=== PATIENT | male | born 1975 | race Caucasian/White ===

== ENCOUNTER 2016-11-18 16:53 | Inpatient (IN) | payer MEDICAID ==
[~2016-11-18] VITALS: Ht 175.3 cm; Wt 69.4 kg
[2016-11-18] MEDS ORDERED: ACETAMINOPHEN 650 MG/SUPP.RECT RC ONE ×2 (17:30→17:31)
[2016-11-18] MEDS ORDERED: IV NS 0.9% 1,000 ML BAG IV ONE (17:30)
[2016-11-18] MEDS ORDERED: IV NS 0.9% 2,000 ML ONE (17:31)
[2016-11-18] MEDS ORDERED: IV SET PRIMARY PUMP SET 1 EA INFUS.SET MC ONE ×2 (17:32→23:02)
[2016-11-18 17:41] LABS: BASOPHILS % (AUTO) 0.6 % (0.0-2.0); EOSINOPHILS # (AUTO) 0.3 /CMM (0.0-0.7); EOSINOPHILS % (AUTO) 4.1 % (0.0-6.0); HEMATOCRIT 30 % (39-51); HEMOGLOBIN 7.9 g/dL (13.5-17.5); LYMPHOCYTES % (AUTO) 12.6 % (20.0-44.0); MEAN CORPUSCULAR HEMOGLOBIN 23 PG (26.0-33.0); MEAN CORPUSCULAR HGB CONC 27 g/dl (31.0-36.0); MEAN CORPUSCULAR VOLUME 87 fL (80-96); MONOCYTES # (AUTO) 0.6 /CMM (0.1-1.30); MONOCYTES % (AUTO) 7.9 % (2.0-12.0); NEUTROPHILS # (AUTO) 5.8 /CMM (1.8-8.9); NEUTROPHILS % (AUTO) 74.8 % (43.0-81.0); PLATELET COUNT (AUTO) 499 /CMM (150-450); RDW COEFFICIENT OF VARIATION 15.7 (11.5-15.0); RED BLOOD CELL COUNT(AUTO) 3.45 MIL/uL (4.5-6.0); WHITE BLOOD COUNT (AUTO) 7.7 K/uL (4.3-11.0)
[2016-11-18 17:53] LABS: CALCIUM, SERUM 9.1 mg/dL (8.5-10.1); CARBON DIOXIDE 22 mmol/L (21-32); CHLORIDE 104 mmol/L (98-107); CREATININE 2.4 mg/dL (0.6-1.3); GLUCOSE 66 mg/dL (74-106); POTASSIUM 3.1 mmol/L (3.5-5.1); SODIUM SERUM 140 mmol/L (136-145); UREA NITROGEN, BLOOD 38 mg/dL (7-18)
[2016-11-18 18:02] LABS: ALANINE AMINOTRANSFERASE < 6 U/L (12-78); ALKALINE PHOSPHATASE 109 U/L (46-116); ASPARTATE AMINOTRANSFERASE 21 U/L (15-37); BILIRUBIN,DIRECT 0.1 mg/dL (0.0-0.2); BILIRUBIN,TOTAL 0.4 mg/dL (0.2-1.0); INR 1.12 (0.87-1.13); PROTHROMBIN TIME 11.8 SECS (9.5-12.7); TOTAL PROTEIN, SERUM 8.5 g/dL (6.4-8.2)
[2016-11-18 18:04] LABS: TROPONIN I 0.054 ng/mL (0.00-0.056)
[2016-11-18 18:07] LABS: APPEARANCE,URINE Slightly Cloudy (CLEAR); BILIRUBIN,URINE Negative (NEGATIVE); BLOOD, URINE Small Ery/uL (NEGATIVE); COLOR,URINE Yellow (YELLOW); KETONES,URINE Negative (NEGATIVE); LEUKOCYTE ESTERASE ,URINE Large (NEGATIVE); NITRITE, URINE Negative (NEGATIVE); PH,URINE 5.5 (5.0-8.0); PROTEIN,URINE >=300 mg/dl (NEGATIVE); UGLUCOSE Negative (NEGATIVE); UROBILINOGEN,URINE 0.2 EU/dL (0.2)
[2016-11-18] MEDS ORDERED: DEXTROSE 50%-WATER 50 ML DISP.SYRIN IVP ONE (18:30)
[2016-11-18] MEDS ORDERED: PIPERACILLIN /TAZOBACTAM 3.375 G in IV D5W 50 ML IV ONE (18:30)
[2016-11-18] MEDS ORDERED: VANCOMYCIN 1 GM in IV D5W 250 ML IV ONE (18:30)
[2016-11-18] MEDS ORDERED: DEXTROSE 50%-WATER 50 ML DISP.SYRIN ONE (18:32)
[2016-11-18 18:35] LABS: BACTERIA,URINE Many /HPF (None Seen); SQUAMOUS EPITHELIAL CELL,UR Rare /HPF (None Seen); URINE AMORPHOUS URATE Few /HPF (None Seen); WBC,URINE TOO NUMEROUS TO COUN /HPF (0-3)
[2016-11-18] MEDS ORDERED: ACET160S2 GT (19:17)
[2016-11-18] MEDS ORDERED: AMIO200T2 GT (19:17)
[2016-11-18] MEDS ORDERED: SEVE800T8 GT (19:17)
[2016-11-18] MEDS ORDERED: INSU100I4 SQ (19:17)
[2016-11-18] MEDS ORDERED: INSU100V10 SQ (19:17)
[2016-11-18] MEDS ORDERED: ASCO250T5 PO (19:17)
[2016-11-18] MEDS ORDERED: WHEY227P GT (19:17)
[2016-11-18] MEDS ORDERED: FLUC100T GT (19:17)
[2016-11-18] MEDS ORDERED: PANT40TA2 GT (19:17)
[2016-11-18] MEDS ORDERED: DIGO125T GT (19:17)
[2016-11-18] MEDS ORDERED: GEMF600T GT (19:17)
[2016-11-18] MEDS ORDERED: ATOR40TA GT (19:17)
[2016-11-18] MEDS ORDERED: MIDO10TA GT (19:17)
[2016-11-18] MEDS ORDERED: ZINC220T GT (19:17)
[2016-11-18] MEDS ORDERED: FERR300L GT (19:17)
[2016-11-18 20:50] LABS: ABG BASE EXCESS -4.7 mmol/L; ABG OXYGEN SATURATION 97.7 % (92.0-98.5); ABG PCO2 27.3 mmHg (35.0-45.0); ABG PH 7.444 (7.350-7.450); ABG PO2 111.9 mmHg (75.0-100.0); AaDO2 141.9 mmHg; COHb 0.3 % (0.5-1.5); MetHb 0.5 % (0.0-1.5); O2Hb 96.9 % (94.0-97.0); SITE, ABG Right Brachial
[2016-11-18] MEDS ORDERED: IV NS 0.9% 1,000 ML IV PRN (21:10)
[2016-11-18 21:15] VITALS: BP 99/65
[2016-11-18] MEDS ORDERED: Z GUARD REMEDY 2 OZ OINT TP PRN (21:30)
[2016-11-18] MEDS ORDERED: ONDANSETRON HCL/PF 4 MG/2 ML VIAL IVP PRN (21:30)
[2016-11-18] MEDS ORDERED: DEXTROSE 50%-WATER 50 ML DISP.SYRIN IV PRN (21:30)
[2016-11-18] MEDS ORDERED: IV NS 0.9% 50 ML IV ONE (23:02)
[2016-11-18] MEDS ORDERED: ATORVASTATIN 40 MG TABLET ONE (23:02)
[2016-11-18] MEDS ORDERED: SECONDARY IV SET 1 EA INFUS.SET MC ONE (23:02)
[2016-11-18] MEDS ORDERED: IV NS 0.9% 1,000 ML ONE (23:02)
[2016-11-18] MEDS ORDERED: MEROPENEM 500 MG VIAL IV ONE (23:18)
[2016-11-18] MEDS: ATORVASTATIN 40 MG TABLET GT SCH (23:21)
[2016-11-18] MEDS: BLOOD SUGAR DIAGNOSTIC 1 EACH STRIP IN SCH (23:30)
[2016-11-18] MEDS: MEROPENEM 500 MG in IV NS 0.9% 50 ML IV SCH (23:32)
[2016-11-19] VITALS (7 sets, daily range): BP systolic 89–113; BP diastolic 42–95
[2016-11-19] MEDS ORDERED: RENAL NOVASOURCE 1,000 ML BOTTLE GT PRN ×2 (01:30→08:19)
[2016-11-19] MEDS ORDERED: RENAL NOVASOURCE 1,000 ML BOTTLE ONE (01:31)
[2016-11-19] MEDS ORDERED: FERROUS SULFATE UDC 300 MG/5 ML UDC ONE (04:34)
[2016-11-19] MEDS ORDERED: IV NS 0.9% 50 ML IV ONE (05:18)
[2016-11-19] MEDS: FERROUS SULFATE UDC 300 MG/5 ML UDC GT SCH ×3 (05:22→20:59)
[2016-11-19] MEDS: MEROPENEM 500 MG in IV NS 0.9% 50 ML IV SCH (05:23)
[2016-11-19] MEDS: BLOOD SUGAR DIAGNOSTIC 1 EACH STRIP IN SCH ×3 (05:44→17:36)
[2016-11-19] MEDS: INSULIN REGULAR, HUMAN 100 UNIT/ML 3 ML VIAL SQ PRN ×2 (05:46→12:57)
[2016-11-19 06:54] LABS: BASOPHILS % (AUTO) 0.5 % (0.0-2.0); EOSINOPHILS # (AUTO) 0.3 /CMM (0.0-0.7); HEMATOCRIT 24 % (39-51); HEMOGLOBIN 8.1 g/dL (13.5-17.5); LYMPHOCYTES # (AUTO) 0.7 /CMM (0.8-4.8); LYMPHOCYTES % (AUTO) 8.9 % (20.0-44.0); MEAN CORPUSCULAR HEMOGLOBIN 29 PG (26.0-33.0); MEAN CORPUSCULAR HGB CONC 34 g/dl (31.0-36.0); MEAN CORPUSCULAR VOLUME 86 fL (80-96); MONOCYTES # (AUTO) 0.6 /CMM (0.1-1.30); MONOCYTES % (AUTO) 6.7 % (2.0-12.0); NEUTROPHILS # (AUTO) 6.8 /CMM (1.8-8.9); NEUTROPHILS % (AUTO) 80.9 % (43.0-81.0); PLATELET COUNT (AUTO) 249 /CMM (150-450); RDW COEFFICIENT OF VARIATION 16.2 (11.5-15.0); WHITE BLOOD COUNT (AUTO) 8.4 K/uL (4.3-11.0)
[2016-11-19 07:04] LABS: CALCIUM, SERUM 8.5 mg/dL (8.5-10.1); CREATININE 3.3 mg/dL (0.6-1.3); MAGNESIUM 1.9 mg/dL (1.8-2.4); PHOSPHORUS 3.4 mg/dL (2.5-4.9); POTASSIUM 3.4 mmol/L (3.5-5.1)
[2016-11-19 07:09] LABS: THYROID STIMULATING HORMONE 0.761 uIU/mL (0.358-3.74)
[2016-11-19] MEDS ORDERED: FEE PK DOSING 1 MIN EA MC ONE (08:46)
[2016-11-19] MEDS ORDERED: GEMFIBROZIL 600 MG TABLET GT SCH (09:00)
[2016-11-19] MEDS ORDERED: HYDROGEL DRESSING 90 GM TUBE TP PRN (09:00)
[2016-11-19] MEDS ORDERED: AMIODARONE HCL 200 MG TABLET GT SCH (09:00)
[2016-11-19] MEDS ORDERED: PANTOPRAZOLE 40 MG TABLET.DR PO SCH (09:00)
[2016-11-19] MEDS: SEVELAMER CARBONATE 0.8 GM POWD.PACK GT SCH ×3 (09:08→17:37)
[2016-11-19] MEDS: HYDROGEL DRESSING 90 GM TUBE TP SCH (09:10)
[2016-11-19] MEDS: ACETAMINOPHEN 650 MG/20.3 ML UDC PO PRN ×2 (13:05→20:59)
[2016-11-19] MEDS ORDERED: DEXTROSE 50%-WATER 50 ML DISP.SYRIN IV PRN (13:30)
[2016-11-19] MEDS ORDERED: FLUCONAZOLE (100 MG) 100 MG TABLET GT SCH (15:00)
[2016-11-19] MEDS: ASPIRIN 81 MG TAB.CHEW GT SCH (15:53)
[2016-11-19] MEDS ORDERED: VANCOMYCIN 500 MG in IV D5W 100 ML IV PRN (16:00)
[2016-11-19] MEDS ORDERED: CASPOFUNGIN 50 MG in IV NS 0.9% 250 ML IV SCH (17:00)
[2016-11-19] MEDS ORDERED: DOSE PER PHARMACY MICAFUNGIN 1 EA XX PRN (17:00)
[2016-11-19] MEDS: MICAFUNGIN SODIUM 100 MG in IV NS 0.9% 100 ML IV SCH (17:56)
[2016-11-19] MEDS: ATORVASTATIN 40 MG TABLET GT SCH (21:00)
[2016-11-19] MEDS: HEPARIN SODIUM, PORCINE 5000 UNITS/1 ML VIAL SQ SCH (21:00)
[2016-11-20] VITALS (15 sets, daily range): BP systolic 94–136; BP diastolic 45–98
[2016-11-20] MEDS ORDERED: IV NS 0.9% 250 ML IV ONE ×2 (00:04→15:24)
[2016-11-20] MEDS: BLOOD SUGAR DIAGNOSTIC 1 EACH STRIP IN SCH ×5 (00:29→23:47)
[2016-11-20] MEDS: FERROUS SULFATE UDC 300 MG/5 ML UDC GT SCH ×3 (05:36→21:44)
[2016-11-20] MEDS: RENAL NOVASOURCE 1,000 ML BOTTLE GT PRN (05:43)
[2016-11-20 06:57] LABS: BASOPHILS % (AUTO) 0.4 % (0.0-2.0); EOSINOPHILS # (AUTO) 0.4 /CMM (0.0-0.7); EOSINOPHILS % (AUTO) 5.3 % (0.0-6.0); HEMATOCRIT 22 % (39-51); HEMOGLOBIN 7.5 g/dL (13.5-17.5); MEAN CORPUSCULAR HEMOGLOBIN 29 PG (26.0-33.0); MEAN CORPUSCULAR HGB CONC 34 g/dl (31.0-36.0); MEAN CORPUSCULAR VOLUME 86 fL (80-96); MONOCYTES # (AUTO) 0.5 /CMM (0.1-1.30); MONOCYTES % (AUTO) 7.8 % (2.0-12.0); NEUTROPHILS # (AUTO) 4.9 /CMM (1.8-8.9); NEUTROPHILS % (AUTO) 72.5 % (43.0-81.0); PLATELET COUNT (AUTO) 196 /CMM (150-450); RDW COEFFICIENT OF VARIATION 15.9 (11.5-15.0); WHITE BLOOD COUNT (AUTO) 6.8 K/uL (4.3-11.0)
[2016-11-20 07:07] LABS: CALCIUM, SERUM 8.7 mg/dL (8.5-10.1); CREATININE 3.1 mg/dL (0.6-1.3); POTASSIUM 3.4 mmol/L (3.5-5.1)
[2016-11-20 07:10] LABS: DIGOXIN 1.5 ng/mL (0.90-2.00)
[2016-11-20] MEDS: HEPARIN SODIUM, PORCINE 5000 UNITS/1 ML VIAL SQ SCH ×2 (07:52→21:45)
[2016-11-20] MEDS: MEROPENEM 500 MG in IV NS 0.9% 50 ML IV SCH (08:14)
[2016-11-20] MEDS: AMIODARONE HCL 200 MG TABLET PO SCH (08:15)
[2016-11-20] MEDS: VIT B CMPLX 3/FA/VIT C/BIOTIN 1 TAB TABLET GT SCH (08:15)
[2016-11-20] MEDS: PANTOPRAZOLE 40 MG/PACK PACK GT SCH (08:15)
[2016-11-20] MEDS: SEVELAMER CARBONATE 0.8 GM POWD.PACK GT SCH ×3 (08:15→17:20)
[2016-11-20] MEDS: ASPIRIN 81 MG TAB.CHEW GT SCH (08:15)
[2016-11-20] MEDS: HYDROGEL DRESSING 90 GM TUBE TP SCH (08:16)
[2016-11-20] MEDS ORDERED: DIGOXIN 0.125 MG TABLET GT SCH (09:00)
[2016-11-20] MEDS ORDERED: BLOOD IV SET 1 EA INFUS.SET MC ONE (15:24)
[2016-11-20] MEDS: LACTOBACILLUS RHAMNOSUS GG 1 EACH CAP.SPRINK GT SCH (17:20)
[2016-11-20] MEDS: INSULIN REGULAR, HUMAN 100 UNIT/ML 3 ML VIAL SQ PRN (17:22)
[2016-11-20] MEDS ORDERED: SECONDARY IV SET 1 EA INFUS.SET MC ONE (18:13)
[2016-11-20] MEDS: MICAFUNGIN SODIUM 100 MG in IV NS 0.9% 100 ML IV SCH (18:19)
[2016-11-20] MEDS: ATORVASTATIN 40 MG TABLET GT SCH (21:45)
[2016-11-20] MEDS: HYDROCODONE/APAP 5/325MG 1 EACH TABLET PO PRN (22:55)
[2016-11-21] VITALS (7 sets, daily range): BP systolic 90–148; BP diastolic 33–99
[2016-11-21] MEDS: HYDROCODONE/APAP 5/325MG 1 EACH TABLET PO PRN ×4 (04:34→23:54)
[2016-11-21] MEDS: RENAL NOVASOURCE 1,000 ML BOTTLE GT PRN (05:58)
[2016-11-21] MEDS: FERROUS SULFATE UDC 300 MG/5 ML UDC GT SCH ×3 (05:59→21:33)
[2016-11-21] MEDS: BLOOD SUGAR DIAGNOSTIC 1 EACH STRIP IN SCH ×4 (06:13→23:47)
[2016-11-21] MEDS: INSULIN REGULAR, HUMAN 100 UNIT/ML 3 ML VIAL SQ PRN ×3 (06:15→17:41)
[2016-11-21 07:12] LABS: BASOPHILS % (AUTO) 0.5 % (0.0-2.0); EOSINOPHILS # (AUTO) 0.3 /CMM (0.0-0.7); EOSINOPHILS % (AUTO) 4.8 % (0.0-6.0); HEMATOCRIT 25 % (39-51); HEMOGLOBIN 8.5 g/dL (13.5-17.5); LYMPHOCYTES # (AUTO) 0.9 /CMM (0.8-4.8); MEAN CORPUSCULAR HEMOGLOBIN 29 PG (26.0-33.0); MEAN CORPUSCULAR HGB CONC 34 g/dl (31.0-36.0); MEAN CORPUSCULAR VOLUME 86 fL (80-96); MONOCYTES # (AUTO) 0.4 /CMM (0.1-1.30); MONOCYTES % (AUTO) 6.3 % (2.0-12.0); NEUTROPHILS # (AUTO) 5.1 /CMM (1.8-8.9); NEUTROPHILS % (AUTO) 75.4 % (43.0-81.0); PLATELET COUNT (AUTO) 214 /CMM (150-450); RDW COEFFICIENT OF VARIATION 15.3 (11.5-15.0); RED BLOOD CELL COUNT(AUTO) 2.91 MIL/uL (4.5-6.0); WHITE BLOOD COUNT (AUTO) 6.8 K/uL (4.3-11.0)
[2016-11-21 07:28] LABS: CALCIUM, SERUM 8.6 mg/dL (8.5-10.1); CREATININE 3.4 mg/dL (0.6-1.3); POTASSIUM 3.4 mmol/L (3.5-5.1)
[2016-11-21] MEDS: AMIODARONE HCL 200 MG TABLET PO SCH (09:00)
[2016-11-21] MEDS: HEPARIN SODIUM, PORCINE 5000 UNITS/1 ML VIAL SQ SCH ×2 (09:00→21:33)
[2016-11-21] MEDS: PANTOPRAZOLE 40 MG/PACK PACK GT SCH (09:00)
[2016-11-21] MEDS: SEVELAMER CARBONATE 0.8 GM POWD.PACK GT SCH ×3 (09:00→17:35)
[2016-11-21] MEDS: VIT B CMPLX 3/FA/VIT C/BIOTIN 1 TAB TABLET GT SCH (09:01)
[2016-11-21] MEDS: LACTOBACILLUS RHAMNOSUS GG 1 EACH CAP.SPRINK GT SCH ×2 (09:01→16:35)
[2016-11-21] MEDS: ASPIRIN 81 MG TAB.CHEW GT SCH (09:01)
[2016-11-21] MEDS: MEROPENEM 500 MG in IV NS 0.9% 50 ML IV SCH (09:02)
[2016-11-21] MEDS: HYDROGEL DRESSING 90 GM TUBE TP SCH (09:03)
[2016-11-21] MEDS ORDERED: IV NS 0.9% 250 ML IV ONE (14:51)
[2016-11-21] MEDS ORDERED: EPOETIN ALFA (10,000 UNIT) 10,000 UNIT/ML VIAL IV ONE (15:00)
[2016-11-21] MEDS: MICAFUNGIN SODIUM 100 MG in IV NS 0.9% 100 ML IV SCH (18:12)
[2016-11-21] MEDS: ATORVASTATIN 40 MG TABLET GT SCH (21:33)
[2016-11-21] MEDS: ACETAMINOPHEN 650 MG/20.3 ML UDC PO PRN (23:54)
[2016-11-22] VITALS: BP 131/82
[2016-11-22 04:00] VITALS: BP 124/78
[2016-11-22] MEDS: FERROUS SULFATE UDC 300 MG/5 ML UDC GT SCH ×3 (05:20→20:08)
[2016-11-22] MEDS: HYDROCODONE/APAP 5/325MG 1 EACH TABLET PO PRN (05:21)
[2016-11-22] MEDS: RENAL NOVASOURCE 1,000 ML BOTTLE GT PRN (05:22)
[2016-11-22] MEDS: BLOOD SUGAR DIAGNOSTIC 1 EACH STRIP IN SCH ×4 (05:35→23:12)
[2016-11-22 08:00] VITALS: BP 121/69
[2016-11-22] MEDS: SEVELAMER CARBONATE 0.8 GM POWD.PACK GT SCH ×3 (08:34→18:08)
[2016-11-22] MEDS: HEPARIN SODIUM, PORCINE 5000 UNITS/1 ML VIAL SQ SCH ×2 (08:35→20:09)
[2016-11-22] MEDS: AMIODARONE HCL 200 MG TABLET PO SCH (08:35)
[2016-11-22] MEDS: ASPIRIN 81 MG TAB.CHEW GT SCH (08:36)
[2016-11-22] MEDS: LACTOBACILLUS RHAMNOSUS GG 1 EACH CAP.SPRINK GT SCH ×2 (08:36→18:09)
[2016-11-22] MEDS: PANTOPRAZOLE 40 MG/PACK PACK GT SCH (08:36)
[2016-11-22] MEDS: VIT B CMPLX 3/FA/VIT C/BIOTIN 1 TAB TABLET GT SCH (08:36)
[2016-11-22] MEDS: HYDROGEL DRESSING 90 GM TUBE TP SCH (08:37)
[2016-11-22] MEDS: DIGOXIN 0.125 MG TABLET GT SCH (08:37)
[2016-11-22] MEDS: MEROPENEM 500 MG in IV NS 0.9% 50 ML IV SCH (08:39)
[2016-11-22] MEDS: ACETAMINOPHEN 650 MG/20.3 ML UDC PO PRN ×3 (11:27→20:08)
[2016-11-22 12:00] VITALS: BP 134/78
[2016-11-22] MEDS: INSULIN REGULAR, HUMAN 100 UNIT/ML 3 ML VIAL SQ PRN ×3 (12:51→23:14)
[2016-11-22 16:00] VITALS: BP 134/52
[2016-11-22] MEDS ORDERED: SECONDARY IV SET 1 EA INFUS.SET MC ONE (18:03)
[2016-11-22] MEDS: COLISTIMETHATE SODIUM 100 MG in IV NS 0.9% 50 ML IV SCH (18:09)
[2016-11-22] MEDS: MICAFUNGIN SODIUM 100 MG in IV NS 0.9% 100 ML IV SCH (18:54)
[2016-11-22 20:00] VITALS: BP 113/71
[2016-11-22] MEDS: ATORVASTATIN 40 MG TABLET GT SCH (22:30)
[2016-11-23] VITALS (7 sets, daily range): BP systolic 88–127; BP diastolic 50–81
[2016-11-23] MEDS ORDERED: IV SET PRIMARY PUMP SET 1 EA INFUS.SET MC ONE (03:51)
[2016-11-23] MEDS ORDERED: SECONDARY IV SET 1 EA INFUS.SET MC ONE (03:51)
[2016-11-23] MEDS: FERROUS SULFATE UDC 300 MG/5 ML UDC GT SCH ×3 (04:04→20:31)
[2016-11-23] MEDS: RENAL NOVASOURCE 1,000 ML BOTTLE GT PRN (04:04)
[2016-11-23] MEDS: INSULIN REGULAR, HUMAN 100 UNIT/ML 3 ML VIAL SQ PRN ×3 (05:24→17:35)
[2016-11-23] MEDS: BLOOD SUGAR DIAGNOSTIC 1 EACH STRIP IN SCH ×3 (05:25→17:36)
[2016-11-23 07:49] LABS: CALCIUM, SERUM 9.1 mg/dL (8.5-10.1); CREATININE 2.7 mg/dL (0.6-1.3); POTASSIUM 3.5 mmol/L (3.5-5.1)
[2016-11-23] MEDS: SEVELAMER CARBONATE 0.8 GM POWD.PACK GT SCH ×3 (08:38→17:30)
[2016-11-23] MEDS: PANTOPRAZOLE 40 MG/PACK PACK GT SCH (08:39)
[2016-11-23] MEDS: AMIODARONE HCL 200 MG TABLET PO SCH (08:39)
[2016-11-23] MEDS: ASPIRIN 81 MG TAB.CHEW GT SCH (08:39)
[2016-11-23] MEDS: VIT B CMPLX 3/FA/VIT C/BIOTIN 1 TAB TABLET GT SCH (08:39)
[2016-11-23] MEDS: LACTOBACILLUS RHAMNOSUS GG 1 EACH CAP.SPRINK GT SCH ×2 (08:39→16:23)
[2016-11-23] MEDS: HEPARIN SODIUM, PORCINE 5000 UNITS/1 ML VIAL SQ SCH ×2 (08:40→20:32)
[2016-11-23] MEDS: HYDROGEL DRESSING 90 GM TUBE TP SCH (08:41)
[2016-11-23] MEDS: ACETAMINOPHEN 650 MG/20.3 ML UDC PO PRN (14:35)
[2016-11-23] MEDS: COLISTIMETHATE SODIUM 100 MG in IV NS 0.9% 50 ML IV SCH (16:23)
[2016-11-23] MEDS ORDERED: FEE PK DOSING 1 MIN EA MC ONE (16:55)
[2016-11-23] MEDS ORDERED: AMIKACIN 400 MG in IV D5W 100 ML IV PRN (17:00)
[2016-11-23] MEDS ORDERED: DOSING PER PHARMACY-AMIKACI IV XX PRN (17:00)
[2016-11-23] MEDS ORDERED: AMIKACIN 400 MG in IV D5W 100 ML IV ONE (17:00)
[2016-11-23] MEDS: LINEZOLID RTU BAG 600 MG in PREMIX 1 EA IV SCH (17:30)
[2016-11-23] MEDS: MICAFUNGIN SODIUM 100 MG in IV NS 0.9% 100 ML IV SCH (17:53)
[2016-11-23] MEDS: ATORVASTATIN 40 MG TABLET GT SCH (21:59)
[2016-11-24] VITALS: BP 100/55
[2016-11-24] MEDS: BLOOD SUGAR DIAGNOSTIC 1 EACH STRIP IN SCH ×4 (00:10→17:57)
[2016-11-24] MEDS: INSULIN REGULAR, HUMAN 100 UNIT/ML 3 ML VIAL SQ PRN ×3 (00:15→13:11)
[2016-11-24] MEDS: RENAL NOVASOURCE 1,000 ML BOTTLE GT PRN (00:16)
[2016-11-24 04:00] VITALS: BP 97/63
[2016-11-24] MEDS: FERROUS SULFATE UDC 300 MG/5 ML UDC GT SCH ×3 (04:14→21:23)
[2016-11-24 07:14] LABS: BASOPHILS % (AUTO) 0.5 % (0.0-2.0); EOSINOPHILS # (AUTO) 0.3 /CMM (0.0-0.7); EOSINOPHILS % (AUTO) 3.3 % (0.0-6.0); HEMATOCRIT 23 % (39-51); HEMOGLOBIN 7.9 g/dL (13.5-17.5); LYMPHOCYTES # (AUTO) 1.4 /CMM (0.8-4.8); LYMPHOCYTES % (AUTO) 15.6 % (20.0-44.0); MEAN CORPUSCULAR HEMOGLOBIN 29 PG (26.0-33.0); MEAN CORPUSCULAR HGB CONC 34 g/dl (31.0-36.0); MEAN CORPUSCULAR VOLUME 86 fL (80-96); MONOCYTES # (AUTO) 0.6 /CMM (0.1-1.30); MONOCYTES % (AUTO) 6.5 % (2.0-12.0); NEUTROPHILS # (AUTO) 6.9 /CMM (1.8-8.9); NEUTROPHILS % (AUTO) 74.1 % (43.0-81.0); PLATELET COUNT (AUTO) 251 /CMM (150-450); RDW COEFFICIENT OF VARIATION 15.6 (11.5-15.0); RED BLOOD CELL COUNT(AUTO) 2.69 MIL/uL (4.5-6.0); WHITE BLOOD COUNT (AUTO) 9.3 K/uL (4.3-11.0)
[2016-11-24 07:31] LABS: CALCIUM, SERUM 8.8 mg/dL (8.5-10.1); CREATININE 3.5 mg/dL (0.6-1.3); POTASSIUM 3.4 mmol/L (3.5-5.1)
[2016-11-24 08:00] VITALS: BP 91/48
[2016-11-24] MEDS: AMIODARONE HCL 200 MG TABLET PO SCH (09:00)
[2016-11-24] MEDS: HEPARIN SODIUM, PORCINE 5000 UNITS/1 ML VIAL SQ SCH ×2 (09:30→22:36)
[2016-11-24] MEDS: SEVELAMER CARBONATE 0.8 GM POWD.PACK GT SCH ×3 (09:30→17:01)
[2016-11-24] MEDS: ASPIRIN 81 MG TAB.CHEW GT SCH (09:30)
[2016-11-24] MEDS: LACTOBACILLUS RHAMNOSUS GG 1 EACH CAP.SPRINK GT SCH ×2 (09:30→16:38)
[2016-11-24] MEDS: LINEZOLID RTU BAG 600 MG in PREMIX 1 EA IV SCH ×2 (09:30→21:29)
[2016-11-24] MEDS: PANTOPRAZOLE 40 MG/PACK PACK GT SCH (09:30)
[2016-11-24] MEDS: DIGOXIN 0.125 MG TABLET GT SCH (09:31)
[2016-11-24] MEDS: HYDROGEL DRESSING 90 GM TUBE TP SCH (09:32)
[2016-11-24] MEDS: VIT B CMPLX 3/FA/VIT C/BIOTIN 1 TAB TABLET GT SCH (09:32)
[2016-11-24 12:00] VITALS: BP 106/68
[2016-11-24 16:00] VITALS: BP_SYST 109; BP_SYST 97; BP_DIAS 42; BP_DIAS 58
[2016-11-24] MEDS ORDERED: SECONDARY IV SET 1 EA INFUS.SET MC ONE (16:04)
[2016-11-24] MEDS: COLISTIMETHATE SODIUM 100 MG in IV NS 0.9% 50 ML IV SCH (16:22)
[2016-11-24] MEDS: MICAFUNGIN SODIUM 100 MG in IV NS 0.9% 100 ML IV SCH (17:01)
[2016-11-24 20:00] VITALS: BP 115/71
[2016-11-24] MEDS: ATORVASTATIN 40 MG TABLET GT SCH (21:23)
[2016-11-25] VITALS (11 sets, daily range): BP systolic 100–120; BP diastolic 61–75
[2016-11-25] MEDS: BLOOD SUGAR DIAGNOSTIC 1 EACH STRIP IN SCH ×5 (00:28→23:23)
[2016-11-25] MEDS: INSULIN REGULAR, HUMAN 100 UNIT/ML 3 ML VIAL SQ PRN ×3 (00:30→17:25)
[2016-11-25] MEDS ORDERED: IV NS 0.9% 250 ML IV ONE ×2 (05:16→16:46)
[2016-11-25] MEDS: FERROUS SULFATE UDC 300 MG/5 ML UDC GT SCH ×3 (05:32→21:35)
[2016-11-25] MEDS: RENAL NOVASOURCE 1,000 ML BOTTLE GT PRN (05:32)
[2016-11-25 06:54] LABS: BASOPHILS % (AUTO) 0.3 % (0.0-2.0); EOSINOPHILS # (AUTO) 0.4 /CMM (0.0-0.7); EOSINOPHILS % (AUTO) 4.8 % (0.0-6.0); HEMATOCRIT 21 % (39-51); HEMOGLOBIN 7.2 g/dL (13.5-17.5); LYMPHOCYTES # (AUTO) 1.1 /CMM (0.8-4.8); MEAN CORPUSCULAR HEMOGLOBIN 29 PG (26.0-33.0); MEAN CORPUSCULAR HGB CONC 34 g/dl (31.0-36.0); MEAN CORPUSCULAR VOLUME 86 fL (80-96); MONOCYTES # (AUTO) 0.5 /CMM (0.1-1.30); MONOCYTES % (AUTO) 5.5 % (2.0-12.0); NEUTROPHILS % (AUTO) 77.4 % (43.0-81.0); PLATELET COUNT (AUTO) 278 /CMM (150-450); RDW COEFFICIENT OF VARIATION 15.8 (11.5-15.0); RED BLOOD CELL COUNT(AUTO) 2.47 MIL/uL (4.5-6.0)
[2016-11-25 07:02] LABS: CREATININE 2.8 mg/dL (0.6-1.3); POTASSIUM 3.2 mmol/L (3.5-5.1)
[2016-11-25] MEDS: LINEZOLID RTU BAG 600 MG in PREMIX 1 EA IV SCH (08:41)
[2016-11-25] MEDS: LACTOBACILLUS RHAMNOSUS GG 1 EACH CAP.SPRINK GT SCH ×2 (08:41→17:08)
[2016-11-25] MEDS: SEVELAMER CARBONATE 0.8 GM POWD.PACK GT SCH ×3 (08:41→17:08)
[2016-11-25] MEDS: ASPIRIN 81 MG TAB.CHEW GT SCH (08:41)
[2016-11-25] MEDS: PANTOPRAZOLE 40 MG/PACK PACK GT SCH (08:41)
[2016-11-25] MEDS: AMIODARONE HCL 200 MG TABLET PO SCH (08:42)
[2016-11-25] MEDS: VIT B CMPLX 3/FA/VIT C/BIOTIN 1 TAB TABLET GT SCH (08:42)
[2016-11-25] MEDS: HEPARIN SODIUM, PORCINE 5000 UNITS/1 ML VIAL SQ SCH ×2 (08:52→21:37)
[2016-11-25] MEDS: HYDROGEL DRESSING 90 GM TUBE TP SCH (09:44)
[2016-11-25] MEDS: COLISTIMETHATE SODIUM 100 MG in IV NS 0.9% 50 ML IV SCH (15:35)
[2016-11-25] MEDS ORDERED: BLOOD IV SET 1 EA INFUS.SET MC ONE (16:46)
[2016-11-25] MEDS: MICAFUNGIN SODIUM 100 MG in IV NS 0.9% 100 ML IV SCH (17:08)
[2016-11-25] MEDS: ATORVASTATIN 40 MG TABLET GT SCH (21:36)
[2016-11-25] MEDS: LINEZOLID 600 MG TABLET GT SCH (21:36)
[2016-11-25 22:24] LABS: HEMOGLOBIN 7.8 g/dL (13.5-17.5)
[2016-11-26] VITALS: BP 116/76
[2016-11-26 04:00] VITALS: BP 101/64
[2016-11-26] MEDS ORDERED: IV NS 0.9% 250 ML IV ONE (04:59)
[2016-11-26] MEDS: BLOOD SUGAR DIAGNOSTIC 1 EACH STRIP IN SCH ×3 (05:18→17:14)
[2016-11-26] MEDS: FERROUS SULFATE UDC 300 MG/5 ML UDC GT SCH ×3 (05:18→21:49)
[2016-11-26] MEDS: RENAL NOVASOURCE 1,000 ML BOTTLE GT PRN (05:58)
[2016-11-26 06:33] LABS: BASOPHILS % (AUTO) 0.3 % (0.0-2.0); EOSINOPHILS # (AUTO) 0.4 /CMM (0.0-0.7); EOSINOPHILS % (AUTO) 5.2 % (0.0-6.0); HEMATOCRIT 22 % (39-51); HEMOGLOBIN 7.7 g/dL (13.5-17.5); LYMPHOCYTES # (AUTO) 1.5 /CMM (0.8-4.8); LYMPHOCYTES % (AUTO) 19.3 % (20.0-44.0); MEAN CORPUSCULAR HEMOGLOBIN 30 PG (26.0-33.0); MEAN CORPUSCULAR HGB CONC 34 g/dl (31.0-36.0); MEAN CORPUSCULAR VOLUME 86 fL (80-96); MONOCYTES # (AUTO) 0.5 /CMM (0.1-1.30); MONOCYTES % (AUTO) 5.8 % (2.0-12.0); NEUTROPHILS # (AUTO) 5.4 /CMM (1.8-8.9); NEUTROPHILS % (AUTO) 69.4 % (43.0-81.0); PLATELET COUNT (AUTO) 255 /CMM (150-450); RDW COEFFICIENT OF VARIATION 15.6 (11.5-15.0); RED BLOOD CELL COUNT(AUTO) 2.58 MIL/uL (4.5-6.0); WHITE BLOOD COUNT (AUTO) 7.8 K/uL (4.3-11.0)
[2016-11-26 06:54] LABS: ALBUMIN 1.6 g/dL (3.4-5.0); BILIRUBIN,TOTAL 0.3 mg/dL (0.2-1.0); CALCIUM, SERUM 8.3 mg/dL (8.5-10.1); POTASSIUM 3.2 mmol/L (3.5-5.1); TOTAL PROTEIN, SERUM 7.2 g/dL (6.4-8.2)
[2016-11-26 08:00] VITALS: BP 112/71
[2016-11-26] MEDS: LINEZOLID 600 MG TABLET GT SCH ×2 (08:31→21:49)
[2016-11-26] MEDS: ASPIRIN 81 MG TAB.CHEW GT SCH (08:31)
[2016-11-26] MEDS: SEVELAMER CARBONATE 0.8 GM POWD.PACK GT SCH ×3 (08:31→17:14)
[2016-11-26] MEDS: LACTOBACILLUS RHAMNOSUS GG 1 EACH CAP.SPRINK GT SCH ×2 (08:32→17:14)
[2016-11-26] MEDS: PANTOPRAZOLE 40 MG/PACK PACK GT SCH (08:32)
[2016-11-26] MEDS: DIGOXIN 0.125 MG TABLET GT SCH (08:32)
[2016-11-26] MEDS: VIT B CMPLX 3/FA/VIT C/BIOTIN 1 TAB TABLET GT SCH (08:32)
[2016-11-26] MEDS: AMIODARONE HCL 200 MG TABLET PO SCH (08:32)
[2016-11-26] MEDS: HEPARIN SODIUM, PORCINE 5000 UNITS/1 ML VIAL SQ SCH ×3 (08:33→21:52)
[2016-11-26] MEDS: HYDROGEL DRESSING 90 GM TUBE TP SCH (08:34)
[2016-11-26] MEDS: INSULIN REGULAR, HUMAN 100 UNIT/ML 3 ML VIAL SQ PRN (11:39)
[2016-11-26 12:00] VITALS: BP 114/74
[2016-11-26] MEDS: COLISTIMETHATE SODIUM 100 MG in IV NS 0.9% 50 ML IV SCH (15:30)
[2016-11-26 16:00] VITALS: BP 115/70
[2016-11-26] MEDS: MICAFUNGIN SODIUM 100 MG in IV NS 0.9% 100 ML IV SCH (17:14)
[2016-11-26 20:00] VITALS: BP 95/58
[2016-11-26] MEDS: ATORVASTATIN 40 MG TABLET GT SCH (21:49)
[2016-11-27] VITALS: BP 90/54
[2016-11-27] MEDS: BLOOD SUGAR DIAGNOSTIC 1 EACH STRIP IN SCH ×4 (00:16→17:28)
[2016-11-27] MEDS: INSULIN REGULAR, HUMAN 100 UNIT/ML 3 ML VIAL SQ PRN ×3 (00:17→17:33)
[2016-11-27] MEDS: ACETAMINOPHEN 650 MG/20.3 ML UDC PO PRN (00:19)
[2016-11-27 04:00] VITALS: BP 96/57
[2016-11-27] MEDS: FERROUS SULFATE UDC 300 MG/5 ML UDC GT SCH ×2 (05:00→12:09)
[2016-11-27 08:00] VITALS: BP 123/73
[2016-11-27 08:00] LABS: CALCIUM, SERUM 8.5 mg/dL (8.5-10.1); CREATININE 2.6 mg/dL (0.6-1.3); POTASSIUM 3.1 mmol/L (3.5-5.1)
[2016-11-27] MEDS: LACTOBACILLUS RHAMNOSUS GG 1 EACH CAP.SPRINK GT SCH ×2 (08:19→17:28)
[2016-11-27] MEDS: PANTOPRAZOLE 40 MG/PACK PACK GT SCH (08:19)
[2016-11-27] MEDS: AMIODARONE HCL 200 MG TABLET PO SCH (08:19)
[2016-11-27] MEDS: SEVELAMER CARBONATE 0.8 GM POWD.PACK GT SCH ×3 (08:19→17:28)
[2016-11-27] MEDS: LINEZOLID 600 MG TABLET GT SCH (08:19)
[2016-11-27] MEDS: ASPIRIN 81 MG TAB.CHEW GT SCH (08:19)
[2016-11-27] MEDS: VIT B CMPLX 3/FA/VIT C/BIOTIN 1 TAB TABLET GT SCH (08:19)
[2016-11-27] MEDS: HEPARIN SODIUM, PORCINE 5000 UNITS/1 ML VIAL SQ SCH (08:22)
[2016-11-27] MEDS: HYDROGEL DRESSING 90 GM TUBE TP SCH (08:27)
[2016-11-27 12:00] VITALS: BP_SYST 106; BP_SYST 123; BP_DIAS 71; BP_DIAS 73
[2016-11-27 16:00] VITALS: BP 112/74
[2016-11-27] MEDS: COLISTIMETHATE SODIUM 100 MG in IV NS 0.9% 50 ML IV SCH (16:23)
[2016-11-27] MEDS: HYDROCODONE/APAP 5/325MG 1 EACH TABLET PO PRN (17:30)
[2016-11-27] MEDS: MICAFUNGIN SODIUM 100 MG in IV NS 0.9% 100 ML IV SCH (17:31)
[2016-11-27 20:00] VITALS: BP 104/54
== END 2016-11-27 21:50 | DRG 130 ==
LOC: ER 16:55 → TELE-TD 20:24 → TELE1 11-20 09:14
PROC: 5A1955Z Respiratory Ventilation, Greater than 96 Consecutive Hours (ICD-10-PCS; principal; 2016-11-18)
PROC: 5A1D60Z (ICD-10-PCS; 2016-11-19)
PROC: 30233N1 Transfusion of Nonautologous Red Blood Cells into Peripheral Vein, Percutaneous Approach (ICD-10-PCS; 2016-11-20)
DX: J95.851 Ventilator associated pneumonia (principal); I21.4 Non-ST elevation (NSTEMI) myocardial infarction; R65.21 Severe sepsis with septic shock; A41.9 Sepsis, unspecified organism; E43 Unspecified severe protein-calorie malnutrition; G93.40 Encephalopathy, unspecified; J96.21 Acute and chronic respiratory failure with hypoxia; R64 Cachexia; L89.894 Pressure ulcer of other site, stage 4; R40.3 Persistent vegetative state; Z99.11 Dependence on respirator [ventilator] status; R53.2 Functional quadriplegia; E11.22 Type 2 diabetes mellitus with diabetic chronic kidney disease; N39.0 Urinary tract infection, site not specified; B96.1 Klebsiella pneumoniae [K. pneumoniae] as the cause of diseases classified elsewhere; B96.89 Other specified bacterial agents as the cause of diseases classified elsewhere; E87.6 Hypokalemia; E87.2 Acidosis; G40.909 Epilepsy, unspecified, not intractable, without status epilepticus; I12.0 Hypertensive chronic kidney disease with stage 5 chronic kidney disease or end stage renal disease; D63.8 Anemia in other chronic diseases classified elsewhere; D68.59 Other primary thrombophilia; E78.5 Hyperlipidemia, unspecified; I25.2 Old myocardial infarction; J98.11 Atelectasis; Z16.24 Resistance to multiple antibiotics; Z74.01 Bed confinement status; Z93.0 Tracheostomy status; Z93.1 Gastrostomy status; Z99.2 Dependence on renal dialysis; N18.6 End stage renal disease; I48.91 Unspecified atrial fibrillation; E88.09 Other disorders of plasma-protein metabolism, not elsewhere classified; Z86.73 Personal history of transient ischemic attack (TIA), and cerebral infarction without residual deficits; L89.150 Pressure ulcer of sacral region, unstageable; L89.611 Pressure ulcer of right heel, stage 1; Z68.22 Body mass index [BMI] 22.0-22.9, adult; I25.10 Atherosclerotic heart disease of native coronary artery without angina pectoris; S81.802A Unspecified open wound, left lower leg, initial encounter; S81.801A Unspecified open wound, right lower leg, initial encounter; X58.XXXA Exposure to other specified factors, initial encounter; Y93.9 Activity, unspecified; Y92.129 Unspecified place in nursing home as the place of occurrence of the external cause; S61.002A Unspecified open wound of left thumb without damage to nail, initial encounter; S61.001A Unspecified open wound of right thumb without damage to nail, initial encounter; D50.0 Iron deficiency anemia secondary to blood loss (chronic); L89.629 Pressure ulcer of left heel, unspecified stage; L98.499 Non-pressure chronic ulcer of skin of other sites with unspecified severity; Y84.9 Medical procedure, unspecified as the cause of abnormal reaction of the patient, or of later complication, without mention of misadventure at the time of the procedure; Y82.9 Unspecified medical devices associated with adverse incidents
CPT/HCPCS: 31720; 36415; 36600; 71010-TC; 80048-TC; 80053-TC; 80061-TC; 80076-TC; 80150; 80162-TC; 80202-TC; 81000-TC; 82272-TC; 82803-TC; 82962-TC; 83540-TC; 83605-TC; 83735-TC; 83880; 84100-TC; 84443-TC; 84484-TC; 85025-TC; 85027-TC; 85730-TC; 86850-TC; 86921-TC; 87040-TC; 87070-TC; 87081-TC; 87086-TC; 87186-TC; 90935-TC; 93307-TC; 94002-TC; 94003-TC; 94760-TC; 94762-TC; 99082-TC; A4216; A4606; A6248; A6253; A6402; A6403; A7526; J0278; J0637; J0770; J0885; J1644; J1815; J2020; J2185; J2248; J2405; J2543; J3370; J7030; J7050; J7060; P9016-BL; Z7610

== ENCOUNTER 2016-12-02 18:39 | Inpatient (IN) | payer MEDICAID ==
[~2016-12-02] VITALS: Ht 185.4 cm; Wt 64.1 kg
[~2016-12-02 18:39] MED LIST: ACET160S2 GT; AMIO200T2 GT; ASCO250T5 PO; ATOR40TA GT; DIGO125T GT; FERR300L GT; GEMF600T GT; INSU100I4 SQ; INSU100V10 SQ; MIDO10TA GT; PANT40TA2 GT; SEVE800T8 GT; WHEY227P GT; ZINC220T GT
--- NOTE | 2016-12-02 18:47 | NUR ---
DR MONDRAGON AT BEDSIDE FOR EVAL.
[2016-12-02 19:10] VITALS: BP 125/78
[2016-12-02 19:16] LABS: BASOPHILS % (AUTO) 0.5 % (0.0-2.0); EOSINOPHILS # (AUTO) 0.2 /CMM (0.0-0.7); EOSINOPHILS % (AUTO) 2.1 % (0.0-6.0); HEMATOCRIT 25 % (39-51); HEMOGLOBIN 8.3 g/dL (13.5-17.5); LYMPHOCYTES # (AUTO) 1.2 /CMM (0.8-4.8); LYMPHOCYTES % (AUTO) 14.8 % (20.0-44.0); MEAN CORPUSCULAR HEMOGLOBIN 29 PG (26.0-33.0); MEAN CORPUSCULAR HGB CONC 34 g/dl (31.0-36.0); MEAN CORPUSCULAR VOLUME 87 fL (80-96); MONOCYTES # (AUTO) 0.6 /CMM (0.1-1.30); MONOCYTES % (AUTO) 7.6 % (2.0-12.0); NEUTROPHILS # (AUTO) 6.2 /CMM (1.8-8.9); PLATELET COUNT (AUTO) 416 /CMM (150-450); RDW COEFFICIENT OF VARIATION 14.3 (11.5-15.0); RED BLOOD CELL COUNT(AUTO) 2.86 MIL/uL (4.5-6.0); WHITE BLOOD COUNT (AUTO) 8.2 K/uL (4.3-11.0)
[2016-12-02 19:36] LABS: ALANINE AMINOTRANSFERASE 13 U/L (12-78); ALKALINE PHOSPHATASE 137 U/L (46-116); ASPARTATE AMINOTRANSFERASE 32 U/L (15-37); BILIRUBIN,DIRECT 0.1 mg/dL (0.0-0.2); BILIRUBIN,TOTAL 0.3 mg/dL (0.2-1.0); CALCIUM, SERUM 8.9 mg/dL (8.5-10.1); CARBON DIOXIDE 27 mmol/L (21-32); CHLORIDE 101 mmol/L (98-107); CREATININE 2.2 mg/dL (0.6-1.3); GLUCOSE 118 mg/dL (74-106); POTASSIUM 3.5 mmol/L (3.5-5.1); SODIUM SERUM 138 mmol/L (136-145); TOTAL PROTEIN, SERUM 8.6 g/dL (6.4-8.2); UREA NITROGEN, BLOOD 34 mg/dL (7-18)
[2016-12-02] MEDS ORDERED: IV SET PRIMARY PUMP SET 1 EA INFUS.SET MC ONE (19:42)
[2016-12-02 19:44] LABS: INR 1.12 (0.87-1.13); PROTHROMBIN TIME 11.7 SECS (9.5-12.7)
[2016-12-02 19:45] LABS: TROPONIN I 0.049 ng/mL (0.00-0.056)
--- NOTE | 2016-12-02 19:46 | NUR ---
CALLED CODE SEPSIS
[2016-12-02] MEDS ORDERED: VANCOMYCIN 1 GM in IV D5W 250 ML IV ONE (20:00)
[2016-12-02] MEDS ORDERED: MEROPENEM 500 MG in IV NS 0.9% 50 ML IV ONE (20:00)
--- NOTE | 2016-12-02 20:25 | NUR ---
PATIENT GOING TO 319 TELE
[2016-12-02 20:28] LABS: PARTIAL THROMBOPLASTIN TIME > 170 SEC (23-34)
--- NOTE | 2016-12-02 20:30 | NUR ---
PAGED DR DOMINIQUE CONNELL ARCHITECTURAL REPRESENTATIVE FOR DR CANDELARIO
--- NOTE | 2016-12-02 20:38 | NUR ---
PER DR DOMINIQUE CONNELL ADMIT PATIENT TO PANEL
[2016-12-02] MEDS ORDERED: ACETAMINOPHEN 650 MG/SUPP.RECT RC ONE ×2 (20:39→21:00)
--- NOTE | 2016-12-02 20:42 | NUR ---
DR RUTH JAUREGUI PAGED FOR PANEL PER DR DOMINIQUE CONNELL
[2016-12-02 20:56] LABS: APPEARANCE,URINE Cloudy (CLEAR); BILIRUBIN,URINE Negative (NEGATIVE); BLOOD, URINE Small Ery/uL (NEGATIVE); COLOR,URINE Yellow (YELLOW); KETONES,URINE Negative (NEGATIVE); LEUKOCYTE ESTERASE ,URINE Small (NEGATIVE); NITRITE, URINE Negative (NEGATIVE); PH,URINE 6.5 (5.0-8.0); PROTEIN,URINE >=300 mg/dl (NEGATIVE); UGLUCOSE Negative (NEGATIVE); UROBILINOGEN,URINE 0.2 EU/dL (0.2)
--- NOTE | 2016-12-02 21:05 | NUR ---
REPAGED DR RUTH CISNEROS FOR PANEL
--- NOTE | 2016-12-02 21:23 | NUR ---
REPORT GIVEN TO ISAÍAS. PT AWAITING TRANSFER TO FLOOR.
--- NOTE | 2016-12-02 21:25 | NUR ---
DR MONDRAGON ON THE PHONE WITH DR RUTH JAUREGUI
[2016-12-02 21:33] VITALS: BP 131/88
[2016-12-02 21:45] VITALS: BP 130/87
--- NOTE | 2016-12-02 21:45 | NUR ---
TERMINOLOGIST NOTE RECEIVED PATIENT A/O X0. NO RESPIRATORY DISTRESS OR SOB NOTED. ON VENTILATOR WITH SETTINGS FOLLOWS: AC 16, TV 600, FiO2 40%, PEEP 5. HOB ELEVATED. TRACH SITE CDI. GTUBE SITE CDI. WAITING FOR ORDERS FOR FEEDING. GTUBE PATENT. ROBERT CATHETER IN PLACE. DRAINING DARK, CLEAR YELLOW URINE TO COLLECTION BAG. MULTIPLE WOUNDS NOTED ON BODY. PERFORMED WOUND CARE. ORDERED WOUND CARE CONSULT, PICTURES TAKEN AND PLACED IN CHART. ALL EXTREMITIES ELEVATED WITH PILLOWS. WILL CONTINUE TO MONITOR.
[2016-12-02 21:52] LABS: BACTERIA,URINE Many /HPF (None Seen); SQUAMOUS EPITHELIAL CELL,UR Few /HPF (None Seen); URINE AMORPHOUS URATE Moderate /HPF (None Seen); WBC,URINE 21-50 /HPF (0-3)
[2016-12-02] MEDS: INSULIN DETEMIR 100 UNIT/ML CARTRIDGE SQ SCH (23:00)
[2016-12-02] MEDS ORDERED: ACETAMINOPHEN LIQUID 325 MG/10.1 ML UDC GT PRN (23:00)
--- NOTE | 2016-12-03 | NUR ---
FIELD SUPPORT REPRESENTATIVE NOTE PER HENOK MURRAY TO START NOVASOURCE @60ML/HR.
--- NOTE | 2016-12-03 00:03 | NUR ---
telegraph repeater mechanic note ramirez held. patient has gtube. no feeding ordered yet. will notify md.
[2016-12-03 01:20] VITALS: BP 132/82
--- NOTE | 2016-12-03 01:30 | NUR ---
BOTTLE ASSEMBLER NOTE PER BUFFING AND SUEDING MACHINE OPERATOR, SHE DOES NOT HAVE ANY NOVASOURCE AVAILABLE. PT. WITH NO S/S OF HYPOGLYCEMIA. BLOOD SUGAR 91 AT THIS TIME. WILL CONTINUE TO MONITOR.
[2016-12-03 01:50] VITALS: BP 132/82
[2016-12-03] MEDS ORDERED: ACETAMINOPHEN 650 MG/20.3 ML UDC ONE (02:30)
[2016-12-03] MEDS ORDERED: RENAL NOVASOURCE 1,000 ML BOTTLE GT PRN (02:30)
--- NOTE | 2016-12-03 02:30 | NUR ---
FILM DEVELOPING MACHINE OPERATOR NOTE PATIENTS TEMP 100.8. 650MG TYLENOL ADMINISTERED VIA GTUBE. PERFORMED COOLING MEASURES. WILL CONTINUE TO MO
--- NOTE | 2016-12-03 03:30 | NUR ---
VENDING SUPERVISOR NOTE TELE ST 111. TEMP 98.2. WILL CONTINUE TO MONITOR.
[2016-12-03] MEDS ORDERED: ACETAMINOPHEN LIQUID 325 MG/10.1 ML UDC GT PRN (05:00)
[2016-12-03] MEDS ORDERED: FERROUS SULFATE UDC 300 MG/5 ML UDC GT SCH (05:00)
--- NOTE | 2016-12-03 06:23 | NUR ---
BIOMETRICS ANALYST NOTE SR 94. PATIENT STABLE. NO RESPIRATORY DISTRESS OR SOB NOTED. HOB ELEVATED. VENT IN PLACE WITH SETTINGS ORDERED. PERFORMED WOUND CARE ORDERED. BLOOD SUGAR 78. CONTACTED DIETARY TO BRING UP NOVASOURCE SOON POSSIBLE. SPOKE TO GINA. KEPT PATIENT CLEAN, DRY, AND COMFORTABLE. WILL ENDORSE TO DAY SHIFT FOR IVONNE.
[2016-12-03 06:30] LABS: BASOPHILS % (AUTO) 0.5 % (0.0-2.0); EOSINOPHILS # (AUTO) 0.1 /CMM (0.0-0.7); EOSINOPHILS % (AUTO) 1.8 % (0.0-6.0); HEMATOCRIT 23 % (39-51); HEMOGLOBIN 7.9 g/dL (13.5-17.5); LYMPHOCYTES % (AUTO) 16.6 % (20.0-44.0); MEAN CORPUSCULAR HEMOGLOBIN 30 PG (26.0-33.0); MEAN CORPUSCULAR HGB CONC 34 g/dl (31.0-36.0); MEAN CORPUSCULAR VOLUME 86 fL (80-96); MONOCYTES # (AUTO) 0.5 /CMM (0.1-1.30); MONOCYTES % (AUTO) 8.3 % (2.0-12.0); NEUTROPHILS # (AUTO) 4.6 /CMM (1.8-8.9); NEUTROPHILS % (AUTO) 72.8 % (43.0-81.0); PLATELET COUNT (AUTO) 362 /CMM (150-450); RDW COEFFICIENT OF VARIATION 15.4 (11.5-15.0); RED BLOOD CELL COUNT(AUTO) 2.68 MIL/uL (4.5-6.0); WHITE BLOOD COUNT (AUTO) 6.3 K/uL (4.3-11.0)
[2016-12-03 07:06] LABS: ALBUMIN 1.8 g/dL (3.4-5.0); BILIRUBIN,TOTAL 0.3 mg/dL (0.2-1.0); CALCIUM, SERUM 8.8 mg/dL (8.5-10.1); CREATININE 2.5 mg/dL (0.6-1.3); MAGNESIUM 1.9 mg/dL (1.8-2.4); POTASSIUM 3.3 mmol/L (3.5-5.1); TOTAL PROTEIN, SERUM 7.9 g/dL (6.4-8.2)
--- NOTE | 2016-12-03 07:10 | NUR ---
WOOL SORTER NOTES PATIENT IN BED, NO S/SX OF DISTRESS NOTED, NOVASOURCE ONGOING AND TOLERATING WELL, NO RESIDUAL AT THIS TIME, TURNED AND REPOSITIONED, SAFETY MEASURES IN PLACED, CALL LIGHT WITHIN REACH, WILL CONTINUE TO MONITOR.
[2016-12-03 07:19] LABS: PHOSPHORUS 3.5 mg/dL (2.5-4.9)
[2016-12-03 08:00] VITALS: BP 128/80
[2016-12-03 08:22] LABS: DIGOXIN 1.51 ng/mL (0.90-2.00)
[2016-12-03] MEDS ORDERED: WHEY PROTEIN ISOLATE GT SCH (09:00)
[2016-12-03] MEDS ORDERED: POTASSIUM CHLORIDE 20 MEQ POWDER PACKET PO SCH (11:00)
[2016-12-03] MEDS: INSULIN DETEMIR 100 UNIT/ML CARTRIDGE SQ SCH ×2 (11:00→22:11)
[2016-12-03] MEDS ORDERED: ASCORBIC ACID 250 MG TABLET PO SCH (11:30)
[2016-12-03] MEDS: AMIODARONE HCL 200 MG TABLET GT SCH (11:36)
[2016-12-03] MEDS: PANTOPRAZOLE 40 MG TABLET.DR PO SCH (11:36)
[2016-12-03] MEDS: FERROUS SULFATE UDC 300 MG/5 ML UDC GT SCH ×3 (11:43→21:36)
[2016-12-03] MEDS: RENAL NOVASOURCE 1,000 ML BOTTLE GT PRN (11:49)
--- NOTE | 2016-12-03 12:28 | NUR ---
DESOLDERER NOTES BS 111, MATHEW ACEVEDO, DR. CONNELL SEEN THE PATIENT AND RECEIVED NEW ORDER FOR MILD SS, AND INFORMED OF HGB 7.9.
[2016-12-03] MEDS: BLOOD SUGAR DIAGNOSTIC 1 EACH STRIP IN SCH ×3 (12:45→21:41)
[2016-12-03] MEDS ORDERED: IV SET PRIMARY PUMP SET 1 EA INFUS.SET MC ONE (13:32)
[2016-12-03] MEDS ORDERED: IV NS 0.9% 250 ML IV ONE (13:33)
[2016-12-03] MEDS ORDERED: SECONDARY IV SET 1 EA INFUS.SET MC ONE (13:33)
[2016-12-03] MEDS: CEFEPIME 1 GM in IV D5W 50 ML IV SCH (14:08)
[2016-12-03] MEDS: MIDODRINE HCL (5MG) 5 MG TABLET GT SCH ×2 (14:09→18:16)
[2016-12-03] MEDS: SEVELAMER CARBONATE 0.8 GM POWD.PACK GT SCH ×2 (14:21→18:16)
--- NOTE | 2016-12-03 14:23 | NUR ---
WOUND CARE CONSULT: PT PRESENTS WITH MULTIPLE WOUNDS PRESENT ON ADMISSION INCLUDING ESCHARS TO FEET WITH SCARRING, RT EAR CRUSTED WOUND, LEFT THUMB WOUND AND SACRAL UNSTAGEABLE ULCER. DR SANTIAGO TO SEE PT FOR SURGICAL CONSULT. ORDERS RECEIVED AND DISCUSSED WITH NURSING STAFF. RECOMMENDATIONS MADE FOR SKIN PROTECTION. ALL DISCUSSED WITH NURSING STAFF. PT ON ANGELO ISOFLEX LOW AIRLOSS BED. WILL SEE PRN. SHORT IN AGREEMENT WITH PLAN OF CARE. Addendum: 12/03/16 at 1425 by GABO JAVIER WNDNU Amended: Links added.
[2016-12-03] MEDS ORDERED: LIDOCAINE 1%-EPI 1:100,000 20 ML VIAL TP ONE (14:30)
[2016-12-03 16:00] VITALS: BP 98/63
[2016-12-03] MEDS: Z GUARD REMEDY 2 OZ OINT TP PRN (18:12)
[2016-12-03] MEDS: NEOMY SULF/BACITRAC ZN/POLY 15 GM TUBE TP SCH (18:13)
[2016-12-03] MEDS: CADEXOMER IODINE 40 GM TUBE TP SCH (18:13)
[2016-12-03] MEDS: INSULIN REGULAR, HUMAN 100 UNIT/ML 3 ML VIAL SQ PRN (18:25)
--- NOTE | 2016-12-03 19:30 | NUR ---
PHARMACY ORDER ENTRY TECHNICIAN NOTES SKIN CARE PROVIDED, BM X3 THIS SHIFT, STOOL COLLECTED X2, TURNED AND REPOSITIONED, WOUND TREATMENT RENDERED, DRESSING CHANGED ORDERED, OFFLOADED BILATERAL HEELS AND HANDS, SUCTIONED PRN, VENT SETTING TOLERATING WELL, ALL NEEDS ATTENDED, ENDORSED TO INDEPENDENT PRODUCER FOR IVONNE.
--- NOTE | 2016-12-03 19:30 | NUR ---
RN NOTES RECEIVED PATIENT IN BED WITH EYES CLOSED, RESPONSIVE TO TOUCH; NON-VERBAL. NO ACUTE DISTRESS NOTED. NO SIGNS OF PAIN NOTED. NO SYMPTOMS OF HYPER/HYPOGLYCEMIA. TRACH INTACT; VENT SETTINGS ORDERED. IV SITE PATENT, INTACT; FLUSHED. ROBERT CATH PATENT, INTACT; DRAINING CLEAR YELLOW URINE. GT SITE PATENT, INTACT; IN PLACE VIA AUSCULTATION; NO RESIDUAL; GTF ONGOING ORDERED. HOB RAISED. ON LOW BED WITH BILATERAL UPPER SIDE RAILS UP. CONTACT ISOLATION MAINTAINED. WILL CONTINUE TO MONITOR.
[2016-12-03 20:00] VITALS: BP 96/68
[2016-12-03] MEDS: ATORVASTATIN 10 MG TABLET GT SCH (21:36)
[2016-12-04] VITALS (11 sets, daily range): BP systolic 88–111; BP diastolic 48–65
[2016-12-04] MEDS: FERROUS SULFATE UDC 300 MG/5 ML UDC GT SCH (05:38)
[2016-12-04] MEDS ORDERED: EPOETIN ALFA (10,000 UNIT) 10,000 UNIT/ML VIAL SQ ONE (06:00)
[2016-12-04] MEDS: BLOOD SUGAR DIAGNOSTIC 1 EACH STRIP IN SCH ×4 (06:35→22:07)
--- NOTE | 2016-12-04 06:47 | NUR ---
RN NOTES PATIENT ASLEEP, AROUSABLE. RESPIRATIONS EVEN. NO SIGNS OF PAIN NOTED. DUE MEDS GIVEN WITH NO ASE NOTED. SAFETY PRECAUTIONS AND COMFORT MEASURES IN PLACE. WILL GIVE REPORT TO DAY SHIFT FOR CONTINUITY OF CARE.
--- NOTE | 2016-12-04 08:00 | NUR ---
ALTERATIONS WORKROOM CLERK OPENING NOTES RECEIVED PATIENT IN BED, OBTUNDED. NO S/SX OF DISTRESS NOTED. TELE ST 103. IV SITE INTACT AND PATENT. ROBERT CATH IN PLACE. TURNED AND REPOSITIONED PATIENT, SAFETY MEASURES IN PLACED, CALL LIGHT WITHIN REACH, WILL CONTINUE TO MONITOR.
[2016-12-04 08:38] LABS: BASOPHILS % (AUTO) 0.1 % (0.0-2.0); HEMATOCRIT 21 % (39-51); HEMOGLOBIN 7.1 g/dL (13.5-17.5); LYMPHOCYTES # (AUTO) 1.5 /CMM (0.8-4.8); LYMPHOCYTES % (AUTO) 13.4 % (20.0-44.0); MEAN CORPUSCULAR HEMOGLOBIN 30 PG (26.0-33.0); MEAN CORPUSCULAR HGB CONC 34 g/dl (31.0-36.0); MEAN CORPUSCULAR VOLUME 87 fL (80-96); MONOCYTES # (AUTO) 0.8 /CMM (0.1-1.30); MONOCYTES % (AUTO) 6.8 % (2.0-12.0); NEUTROPHILS % (AUTO) 79.7 % (43.0-81.0); PLATELET COUNT (AUTO) 389 /CMM (150-450); RDW COEFFICIENT OF VARIATION 15.8 (11.5-15.0); RED BLOOD CELL COUNT(AUTO) 2.37 MIL/uL (4.5-6.0); WHITE BLOOD COUNT (AUTO) 11.3 K/uL (4.3-11.0)
[2016-12-04 08:46] LABS: CALCIUM, SERUM 9.2 mg/dL (8.5-10.1); CREATININE 3.7 mg/dL (0.6-1.3); POTASSIUM 3.8 mmol/L (3.5-5.1)
[2016-12-04] MEDS: AMIODARONE HCL 200 MG TABLET GT SCH (09:00)
[2016-12-04 09:05] LABS: IRON, SERUM 20 ug/dl (50-175); TOTAL IRON BINDING CAPACITY 221 ug/dl (250-450)
[2016-12-04] MEDS: SEVELAMER CARBONATE 0.8 GM POWD.PACK GT SCH ×3 (10:10→18:17)
[2016-12-04] MEDS: DIGOXIN 0.125 MG TABLET GT SCH (10:15)
[2016-12-04] MEDS: ASPIRIN 81 MG TAB.CHEW GT SCH (10:16)
[2016-12-04] MEDS: ASCORBIC ACID 500 MG TABLET PO SCH (10:17)
[2016-12-04] MEDS: ZINC SULFATE 220 MG CAPSULE GT SCH (10:17)
[2016-12-04] MEDS: PANTOPRAZOLE 40 MG TABLET.DR PO SCH (10:17)
[2016-12-04] MEDS: MIDODRINE HCL (5MG) 5 MG TABLET GT SCH ×3 (10:23→18:20)
[2016-12-04] MEDS: CADEXOMER IODINE 40 GM TUBE TP SCH (10:49)
[2016-12-04] MEDS: NEOMY SULF/BACITRAC ZN/POLY 15 GM TUBE TP SCH (10:50)
[2016-12-04 10:51] LABS: FERRITIN 2328 ng/mL (8-388)
[2016-12-04] MEDS: INSULIN DETEMIR 100 UNIT/ML CARTRIDGE SQ SCH ×2 (12:21→22:10)
[2016-12-04] MEDS: CEFEPIME 1 GM in IV D5W 50 ML IV SCH (12:45)
[2016-12-04 13:01] LABS: BASOPHILS % (AUTO) 0.2 % (0.0-2.0); EOSINOPHILS # (AUTO) 0.1 /CMM (0.0-0.7); EOSINOPHILS % (AUTO) 0.9 % (0.0-6.0); HEMATOCRIT 21 % (39-51); LYMPHOCYTES # (AUTO) 1.1 /CMM (0.8-4.8); LYMPHOCYTES % (AUTO) 10.9 % (20.0-44.0); MEAN CORPUSCULAR HEMOGLOBIN 29 PG (26.0-33.0); MEAN CORPUSCULAR HGB CONC 34 g/dl (31.0-36.0); MEAN CORPUSCULAR VOLUME 87 fL (80-96); MONOCYTES # (AUTO) 0.7 /CMM (0.1-1.30); MONOCYTES % (AUTO) 6.8 % (2.0-12.0); NEUTROPHILS # (AUTO) 7.9 /CMM (1.8-8.9); NEUTROPHILS % (AUTO) 81.2 % (43.0-81.0); PLATELET COUNT (AUTO) 393 /CMM (150-450); RDW COEFFICIENT OF VARIATION 15.6 (11.5-15.0); RED BLOOD CELL COUNT(AUTO) 2.37 MIL/uL (4.5-6.0); WHITE BLOOD COUNT (AUTO) 9.7 K/uL (4.3-11.0)
[2016-12-04] MEDS: RENAL NOVASOURCE 1,000 ML BOTTLE GT PRN (14:18)
[2016-12-04] MEDS ORDERED: SECONDARY IV SET 1 EA INFUS.SET MC ONE (15:59)
[2016-12-04] MEDS: SOD FERRIC GLUC 125 MG in IV NS 0.9% 100 ML IV SCH (16:04)
[2016-12-04] MEDS ORDERED: BLOOD IV SET 1 EA INFUS.SET MC ONE (17:05)
--- NOTE | 2016-12-04 17:08 | NUR ---
STARTED BLOOD TRANSFUSION. VITAL SIGNS STABLE. WILL CONTINUE TO MONITOR..
--- NOTE | 2016-12-04 17:53 | NUR ---
BLOOD TRANSFUSION COMPLETED. TRANSFUSED WITH HEMODIALYSIS WITH STABLE VITAL SIGNS AND NO ADVERSE REACTION. WILL CONTINUE TO MONITOR
--- NOTE | 2016-12-04 18:30 | NUR ---
DIE PRESS OPERATOR CLOSING NOTES PATIENT NO ACUTE DISTRESS. STABLE VITAL SIGNS. BED IN LOWEST POSITION, SEMI FOWLERS POSITION. SIDE RAILS UP X2. CALL LIGHT WITHIN REACH. ALL NEEDS MET.
--- NOTE | 2016-12-04 19:05 | NUR ---
RN NOTE RECEIVED REPORT. PT OBTUNDED, TRACHE VENT PT - SETTINGS ACCURATE. NO S/S OF ANY DISTRESS AT THIS TIME. TELE SHOWS ST AT 106. F/C INTACT AND DRAINING. TOLERATING G TUBE FEEDING WELL. ANAHI PICC LINE INTACT AND PATENT. SAFETY AND COMFORT MEASURES RENDERED. WILL CONT TO MONITOR
[2016-12-04] MEDS: ATORVASTATIN 10 MG TABLET GT SCH (22:07)
[2016-12-04] MEDS: INSULIN REGULAR, HUMAN 100 UNIT/ML 3 ML VIAL SQ PRN (22:12)
[2016-12-05] VITALS: BP 97/51
[2016-12-05] MEDS: ACETAMINOPHEN 650 MG/20.3 ML UDC GT PRN ×2 (00:32→06:35)
--- NOTE | 2016-12-05 01:00 | NUR ---
RN NOTE PT NOTED TO HAVE TEMP OF 101.1 , COOLING MEASURES PROVIDED. PRN TYLENOL GIVEN, WILL CONT TO MONITOR.
[2016-12-05 04:00] VITALS: BP 119/71
[2016-12-05] MEDS: BLOOD SUGAR DIAGNOSTIC 1 EACH STRIP IN SCH ×4 (06:35→22:01)
--- NOTE | 2016-12-05 06:48 | NUR ---
RN NOTE NO SIGNIFICANT CHANGES OVERNIGHT. PT HAS AX TEMP OF 100.1, TYLENOL PROVIDED, COOLING MEASURES RENDERED. VENT TRACHE - SETTINGS ACCURATE. HOB ELEVATED. KEPT CLEAN AND DRY, REPOSITIONED Q2HRS. PICC LINE S/L AND HD INTACT, NO DISTRESS AT THIS TIME. TELE SHOWS SR IN 90'S. WILL F/U WITH DAY SHIFT FOR IVONNE. FOR SACRAL DEBRIDEMENT WITH DR CORBETT.
[2016-12-05 07:40] LABS: BASOPHILS % (AUTO) 0.3 % (0.0-2.0); EOSINOPHILS # (AUTO) 0.2 /CMM (0.0-0.7); EOSINOPHILS % (AUTO) 1.6 % (0.0-6.0); HEMATOCRIT 26 % (39-51); HEMOGLOBIN 8.8 g/dL (13.5-17.5); LYMPHOCYTES # (AUTO) 1.4 /CMM (0.8-4.8); LYMPHOCYTES % (AUTO) 14.6 % (20.0-44.0); MEAN CORPUSCULAR HEMOGLOBIN 30 PG (26.0-33.0); MEAN CORPUSCULAR HGB CONC 34 g/dl (31.0-36.0); MEAN CORPUSCULAR VOLUME 87 fL (80-96); MONOCYTES # (AUTO) 0.6 /CMM (0.1-1.30); MONOCYTES % (AUTO) 6.4 % (2.0-12.0); NEUTROPHILS # (AUTO) 7.2 /CMM (1.8-8.9); NEUTROPHILS % (AUTO) 77.1 % (43.0-81.0); PLATELET COUNT (AUTO) 415 /CMM (150-450); RDW COEFFICIENT OF VARIATION 15.5 (11.5-15.0); RED BLOOD CELL COUNT(AUTO) 2.95 MIL/uL (4.5-6.0); WHITE BLOOD COUNT (AUTO) 9.4 K/uL (4.3-11.0)
[2016-12-05 08:00] VITALS: BP 134/83
--- NOTE | 2016-12-05 08:00 | NUR ---
RN OPENING NOTES RECEIVED PATIENT IN BED, OBTUNDED. PATIENT IS ON [facility] VENTILATOR. NO S/SX OF DISTRESS NOTED. TELE SR 89. IV SITE INTACT AND PATENT. ROBERT CATH IN PLACE. TURNED AND REPOSITIONED PATIENT, SAFETY MEASURES IN PLACED, CALL LIGHT WITHIN REACH, WILL CONTINUE TO MONITOR.
[2016-12-05 08:03] LABS: CREATININE 3.5 mg/dL (0.6-1.3); MAGNESIUM 1.9 mg/dL (1.8-2.4); PHOSPHORUS 3.2 mg/dL (2.5-4.9)
[2016-12-05] MEDS: PANTOPRAZOLE 40 MG TABLET.DR PO SCH (10:05)
[2016-12-05] MEDS: ZINC SULFATE 220 MG CAPSULE GT SCH (10:05)
[2016-12-05] MEDS: ASPIRIN 81 MG TAB.CHEW GT SCH (10:05)
[2016-12-05] MEDS: ASCORBIC ACID 500 MG TABLET PO SCH (10:06)
[2016-12-05] MEDS: MIDODRINE HCL (5MG) 5 MG TABLET GT SCH ×3 (10:10→18:10)
[2016-12-05] MEDS: SEVELAMER CARBONATE 0.8 GM POWD.PACK GT SCH ×3 (10:11→18:05)
[2016-12-05] MEDS: AMIODARONE HCL 200 MG TABLET GT SCH (10:11)
[2016-12-05] MEDS: CADEXOMER IODINE 40 GM TUBE TP SCH (10:12)
[2016-12-05] MEDS: NEOMY SULF/BACITRAC ZN/POLY 15 GM TUBE TP SCH (10:13)
[2016-12-05 10:27] VITALS: BP 134/83
[2016-12-05] MEDS: INSULIN DETEMIR 100 UNIT/ML CARTRIDGE SQ SCH ×2 (11:00→22:07)
--- NOTE | 2016-12-05 11:28 | NUR ---
LEVEMIR HELD. BLOOD SUGAR 48mg/dl. PROTOCOL INITIATED. WILL CONTINUE TO MONITOR.
--- NOTE | 2016-12-05 11:28 | NUR ---
PATIENT BLOOD SUGAR 48 mg/dl, PROTOCOL INITIATED. WILL RECHECK AFTER 30MIN. WILL MONITOR PATIENT.
--- NOTE | 2016-12-05 11:30 | NUR ---
BLOOD SUGAR 48, ADMINISTERED D50 IV PUSH AND FLUSH WITH NS. WILL RECHECK BLOOD SUGAR. WILL CONTINUE TO MONITOR
[2016-12-05] MEDS: RENAL NOVASOURCE 1,000 ML BOTTLE GT PRN ×2 (11:54→22:02)
[2016-12-05] MEDS: DEXTROSE 50%-WATER 50 ML DISP.SYRIN IV PRN (12:10)
--- NOTE | 2016-12-05 12:42 | NUR ---
RECHECKED PATIENTS BLOOD SUGAR, 113 mg/dl. WILL CONTINUE TO MONITOR
[2016-12-05] MEDS: CEFEPIME 1 GM in IV D5W 50 ML IV SCH (13:11)
--- NOTE | 2016-12-05 13:15 | NUR ---
PICC LINE NOT PATENT AND UNABLE TO FLUSH.NOTIFIED ELECTRIC PILE DRIVER OPERATOR,DIANE.
--- NOTE | 2016-12-05 14:00 | NUR ---
FOLLOW UP MADE WITH THE DESTINATION SPECIALIST AND JOB, MIDLINE RN WILL COME TO DE-CLOGGED PT'S PICC LINE TONIGHT.FERRLECITT IV PENDING TO BE ADMINISTERED DUE TO CLOOGED PICC LINE.PHARMACY AWARE.
[2016-12-05 16:00] VITALS: BP 99/61
--- NOTE | 2016-12-05 16:50 | NUR ---
SACRAL WOUND DEBRIDEMENT WAS DONE BY DR CORBETT AT BEDSIDE.PT TOLERATED WELL.WILL MONITOR.
[2016-12-05] MEDS: INSULIN REGULAR, HUMAN 100 UNIT/ML 3 ML VIAL SQ PRN ×2 (18:14→22:05)
--- NOTE | 2016-12-05 19:00 | NUR ---
RN CLOSING NOTES PATIENT NO ACUTE DISTRESS. STABLE VITAL SIGNS. BED IN LOWEST POSITION, SEMI FOWLERS POSITION. SIDE RAILS UP X2. CALL LIGHT WITHIN REACH. WILL ENDORSED TO NIGHT RN FOR IVONNE.
--- NOTE | 2016-12-05 19:30 | NUR ---
ISABELLE,RN MIDLINE NURSE ARRIVED AND FIXED THE PICC LINE ON THE ANAHI.ENDORSED THE FERLECITT IV TO THE NIGHT RN TO ADMINISTER.
--- NOTE | 2016-12-05 19:30 | NUR ---
RN NOTE; RECEIVE PT IN BED VENT DEPENDENT. TRACH. IN PLACE. BREATHING EVENLY. NO SOB. NAD. SKIN WARM AND DRY. GT IN PLACE. GTF FRANCISCO J WELL. F/C IN PLACE. DRAINING. HEART MONITOR IN PLACE READING SR. BED LOW LOCKED. CALL LIGHT WITHIN REACH. WILL CONT TO MONITOR
[2016-12-05 20:00] VITALS: BP 97/61
[2016-12-05] MEDS ORDERED: SECONDARY IV SET 1 EA INFUS.SET MC ONE (20:34)
[2016-12-05] MEDS: SOD FERRIC GLUC 125 MG in IV NS 0.9% 100 ML IV SCH (20:39)
[2016-12-05] MEDS: ATORVASTATIN 10 MG TABLET GT SCH (22:01)
[2016-12-06] VITALS (7 sets, daily range): BP systolic 90–120; BP diastolic 55–78
--- NOTE | 2016-12-06 06:16 | NUR ---
rn note; PT IN BED BREATHING EVENLY ON VENT. NAD. NO SOB. NO ACUTE CHANGES OVER THE NIGHT . GTF FRANCISCO J WELL. DRESSING WAS CHANGED ON SACRAL PS W/ S/P DEBRIDEMENT W/ ACTIVE BLEEDING. P.S. WAS COVERED W/ PRESSURE DRESSING . REPOSITIONED ROUTINELY, SUCTIONED PRN. KEPT PT CLEAN AND DRY. WILL CONT TO MONITOR AND WILL ENDORSE TO AM SHIFT FOR IVONNE.
[2016-12-06] MEDS: INSULIN REGULAR, HUMAN 100 UNIT/ML 3 ML VIAL SQ PRN ×3 (06:43→21:34)
[2016-12-06 07:05] LABS: BASOPHILS % (AUTO) 0.2 % (0.0-2.0); EOSINOPHILS # (AUTO) 0.2 /CMM (0.0-0.7); EOSINOPHILS % (AUTO) 1.4 % (0.0-6.0); HEMATOCRIT 21 % (39-51); HEMOGLOBIN 7.2 g/dL (13.5-17.5); LYMPHOCYTES % (AUTO) 9.6 % (20.0-44.0); MEAN CORPUSCULAR HEMOGLOBIN 30 PG (26.0-33.0); MEAN CORPUSCULAR HGB CONC 34 g/dl (31.0-36.0); MEAN CORPUSCULAR VOLUME 87 fL (80-96); MONOCYTES # (AUTO) 0.6 /CMM (0.1-1.30); MONOCYTES % (AUTO) 5.7 % (2.0-12.0); NEUTROPHILS # (AUTO) 8.6 /CMM (1.8-8.9); NEUTROPHILS % (AUTO) 83.1 % (43.0-81.0); PLATELET COUNT (AUTO) 408 /CMM (150-450); RDW COEFFICIENT OF VARIATION 16.3 (11.5-15.0); RED BLOOD CELL COUNT(AUTO) 2.42 MIL/uL (4.5-6.0); WHITE BLOOD COUNT (AUTO) 10.4 K/uL (4.3-11.0)
[2016-12-06 07:18] LABS: CALCIUM, SERUM 8.8 mg/dL (8.5-10.1); CREATININE 4.2 mg/dL (0.6-1.3); PHOSPHORUS 3.4 mg/dL (2.5-4.9); POTASSIUM 3.3 mmol/L (3.5-5.1)
[2016-12-06] MEDS: BLOOD SUGAR DIAGNOSTIC 1 EACH STRIP IN SCH ×4 (07:30→21:10)
--- NOTE | 2016-12-06 07:45 | NUR ---
MS RN RECEIVED ON BED,AWAKE,NONVERBAL PATIENT,ON VENT, RESPIRATIONS EVEN AND UNLABORED, NO SOB NOTED. ABDOMEN SOFT, NO S/S OF PAIN AT THIS TIME, REPOSITIONED FOR COMFORT,ALL NEEDS ATTENDED.
[2016-12-06] MEDS: ASCORBIC ACID 500 MG TABLET PO SCH (09:28)
[2016-12-06] MEDS: SEVELAMER CARBONATE 0.8 GM POWD.PACK GT SCH ×3 (09:29→18:08)
[2016-12-06] MEDS: MIDODRINE HCL (5MG) 5 MG TABLET GT SCH ×3 (09:29→18:08)
[2016-12-06] MEDS: DIGOXIN 0.125 MG TABLET GT SCH (09:29)
[2016-12-06] MEDS: ZINC SULFATE 220 MG CAPSULE GT SCH (09:29)
[2016-12-06] MEDS: PANTOPRAZOLE 40 MG TABLET.DR PO SCH (09:29)
[2016-12-06] MEDS ORDERED: COLISTIMETHATE SODIUM 100 MG in IV NS 0.9% 50 ML IV SCH (09:30)
--- NOTE | 2016-12-06 09:40 | NUR ---
MS RN DUE MEDS GIVEN VIA G TUBE,TOLERATED WELL W/O RESIDUAL.
[2016-12-06] MEDS ORDERED: SECONDARY IV SET 1 EA INFUS.SET MC ONE (11:00)
--- NOTE | 2016-12-06 11:00 | NUR ---
MS RN WAS SEEN BY DR. NORBERT Sierra/ KENDRICK AND CARRIED OUT.
[2016-12-06] MEDS: CADEXOMER IODINE 40 GM TUBE TP SCH (11:10)
[2016-12-06] MEDS: NEOMY SULF/BACITRAC ZN/POLY 15 GM TUBE TP SCH (11:10)
[2016-12-06 11:28] LABS: BASOPHILS % (AUTO) 0.2 % (0.0-2.0); EOSINOPHILS # (AUTO) 0.1 /CMM (0.0-0.7); EOSINOPHILS % (AUTO) 0.7 % (0.0-6.0); HEMATOCRIT 22 % (39-51); HEMOGLOBIN 7.6 g/dL (13.5-17.5); LYMPHOCYTES # (AUTO) 0.9 /CMM (0.8-4.8); LYMPHOCYTES % (AUTO) 8.4 % (20.0-44.0); MEAN CORPUSCULAR HEMOGLOBIN 30 PG (26.0-33.0); MEAN CORPUSCULAR HGB CONC 34 g/dl (31.0-36.0); MEAN CORPUSCULAR VOLUME 87 fL (80-96); MONOCYTES # (AUTO) 0.5 /CMM (0.1-1.30); MONOCYTES % (AUTO) 4.9 % (2.0-12.0); NEUTROPHILS # (AUTO) 9.5 /CMM (1.8-8.9); NEUTROPHILS % (AUTO) 85.8 % (43.0-81.0); PLATELET COUNT (AUTO) 441 /CMM (150-450); RED BLOOD CELL COUNT(AUTO) 2.56 MIL/uL (4.5-6.0)
[2016-12-06] MEDS: INSULIN DETEMIR 100 UNIT/ML CARTRIDGE SQ SCH ×2 (11:38→22:37)
[2016-12-06] MEDS: COLISTIMETHATE SODIUM 100 MG in IV NS 0.9% 50 ML IV SCH (14:36)
[2016-12-06] MEDS: ASPIRIN 81 MG TAB.CHEW GT SCH (14:36)
[2016-12-06] MEDS: AMIODARONE HCL 200 MG TABLET GT SCH (14:37)
[2016-12-06] MEDS: SOD FERRIC GLUC 125 MG in IV NS 0.9% 100 ML IV SCH (14:37)
--- NOTE | 2016-12-06 15:00 | NUR ---
MS LONG CHAIN QUILLER TENDER STARTED,ALL NEEDS ATTENDED.
--- NOTE | 2016-12-06 16:00 | NUR ---
MS RN PATIENT IS DX STRIKE PATIENT, STROKE DOCUMENTATION DONE AND PATIENT IS ON ASPIRIN ORDERED, WILL MONITOR PATIENT.
--- NOTE | 2016-12-06 18:00 | NUR ---
MS RN BS - 134 2 UNITS GIVEN.
[2016-12-06] MEDS ORDERED: IV SET PRIMARY PUMP SET 1 EA INFUS.SET MC ONE (18:09)
--- NOTE | 2016-12-06 19:25 | NUR ---
SLAB WORKER INITIAL NOTES: RECEIVED PT IN BED WITH EYES OPEN AND IS NONVERBAL. PT IS OBTUNDED. PT HAS ROBERT AND IS ATTACHED TO DRAINAGE BAG. PT HAS ANAHI PICC LINE AND R FEMORAL HD CATH. PT IS ON MECHANICAL VENTILATOR. SETTINGS ARE AC: 16, FIO2: 40, TV: 600, PEEP: 5, SHILEY #8 . PT IS ON NOVASOURCE FEEDING AT 60ML/HR. NO RESIDUAL NOTED. CALL LIGHT WITHIN PT'S REACH. BED KEPT IN LOCKED, LOWEST POSITION, AND SIDE RAILS X 2 UP. WILL CONTINUE TO MONITOR PT.
[2016-12-06] MEDS: ATORVASTATIN 10 MG TABLET GT SCH (21:09)
--- NOTE | 2016-12-06 21:14 | NUR ---
DEWAXER NOTES: PT IS ON TELE AND IS SINUS TACHY 108. BLOOD SUGAR WAS 149. 2 UNITS OF REGULAR INSULIN WAS GIVEN. WILL CONTINUE TO MONITOR PT.
--- NOTE | 2016-12-06 22:35 | NUR ---
GEOTECHNICIAN NOTES: BLOOD SUGAR WAS 155. 12 UNITS OF LEVEMIR WAS GIVEN. WILL CONTINUE TO MONITOR PT.
[2016-12-07] VITALS (10 sets, daily range): BP systolic 57–111; BP diastolic 28–73
[2016-12-07] MEDS: RENAL NOVASOURCE 1,000 ML BOTTLE GT PRN (05:09)
[2016-12-07] MEDS: BLOOD SUGAR DIAGNOSTIC 1 EACH STRIP IN SCH ×4 (06:00→22:37)
[2016-12-07 06:42] LABS: BASOPHILS % (AUTO) 0.4 % (0.0-2.0); EOSINOPHILS # (AUTO) 0.2 /CMM (0.0-0.7); EOSINOPHILS % (AUTO) 3.4 % (0.0-6.0); HEMATOCRIT 23 % (39-51); HEMOGLOBIN 7.8 g/dL (13.5-17.5); LYMPHOCYTES # (AUTO) 0.9 /CMM (0.8-4.8); LYMPHOCYTES % (AUTO) 12.4 % (20.0-44.0); MEAN CORPUSCULAR HEMOGLOBIN 30 PG (26.0-33.0); MEAN CORPUSCULAR HGB CONC 35 g/dl (31.0-36.0); MEAN CORPUSCULAR VOLUME 87 fL (80-96); MONOCYTES # (AUTO) 0.4 /CMM (0.1-1.30); MONOCYTES % (AUTO) 6.4 % (2.0-12.0); NEUTROPHILS # (AUTO) 5.4 /CMM (1.8-8.9); NEUTROPHILS % (AUTO) 77.4 % (43.0-81.0); PLATELET COUNT (AUTO) 426 /CMM (150-450); RDW COEFFICIENT OF VARIATION 15.8 (11.5-15.0); RED BLOOD CELL COUNT(AUTO) 2.58 MIL/uL (4.5-6.0)
[2016-12-07 07:01] LABS: CALCIUM, SERUM 9.1 mg/dL (8.5-10.1); CREATININE 3.4 mg/dL (0.6-1.3); POTASSIUM 3.7 mmol/L (3.5-5.1)
--- NOTE | 2016-12-07 07:30 | NUR ---
television repairer closing notes: no signs or symptoms of distress noted at this time. all needs were attended and anticipated for. pt's burr cath output was 400ml/hr. burr cath is still attached to drainage bag. vent settings are still the same : ac: 16, fio2:40, tv:600, peep:5, and has shiley #8 for trach. pt is novasource at 60ml/hr. no residual noted and is tolerating g tube feeding well. pt has gloria picc line and r femoral hd cath. endorsed to am nurse for carson.
[2016-12-07] MEDS: ASPIRIN 81 MG TAB.CHEW GT SCH (09:18)
[2016-12-07] MEDS: ASCORBIC ACID 500 MG TABLET PO SCH (09:18)
[2016-12-07] MEDS: SEVELAMER CARBONATE 0.8 GM POWD.PACK GT SCH ×3 (09:19→17:49)
[2016-12-07] MEDS: AMIODARONE HCL 200 MG TABLET GT SCH (09:19)
[2016-12-07] MEDS: MIDODRINE HCL (5MG) 5 MG TABLET GT SCH ×3 (09:19→17:50)
[2016-12-07] MEDS: PANTOPRAZOLE 40 MG TABLET.DR PO SCH (09:19)
[2016-12-07] MEDS: ZINC SULFATE 220 MG CAPSULE GT SCH (09:19)
[2016-12-07] MEDS: CADEXOMER IODINE 40 GM TUBE TP SCH (09:21)
[2016-12-07] MEDS: NEOMY SULF/BACITRAC ZN/POLY 15 GM TUBE TP SCH (09:21)
--- NOTE | 2016-12-07 11:00 | NUR ---
ms rn change dressing to sacral area.
[2016-12-07] MEDS: COLISTIMETHATE SODIUM 100 MG in IV NS 0.9% 50 ML IV SCH (13:26)
[2016-12-07] MEDS: ACETAMINOPHEN 650 MG/20.3 ML UDC GT PRN ×2 (13:26→17:49)
[2016-12-07] MEDS: INSULIN DETEMIR 100 UNIT/ML CARTRIDGE SQ SCH ×2 (13:29→23:00)
[2016-12-07] MEDS: INSULIN REGULAR, HUMAN 100 UNIT/ML 3 ML VIAL SQ PRN (13:32)
--- NOTE | 2016-12-07 16:00 | NUR ---
ms rn patient has fever of 103, tylenol 650 given via g tube.patient vomited. g tube feeding held for now. will monitor patient.
--- NOTE | 2016-12-07 17:00 | NUR ---
ms malave due meds given,tolerated well via g tube.
[2016-12-07] MEDS: SOD FERRIC GLUC 125 MG in IV NS 0.9% 100 ML IV SCH (17:53)
--- NOTE | 2016-12-07 18:00 | NUR ---
ms malave bs - 85 - resumed feeding at 30ml/hour.tolerated well.
--- NOTE | 2016-12-07 18:23 | NUR ---
ms rn on bed,no distress noted, at bedside.
--- NOTE | 2016-12-07 21:00 | NUR ---
HONING MACHINE SET UP OPERATOR NOTES BP 57/34 P 102. RECHECKED BP 66/[address] SPEARS A R COLLECTIONS REP FOR EPIC. MD MADE AWARE RE PT'S CONDITION. WITH NEW ORDERS MADE. ORDERS NOTED AND CARRIED OUT. WILL CONTINUE TO MONITOR.
[2016-12-07] MEDS ORDERED: IV NS 0.9% 1,000 ML ONE (21:02)
[2016-12-07] MEDS ORDERED: IV SET PRIMARY PUMP SET 1 EA INFUS.SET MC ONE (21:02)
[2016-12-07] MEDS ORDERED: IV NS 0.9% 1,000 ML BAG IV ONE (21:15)
--- NOTE | 2016-12-07 21:45 | NUR ---
WELDER SETTER RESISTANCE MACHINE NOTES LACTIC ACID 2.9 MD MADE AWARE. WITH NEW ORDERS MADE. ORDERS NOTED AND CARRIED OUT. WILL CONTINUE TO MONITOR.
[2016-12-07] MEDS: ATORVASTATIN 10 MG TABLET GT SCH (22:37)
[2016-12-07] MEDS ORDERED: IV NS 0.9% 250 ML IV ONE (23:05)
[2016-12-07] MEDS ORDERED: SECONDARY IV SET 1 EA INFUS.SET MC ONE (23:05)
[2016-12-07] MEDS ORDERED: MEROPENEM 500 MG VIAL IV ONE (23:07)
[2016-12-07] MEDS ORDERED: IV NS 0.9% 50 ML IV ONE (23:12)
[2016-12-07] MEDS: MEROPENEM 500 MG in IV NS 0.9% 50 ML IV SCH (23:20)
--- NOTE | 2016-12-07 23:50 | NUR ---
MEMORY CARE PROGRAM RESIDENT NOTES BP STILL 76/52 AFTER 2L NS BOLUS. NOTIFIED DR SPEARS RE PT'S CONDITION. WITH NEW ORDERS TO TRANSFER TO ICU AND START LEVOPHED DRIP TITRATE PER PROTOCOL. ORDERS NOTED AND CARRIED OUT. REPORT GIVEN TO LEI GRANGER FOR CONTINUITY OF CARE.
[2016-12-08] VITALS (84 sets, daily range): BP systolic 51–138; BP diastolic 17–80
[2016-12-08] MEDS ORDERED: IV D5W 500 ML IV ONE (00:07)
[2016-12-08] MEDS ORDERED: NOREPINEPHRINE 4 MG/4 ML AMPUL IV ONE (00:07)
[2016-12-08 00:18] LABS: BILIRUBIN,DIRECT 0.1 mg/dL (0.0-0.2); BILIRUBIN,TOTAL 0.3 mg/dL (0.2-1.0)
[2016-12-08] MEDS ORDERED: IV SET PRIMARY PUMP SET 1 EA INFUS.SET MC ONE (00:19)
--- NOTE | 2016-12-08 05:29 | NUR ---
CASH CONTROLLER - REC'D PT. AT [place]. FRANK GRANGER ENDORSED REPORT TO ME. LEVOPHED GTT. STARTED AT 5MCG/MIN FOR SBP'S OF 70'S-80'S. PT. IS SEPTIC W/CURRENT LACTIC ACID OF 2.9. ED-BULL GANG SUPERVISOR STARTED A 20G EJ-DL, DUE TO 2 OUT OF 3 PORTS CLOTTED ON LUE PICC LINE. THIS IS HOW I REC'D PT. THE ONE RED PORT THAT IS PATENT...IS BARELY PATENT & VERY SLUGGISH TO FLUSH. ORDERS PUT IN FOR NEW PICC LINE. PT.IS ICU STATUS & HAS BEDSIDE ENGINEER SERGEANT. PT. GIVEN COMP. BEDBATH W/LARGE BM NOTED. ORDERS TO TAKE OUT CURRENT ROBERT CATHETER & REPLACE IT W/NEW ONE PER N.P. THERON BULL GANG SUPERVISOR-IVANA HAS DONE MANY TASKS TO ASSIST PT. PT.IS IN ISOLATION FOR ACINTOBACTER IN SPUTUM. PT.IS POSTURING & HAS MANY WOUND CARE/SKIN ISSUES NOTED. CONT.POC.
[2016-12-08] MEDS: BLOOD SUGAR DIAGNOSTIC 1 EACH STRIP IN SCH ×3 (07:30→17:49)
[2016-12-08 07:40] LABS: CALCIUM, SERUM 8.5 mg/dL (8.5-10.1); CREATININE 4.2 mg/dL (0.6-1.3); MAGNESIUM 1.9 mg/dL (1.8-2.4); PHOSPHORUS 2.6 mg/dL (2.5-4.9); POTASSIUM 4.1 mmol/L (3.5-5.1)
[2016-12-08 07:45] LABS: EOSINOPHILS # (AUTO) 0.1 /CMM (0.0-0.7); EOSINOPHILS % (AUTO) 0.8 % (0.0-6.0); HEMATOCRIT 21 % (39-51); HEMOGLOBIN 7.1 g/dL (13.5-17.5); LYMPHOCYTES # (AUTO) 0.5 /CMM (0.8-4.8); LYMPHOCYTES % (AUTO) 4.7 % (20.0-44.0); MEAN CORPUSCULAR HEMOGLOBIN 30 PG (26.0-33.0); MEAN CORPUSCULAR HGB CONC 35 g/dl (31.0-36.0); MEAN CORPUSCULAR VOLUME 87 fL (80-96); MONOCYTES # (AUTO) 0.6 /CMM (0.1-1.30); MONOCYTES % (AUTO) 5.7 % (2.0-12.0); NEUTROPHILS % (AUTO) 88.8 % (43.0-81.0); PLATELET COUNT (AUTO) 382 /CMM (150-450); RDW COEFFICIENT OF VARIATION 14.9 (11.5-15.0); RED BLOOD CELL COUNT(AUTO) 2.37 MIL/uL (4.5-6.0); WHITE BLOOD COUNT (AUTO) 10.2 K/uL (4.3-11.0)
--- NOTE | 2016-12-08 08:00 | NUR ---
patient received obtunded on vent;ac16/600/40%/+5peep;sinus rhythm on tele;levophed infusing for bp support;right femoral romina intact;tube feeding infusing per order with no residuals noted;burr to dd with scant amount of urine noted;multiple ulcers noted with dressings cdi;vss;no distress at this time
[2016-12-08] MEDS: INSULIN REGULAR, HUMAN 100 UNIT/ML 3 ML VIAL SQ PRN ×3 (09:04→17:55)
[2016-12-08] MEDS: ZINC SULFATE 220 MG CAPSULE GT SCH (09:05)
[2016-12-08] MEDS: SEVELAMER CARBONATE 0.8 GM POWD.PACK GT SCH ×3 (09:05→17:49)
[2016-12-08] MEDS: ASCORBIC ACID 500 MG TABLET PO SCH (09:05)
[2016-12-08] MEDS: AMIODARONE HCL 200 MG TABLET GT SCH (09:06)
[2016-12-08] MEDS: MIDODRINE HCL (5MG) 5 MG TABLET GT SCH ×3 (09:06→17:49)
[2016-12-08] MEDS: DIGOXIN 0.125 MG TABLET GT SCH (09:06)
[2016-12-08] MEDS: PANTOPRAZOLE 40 MG TABLET.DR PO SCH (09:06)
[2016-12-08] MEDS: CADEXOMER IODINE 40 GM TUBE TP SCH (09:07)
[2016-12-08] MEDS: ASPIRIN 81 MG TAB.CHEW GT SCH (09:07)
[2016-12-08] MEDS: NEOMY SULF/BACITRAC ZN/POLY 15 GM TUBE TP SCH (09:07)
[2016-12-08] MEDS: COLISTIMETHATE SODIUM 100 MG in IV NS 0.9% 50 ML IV SCH (10:00)
[2016-12-08] MEDS: NOREPINEPHRINE 16 MG in IV D5W 500 ML IV PRN (10:01)
--- NOTE | 2016-12-08 11:15 | NUR ---
no changes in health status;pt transferred to icu-room 252;report given to Jessica GRANGER;no distresss noted
[2016-12-08] MEDS ORDERED: EPOETIN ALFA (10,000 UNIT) 10,000 UNIT/ML VIAL SQ ONE (11:30)
--- NOTE | 2016-12-08 11:50 | NUR ---
WATER PROJECT MANAGER; TRANSFER RECEIVED PT FROM ICU OVERFLOW. PT VENTED VIA TRACH SEE FLOW SHEET FOR VENT SETTINGS. PT IS OBTUNDED WITH MARBIN UPPER EXTREMITIES CONTRACTED. LOWER EXTREMITIES RIGID. MULTIPLE WOUNDS NOTED SEE PROGRESS NOTES FOR PICTURES. HD ACCESS TO RIGHT FEMORAL. NOTED PICC LINE TO LEFT UPPER ARM NON-FUNCTIONING UNABLE TO FLUSH OR WITHDRAW BLOOD. LEVOPHED RUNNING AT 4MCG/MIN, INFUSING INTO LEFT EJ 20G IV. ROBERT CATH INTACT DRAINING YELLOW CLEAR URINE. WILL CONTINUE WITH POC.
[2016-12-08 12:33] LABS: ABG OXYGEN SATURATION 96.8 % (92.0-98.5); ABG PCO2 36.1 mmHg (35.0-45.0); ABG PH 7.442 (7.350-7.450); ABG PO2 99.5 mmHg (75.0-100.0); AaDO2 144.2 mmHg; MetHb 1.4 % (0.0-1.5); O2Hb 94.5 % (94.0-97.0); SITE, ABG Right Radial
[2016-12-08] MEDS ORDERED: BLOOD IV SET 1 EA INFUS.SET MC ONE (12:39)
[2016-12-08] MEDS ORDERED: IV NS 0.9% 500 ML IV ONE (12:39)
[2016-12-08] MEDS ORDERED: FEE PK DOSING 1 MIN EA MC ONE (13:42)
[2016-12-08] MEDS: INSULIN DETEMIR 100 UNIT/ML CARTRIDGE SQ SCH ×2 (13:47→22:41)
[2016-12-08] MEDS ORDERED: VANCOMYCIN 1 GM in IV D5W 250 ML IV ONE (14:00)
--- NOTE | 2016-12-08 14:55 | NUR ---
ONCOLOGIST; BLOOD TRANSFUSION BLOOD TRANSFUSION STARTED BY HD NURSE AT 1431. SEE HD NOTES FOR VITAL SIGNS.
[2016-12-08] MEDS ORDERED: ALTEPLASE CATHFLO 2 MG/VIAL IV ONE (15:30)
--- NOTE | 2016-12-08 15:30 | NUR ---
BOTTLING LINE OPERATOR; PICC LINE NEW PICC LINE INSERTED BY SHAN GRANGER TO RIGHT UPPER ARM. PICC LINE TO LEFT UPPER D/C, CATH TIP SEND TO LAB FOR CULTURE.
[2016-12-08] MEDS: SOD FERRIC GLUC 125 MG in IV NS 0.9% 100 ML IV SCH (16:20)
[2016-12-08 16:46] LABS: BILIRUBIN,URINE NEGATIVE (NEGATIVE); BLOOD, URINE 2+ Ery/uL (NEGATIVE); COLOR,URINE YELLOW (YELLOW); KETONES,URINE NEGATIVE (NEGATIVE); LEUKOCYTE ESTERASE ,URINE 1+ (NEGATIVE); NITRITE, URINE NEGATIVE (NEGATIVE); PH,URINE 5.5 (5.0-8.0); PROTEIN,URINE 2+ mg/dl (NEGATIVE); UGLUCOSE NEGATIVE (NEGATIVE); UROBILINOGEN,URINE 0.2 EU/dL (0.2)
[2016-12-08 17:58] LABS: APPEARANCE,URINE SLIGHTLY HAZY (CLEAR)
[2016-12-08 18:01] LABS: BACTERIA,URINE None seen /HPF (None Seen); COARSE GRANULAR CASTS,URINE Few /LPF (None Seen); RBC,URINE 0-2 /HPF (0-2); SQUAMOUS EPITHELIAL CELL,UR Few /HPF (None Seen)
[2016-12-08] MEDS: ATORVASTATIN 10 MG TABLET GT SCH (21:57)
[2016-12-08] MEDS ORDERED: MEROPENEM 500 MG VIAL IV ONE (22:24)
[2016-12-08] MEDS ORDERED: IV NS 0.9% 50 ML IV ONE (22:34)
[2016-12-08] MEDS: MEROPENEM 500 MG in IV NS 0.9% 50 ML IV SCH (22:41)
[2016-12-09] VITALS (71 sets, daily range): BP systolic 60–141; BP diastolic 18–59
[2016-12-09] MEDS: INSULIN REGULAR, HUMAN 100 UNIT/ML 3 ML VIAL SQ PRN ×3 (00:32→12:03)
[2016-12-09 04:42] LABS: BASOPHILS % (AUTO) 0.2 % (0.0-2.0); EOSINOPHILS # (AUTO) 0.2 /CMM (0.0-0.7); EOSINOPHILS % (AUTO) 2.2 % (0.0-6.0); HEMATOCRIT 21 % (39-51); HEMOGLOBIN 7.4 g/dL (13.5-17.5); LYMPHOCYTES # (AUTO) 0.6 /CMM (0.8-4.8); LYMPHOCYTES % (AUTO) 7.2 % (20.0-44.0); MEAN CORPUSCULAR HEMOGLOBIN 30 PG (26.0-33.0); MEAN CORPUSCULAR HGB CONC 35 g/dl (31.0-36.0); MEAN CORPUSCULAR VOLUME 86 fL (80-96); MONOCYTES # (AUTO) 0.8 /CMM (0.1-1.30); MONOCYTES % (AUTO) 9.2 % (2.0-12.0); NEUTROPHILS # (AUTO) 7.1 /CMM (1.8-8.9); NEUTROPHILS % (AUTO) 81.2 % (43.0-81.0); PLATELET COUNT (AUTO) 287 /CMM (150-450); RDW COEFFICIENT OF VARIATION 16.1 (11.5-15.0); RED BLOOD CELL COUNT(AUTO) 2.48 MIL/uL (4.5-6.0); WHITE BLOOD COUNT (AUTO) 8.7 K/uL (4.3-11.0)
[2016-12-09 04:58] LABS: CALCIUM, SERUM 8.7 mg/dL (8.5-10.1); CREATININE 3.6 mg/dL (0.6-1.3); MAGNESIUM 1.9 mg/dL (1.8-2.4); PHOSPHORUS 1.6 mg/dL (2.5-4.9); POTASSIUM 3.3 mmol/L (3.5-5.1)
[2016-12-09] MEDS: BLOOD SUGAR DIAGNOSTIC 1 EACH STRIP IN SCH ×4 (06:00→17:43)
--- NOTE | 2016-12-09 06:00 | NUR ---
DUPLICATE MAKER - REC'D PT.VENTED/PEGGED & ON LEVOPHED GTT. AT 6 MCG/MIN. PT. WAS TITRATED DOWN TO 3 MCG/MIN. BY END OF SHIFT. PT.IS OBTUNDED, BUT RESPONDS MINIMALLY TO TACTILE STIMULUS. PT.'S BUE'S ARE CONTRACTED & PT. POSTURES WHEN STIMULATED. ROBERT CATH TO GRAVITY, EVEN THOUSH PT.IS A HD PT. 10 SKIN PICS WERE TAKEN FOR FRIDAY NOC/WOUND PICS-PLACED IN CHART. WOUND CARE PROVIDED. PT.IS IN ISOLATION FOR ACINTOBACTER & ESBL. LOW GRADE TEMPS DURING SHIFT. COOLING MEASURES DONE THRU-OUT THE NIGHT. SCD'S TO BLE'S. RUE PICC LINE HAS 3 PORTS PATENT TO FLUSH. LEVOPHED GTT & 0.9%NS TKO INFUSING WELL. NOVASOURCE INFUSING AT 60CC/HR. NO RESIDUALS NOTED. REPORT GIVEN TO JASON GRANGER. CONT.POC.
--- NOTE | 2016-12-09 07:00 | NUR ---
ICU INITIAL NOTES RECEIVED REPORT FROM PM RN, PT IS OBTUNDED, RESPONSES TO PAIN STIMULI, PT IS ON [facility] VENT SHILEY #8 AC 16 TV 600 FIO2 40% PEEP 5, SATING WELL, NO S/S OF RESP.DISTRESS OR SOB NOTED AT THIS TIME, PT IS ON BEDISDE MONITOR SHOWING ST 110'S, NO S/S OF PAIN OR DISCOMFORT AT THIS TIME, PT HAS GTUBE RUNNING NOVASOURCE @ 60ML/HR, NO RESIDUALS NOTED AT THIS TIME, TOLERATING WELL, PT IS NOTED WITH MULTIPLE SKIN ISSUES, PT HAS BILATERAL WOUNDS ON EARS, UNABLE TO PREVENT, APPLIED MEPILEX AND OFFLOADING FORM PRESSURE, PT KEEPS TURNING HEAD TO LEFT OR RIGHT SIDE DESPITE REPOSITIONING, PT HAS TONE PICC, GOOD BLOOD RETURN,RUNNING LEVO @3MCG/MIN, TKO, C/D/I/PATENT, FLUSHING WELL, NO S/S OF INFECTION/ INFILTRATION NOTED AT THIS TIME, R FEMORAL HD CATH, DRESSING INTACT/CLEAN AND DRY, L IJ #20G, NO BLOOD RETURN, ISOLATION PRECAUTIONS OBSERVED AT ALL TIMES, ALL SAFETY MEASURES IN PLACE AT ALL TIMES, CALL LIGHT WITHIN EASY REACH, WILL MONITOR CLOSELY
[2016-12-09] MEDS: NOREPINEPHRINE 16 MG in IV D5W 500 ML IV PRN (08:25)
[2016-12-09] MEDS: MIDODRINE HCL (5MG) 5 MG TABLET GT SCH ×3 (08:26→17:43)
[2016-12-09] MEDS: SEVELAMER CARBONATE 0.8 GM POWD.PACK GT SCH (08:26)
[2016-12-09] MEDS: PANTOPRAZOLE 40 MG/PACK PACK GT SCH (08:26)
[2016-12-09] MEDS: ZINC SULFATE 220 MG CAPSULE GT SCH (08:26)
[2016-12-09] MEDS: AMIODARONE HCL 200 MG TABLET GT SCH (08:26)
[2016-12-09] MEDS: ASPIRIN 81 MG TAB.CHEW GT SCH (08:26)
[2016-12-09] MEDS: ASCORBIC ACID 500 MG TABLET PO SCH (08:26)
[2016-12-09] MEDS: CADEXOMER IODINE 40 GM TUBE TP SCH (08:27)
[2016-12-09] MEDS: Z GUARD REMEDY 2 OZ OINT TP PRN (08:30)
[2016-12-09] MEDS: NEOMY SULF/BACITRAC ZN/POLY 15 GM TUBE TP SCH (08:30)
[2016-12-09] MEDS: RENAL NOVASOURCE 1,000 ML BOTTLE GT PRN (08:34)
[2016-12-09] MEDS: COLISTIMETHATE SODIUM 100 MG in IV NS 0.9% 50 ML IV SCH (09:14)
--- NOTE | 2016-12-09 09:45 | NUR ---
ICU NOTES ,, AND MADE ROUNDS, MDS AWARE OF ALL LABS,MEDICATIONS AND TREATMENTS, ALL NEW ORDERS ACK
--- NOTE | 2016-12-09 09:54 | NUR ---
ICU NOTES NON ADMINISTERED ALL PINK MEDICATIONS FRO PT SAFETY
[2016-12-09] MEDS ORDERED: Sodium Phosphate 15 MMOL in IV D5W 250 ML IV ONE (10:00)
[2016-12-09] MEDS ORDERED: POTASSIUM CL. PREMIX PERIPHER. 50 ML IV SCH (10:00)
[2016-12-09] MEDS ORDERED: IV SET PRIMARY PUMP SET 1 EA INFUS.SET MC ONE (10:13)
[2016-12-09] MEDS: INSULIN DETEMIR 100 UNIT/ML CARTRIDGE SQ SCH ×2 (10:41→22:24)
[2016-12-09] MEDS ORDERED: VANCOMYCIN 500 MG in IV D5W 100 ML IV PRN (14:00)
[2016-12-09] MEDS: MORPHINE SULFATE INJ 2 MG/ML DISP.SYRIN IV PRN (17:46)
[2016-12-09] MEDS: IV NS 0.9% 250 ML IV PRN (18:13)
--- NOTE | 2016-12-09 18:35 | NUR ---
ICU NOTES CARRIED OUT ALL MD ORDERS, ALL MEDICATIONS GIVEN, PT WAS KEPT CLEAN AND DRY, ALL TREATMENTS CARRIED OUT, COMPLETE BED BATH COMPLETED, FAMILY AT BEDSIDE, PT RESTING COMFORTABLY
--- NOTE | 2016-12-09 20:00 | NUR ---
ICU/RN- PT IN BED, OPENS EYES TO PAINFUL STIMULI ON MONITOR W/ SR W/ HR- 90S. PT IS TRACHED W/ MECH VENT SETTINGS TOLERATING WELL. WILL MONITOR FOR S/SX OF RESP DISTRESS. R FEM HD CATH IN PLACE, DRESSING INTACT. PICC LINE TONE PATENT AND AND INTACT. ROBERT IN PLACE W/ CLEAR AND YELLOW URINE DRAINING WELL TO GRAVITY. GT IN PLACE. GTF FRANCISCO J WELL, NO RESIDUAL NOTED. WILL MONITOR PT ACCORDINGLY.
--- NOTE | 2016-12-09 21:38 | NUR ---
PT RECEIVED TRACHED ON VENT. PT TOLERATING VENT SETTINGS. NO RESP DISTRESS. SX'D FOR MOD AMT OF THICK WHITE SECRETIONS. VENT ALARMS SET AND AUDIBLE. AMBU BAG AT [facility]. VENT PLUGGED INTO RED OUTLET. WILL CONTINUE TO MONITOR. Addendum: 12/09/16 at 2139 by BERNARDO MAR RT Amended: Links added.
[2016-12-09] MEDS: ATORVASTATIN 10 MG TABLET GT SCH (22:23)
[2016-12-09] MEDS: MEROPENEM 500 MG in IV NS 0.9% 50 ML IV SCH (22:24)
[2016-12-09] MEDS ORDERED: SECONDARY IV SET 1 EA INFUS.SET MC ONE (22:25)
[2016-12-10] VITALS (69 sets, daily range): BP systolic 69–131; BP diastolic 16–87
--- NOTE | 2016-12-10 | NUR ---
ICU/RN- TEMP IS 100.5. COOLING MEASURES GIVEN. TYLENOL 650 GIVEN PRN FOR FEVER. FRANCISCO J WELL. NO S/SX OF ADVERSE REACTION NOTED.
[2016-12-10] MEDS: BLOOD SUGAR DIAGNOSTIC 1 EACH STRIP IN SCH ×5 (01:00→23:18)
[2016-12-10] MEDS: ACETAMINOPHEN 650 MG/20.3 ML UDC GT PRN (01:01)
[2016-12-10 05:25] LABS: CALCIUM, SERUM 8.7 mg/dL (8.5-10.1); CREATININE 4.2 mg/dL (0.6-1.3); PHOSPHORUS 1.8 mg/dL (2.5-4.9); POTASSIUM 3.4 mmol/L (3.5-5.1)
[2016-12-10 06:14] LABS: EOSINOPHILS # (AUTO) 0.4 /CMM (0.0-0.7); EOSINOPHILS % (AUTO) 4.6 % (0.0-6.0); LYMPHOCYTES % (AUTO) 13.5 % (20.0-44.0); MEAN CORPUSCULAR HEMOGLOBIN 29 PG (26.0-33.0); MEAN CORPUSCULAR HGB CONC 34 g/dl (31.0-36.0); MEAN CORPUSCULAR VOLUME 86 fL (80-96); MONOCYTES # (AUTO) 0.7 /CMM (0.1-1.30); MONOCYTES % (AUTO) 9.5 % (2.0-12.0); NEUTROPHILS # (AUTO) 5.5 /CMM (1.8-8.9); NEUTROPHILS % (AUTO) 72.4 % (43.0-81.0); PLATELET COUNT (AUTO) 255 /CMM (150-450); RDW COEFFICIENT OF VARIATION 15.7 (11.5-15.0); RED BLOOD CELL COUNT(AUTO) 2.27 MIL/uL (4.5-6.0); WHITE BLOOD COUNT (AUTO) 7.6 K/uL (4.3-11.0)
[2016-12-10 06:30] LABS: HEMOGLOBIN 6.6 g/dL (13.5-17.5)
[2016-12-10 06:31] LABS: HEMATOCRIT 19 % (39-51)
--- NOTE | 2016-12-10 06:33 | NUR ---
ICU/RN- LAB CALLED FOR REDRAW RESULTS OF CBC. HGB IS 6.6. CALLED LAUNDRY ASSISTANT MD. RUBBER AND POUNDER PAGED DR SPEARS. AWAITING CALL BACK.
[2016-12-10] MEDS: RENAL NOVASOURCE 1,000 ML BOTTLE GT PRN ×2 (06:41→16:21)
--- NOTE | 2016-12-10 07:00 | NUR ---
ICU INITIAL NOTES RECEIVED REPORT FROM PM RN, PT IS OBTUNDED, RESPONSES TO PAIN STIMULI, PT IS ON [facility] VENT SHILEY #8 AC 16 TV 600 FIO2 40% PEEP 0, SATING WELL, NO S/S OF RESP.DISTRESS OR SOB NOTED AT THIS TIME, PT IS ON BEDSIDE MONITOR SHOWING SR 80'S, NO S/S OF PAIN OR DISCOMFORT AT THIS TIME, PT HAS GTUBE RUNNING NOVASOURCE @ 60ML/HR, NO RESIDUALS NOTED AT THIS TIME, TOLERATING WELL, PT IS NOTED WITH MULTIPLE SKIN ISSUES, PT HAS BILATERAL WOUNDS ON EARS, UNABLE TO PREVENT, APPLIED MEPILEX AND OFFLOADING FORM PRESSURE, PT KEEPS TURNING HEAD TO LEFT OR RIGHT SIDE DESPITE REPOSITIONING, PT HAS TONE PICC, GOOD BLOOD RETURN,RUNNING TKO, C/D/I/PATENT, FLUSHING WELL, NO S/S OF INFECTION/ INFILTRATION NOTED AT THIS TIME, R FEMORAL HD CATH, DRESSING INTACT/CLEAN AND DRY, ISOLATION PRECAUTIONS OBSERVED AT ALL TIMES, ALL SAFETY MEASURES IN PLACE AT ALL TIMES, CALL LIGHT WITHIN EASY REACH, WILL MONITOR CLOSELY
--- NOTE | 2016-12-10 07:58 | NUR ---
ICU NOTES CALLED EPIC GROUP AND PAGED FOR CRITICAL H/H 6.12/16, AWAITING RETURN CALL FRO ORDERS
[2016-12-10 08:09] LABS: NEUTROPHILS % (MANUAL) 33 (42-76)
[2016-12-10 08:10] LABS: BAND % (MANUAL) 45 % (0.0-5.0); LYMPHOCYTES % (MANUAL) 12 % (16-48); MONOCYTES % (MANUAL) 8 % (0-11.0)
[2016-12-10 08:11] LABS: EOSINOPHILS % (MANUAL) 2 % (0-4)
--- NOTE | 2016-12-10 08:12 | NUR ---
ICU NOTES RETURNED CALL AND ORDERED TYPE AND SCREEN, 1UNIT PRBC
[2016-12-10] MEDS ORDERED: IV NS 0.9% 250 ML IV ONE (08:46)
[2016-12-10] MEDS ORDERED: BLOOD IV SET 1 EA INFUS.SET MC ONE (08:46)
[2016-12-10] MEDS ORDERED: IV SET PRIMARY PUMP SET 1 EA INFUS.SET MC ONE (08:46)
[2016-12-10] MEDS ORDERED: MISCELLANEOUS MED 1 EA EA IV SCH (09:00)
--- NOTE | 2016-12-10 09:00 | NUR ---
ICU NOTES LISA JARQUIN,JASKARAN AND ID MADE ROUNDS, AWARE OF LABS, MEDICATIONS AND RESULTS, ALL NEW ORDERS ACK AND CARRIED OUT
[2016-12-10] MEDS: ZINC SULFATE 220 MG CAPSULE GT SCH (09:20)
[2016-12-10] MEDS: PANTOPRAZOLE 40 MG/PACK PACK GT SCH (09:20)
[2016-12-10] MEDS: ASCORBIC ACID 500 MG TABLET PO SCH (09:20)
[2016-12-10] MEDS: D5W IV SCH ×2 (09:20→21:05)
[2016-12-10] MEDS: DIGOXIN 0.125 MG TABLET GT SCH (09:20)
[2016-12-10] MEDS: ASPIRIN 81 MG TAB.CHEW GT SCH (09:20)
[2016-12-10] MEDS: AMIODARONE HCL 200 MG TABLET GT SCH (09:21)
[2016-12-10] MEDS: CADEXOMER IODINE 40 GM TUBE TP SCH (09:21)
[2016-12-10] MEDS: Z GUARD REMEDY 2 OZ OINT TP PRN (09:21)
[2016-12-10] MEDS: NEOMY SULF/BACITRAC ZN/POLY 15 GM TUBE TP SCH (09:21)
[2016-12-10] MEDS ORDERED: IV NS 0.9% 1,000 ML ONE (09:22)
[2016-12-10] MEDS ORDERED: DOSING PER PHARMACY-AMIKACI IV XX PRN (09:30)
[2016-12-10] MEDS ORDERED: SECONDARY IV SET 1 EA INFUS.SET MC ONE (09:31)
[2016-12-10] MEDS ORDERED: FEE PK DOSING 1 MIN EA MC ONE (09:54)
[2016-12-10] MEDS: MIDODRINE HCL (5MG) 5 MG TABLET GT SCH ×3 (10:21→16:21)
--- NOTE | 2016-12-10 10:38 | NUR ---
ICU NOTES NON-ADMINISTERED PINK MEDICATIONS FOR PT SAFETY
[2016-12-10] MEDS ORDERED: AMIKACIN 500 MG in IV D5W 100 ML IV ONE (11:00)
[2016-12-10] MEDS ORDERED: EPOETIN ALFA (10,000 UNIT) 10,000 UNIT/ML VIAL SQ ONE (11:00)
[2016-12-10] MEDS: INSULIN DETEMIR 100 UNIT/ML CARTRIDGE SQ SCH ×2 (11:57→23:28)
[2016-12-10] MEDS ORDERED: IV NS 0.9% 1,000 ML IV PRN (12:00)
[2016-12-10] MEDS ORDERED: Sodium Phosphate 15 MMOL in IV D5W 250 ML IV ONE (12:30)
--- NOTE | 2016-12-10 15:22 | NUR ---
ICU NOTES HD COMPLETED, REMOVED 2.5 L, PT TOLERATED WELL, VVS, TRANSFUSED 1 UNITS PRBC, TOLERATED WELL. VVS, NO ADVERSE EFFECTS
[2016-12-10] MEDS: LACTOBACILLUS RHAMNOSUS GG 1 EACH CAP.SPRINK PO SCH (16:21)
[2016-12-10] MEDS: INSULIN REGULAR, HUMAN 100 UNIT/ML 3 ML VIAL SQ PRN ×2 (17:19→23:26)
--- NOTE | 2016-12-10 19:20 | NUR ---
LAB CALLED, PT HAS GRAM NEGATIVE RODS IN BLOOD, PT ALREADY ON ABX
--- NOTE | 2016-12-10 20:00 | NUR ---
FINGER GRIP MACHINE OPERATOR - NOTES - RECEIVED PT IS OBTUNDED, RESPONSES TO PAIN STIMULI, PT IS ON [facility] VENT SHILEY #8 AC 16 TV 600 FIO2 40% PEEP 0, SATING WELL, NO S/S OF RESP DISTRESS OR SOB NOTED AT THIS TIME, PT IS ON BEDSIDE MONITOR SHOWING SR 80'S, NO S/S OF PAIN OR DISCOMFORT AT THIS TIME, PT HAS GTUBE RUNNING NOVASOURCE @ 60ML/HR, NO RESIDUALS NOTED AT THIS TIME, TOLERATING WELL, PT IS NOTED WITH MULTIPLE SKIN ISSUES, PT HAS BILATERAL WOUNDS ON EARS, UNABLE TO PREVENT, APPLIED MEPILEX AND OFFLOADING FORM PRESSURE, PT KEEPS TURNING HEAD TO LEFT OR RIGHT SIDE DESPITE REPOSITIONING, PT HAS TONE PICC, GOOD BLOOD RETURN,RUNNING TKO, C/D/I/PATENT, [id number] WELL, NO S/S OF INFECTION/ INFILTRATION NOTED AT THIS TIME, R FEMORAL HD CATH, DRESSING INTACT/CLEAN AND DRY, ISOLATION PRECAUTIONS OBSERVED AT ALL TIMES, ALL SAFETY MEASURES IN PLACE AT ALL TIMES, CALL LIGHT WITHIN EASY REACH, WILL MONITOR CLOSELY
[2016-12-10] MEDS: ATORVASTATIN 10 MG TABLET GT SCH (21:24)
[2016-12-11] VITALS (49 sets, daily range): BP systolic 91–118; BP diastolic 17–74
--- NOTE | 2016-12-11 00:15 | NUR ---
TEMP 100.6 TYLENOL 650 MG NADER GIVEN AND COOLING MEASURES IMPLEMENTED
[2016-12-11] MEDS: ACETAMINOPHEN 650 MG/20.3 ML UDC GT PRN (01:48)
[2016-12-11 04:42] LABS: BASOPHILS % (AUTO) 0.5 % (0.0-2.0); EOSINOPHILS # (AUTO) 0.5 /CMM (0.0-0.7); EOSINOPHILS % (AUTO) 5.7 % (0.0-6.0); HEMATOCRIT 23 % (39-51); LYMPHOCYTES # (AUTO) 1.1 /CMM (0.8-4.8); LYMPHOCYTES % (AUTO) 13.2 % (20.0-44.0); MEAN CORPUSCULAR HEMOGLOBIN 30 PG (26.0-33.0); MEAN CORPUSCULAR HGB CONC 35 g/dl (31.0-36.0); MEAN CORPUSCULAR VOLUME 86 fL (80-96); MONOCYTES # (AUTO) 0.7 /CMM (0.1-1.30); MONOCYTES % (AUTO) 8.9 % (2.0-12.0); NEUTROPHILS % (AUTO) 71.7 % (43.0-81.0); PLATELET COUNT (AUTO) 274 /CMM (150-450); RDW COEFFICIENT OF VARIATION 15.3 (11.5-15.0); RED BLOOD CELL COUNT(AUTO) 2.68 MIL/uL (4.5-6.0); WHITE BLOOD COUNT (AUTO) 8.3 K/uL (4.3-11.0)
[2016-12-11 04:59] LABS: CALCIUM, SERUM 8.4 mg/dL (8.5-10.1); CREATININE 3.6 mg/dL (0.6-1.3); MAGNESIUM 1.9 mg/dL (1.8-2.4); POTASSIUM 3.3 mmol/L (3.5-5.1)
[2016-12-11] MEDS: BLOOD SUGAR DIAGNOSTIC 1 EACH STRIP IN SCH ×4 (06:09→23:34)
[2016-12-11] MEDS: INSULIN REGULAR, HUMAN 100 UNIT/ML 3 ML VIAL SQ PRN ×3 (06:10→23:35)
--- NOTE | 2016-12-11 07:00 | NUR ---
ICU INITIAL NOTES RECEIVED REPORT FROM PM RN, PT IS OBTUNDED, RESPONSES TO PAIN STIMULI, PT IS ON [facility] #8 AC 16 TV 600 FIO2 40% PEEP 0, SATING WELL, NO S/S OF RESP.DISTRESS OR SOB NOTED AT THIS TIME, PT IS ON BEDSIDE MONITOR SHOWING SR 90'S, NO S/S OF PAIN OR DISCOMFORT AT THIS TIME, PT HAS GTUBE RUNNING NOVASOURCE @ 60ML/HR, NO RESIDUALS NOTED AT THIS TIME, TOLERATING WELL, PT IS NOTED WITH MULTIPLE SKIN ISSUES, PT HAS BILATERAL WOUNDS ON EARS, UNABLE TO PREVENT, APPLIED MEPILEX AND OFFLOADING FORM PRESSURE, PT KEEPS TURNING HEAD TO LEFT OR RIGHT SIDE DESPITE REPOSITIONING, PT HAS TONE PICC, GOOD BLOOD RETURN,RUNNING TKO, C/D/I/PATENT, FLUSHING WELL, NO S/S OF INFECTION/ INFILTRATION NOTED AT THIS TIME, R FEMORAL HD CATH, DRESSING INTACT/CLEAN AND DRY, ISOLATION PRECAUTIONS OBSERVED AT ALL TIMES, ALL SAFETY MEASURES IN PLACE AT ALL TIMES, CALL LIGHT WITHIN EASY REACH, WILL MONITOR CLOSELY
[2016-12-11] MEDS ORDERED: POTASSIUM CHLORIDE 20 MEQ POWDER PACKET GT ONE (09:30)
[2016-12-11] MEDS ORDERED: Sodium Phosphate 30 MMOL in IV D5W 250 ML IV ONE (09:30)
[2016-12-11] MEDS: D5W IV SCH ×2 (09:33→20:39)
[2016-12-11] MEDS: LACTOBACILLUS RHAMNOSUS GG 1 EACH CAP.SPRINK PO SCH ×2 (09:33→17:53)
[2016-12-11] MEDS: PANTOPRAZOLE 40 MG/PACK PACK GT SCH (09:34)
[2016-12-11] MEDS: ASCORBIC ACID 500 MG TABLET PO SCH (09:34)
[2016-12-11] MEDS: ASPIRIN 81 MG TAB.CHEW GT SCH (09:34)
[2016-12-11] MEDS: ZINC SULFATE 220 MG CAPSULE GT SCH (09:34)
[2016-12-11] MEDS: MIDODRINE HCL (5MG) 5 MG TABLET GT SCH ×3 (09:34→17:53)
[2016-12-11] MEDS: AMIODARONE HCL 200 MG TABLET GT SCH (09:35)
[2016-12-11] MEDS: NEOMY SULF/BACITRAC ZN/POLY 15 GM TUBE TP SCH (09:35)
[2016-12-11] MEDS: CADEXOMER IODINE 40 GM TUBE TP SCH (09:35)
[2016-12-11] MEDS ORDERED: AMIKACIN 450 MG in IV D5W 100 ML IV PRN (10:00)
[2016-12-11] MEDS: INSULIN DETEMIR 100 UNIT/ML CARTRIDGE SQ SCH ×2 (11:18→22:19)
[2016-12-11] MEDS: MORPHINE SULFATE INJ 2 MG/ML DISP.SYRIN IV PRN (17:53)
[2016-12-11] MEDS: RENAL NOVASOURCE 1,000 ML BOTTLE GT PRN (18:00)
[2016-12-11] MEDS: Z GUARD REMEDY 2 OZ OINT TP PRN (18:03)
[2016-12-11] MEDS: IV NS 0.9% 250 ML IV PRN (20:38)
--- NOTE | 2016-12-11 21:00 | NUR ---
SALES PLANNING ANALYST: TRANSFER TO [facility] ROOM 108 REPORT GIVEN TO DINA . PT TRANSFERRED TO [facility] VIA ACLS PROTOCOL . TONE PICC INTACT AND PATENT . FC INTACT AND PATENT . G-TUBE INTACT AND PATENT .
[2016-12-11] MEDS: ATORVASTATIN 10 MG TABLET GT SCH (21:29)
[2016-12-11] MEDS: DEXTROSE 50%-WATER 50 ML DISP.SYRIN IV PRN (21:44)
--- NOTE | 2016-12-11 22:00 | NUR ---
RECEIVED PATIENT A TRANSFER FROM ICU- VSS, AFEBRILE. PATIENT IS VENT DEPENDENT- NO DISTRESS NOTED. PATIENT RE-ASSESS NO CHANGES FROM PREVIOUS NOTED. PATIENT TURNED AND REPOSITIONED, CONTINUE TO MONITOR
--- NOTE | 2016-12-11 23:00 | NUR ---
BS 77- D50% GIVEN ORDERED, LEVEMIR ON HOLD. CONTINUE TO MONITOR
[2016-12-12] VITALS: BP 99/64
--- NOTE | 2016-12-12 | NUR ---
BS 128 AT THIS TIME , NO COVERAGE. CONTINUE TO MONITOR
[2016-12-12 04:00] VITALS: BP 91/56
[2016-12-12] MEDS: BLOOD SUGAR DIAGNOSTIC 1 EACH STRIP IN SCH ×4 (05:29→23:41)
[2016-12-12] MEDS: INSULIN REGULAR, HUMAN 100 UNIT/ML 3 ML VIAL SQ PRN ×4 (05:31→23:46)
[2016-12-12 06:30] LABS: BASOPHILS % (AUTO) 0.2 % (0.0-2.0); EOSINOPHILS # (AUTO) 0.4 /CMM (0.0-0.7); EOSINOPHILS % (AUTO) 4.4 % (0.0-6.0); HEMATOCRIT 24 % (39-51); HEMOGLOBIN 8.2 g/dL (13.5-17.5); LYMPHOCYTES # (AUTO) 1.4 /CMM (0.8-4.8); LYMPHOCYTES % (AUTO) 14.7 % (20.0-44.0); MEAN CORPUSCULAR HEMOGLOBIN 30 PG (26.0-33.0); MEAN CORPUSCULAR HGB CONC 35 g/dl (31.0-36.0); MEAN CORPUSCULAR VOLUME 85 fL (80-96); MONOCYTES # (AUTO) 0.8 /CMM (0.1-1.30); NEUTROPHILS # (AUTO) 7.1 /CMM (1.8-8.9); NEUTROPHILS % (AUTO) 72.7 % (43.0-81.0); PLATELET COUNT (AUTO) 276 /CMM (150-450); RDW COEFFICIENT OF VARIATION 14.9 (11.5-15.0); RED BLOOD CELL COUNT(AUTO) 2.76 MIL/uL (4.5-6.0); WHITE BLOOD COUNT (AUTO) 9.8 K/uL (4.3-11.0)
[2016-12-12 06:50] LABS: CREATININE 4.4 mg/dL (0.6-1.3); MAGNESIUM 1.9 mg/dL (1.8-2.4); POTASSIUM 3.8 mmol/L (3.5-5.1)
--- NOTE | 2016-12-12 07:15 | NUR ---
RN INITIAL NOTES: Rec'd pt on bed, obtunded, not in any distress. Pt on mech vent via trach tolerating prescribed settings, saturating 100%. On telemonitor, ST. Has patent & intact FC draining to adequate yellow urine output. Has TONE PICC line, SL, flushed, patent & intact w/ no signs of infection/ infiltration noted. Has R groin HD cath in place & intact. Provided comfort & safety measures. Needs attended. Bed kept low & in locked position. Will continue to monitor.
[2016-12-12 08:00] VITALS: BP 94/54
[2016-12-12] MEDS: LACTOBACILLUS RHAMNOSUS GG 1 EACH CAP.SPRINK PO SCH ×2 (08:22→17:12)
[2016-12-12] MEDS: PANTOPRAZOLE 40 MG/PACK PACK GT SCH (08:22)
[2016-12-12] MEDS: ZINC SULFATE 220 MG CAPSULE GT SCH (08:22)
[2016-12-12] MEDS: MIDODRINE HCL (5MG) 5 MG TABLET GT SCH ×3 (08:22→17:11)
[2016-12-12] MEDS: ASPIRIN 81 MG TAB.CHEW GT SCH (08:22)
[2016-12-12] MEDS: DIGOXIN 0.125 MG TABLET GT SCH (08:23)
[2016-12-12] MEDS: ASCORBIC ACID 500 MG TABLET PO SCH (08:23)
[2016-12-12] MEDS: AMIODARONE HCL 200 MG TABLET GT SCH (08:23)
[2016-12-12] MEDS: Z GUARD REMEDY 2 OZ OINT TP PRN (08:27)
[2016-12-12] MEDS ORDERED: EPOETIN ALFA (10,000 UNIT) 10,000 UNIT/ML VIAL SQ ONE (09:30)
[2016-12-12] MEDS: CADEXOMER IODINE 40 GM TUBE TP SCH (09:32)
[2016-12-12] MEDS: NEOMY SULF/BACITRAC ZN/POLY 15 GM TUBE TP SCH (09:32)
[2016-12-12] MEDS: D5W IV SCH ×2 (09:35→21:52)
--- NOTE | 2016-12-12 10:00 | NUR ---
RN NOTES: Pt seen & examined by Dr. Jd Daugherty and JASKARAN Hu. HD started c/o Gloria HD RN, BP monitored closely.
[2016-12-12 11:00] LABS: CHOLESTEROL 69 mg/dL (<200); HDL CHOLESTEROL 15 mg/dL (40-60); LDL 29 mg/dL (0-99); TRIGLYCERIDES 222 mg/dL (30-150)
[2016-12-12] MEDS: ACETAMINOPHEN 650 MG/20.3 ML UDC GT PRN (11:52)
[2016-12-12] MEDS: ALBUMIN 25% 25 GM in PREMIX 1 EA IV PRN (11:52)
[2016-12-12] MEDS: LINEZOLID 600 MG TABLET PEG SCH ×2 (11:52→21:09)
[2016-12-12 12:00] VITALS: BP 95/54
[2016-12-12] MEDS: INSULIN DETEMIR 100 UNIT/ML CARTRIDGE SQ SCH ×2 (12:02→23:44)
[2016-12-12] MEDS: RENAL NOVASOURCE 1,000 ML BOTTLE GT PRN (13:56)
[2016-12-12 16:00] VITALS: BP 97/63
--- NOTE | 2016-12-12 18:55 | NUR ---
RN CLOSING NOTES: No acute changes noted w/in shift. Pt tolerated prescribed mech vent settings, saturating 100%. Suctioned secretions as needed. On telemonitor, still SR/ST. FC kept patent & intact. TONE PICC line, SL, kept patent & intact w/ no signs of infection/ infiltration noted. R groin HD cath kept in place & intact. Pt tolerated HD this AM w/ 1.3L output. Wound care done. Turned/ repositioned every 2h. Kept well rested. Needs attended. Bed kept low & in locked position. Will endorse to PM RN for IVONNE.
--- NOTE | 2016-12-12 19:42 | NUR ---
THERON RN INITIAL NOTE PT RECEIVED RESTING IN BED. OBTUNDED. ON MECH VENT WITH SETTINGS WELL TOLERATED. TELE-SINUS TACH 104. IV TONE PICC LINE CLEAN, PATENT, FLUSHING WELL. GTUBE FEEDING WELL TOLERATED WITHOUT RESIDUAL NOTED. GTUBE SITE CLEAN AND INTACT. ROBERT CATHETER CLEAN AND IN PLACE. ISOLATION PRECAUTIONS OBSERVED. WILL CONTINUE TO MONITOR.
[2016-12-12 20:00] VITALS: BP 118/70
[2016-12-12] MEDS ORDERED: SECONDARY IV SET 1 EA INFUS.SET MC ONE (20:37)
[2016-12-12] MEDS: ATORVASTATIN 10 MG TABLET GT SCH (21:09)
[2016-12-13] VITALS: BP 104/65
[2016-12-13] MEDS ORDERED: IV SET PRIMARY PUMP SET 1 EA INFUS.SET MC ONE (03:58)
[2016-12-13 04:00] VITALS: BP 111/67
[2016-12-13] MEDS: BLOOD SUGAR DIAGNOSTIC 1 EACH STRIP IN SCH ×4 (06:12→23:48)
[2016-12-13] MEDS: INSULIN REGULAR, HUMAN 100 UNIT/ML 3 ML VIAL SQ PRN ×3 (06:16→23:52)
[2016-12-13 06:41] LABS: BASOPHILS % (AUTO) 0.3 % (0.0-2.0); EOSINOPHILS # (AUTO) 0.5 /CMM (0.0-0.7); EOSINOPHILS % (AUTO) 4.1 % (0.0-6.0); HEMATOCRIT 23 % (39-51); LYMPHOCYTES # (AUTO) 1.3 /CMM (0.8-4.8); LYMPHOCYTES % (AUTO) 10.9 % (20.0-44.0); MEAN CORPUSCULAR HEMOGLOBIN 30 PG (26.0-33.0); MEAN CORPUSCULAR HGB CONC 35 g/dl (31.0-36.0); MEAN CORPUSCULAR VOLUME 87 fL (80-96); MONOCYTES # (AUTO) 0.7 /CMM (0.1-1.30); MONOCYTES % (AUTO) 6.3 % (2.0-12.0); NEUTROPHILS # (AUTO) 9.1 /CMM (1.8-8.9); NEUTROPHILS % (AUTO) 78.4 % (43.0-81.0); PLATELET COUNT (AUTO) 267 /CMM (150-450); RDW COEFFICIENT OF VARIATION 14.5 (11.5-15.0); RED BLOOD CELL COUNT(AUTO) 2.65 MIL/uL (4.5-6.0); WHITE BLOOD COUNT (AUTO) 11.6 K/uL (4.3-11.0)
--- NOTE | 2016-12-13 06:51 | NUR ---
THERON RN CLOSING NOTE PT REMAINED STABLE DURING SHIFT. NO ACUTE DISTRESS NOTED. VENT SETTINGS WELL TOLERATED. ISOLATION PRECAUTIONS OBSERVED. ROBERT CATHETER CLEAN AND PATENT. WILL ENDORSE TO NEXT SHIFT FOR IVONNE.
[2016-12-13 07:02] LABS: CALCIUM, SERUM 8.8 mg/dL (8.5-10.1); CREATININE 3.7 mg/dL (0.6-1.3); POTASSIUM 3.7 mmol/L (3.5-5.1)
[2016-12-13 08:00] VITALS: BP 95/60
[2016-12-13] MEDS: LACTOBACILLUS RHAMNOSUS GG 1 EACH CAP.SPRINK PO SCH ×2 (08:13→18:11)
[2016-12-13] MEDS: PANTOPRAZOLE 40 MG/PACK PACK GT SCH (08:13)
[2016-12-13] MEDS: ZINC SULFATE 220 MG CAPSULE GT SCH (08:14)
[2016-12-13] MEDS: LINEZOLID 600 MG TABLET PEG SCH ×2 (08:14→21:25)
[2016-12-13] MEDS: MIDODRINE HCL (5MG) 5 MG TABLET GT SCH ×3 (08:14→18:11)
[2016-12-13] MEDS: ASCORBIC ACID 500 MG TABLET PO SCH (08:14)
[2016-12-13] MEDS: AMIODARONE HCL 200 MG TABLET GT SCH (08:14)
[2016-12-13] MEDS: ASPIRIN 81 MG TAB.CHEW GT SCH (08:14)
[2016-12-13] MEDS: NEOMY SULF/BACITRAC ZN/POLY 15 GM TUBE TP SCH (08:15)
[2016-12-13] MEDS: CADEXOMER IODINE 40 GM TUBE TP SCH (08:15)
[2016-12-13] MEDS: D5W IV SCH ×2 (08:15→21:25)
--- NOTE | 2016-12-13 09:18 | NUR ---
informed COOK SYRUP MAKER Wiliam Xiong at this time that GT residual 250ml, feeding color and gastric mucosa content- said check @ 1000am and hold feeding until <100ml, and once less than 100 ml, restart at half rate of 30ml/hr until tolerating
--- NOTE | 2016-12-13 10:45 | NUR ---
residuals 30ml, feeding resumed
[2016-12-13 12:00] VITALS: BP 102/66
[2016-12-13] MEDS: INSULIN DETEMIR 100 UNIT/ML CARTRIDGE SQ SCH ×2 (12:42→23:50)
[2016-12-13 16:00] VITALS: BP_SYST 98; BP_DIAS 58; BP_DIAS 61
--- NOTE | 2016-12-13 18:40 | NUR ---
END OF SHIFT LOC UNCHANGED, BREATHING STABLE WITH MECHANICAL VENT- SUCTIONED PRN, MODERATE SECRETIONS, TRACH PATENT. DISCUSSED PLAN OF CARE WITH MOTHER AT BED SIDE- EXPRESSED UNDERSTANDING AND APPRECIATION. REPOSITIONED Q2, PROVIDED EXTENSIVE SKIN CARE AND WOUND CARE. F/C CONT' DRAINAGE, MINIMAL O/P R/T ESRD WITH HD.GTUBE PATENT, 30 ML RESIDUAL AT THIS TIME. SECURITY COORDINATOR SAW PATIENT TODAY, DEEMED NOT READY FOR TODAY. CALL LIGHT IN REACH.
--- NOTE | 2016-12-13 19:34 | NUR ---
CAM SPECIALIST INITIAL NOTE RECEIVED PT IN BED. OBTUNDED WITH VENT SETTINGS TOLERATED AND SATING WELL. TELE- SINUS TACH. IV TONE PICC LINE CLEAN AND INTACT, FLUSHING WELL. R GROIN HD CATH INTACT.ROBERT CATHETER IN PLACE AND DRAINING BY GRAVITY. GTUBE FEEDING WELL TOLERATED 10ML RESIDUAL NOTED. ISOLATION PRECAUTIONS OBSERVED. WILL CONTINUE TO MONITOR.
--- NOTE | 2016-12-13 19:35 | NUR ---
PT RCVD ON VENT WITH NOTED SETTINGS. SXN MODERATE AMOUNT OF YELLOWISH THICK SECRETIONS. BILATERAL BS NOTED. VENT ALARM CHECKED AND AUDIBLE. VENT PLUGGED INTO RED OUTLET,[facility]BU BAG AT [facility]. NO RESPIRATORY DISTRESS NOTED, WILL CONTINUE TO MONITOR.
[2016-12-13 20:00] VITALS: BP 92/55
[2016-12-13] MEDS: ATORVASTATIN 10 MG TABLET GT SCH (21:25)
[2016-12-14] VITALS (8 sets, daily range): BP systolic 95–122; BP diastolic 59–80
[2016-12-14] MEDS: RENAL NOVASOURCE 1,000 ML BOTTLE GT PRN (05:40)
[2016-12-14] MEDS: BLOOD SUGAR DIAGNOSTIC 1 EACH STRIP IN SCH ×4 (05:41→23:17)
[2016-12-14 06:30] LABS: BASOPHILS % (AUTO) 0.1 % (0.0-2.0); EOSINOPHILS # (AUTO) 0.6 /CMM (0.0-0.7); HEMATOCRIT 24 % (39-51); HEMOGLOBIN 8.3 g/dL (13.5-17.5); LYMPHOCYTES # (AUTO) 1.5 /CMM (0.8-4.8); LYMPHOCYTES % (AUTO) 11.4 % (20.0-44.0); MEAN CORPUSCULAR HEMOGLOBIN 30 PG (26.0-33.0); MEAN CORPUSCULAR HGB CONC 34 g/dl (31.0-36.0); MEAN CORPUSCULAR VOLUME 87 fL (80-96); MONOCYTES # (AUTO) 0.5 /CMM (0.1-1.30); MONOCYTES % (AUTO) 4.2 % (2.0-12.0); NEUTROPHILS # (AUTO) 10.3 /CMM (1.8-8.9); NEUTROPHILS % (AUTO) 79.3 % (43.0-81.0); PLATELET COUNT (AUTO) 337 /CMM (150-450); RDW COEFFICIENT OF VARIATION 14.9 (11.5-15.0)
--- NOTE | 2016-12-14 06:32 | NUR ---
BENZENE WASHER CLOSING NOTE PT REMAINED STABLE DURING SHIFT. NO ACUTE DISTRESS NOTED. VENT SETTINGS WELL TOLERATED. ISOLATION PRECAUTIONS OBSERVED. TREATMENT AND REPOSITIONING PERFORMED. WILL ENDORSE TO NEXT SHIFT FOR IVONNE.
[2016-12-14 07:25] LABS: CALCIUM, SERUM 9.2 mg/dL (8.5-10.1); CREATININE 4.4 mg/dL (0.6-1.3); MAGNESIUM 2.2 mg/dL (1.8-2.4); POTASSIUM 3.6 mmol/L (3.5-5.1)
--- NOTE | 2016-12-14 07:30 | NUR ---
INITIAL NOTE OBTUNDED. WITH VENT, GT, F/C, PICC. MOVES TO LOCALIZED PAIN. DOES NOT FOLLOW WITH EYES. NO COMPLICATION/ OBSTRUCTION AT ANY INVASIVE SITES. WOUNDS ASSESSED. LUNG SOUNDS COARSE. BS PRESENT. PROVIDED SKIN CARE. GT RESIDUAL 150ML. SKIN WARM, SLIGHTLY MOIST. CONTRACTED HANDS.
[2016-12-14] MEDS: LINEZOLID 600 MG TABLET PEG SCH ×2 (08:46→21:11)
[2016-12-14] MEDS: LACTOBACILLUS RHAMNOSUS GG 1 EACH CAP.SPRINK PO SCH ×2 (08:46→17:45)
[2016-12-14] MEDS: ZINC SULFATE 220 MG CAPSULE GT SCH (08:46)
[2016-12-14] MEDS: DIGOXIN 0.125 MG TABLET GT SCH (08:47)
[2016-12-14] MEDS: ASCORBIC ACID 500 MG TABLET PO SCH (08:47)
[2016-12-14] MEDS: CADEXOMER IODINE 40 GM TUBE TP SCH (08:48)
[2016-12-14] MEDS: AMIODARONE HCL 200 MG TABLET GT SCH (08:48)
[2016-12-14] MEDS: ASPIRIN 81 MG TAB.CHEW GT SCH (08:48)
[2016-12-14] MEDS: MIDODRINE HCL (5MG) 5 MG TABLET GT SCH ×3 (08:48→17:45)
[2016-12-14] MEDS: PANTOPRAZOLE 40 MG/PACK PACK GT SCH (08:48)
[2016-12-14] MEDS: NEOMY SULF/BACITRAC ZN/POLY 15 GM TUBE TP SCH (08:49)
[2016-12-14] MEDS: D5W IV SCH ×2 (08:53→21:11)
--- NOTE | 2016-12-14 10:11 | NUR ---
RECEIVING DIALYSIS RIGHT NOW. NOTED SBP 65 AT THIS TIME. INFORMED INSPECTOR AND ADJUSTER [employer]OLF [employer]UB HEAD LISA JARQUIN. ORDERED ALBUMIN FROM PHARMACY
--- NOTE | 2016-12-14 10:12 | NUR ---
BLOOD CULTURES COLLECTED FROM HD CATHETER
[2016-12-14] MEDS: ALBUMIN 25% 25 GM in PREMIX 1 EA IV PRN (10:16)
--- NOTE | 2016-12-14 11:02 | NUR ---
s/p hd bp 89/57
[2016-12-14] MEDS: INSULIN DETEMIR 100 UNIT/ML CARTRIDGE SQ SCH ×2 (11:07→23:19)
[2016-12-14] MEDS: INSULIN REGULAR, HUMAN 100 UNIT/ML 3 ML VIAL SQ PRN ×2 (11:09→17:51)
[2016-12-14] MEDS ORDERED: DOSE PER PHARMACY (MD SPECIFY MEDICATION) 1 EA XX PRN (12:00)
[2016-12-14] MEDS ORDERED: SECONDARY IV SET 1 EA INFUS.SET MC ONE (13:13)
[2016-12-14] MEDS: COLISTIMETHATE SODIUM 100 MG in IV NS 0.9% 50 ML IV SCH (16:36)
[2016-12-14 17:18] LABS: APPEARANCE,URINE CLOUDY (CLEAR); BILIRUBIN,URINE NEGATIVE (NEGATIVE); BLOOD, URINE 1+ Ery/uL (NEGATIVE); COLOR,URINE YELLOW (YELLOW); KETONES,URINE NEGATIVE (NEGATIVE); LEUKOCYTE ESTERASE ,URINE TRACE (NEGATIVE); NITRITE, URINE NEGATIVE (NEGATIVE); PROTEIN,URINE 3+ mg/dl (NEGATIVE); UGLUCOSE NEGATIVE (NEGATIVE); UROBILINOGEN,URINE 0.2 EU/dL (0.2)
[2016-12-14 17:26] LABS: BACTERIA,URINE 3+ /HPF (None Seen); SQUAMOUS EPITHELIAL CELL,UR 0-2 /HPF (None Seen)
[2016-12-14 17:27] LABS: FINE GRANULAR CASTS,URINE Few /LPF (None Seen)
--- NOTE | 2016-12-14 19:15 | NUR ---
LICENSED PSYCHOLOGIST DIRECTOR INITIAL NOTES PT IS IN BED, HOB ELEVATED, OBTUNDED, NONVERBAL, TRACH IS INTACT, ON MECHANICAL VENT, NO RESPIRATORY DISTRESS NOTED, IV SITE IS FLUSHED AND PATENT. ON GT FEEDING 60ML/HR, ON CONTINUOUS FEEDING, 10 ML RESIDUAL NOTED, WILL CONTINUE TO MONITOR, PT WAS TURNED AND REPOSITIONED, SIDE RAILS UP. BED LOCKED AND IN LOWEST POSITION.
--- NOTE | 2016-12-14 19:36 | NUR ---
END OF SHIFT PATIENT STATUS UNCHANGED. MONITORED RESIDUALS Q2 HR- NOTED BETWEEN 50-100 ML, PER LIFE INSURANCE SPECIALIST LISA, CONTINUE FEEDING, NO EMESIS, NO ASPIRATION. NO NEW SKIN BREAKDOWN. PROVIDED EXTENSIVE SKIN CARE, REPOSITIONING Q2HR. PROVIDED EDUCATION FOR FAMILY. NO COMPLICATIONS WITH F/C OR PICC LINE. RESPIRATORY AND LOC STSUS UNCHANGED. CALL LIGHT IN REACH
[2016-12-14] MEDS: ATORVASTATIN 10 MG TABLET GT SCH (21:11)
[2016-12-15] VITALS (7 sets, daily range): BP systolic 90–119; BP diastolic 57–80
[2016-12-15] MEDS: INSULIN REGULAR, HUMAN 100 UNIT/ML 3 ML VIAL SQ PRN ×3 (00:13→12:01)
[2016-12-15] MEDS: RENAL NOVASOURCE 1,000 ML BOTTLE GT PRN (02:34)
[2016-12-15] MEDS: BLOOD SUGAR DIAGNOSTIC 1 EACH STRIP IN SCH ×3 (05:35→17:28)
[2016-12-15 06:59] LABS: BASOPHILS % (AUTO) 0.2 % (0.0-2.0); EOSINOPHILS # (AUTO) 0.7 /CMM (0.0-0.7); EOSINOPHILS % (AUTO) 5.5 % (0.0-6.0); HEMATOCRIT 27 % (39-51); HEMOGLOBIN 8.9 g/dL (13.5-17.5); LYMPHOCYTES # (AUTO) 1.6 /CMM (0.8-4.8); MEAN CORPUSCULAR HEMOGLOBIN 29 PG (26.0-33.0); MEAN CORPUSCULAR HGB CONC 33 g/dl (31.0-36.0); MEAN CORPUSCULAR VOLUME 87 fL (80-96); MONOCYTES # (AUTO) 0.6 /CMM (0.1-1.30); MONOCYTES % (AUTO) 4.4 % (2.0-12.0); NEUTROPHILS # (AUTO) 10.2 /CMM (1.8-8.9); NEUTROPHILS % (AUTO) 77.9 % (43.0-81.0); PLATELET COUNT (AUTO) 445 /CMM (150-450); RED BLOOD CELL COUNT(AUTO) 3.07 MIL/uL (4.5-6.0); WHITE BLOOD COUNT (AUTO) 13.1 K/uL (4.3-11.0)
--- NOTE | 2016-12-15 07:15 | NUR ---
RN INITIAL NOTE PT RECEIVED IN BED, RESTING. NO S/S OF PAIN OR DISCOMFORT. PT IS ON MECHANICAL VENT., VIA TRACH, AC-16, VT-600, FI02-40%, PEEP-0. SATING WELL. NO S/S OF RESPIRATORY DISTRESS OR SOB. PATIENT IS SINUS RHYTHM ON TELE MONITOR. HEART RATE 103 BPM. GTUBE FLUSHED, PATENT. NOAVASOURCE RUNNING AT 60ML/HR. TOLERATING FEEDING WELL. IV SITE FLUSHED AND PATENT. DRESSING C/D/I. SKIN IS WARM AND DRY TO TOUCH. SAFETY PRECAUTIONS IMPLEMENTED, BED IN LOCKED, LOW POSITION WITH TWO SIDE RAILS UP. CALL LIGHT WITHIN EASY REACH. WILL CONTINUE TO MONITOR CLOSELY.
--- NOTE | 2016-12-15 07:18 | NUR ---
POULTRY CLEANER CLOSING NOTES NO SIGNIFICANT CHANGES OVERNIGHT, AFEBRILE, NO SOB, NO RESPIRATORY DISTRESS NOTED, TOLERATING CURRENT VENT SETTINGS. TRACH CARE PROVIDED. ROBERT IS PATENT AND DRAINING. STILL ON CONTACT ISOLATION. ALL MEDS GIVEN ORDERED, WOUND TREATMENT DONE, IV SITES PATENT, NO S/SX OF INFECTION OR INFILTRATION NOTED. SIDE RAILS UP, BED LOCKED AND IN LOWEST POSITION. ENDORSED TO AM NURSE FOR CONTINUATION OF CARE.
[2016-12-15 07:40] LABS: CALCIUM, SERUM 9.4 mg/dL (8.5-10.1); POTASSIUM 4.1 mmol/L (3.5-5.1)
[2016-12-15] MEDS: ZINC SULFATE 220 MG CAPSULE GT SCH (08:22)
[2016-12-15] MEDS: ASPIRIN 81 MG TAB.CHEW GT SCH (08:22)
[2016-12-15] MEDS: LACTOBACILLUS RHAMNOSUS GG 1 EACH CAP.SPRINK PO SCH ×2 (08:22→17:26)
[2016-12-15] MEDS: PANTOPRAZOLE 40 MG/PACK PACK GT SCH (08:22)
[2016-12-15] MEDS: ASCORBIC ACID 500 MG TABLET PO SCH (08:22)
[2016-12-15] MEDS: MIDODRINE HCL (5MG) 5 MG TABLET GT SCH ×3 (08:23→17:26)
[2016-12-15] MEDS: LINEZOLID 600 MG TABLET PEG SCH ×2 (08:24→20:34)
[2016-12-15] MEDS: ACETAMINOPHEN 650 MG/20.3 ML UDC GT PRN (08:24)
[2016-12-15] MEDS: AMIODARONE HCL 200 MG TABLET GT SCH (08:24)
[2016-12-15] MEDS: CADEXOMER IODINE 40 GM TUBE TP SCH (08:25)
[2016-12-15] MEDS: NEOMY SULF/BACITRAC ZN/POLY 15 GM TUBE TP SCH (08:25)
[2016-12-15] MEDS: D5W IV SCH ×2 (09:01→20:34)
[2016-12-15] MEDS: INSULIN DETEMIR 100 UNIT/ML CARTRIDGE SQ SCH (11:15)
--- NOTE | 2016-12-15 18:58 | NUR ---
RN CLOSING NOTE ALL MD ORDERS CARRIED OUT. PATIENT KEPT CLEAN AND DRY. SAFETY PRECAUTIONS IN PLACE AT ALL TIMES. ISOLATION PRECAUTIONS OBSERVED ALWAYS. WILL GIVE REPORT TO PM RN FOR IVONNE.
[2016-12-15] MEDS: ATORVASTATIN 10 MG TABLET GT SCH (20:34)
[2016-12-16] VITALS (7 sets, daily range): BP systolic 91–109; BP diastolic 52–72
[2016-12-16] MEDS: BLOOD SUGAR DIAGNOSTIC 1 EACH STRIP IN SCH ×4 (00:11→17:14)
[2016-12-16] MEDS: INSULIN DETEMIR 100 UNIT/ML CARTRIDGE SQ SCH ×2 (00:13→11:31)
[2016-12-16] MEDS: INSULIN REGULAR, HUMAN 100 UNIT/ML 3 ML VIAL SQ PRN ×3 (00:15→17:23)
[2016-12-16] MEDS: COLISTIMETHATE SODIUM 100 MG in IV NS 0.9% 50 ML IV SCH (00:20)
[2016-12-16 07:00] LABS: BASOPHILS % (AUTO) 0.3 % (0.0-2.0); EOSINOPHILS # (AUTO) 0.8 /CMM (0.0-0.7); EOSINOPHILS % (AUTO) 6.1 % (0.0-6.0); HEMATOCRIT 23 % (39-51); HEMOGLOBIN 7.8 g/dL (13.5-17.5); LYMPHOCYTES # (AUTO) 1.8 /CMM (0.8-4.8); LYMPHOCYTES % (AUTO) 14.3 % (20.0-44.0); MEAN CORPUSCULAR HEMOGLOBIN 30 PG (26.0-33.0); MEAN CORPUSCULAR HGB CONC 34 g/dl (31.0-36.0); MEAN CORPUSCULAR VOLUME 87 fL (80-96); MONOCYTES # (AUTO) 0.6 /CMM (0.1-1.30); MONOCYTES % (AUTO) 4.6 % (2.0-12.0); NEUTROPHILS # (AUTO) 9.6 /CMM (1.8-8.9); NEUTROPHILS % (AUTO) 74.7 % (43.0-81.0); PLATELET COUNT (AUTO) 445 /CMM (150-450); RDW COEFFICIENT OF VARIATION 14.9 (11.5-15.0); RED BLOOD CELL COUNT(AUTO) 2.64 MIL/uL (4.5-6.0); WHITE BLOOD COUNT (AUTO) 12.8 K/uL (4.3-11.0)
[2016-12-16 07:23] LABS: CALCIUM, SERUM 9.3 mg/dL (8.5-10.1); CREATININE 4.5 mg/dL (0.6-1.3); POTASSIUM 3.7 mmol/L (3.5-5.1)
--- NOTE | 2016-12-16 07:35 | NUR ---
RN NOTE PT RECEIVED IN BED, RESTING. NO S/S OF PAIN OR DISCOMFORT. PT IS ON MECHANICAL VENT., VIA TRACH, AC-16, VT-600, FI02-40%, PEEP-0. SATING WELL. NO S/S OF RESPIRATORY DISTRESS OR SOB. PATIENT IS SINUS RHYTHM ON TELE MONITOR. HEART RATE 103 BPM. ONGOING GTF NOVASOURCE@60M/HR NO RESIDUAL NOTED. GTUBE FLUSHED, PATEN. TONE PICCLINE IV SITE FLUSHED AND PATENT. DRESSING C/D/I. SKIN IS WARM AND DRY TO TOUCH. SAFETY PRECAUTIONS IMPLEMENTED, ISOLATION PRECAUTION OBSERVED, BED IN LOCKED, LOW POSITION WITH TWO SIDE RAILS UP. CALL LIGHT WITHIN EASY REACH. WILL CONTINUE TO MONITOR CLOSELY.
--- NOTE | 2016-12-16 09:10 | NUR ---
RN NOTES LISA AESTHETICS INSTRUCTOR AT BEDSIDE,PT WAS SEEN AND EVALUATED,PT UPDATES REPORTED,CURRENT LAB VALUES REPORTED
[2016-12-16] MEDS: ASCORBIC ACID 500 MG TABLET PO SCH (09:43)
[2016-12-16] MEDS: DIGOXIN 0.125 MG TABLET GT SCH (09:43)
[2016-12-16] MEDS: D5W IV SCH ×2 (09:43→20:26)
[2016-12-16] MEDS: PANTOPRAZOLE 40 MG/PACK PACK GT SCH (09:43)
[2016-12-16] MEDS: LACTOBACILLUS RHAMNOSUS GG 1 EACH CAP.SPRINK PO SCH ×2 (09:43→17:14)
[2016-12-16] MEDS: LINEZOLID 600 MG TABLET PEG SCH ×2 (09:43→21:28)
[2016-12-16] MEDS: ZINC SULFATE 220 MG CAPSULE GT SCH (09:43)
[2016-12-16] MEDS: AMIODARONE HCL 200 MG TABLET GT SCH (09:44)
[2016-12-16] MEDS: MIDODRINE HCL (5MG) 5 MG TABLET GT SCH ×3 (09:44→17:15)
[2016-12-16] MEDS: ASPIRIN 81 MG TAB.CHEW GT SCH (09:44)
[2016-12-16] MEDS: NEOMY SULF/BACITRAC ZN/POLY 15 GM TUBE TP SCH (09:45)
[2016-12-16] MEDS: CADEXOMER IODINE 40 GM TUBE TP SCH (09:46)
--- NOTE | 2016-12-16 19:40 | NUR ---
TELERN OBTUNDED, VENT DEPENDENT. GT FEEDINGS AT 60CC/HR, TOLERATED, CHECKED FOR RESIDUALS, LESS THAN 5CC. MAINTAINED HOB 45 DEGREES. DOES NOT REQUIRE SUCTIONING OF THIS TIME. SR ON THE MONITOR, KEPT COMFORTABLE. CLOSELY WATCHED.
[2016-12-16] MEDS: IV NS 0.9% 250 ML IV PRN (21:41)
[2016-12-16] MEDS: RENAL NOVASOURCE 1,000 ML BOTTLE GT PRN (21:53)
[2016-12-16] MEDS: ATORVASTATIN 10 MG TABLET GT SCH (21:54)
--- NOTE | 2016-12-16 22:30 | NUR ---
TELERN HS CARE DONE, BED BATHED. HAD LOOSE BM SMALL AMOUNT. SACRAL BUTTOCK DRESSING CHANGED WITH IODOSORB PACKING. GT FEEDINGS RESUMED. OTHER DUE MEDS ADMINISTERED VIA GT. REPOSITIONED FOR COMFORT. CONTINUED MONITORING.
[2016-12-17] VITALS (8 sets, daily range): BP systolic 97–115; BP diastolic 60–74
[2016-12-17] MEDS: BLOOD SUGAR DIAGNOSTIC 1 EACH STRIP IN SCH ×5 (00:26→23:09)
[2016-12-17] MEDS: INSULIN REGULAR, HUMAN 100 UNIT/ML 3 ML VIAL SQ PRN ×4 (00:41→23:15)
[2016-12-17] MEDS: INSULIN DETEMIR 100 UNIT/ML CARTRIDGE SQ SCH ×3 (00:42→23:14)
--- NOTE | 2016-12-17 00:53 | NUR ---
TELERN BLOOD SUGAR WAS 187, COVERED WITH 3 UNITS REGULAR INSULIN SQ AND LEVEMIR 12 UNITS ORDERED. GT FEEDINGS CONTINUED.
--- NOTE | 2016-12-17 05:55 | NUR ---
TELERN ACCUCHECK WAS 221 COVERED WITH 4 UNITS REGULAR INSULIN SQ PER S/S.
[2016-12-17 06:59] LABS: BASOPHILS % (AUTO) 0.2 % (0.0-2.0); EOSINOPHILS # (AUTO) 0.7 /CMM (0.0-0.7); EOSINOPHILS % (AUTO) 4.9 % (0.0-6.0); HEMATOCRIT 24 % (39-51); LYMPHOCYTES # (AUTO) 1.6 /CMM (0.8-4.8); LYMPHOCYTES % (AUTO) 10.6 % (20.0-44.0); MEAN CORPUSCULAR HEMOGLOBIN 30 PG (26.0-33.0); MEAN CORPUSCULAR HGB CONC 34 g/dl (31.0-36.0); MEAN CORPUSCULAR VOLUME 88 fL (80-96); MONOCYTES # (AUTO) 0.6 /CMM (0.1-1.30); MONOCYTES % (AUTO) 4.4 % (2.0-12.0); NEUTROPHILS # (AUTO) 11.8 /CMM (1.8-8.9); NEUTROPHILS % (AUTO) 79.9 % (43.0-81.0); PLATELET COUNT (AUTO) 489 /CMM (150-450); RED BLOOD CELL COUNT(AUTO) 2.69 MIL/uL (4.5-6.0); WHITE BLOOD COUNT (AUTO) 14.7 K/uL (4.3-11.0)
--- NOTE | 2016-12-17 07:30 | NUR ---
RN NOTE PT RECEIVED IN BED, RESTING. NO S/S OF PAIN OR DISCOMFORT. PT IS ON MECHANICAL VENT., VIA TRACH, AC-16, VT-600, FI02-40%, PEEP-0. SATING WELL. NO S/S OF RESPIRATORY DISTRESS OR SOB. PATIENT IS SINUS RHYTHM ON TELE MONITOR. HEART RATE 103 BPM. GTUBE FLUSHED, PATENT. NOVASOURCE RUNNING AT 60ML/HR NOTED RESIDUAL 60ML. IV SITE FLUSHED AND PATENT. DRESSING C/D/I. SKIN IS WARM AND DRY TO TOUCH. SAFETY PRECAUTIONS IMPLEMENTED, BED IN LOCKED, LOW POSITION WITH TWO SIDE RAILS UP. CALL LIGHT WITHIN EASY REACH. WILL CONTINUE TO MONITOR CLOSELY.
[2016-12-17 07:37] LABS: ALBUMIN 2.2 g/dL (3.4-5.0); BILIRUBIN,TOTAL 0.3 mg/dL (0.2-1.0); CALCIUM, SERUM 9.2 mg/dL (8.5-10.1); CREATININE 3.9 mg/dL (0.6-1.3); POTASSIUM 3.5 mmol/L (3.5-5.1); TOTAL PROTEIN, SERUM 8.4 g/dL (6.4-8.2)
[2016-12-17] MEDS: ZINC SULFATE 220 MG CAPSULE GT SCH (08:52)
[2016-12-17] MEDS: MIDODRINE HCL (5MG) 5 MG TABLET GT SCH ×3 (08:52→17:18)
[2016-12-17] MEDS: ASCORBIC ACID 500 MG TABLET PO SCH (08:52)
[2016-12-17] MEDS: ASPIRIN 81 MG TAB.CHEW GT SCH (08:52)
[2016-12-17] MEDS: PANTOPRAZOLE 40 MG/PACK PACK GT SCH (08:52)
[2016-12-17] MEDS: LACTOBACILLUS RHAMNOSUS GG 1 EACH CAP.SPRINK PO SCH ×2 (08:52→17:18)
[2016-12-17] MEDS: D5W IV SCH ×2 (08:52→21:12)
[2016-12-17] MEDS: AMIODARONE HCL 200 MG TABLET GT SCH (08:53)
[2016-12-17] MEDS: NEOMY SULF/BACITRAC ZN/POLY 15 GM TUBE TP SCH (08:53)
[2016-12-17] MEDS: CADEXOMER IODINE 40 GM TUBE TP SCH (08:55)
[2016-12-17] MEDS: LINEZOLID 600 MG TABLET PEG SCH ×2 (08:59→21:12)
--- NOTE | 2016-12-17 11:30 | NUR ---
RN NOTES BLOOD SUGAR 94MG/DL SCHEDULED LEVEMIR 12UNITS HELD
[2016-12-17] MEDS: COLISTIMETHATE SODIUM 100 MG in IV NS 0.9% 50 ML IV SCH (12:59)
--- NOTE | 2016-12-17 15:25 | NUR ---
NIKKO received a call from pt's sister Leda Mccann in regards to applying for Social security for pt. NIKKO informed her that she would have to complete the online application and contact Medical records to get medical information on pt. NIKKO explained the process and informed her to contact NIKKO if she had any further questions.
[2016-12-17] MEDS: ACETAMINOPHEN 650 MG/20.3 ML UDC GT PRN (17:33)
[2016-12-17] MEDS: ATORVASTATIN 10 MG TABLET GT SCH (21:12)
[2016-12-18] VITALS (7 sets, daily range): BP systolic 89–109; BP diastolic 53–71
[2016-12-18] MEDS ORDERED: SECONDARY IV SET 1 EA INFUS.SET MC ONE ×2 (02:23→09:11)
[2016-12-18] MEDS ORDERED: IV SET PRIMARY PUMP SET 1 EA INFUS.SET MC ONE ×2 (02:23→09:11)
[2016-12-18] MEDS: IV NS 0.9% 250 ML IV PRN (02:35)
[2016-12-18] MEDS: RENAL NOVASOURCE 1,000 ML BOTTLE GT PRN (02:35)
--- NOTE | 2016-12-18 04:10 | NUR ---
RN CLOSING NOTES PATIENT ENDORSED TO NURSE KAMINSKI FOR CONTINUITY OF CARE.
--- NOTE | 2016-12-18 04:15 | NUR ---
TELE 1 RN NOTE REPORT RECEIVED FROM NURSE BANKS. PT ON VENT/TRACH TOLERATING THE SETTINGS WELL. ON TELE SR 74. F/C INTACT AND PATENT DRAINING YELLOWISH COLOR URINE. GTF INFUSING WELL AT 60 ML/HR, 0 ML RESIDUAL NOTED. NO S/S OF HYPO OR HYPERGLYCEMIA NOTED. SIDE RAILS UP X 3 AND CALL LIGHT WITHIN REACH. CONTINUE TO MONITOR HIM.
[2016-12-18] MEDS: BLOOD SUGAR DIAGNOSTIC 1 EACH STRIP IN SCH ×4 (05:46→23:52)
--- NOTE | 2016-12-18 06:00 | NUR ---
TELE 1 RN NOTE BLOODSUGAR 129, NO INSULIN COVERAGE GIVEN. PT IN NO DISTRESS OR DISCOMFORT NOTED. GTF INFUSING WELL, NO RESIDUAL NOTED.
[2016-12-18 06:40] LABS: BASOPHILS # (AUTO) 0.1 /CMM (0.0-0.2); BASOPHILS % (AUTO) 0.6 % (0.0-2.0); EOSINOPHILS % (AUTO) 5.7 % (0.0-6.0); HEMATOCRIT 24 % (39-51); LYMPHOCYTES # (AUTO) 1.5 /CMM (0.8-4.8); MEAN CORPUSCULAR HEMOGLOBIN 30 PG (26.0-33.0); MEAN CORPUSCULAR HGB CONC 34 g/dl (31.0-36.0); MEAN CORPUSCULAR VOLUME 88 fL (80-96); MONOCYTES # (AUTO) 0.6 /CMM (0.1-1.30); MONOCYTES % (AUTO) 3.5 % (2.0-12.0); NEUTROPHILS # (AUTO) 13.5 /CMM (1.8-8.9); NEUTROPHILS % (AUTO) 81.2 % (43.0-81.0); PLATELET COUNT (AUTO) 507 /CMM (150-450); RED BLOOD CELL COUNT(AUTO) 2.69 MIL/uL (4.5-6.0); WHITE BLOOD COUNT (AUTO) 16.7 K/uL (4.3-11.0)
[2016-12-18 07:11] LABS: CALCIUM, SERUM 9.4 mg/dL (8.5-10.1); CREATININE 4.5 mg/dL (0.6-1.3); POTASSIUM 3.7 mmol/L (3.5-5.1)
--- NOTE | 2016-12-18 07:30 | NUR ---
rn notes RECEIVED PT OBTUNDED IN BED WITH NAD. VENT SETTINGS TOLERATED WELL. HOB KEPT ELEVATED AND GT FEEDING ORDERED. ROBERT CATH DRAINING THRU GRAVITY , YELLOW COLORED URINE OUTPUT. POSITIONED FOR COMFORT, SR ON THE MONITOR. ISOLATION PRECAUTIONS OBSERVED. WILL MONITOR.
[2016-12-18] MEDS: PANTOPRAZOLE 40 MG/PACK PACK GT SCH (09:20)
[2016-12-18] MEDS: MIDODRINE HCL (5MG) 5 MG TABLET GT SCH ×3 (09:21→16:35)
[2016-12-18] MEDS: ZINC SULFATE 220 MG CAPSULE GT SCH (09:22)
[2016-12-18] MEDS: AMIODARONE HCL 200 MG TABLET GT SCH (09:22)
[2016-12-18] MEDS: LACTOBACILLUS RHAMNOSUS GG 1 EACH CAP.SPRINK PO SCH ×2 (09:23→16:35)
[2016-12-18] MEDS: LINEZOLID 600 MG TABLET PEG SCH ×2 (09:23→21:19)
[2016-12-18] MEDS: ASPIRIN 81 MG TAB.CHEW GT SCH (09:23)
[2016-12-18] MEDS: ASCORBIC ACID 500 MG TABLET PO SCH (09:23)
[2016-12-18] MEDS: D5W IV SCH ×2 (09:24→21:19)
[2016-12-18] MEDS: DIGOXIN 0.125 MG TABLET GT SCH (09:24)
[2016-12-18] MEDS: CADEXOMER IODINE 40 GM TUBE TP SCH (09:24)
[2016-12-18] MEDS: NEOMY SULF/BACITRAC ZN/POLY 15 GM TUBE TP SCH (09:25)
--- NOTE | 2016-12-18 09:31 | NUR ---
RN NOTES PT SEEN AND ASSESSED BY DR PAULSON WITH NNO GIVEN AT THIS TIME
--- NOTE | 2016-12-18 09:47 | NUR ---
RN NOTES DIALYSIS STARTED
--- NOTE | 2016-12-18 11:51 | NUR ---
RN NOTES PT POST HD WITH LOW BLOOD PRESSURE, ROBERTO AZEVEDO AWARE; PT IS DUE FOR MIDODRINE, POSITIONED ACCORDINGLY
[2016-12-18] MEDS: INSULIN REGULAR, HUMAN 100 UNIT/ML 3 ML VIAL SQ PRN ×3 (12:23→23:58)
[2016-12-18] MEDS: INSULIN DETEMIR 100 UNIT/ML CARTRIDGE SQ SCH ×2 (12:24→23:57)
--- NOTE | 2016-12-18 12:28 | NUR ---
RN NOTES PT SEEN AND ASSESSED BY DR CHONG
--- NOTE | 2016-12-18 15:59 | NUR ---
NIKKO met with pt's mother Diane outside pt's room. With assistance from THAO Lewis for Canadian translation, pt's mother Diane informed SW she needed a verification of admission letter for [employer] since she was going to apply for welfare for pt's two children ages 13 and 16 who live with her. Pt. has full custody of his children according to pt's mother. NIKKO gave THERON relief charge nurse the verification of admission letter and address to [employer] in [place] located at [address] [place] [address] to give to pt's mother Diane per her request.
--- NOTE | 2016-12-18 18:09 | NUR ---
RN NOTES NO SIGNIFICANT CHANGES DURING THIS SHIFT. TURNED AND REPOSITIONED PT WITH BOTH HEELS KEPT OFFLOADED. WOUND DRESSING CHANGED DIRECTED. HOB KEPT ELEVATED ; FEEDING TOLERATED WELL. TONE PICC LINE AND RT GROIN HD ACCESS IN PLACE AND SECURED WITH CLEAN AND DRY DRESSING. REMAINS ON SINUS RHYTHM ON THE MONITOR. WILL ENDORSE TO NEXT SHIFT FOR CONTINUITY OF CARE IN STABLE CONDITION.
--- NOTE | 2016-12-18 19:30 | NUR ---
RN NOTES RECEIVED PT IN BED, OBTUNDED. TRACH INTACT AND PATENT , ON VENT, SETTINGS TOLERATED WELL. SUCTIONED PRN. NO DISTRESS, NO SOB NOTED. HOB KEPT ELEVATED. GT FEEDING OF NOVASOURCE FRANCISC OJ WELL. RESIDUAL : 20 CC AT THIS TIME. ROBERT CATH DRAINING WELL WITH YELLOW COLORED URINE OUTPUT. TONE PICC INTACT. POSITIONED FOR COMFORT, SR ON THE MONITOR. ISOLATION PRECAUTIONS OBSERVED. WILL CONTINUE TO MONITOR.
--- NOTE | 2016-12-18 20:02 | NUR ---
PT RCVD ON MECH VENT WITH NOTED SETTINGS. SXN MODERATE AMOUNT OF YELLOWISH THICK SECRETIONS. BILATERAL BS NOTED. VENT ALARM CHECKED AND AUDIBLE. VENT PLUGGED INTO RED OUTLET,AMBU BAG AT [facility]. NO RESPIRATORY DISTRESS NOTED, WILL CONTINUE TO MONITOR.
[2016-12-18] MEDS: ATORVASTATIN 10 MG TABLET GT SCH (21:19)
[2016-12-19] VITALS: BP 101/63
[2016-12-19] MEDS: COLISTIMETHATE SODIUM 100 MG in IV NS 0.9% 50 ML IV SCH (01:31)
[2016-12-19] MEDS ORDERED: SECONDARY IV SET 1 EA INFUS.SET MC ONE (01:32)
[2016-12-19] MEDS: RENAL NOVASOURCE 1,000 ML BOTTLE GT PRN (01:40)
[2016-12-19 04:00] VITALS: BP 93/59
[2016-12-19] MEDS: BLOOD SUGAR DIAGNOSTIC 1 EACH STRIP IN SCH ×4 (05:36→23:46)
[2016-12-19] MEDS: INSULIN REGULAR, HUMAN 100 UNIT/ML 3 ML VIAL SQ PRN ×4 (05:41→23:47)
--- NOTE | 2016-12-19 07:00 | NUR ---
RN NOTES PT IN BED, OBTUNDED. TRACH INTACT AND PATENT , ON VENT, SETTINGS TOLERATED WELL. SUCTIONED PRN. PT STABLE, NO DISTRESS, NO SOB NOTED. HOB KEPT ELEVATED. GT FEEDING OF NOVASOURCE FRANCISCO J WELL. ON ASPIRATION PRECAUTION. ROBERT CATH DRAINING WELL WITH YELLOW COLORED URINE OUTPUT. TONE PICC INTACT. DRESSING CHANGED. GOOD SKIN CARE RENDERED. REPOSITIONED FOR COMFORT, SR ON THE MONITOR. ISOLATION PRECAUTIONS OBSERVED. NO S/S OF HYPO/ HYPERGLYCEMIA NOTED. WILL ENDORSE TO NEXT SHIFT FOR IVONNE.
--- NOTE | 2016-12-19 07:45 | NUR ---
RN NOTES: PT RECEIVED IN STABLE CONDITION OPEN EYES TO VERBAL & TACTILE STIMULI. ON VENT TRAC, SETTINGS TOLERATING WELL. VITAL SIGNS STABLE. ON TELE MONITOR SR. NO S/S OF DISCOMFORT NOTED AT THIS TIME. HOB ELEVATED. G-TUBE SITE INTACT. ASPIRATION PRECAUTIONS OBSERVED. SAFETY MEASURES OBSERVED. F/C INTACT, DRAINING WITH CLOSE DRAINAGE WITH GRAVITY. PT CLEAN AND DRY. WILL CONTINUE TO MONITOR.
[2016-12-19 08:00] VITALS: BP 91/60
[2016-12-19] MEDS: ZINC SULFATE 220 MG CAPSULE GT SCH (09:00)
[2016-12-19] MEDS: ASPIRIN 81 MG TAB.CHEW GT SCH (09:00)
[2016-12-19] MEDS: ASCORBIC ACID 500 MG TABLET PO SCH (09:00)
[2016-12-19] MEDS: PANTOPRAZOLE 40 MG/PACK PACK GT SCH (09:00)
[2016-12-19] MEDS: LACTOBACILLUS RHAMNOSUS GG 1 EACH CAP.SPRINK PO SCH ×2 (09:00→17:21)
[2016-12-19] MEDS: MIDODRINE HCL (5MG) 5 MG TABLET GT SCH ×3 (09:01→17:23)
[2016-12-19] MEDS: AMIODARONE HCL 200 MG TABLET GT SCH (09:02)
[2016-12-19] MEDS: NEOMY SULF/BACITRAC ZN/POLY 15 GM TUBE TP SCH (09:04)
[2016-12-19] MEDS: LINEZOLID 600 MG TABLET PEG SCH ×2 (09:11→21:15)
[2016-12-19] MEDS: CADEXOMER IODINE 40 GM TUBE TP SCH (10:00)
[2016-12-19] MEDS: D5W IV SCH ×2 (10:00→21:14)
[2016-12-19] MEDS: IV NS 0.9% 250 ML IV PRN (10:00)
[2016-12-19 12:00] VITALS: BP 97/63
[2016-12-19] MEDS: INSULIN DETEMIR 100 UNIT/ML CARTRIDGE SQ SCH ×2 (12:26→23:46)
[2016-12-19 16:00] VITALS: BP 110/66
--- NOTE | 2016-12-19 19:15 | NUR ---
ETHANOL MAINTENANCE MECHANIC INITIAL NOTES PT IS IN BED, HOB ELEVATED, OBTUNDED, NONVERBAL, TRACH IS INTACT, ON MECHANICAL VENT, NO RESPIRATORY DISTRESS NOTED, IV SITE ON TKO, FLUSHED AND PATENT. ON CONTINUOUS FEEDING 60ML/HR, NO RESIDUAL NOTED, ON TELE MONITOR VPACING 100% 75. ROBERT CATH IS PATENT AND DRAINING YELLOW URINE. PT WAS TURNED AND REPOSITIONED, SIDE RAILS UP. BED LOCKED AND IN LOWEST POSITION. Addendum: 12/19/16 at 2006 by OMAR MORENO RN ON TELE MONITOR SINUS RHYTHM 91.
--- NOTE | 2016-12-19 19:28 | NUR ---
PT RCVD ON VENT WITH NOTED SETTINGS. SXN MODERATE AMOUNT OF YELLOWISH SHELDON THICK SECRETIONS. BILATERAL BS NOTED. VENT ALARM CHECKED AND AUDIBLE. VENT PLUGGED INTO RED OUTLET,AMBU BAG AT [facility]. NO RESPIRATORY DISTRESS NOTED, WILL CONTINUE TO MONITOR.
[2016-12-19 20:00] VITALS: BP 135/81
[2016-12-19] MEDS: ATORVASTATIN 10 MG TABLET GT SCH (21:15)
[2016-12-20] VITALS (8 sets, daily range): BP systolic 88–130; BP diastolic 48–76
[2016-12-20] MEDS ORDERED: IV NS 0.9% 250 ML IV ONE (02:00)
[2016-12-20] MEDS: RENAL NOVASOURCE 1,000 ML BOTTLE GT PRN ×2 (02:10→23:31)
[2016-12-20] MEDS: BLOOD SUGAR DIAGNOSTIC 1 EACH STRIP IN SCH ×4 (06:18→23:28)
[2016-12-20] MEDS: INSULIN REGULAR, HUMAN 100 UNIT/ML 3 ML VIAL SQ PRN ×3 (06:25→23:34)
[2016-12-20 06:52] LABS: BASOPHILS # (AUTO) 0.1 /CMM (0.0-0.2); BASOPHILS % (AUTO) 0.4 % (0.0-2.0); EOSINOPHILS # (AUTO) 0.9 /CMM (0.0-0.7); EOSINOPHILS % (AUTO) 6.2 % (0.0-6.0); HEMATOCRIT 22 % (39-51); HEMOGLOBIN 7.6 g/dL (13.5-17.5); LYMPHOCYTES # (AUTO) 1.4 /CMM (0.8-4.8); LYMPHOCYTES % (AUTO) 9.4 % (20.0-44.0); MEAN CORPUSCULAR HEMOGLOBIN 30 PG (26.0-33.0); MEAN CORPUSCULAR HGB CONC 35 g/dl (31.0-36.0); MEAN CORPUSCULAR VOLUME 88 fL (80-96); MONOCYTES # (AUTO) 0.6 /CMM (0.1-1.30); MONOCYTES % (AUTO) 3.9 % (2.0-12.0); NEUTROPHILS # (AUTO) 11.6 /CMM (1.8-8.9); NEUTROPHILS % (AUTO) 80.1 % (43.0-81.0); PLATELET COUNT (AUTO) 516 /CMM (150-450); RDW COEFFICIENT OF VARIATION 15.4 (11.5-15.0); RED BLOOD CELL COUNT(AUTO) 2.49 MIL/uL (4.5-6.0); WHITE BLOOD COUNT (AUTO) 14.5 K/uL (4.3-11.0)
--- NOTE | 2016-12-20 07:04 | NUR ---
SPECIAL AGENT IN CHARGE CLOSING NOTES NO SIGNIFICANT CHANGES OVERNIGHT. AFEBRILE, NO S/SX OF ANY RESPIRATORY DISTRESS NOTED, TOLERATED [facility] SET[facility]. ALL MEDS GIVEN ORDERED, TRACH CARE AND WOUND TREATMENT DONE. TONE PICC IS PATENT, NO S/SX OF INFECTION/INFILTRATION NOTED. SIDE RAILS UP, BED LOCKED AND IN LOWEST POSITION, WILL ENDORSE TO AM NURSE FOR CONTINUATION OF CARE.
[2016-12-20] MEDS: ZINC SULFATE 220 MG CAPSULE GT SCH (08:31)
[2016-12-20] MEDS: PANTOPRAZOLE 40 MG/PACK PACK GT SCH (08:31)
[2016-12-20] MEDS: LACTOBACILLUS RHAMNOSUS GG 1 EACH CAP.SPRINK PO SCH ×2 (08:31→18:36)
[2016-12-20] MEDS: AMIODARONE HCL 200 MG TABLET GT SCH (08:31)
[2016-12-20] MEDS: DIGOXIN 0.125 MG TABLET GT SCH (08:31)
[2016-12-20] MEDS: ASPIRIN 81 MG TAB.CHEW GT SCH (08:32)
[2016-12-20] MEDS: MIDODRINE HCL (5MG) 5 MG TABLET GT SCH ×3 (08:32→18:37)
[2016-12-20] MEDS: ASCORBIC ACID 500 MG TABLET PO SCH (08:32)
[2016-12-20] MEDS: LINEZOLID 600 MG TABLET PEG SCH ×2 (08:32→21:37)
[2016-12-20] MEDS: CADEXOMER IODINE 40 GM TUBE TP SCH (08:32)
[2016-12-20] MEDS: NEOMY SULF/BACITRAC ZN/POLY 15 GM TUBE TP SCH (08:33)
[2016-12-20] MEDS: ACETAMINOPHEN 650 MG/20.3 ML UDC GT PRN ×2 (08:48→22:05)
[2016-12-20] MEDS ORDERED: BLOOD IV SET 1 EA INFUS.SET MC ONE (10:42)
[2016-12-20] MEDS: INSULIN DETEMIR 100 UNIT/ML CARTRIDGE SQ SCH ×2 (11:46→23:33)
[2016-12-20] MEDS: D5W IV SCH ×2 (11:51→21:37)
--- NOTE | 2016-12-20 12:20 | NUR ---
ROBOTICS SPECIALIST NOTE 0720: Received patient awake, able to make needs known by gestures and mouthing words. With trache to vent, tolerated settings well, no respiratory distress noted at this time. with GT intact, feeding tolerated, no residuals. Right chest wall HD cath intact. On isolation precaution for MRSA nares, maintained and observed. S/E by Dr. Rojas, with order to may transfer to [facility], CN aware. 0815: Spoke with Seth RHINESTONE SETTER via phone and made aware for Hgb 7.6, with order of 1unit PRBC today, phoned sister and spoke with family and given update, aware for blood transfusion today. 0900: Noted patient with temp 100.4, Tylenol given as ordered, rendered cooling measures. 0915: S/E by dr. Montoya, no new order at this time. 1000: HD nurse at bedside for HD. 1100: Blood 1 unit PRBC given by HD no any adverse reactions noted. Temp at this time, 98.9 orally. 1210: Done with HD, HD nurse reported 1L out. VSS. Addendum: 12/20/16 at 1231 by ALBA DELCID RN Disregard note for 0720 0720: received patient awake, able to open eyes but unable to follow commands. With trahce to vent, tolerated settings well. With GT intact, feeding tolerated, no residuals. Right femoral HD cath intact. TONE PICC intact. Kaur cath intact, noted with very minimal amount of urine. 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
[2016-12-20] MEDS ORDERED: SECONDARY IV SET 1 EA INFUS.SET MC ONE (13:32)
[2016-12-20] MEDS: COLISTIMETHATE SODIUM 100 MG in IV NS 0.9% 50 ML IV SCH (13:38)
--- NOTE | 2016-12-20 15:00 | NUR ---
SPRING FITTER HELPER NOTE Report given to Kalia for IVONNE.
--- NOTE | 2016-12-20 16:23 | NUR ---
RT PATIENT RECEIVED TRACH'D WITH SHILEY #8 CUFFED ON VENT WITH SETTINGS PER MD ORDER. PACKAGING MATERIALS INSPECTOR DONE. BILAT BREATH SOUNDS ON AUSCULTATION. VENT PLUGGED INTO RED OUTLET. ALARMS ON AND WORKING PROPERLY. TRACH SECURE AND AIRWAY PATENT. SUCTIONED SMALL AMOUNTS OF THICK YELLOW SECRETIONS. NO SOB NOTED AT THIS TIME. WILL CONTINUE TO MONITOR THE PATIENT FOR ANY CHANGES. Addendum: 12/20/16 at 1746 by MERLIN REED RT Amended: Links added.
--- NOTE | 2016-12-20 19:26 | NUR ---
patient noted in a stable condition.blood sugar of 166 covered with 3 units of insulin .all due meds as well as nursing care given and well tolerated.report given to incoming nurse
--- NOTE | 2016-12-20 19:45 | NUR ---
COURT SECURITY OFFICER INITIAL NOTES PT IS IN BED, HOB ELEVATED, OBTUNDED, NONVERBAL, SUCTIONED PT, NOTED CLEAR, MODERATE AMOUNT OF SECRETION , ON MECHANICAL VENT, NO RESPIRATORY DISTRESS NOTED, IV SITE ON TKO, FLUSHED AND PATENT. ON CONTINUOUS FEEDING, ON TELE MONITOR SINUS TACHY. ROBERT CATH IS PATENT AND DRAINING YELLOW URINE. PT WAS TURNED AND REPOSITIONED, SIDE RAILS UP. BED LOCKED AND IN LOWEST POSITION.
[2016-12-20] MEDS: ATORVASTATIN 10 MG TABLET GT SCH (21:37)
[2016-12-21] VITALS: BP 107/66
[2016-12-21 04:00] VITALS: BP 129/77
[2016-12-21] MEDS ORDERED: IV NS 0.9% 250 ML IV ONE (05:18)
[2016-12-21] MEDS: BLOOD SUGAR DIAGNOSTIC 1 EACH STRIP IN SCH ×4 (05:32→23:17)
--- NOTE | 2016-12-21 07:05 | NUR ---
RN NOTES RECEIVED PATIENT IN BED, OBTUNDED AND NON-VERBAL. ON VENT AC 16, TV 16, FI02 40%, TOLERATING CURRENT SETTINGS WELL, NO RESPIRATORY DISTRESS NOTED, BREATHING EVEN AND UNLABORED. TRACH CARE DONE. ON TELE SINUS TACHY IN THE 100S. ROBERT CATH INTACT, DRAINING YELLOW URINE. TUBE FEEDING NOVA SOURCE RENAL @ 60CC/HR, TOLERATING WELL. TONE PICC AND RIGHT FEMORAL HD CATH INTACT. SIDE RAILS UP X4, CALL LIGHT WITHIN EASY REACH, BED LOCKED AND IN LOWEST POSITION. CONTINUE TO MONITOR.
--- NOTE | 2016-12-21 07:26 | NUR ---
TOWER AIR TRAFFIC CONTROL SPECIALIST CLOSING NOTES NO SIGNIFICANT CHANGES OVERNIGHT. AFEBRILE, NO S/SX OF DISTRESS NOTED, TOLERATED CURRENT [facility] VENT SETTINGS. ALL MEDS GIVEN ORDERED, TRACH CARE AND WOUND TREATMENT DONE. STILL ON CONTACT AND DROPLET ISOLATION. TONE PICC IS PATENT, NO S/SX OF INFECTION/INFILTRATION NOTED. SIDE RAILS UP, BED LOCKED AND IN LOWEST POSITION, ENDORSED TO AM NURSE FOR CONTINUATION OF CARE.
[2016-12-21 08:00] VITALS: BP 100/60
[2016-12-21] MEDS: LINEZOLID 600 MG TABLET PEG SCH ×2 (08:49→21:48)
[2016-12-21] MEDS: ZINC SULFATE 220 MG CAPSULE GT SCH (08:49)
[2016-12-21] MEDS: AMIODARONE HCL 200 MG TABLET GT SCH (08:50)
[2016-12-21] MEDS: ASPIRIN 81 MG TAB.CHEW GT SCH (08:51)
[2016-12-21] MEDS: LACTOBACILLUS RHAMNOSUS GG 1 EACH CAP.SPRINK PO SCH ×2 (08:51→17:48)
[2016-12-21] MEDS: ASCORBIC ACID 500 MG TABLET PO SCH (08:51)
[2016-12-21] MEDS: PANTOPRAZOLE 40 MG/PACK PACK GT SCH (08:52)
[2016-12-21] MEDS: MIDODRINE HCL (5MG) 5 MG TABLET GT SCH ×3 (08:52→17:48)
[2016-12-21] MEDS: CADEXOMER IODINE 40 GM TUBE TP SCH (08:55)
[2016-12-21] MEDS: NEOMY SULF/BACITRAC ZN/POLY 15 GM TUBE TP SCH (08:56)
[2016-12-21] MEDS: D5W IV SCH ×2 (10:18→21:48)
[2016-12-21 12:00] VITALS: BP 111/66
[2016-12-21] MEDS: INSULIN DETEMIR 100 UNIT/ML CARTRIDGE SQ SCH ×2 (12:27→23:00)
[2016-12-21] MEDS: INSULIN REGULAR, HUMAN 100 UNIT/ML 3 ML VIAL SQ PRN ×2 (12:29→17:47)
[2016-12-21] MEDS: MORPHINE SULFATE INJ 2 MG/ML DISP.SYRIN IV PRN ×2 (15:25→20:06)
[2016-12-21 16:00] VITALS: BP 90/58
--- NOTE | 2016-12-21 18:20 | NUR ---
RN END NOTES PATIENT ASLEEP IN BED. VSS STABLE, NO RESPIRATORY DISTRESS NOTED, BREATHING EVEN AND UNLABORED. VENT SETTINGS TOLERATING WELL @ AC 16, TV 600, FI02 40%. TONE PICC INTACT, CDI, RIGHT FEMORAL HD CATH SITE CDI. TUBE FEEDING NOVASOURCE 60CC/HR, TOLERATED WELL. NO SIGNIFICANT CHANGES DURING SHIFT. SIDE RAILS UP, BED LOCKED AND IN LOWEST POSITION. CONTACT PRECAUTIONS IN PLACE.
[2016-12-21 20:00] VITALS: BP 107/61
[2016-12-21] MEDS: ATORVASTATIN 10 MG TABLET GT SCH (21:48)
--- NOTE | 2016-12-21 23:17 | NUR ---
RN NOTES: THE PRESCRIBED DOSE OF LEVEMIR IS HELD DUE TO BLOOD SUGAR READING OF 97 MG/DL. WILL CONTINUE TO MONITOR.
[2016-12-22] VITALS: BP 107/66
[2016-12-22] MEDS ORDERED: SECONDARY IV SET 1 EA INFUS.SET MC ONE ×2 (01:01→10:53)
[2016-12-22] MEDS: COLISTIMETHATE SODIUM 100 MG in IV NS 0.9% 50 ML IV SCH (01:01)
[2016-12-22] MEDS: RENAL NOVASOURCE 1,000 ML BOTTLE GT PRN (02:50)
[2016-12-22 04:00] VITALS: BP 121/73
[2016-12-22] MEDS: BLOOD SUGAR DIAGNOSTIC 1 EACH STRIP IN SCH ×4 (05:20→22:43)
[2016-12-22 07:14] LABS: BASOPHILS % (AUTO) 0.4 % (0.0-2.0); EOSINOPHILS % (AUTO) 8.4 % (0.0-6.0); HEMATOCRIT 26 % (39-51); HEMOGLOBIN 8.6 g/dL (13.5-17.5); LYMPHOCYTES # (AUTO) 1.5 /CMM (0.8-4.8); LYMPHOCYTES % (AUTO) 12.7 % (20.0-44.0); MEAN CORPUSCULAR HEMOGLOBIN 29 PG (26.0-33.0); MEAN CORPUSCULAR HGB CONC 34 g/dl (31.0-36.0); MEAN CORPUSCULAR VOLUME 87 fL (80-96); MONOCYTES # (AUTO) 0.6 /CMM (0.1-1.30); MONOCYTES % (AUTO) 5.4 % (2.0-12.0); NEUTROPHILS # (AUTO) 8.4 /CMM (1.8-8.9); NEUTROPHILS % (AUTO) 73.1 % (43.0-81.0); PLATELET COUNT (AUTO) 400 /CMM (150-450); RDW COEFFICIENT OF VARIATION 15.7 (11.5-15.0); RED BLOOD CELL COUNT(AUTO) 2.96 MIL/uL (4.5-6.0); WHITE BLOOD COUNT (AUTO) 11.5 K/uL (4.3-11.0)
--- NOTE | 2016-12-22 07:35 | NUR ---
PT RECEIVED TRACHED ON MECHANICAL VENT W/ SETTINGS PER MD ORDER. TRACH PATENT, SECURE. VENT IN RED OUTLET, AMBUBAG AT BEDSIDE, VENT ALARMS CHECKED AND AUDIBLE. PT SX'ED AND LAVAGED PRN. NO RESP DISTRESS NOTED. PLAN IS CONTINUE CARE W/ CURRENT MD ORDERS AND MONITOR FOR CHANGES. Addendum: 12/22/16 at 1721 by RENEE KIM RT Amended: Links added.
[2016-12-22 07:40] LABS: CALCIUM, SERUM 10.3 mg/dL (8.5-10.1)
[2016-12-22 08:00] VITALS: BP 93/57
[2016-12-22] MEDS: NEOMY SULF/BACITRAC ZN/POLY 15 GM TUBE TP SCH (09:00)
[2016-12-22] MEDS: ALBUMIN 25% 25 GM in PREMIX 1 EA IV PRN (10:59)
[2016-12-22 12:00] VITALS: BP_SYST 122; BP_SYST 90; BP_DIAS 54; BP_DIAS 60
[2016-12-22] MEDS: AMIODARONE HCL 200 MG TABLET GT SCH (12:10)
[2016-12-22] MEDS: LACTOBACILLUS RHAMNOSUS GG 1 EACH CAP.SPRINK PO SCH ×2 (12:10→19:18)
[2016-12-22] MEDS: DIGOXIN 0.125 MG TABLET GT SCH (12:10)
[2016-12-22] MEDS: CADEXOMER IODINE 40 GM TUBE TP SCH (12:10)
[2016-12-22] MEDS: MIDODRINE HCL (5MG) 5 MG TABLET GT SCH ×3 (12:10→19:18)
[2016-12-22] MEDS: PANTOPRAZOLE 40 MG/PACK PACK GT SCH (12:10)
[2016-12-22] MEDS: ASPIRIN 81 MG TAB.CHEW GT SCH (12:10)
[2016-12-22] MEDS: ASCORBIC ACID 500 MG TABLET PO SCH (12:10)
[2016-12-22] MEDS: LINEZOLID 600 MG TABLET PEG SCH ×2 (12:10→22:23)
[2016-12-22] MEDS: ZINC SULFATE 220 MG CAPSULE GT SCH (12:10)
[2016-12-22] MEDS ORDERED: ONDANSETRON HCL/PF 4 MG/2 ML VIAL ONE (13:57)
[2016-12-22] MEDS: ONDANSETRON HCL/PF 4 MG/2 ML VIAL IV PRN ×2 (14:03→21:49)
[2016-12-22] MEDS: D5W IV SCH ×2 (14:25→21:49)
[2016-12-22] MEDS: INSULIN DETEMIR 100 UNIT/ML CARTRIDGE SQ SCH ×2 (14:29→22:42)
[2016-12-22 16:00] VITALS: BP 101/61
--- NOTE | 2016-12-22 19:20 | NUR ---
patient is noted laying in bed .stable .patient had two episodes of emesis this shift .meseret cardiology physician notified .patient given zofran and order to hold gtube feeding for 4hours.patient experiencing intermittent shrugging which md was made aware .patient is continued to be monitored .report given to incoming shift.patient stable .
[2016-12-22 20:00] VITALS: BP 91/48
--- NOTE | 2016-12-22 20:00 | NUR ---
RN NOTES: FEEDING RESIDUAL CHECKED AND IT IS FOUND 200 ML. FEEDING IS HELD. WILL CHECK THE RESIDUAL AT 10 PM AND RESUME THE FEEDING. WILL FOLLOW UP.
--- NOTE | 2016-12-22 20:11 | NUR ---
PT RCVD ON VENT WITH NOTED SETTINGS. SXN MODERATE AMOUNT OF YELLOWISH THICK SECRETIONS. BILATERAL BS NOTED. VENT ALARM CHECKED AND AUDIBLE. VENT PLUGGED INTO RED OUTLET,AMBU BAG AT [facility]. NO RESPIRATORY DISTRESS NOTED, WILL CONTINUE TO MONITOR.
[2016-12-22] MEDS: ATORVASTATIN 10 MG TABLET GT SCH (22:23)
--- NOTE | 2016-12-22 22:43 | NUR ---
RN NOTES: FEEDING RESIDUAL IS 100 ML. FEEDING IS RE-STARTED. BLOOD SUGAR READING IS 81 MG/DL. THE ORDERED DOSE OF LEVEMIR IS HELD. WILL CONTINUE TO MONITOR.
[2016-12-23] VITALS: BP 113/69
--- NOTE | 2016-12-23 00:56 | NUR ---
RN NOTES: RESIDUAL IS 50 ML. FEEDING IS RUNNING. WILL CONTINUE TO MONITOR.
[2016-12-23 04:00] VITALS: BP 116/52
[2016-12-23] MEDS: BLOOD SUGAR DIAGNOSTIC 1 EACH STRIP IN SCH ×4 (05:53→23:36)
--- NOTE | 2016-12-23 07:25 | NUR ---
RT PT RECEIVED TRACHED WITH A SHILEY 8 ON THE VENT WITH NOTED SETTINGS. PT IS AWAKE BUT DOES NOT FOLLOW COMMANDS. VENT ALARMS ARE SET AND AUDIBLE WITH BVM BY BEDSIDE. PROPERTY MANAGEMENT COORDINATOR CUFF PRESSURE NOTED. VENT IS PLUGGED INTO RED OUTLET. NO RESPIRATORY DISTRESS NOTED AT THIS TIME, WILL CONTINUE TO MONITOR. Addendum: 12/23/16 at 0823 by HANNAH LEON RT Amended: Links added.
--- NOTE | 2016-12-23 07:30 | NUR ---
RECEIVED PT IN BED.ON MECHANICAL VENT SETTINGS WELL TOLERATED.ON G.TUBE FEEDING OF NOVASOURCE 30 ML/HR.PICC LINE CDI AND PATENT.SAFETY MEASURES IN PLACE. BED IN LOW AND LOCKED POSITION.
[2016-12-23 08:00] VITALS: BP 90/48
[2016-12-23] MEDS: ACETAMINOPHEN 650 MG/20.3 ML UDC GT PRN ×2 (08:48→18:39)
[2016-12-23] MEDS: AMIODARONE HCL 200 MG TABLET GT SCH (08:49)
[2016-12-23] MEDS: ASPIRIN 81 MG TAB.CHEW GT SCH (08:49)
[2016-12-23] MEDS: MIDODRINE HCL (5MG) 5 MG TABLET GT SCH ×3 (08:49→18:38)
[2016-12-23] MEDS: LINEZOLID 600 MG TABLET PEG SCH ×2 (08:49→21:27)
[2016-12-23] MEDS: LACTOBACILLUS RHAMNOSUS GG 1 EACH CAP.SPRINK PO SCH ×2 (08:50→18:38)
[2016-12-23] MEDS: ASCORBIC ACID 500 MG TABLET PO SCH (08:50)
[2016-12-23] MEDS: ZINC SULFATE 220 MG CAPSULE GT SCH (08:50)
[2016-12-23] MEDS: PANTOPRAZOLE 40 MG/PACK PACK GT SCH (08:50)
[2016-12-23] MEDS: CADEXOMER IODINE 40 GM TUBE TP SCH (09:00)
[2016-12-23] MEDS: NEOMY SULF/BACITRAC ZN/POLY 15 GM TUBE TP SCH (09:00)
[2016-12-23] MEDS: INSULIN DETEMIR 100 UNIT/ML CARTRIDGE SQ SCH ×2 (11:00→23:40)
[2016-12-23] MEDS: D5W IV SCH ×2 (11:13→21:27)
[2016-12-23 12:00] VITALS: BP 80/48
--- NOTE | 2016-12-23 12:36 | NUR ---
NIKKO contacted pt's sister Leda to schedule a bioethics with pt's siblings and mother. Leda informed NIKKO that the family is available to meet on Friday. NIKKO informed her she will contact BARRY Nunez and Dr. Rojas to et their availability and will confirm once a time has been scheduled.
[2016-12-23] MEDS: COLISTIMETHATE SODIUM 100 MG in IV NS 0.9% 50 ML IV SCH (13:45)
[2016-12-23 16:00] VITALS: BP 98/60
--- NOTE | 2016-12-23 19:35 | NUR ---
TUBE BENDER INITIAL NOTE RECEIVED PT IN BED. OBTUNDED. VENT DEPENDENT WITH SETTINGS WELL TOLERATED AND SATING WELL. ISOLATION PRECAUTIONS OBSERVED FOR CONTACT AND DROPLET. TELE-SINUS RHYTHM 95 WITH INVERTED T-WAVES. ROBERT CATHETER IN PLACE. GTUBE FEEDING WELL TOLERATED WITHOUT RESIDUAL AND FLUSHING WELL. GTUBE SITE CLEAN AND INTACT. IV TONE PICC CLEAN AND INTACT, PATENT, FLUSHING WELL. WILL CONTINUE TO MONITOR.
[2016-12-23 20:00] VITALS: BP 105/64
[2016-12-23] MEDS ORDERED: SECONDARY IV SET 1 EA INFUS.SET MC ONE (20:00)
[2016-12-23] MEDS ORDERED: IV NS 0.9% 250 ML IV ONE (20:00)
[2016-12-23] MEDS ORDERED: IV SET PRIMARY PUMP SET 1 EA INFUS.SET MC ONE (20:00)
[2016-12-23] MEDS: ATORVASTATIN 10 MG TABLET GT SCH (21:27)
[2016-12-24] VITALS (7 sets, daily range): BP systolic 88–147; BP diastolic 50–89
[2016-12-24] MEDS: RENAL NOVASOURCE 1,000 ML BOTTLE GT PRN (04:50)
[2016-12-24] MEDS: BLOOD SUGAR DIAGNOSTIC 1 EACH STRIP IN SCH ×4 (05:30→23:39)
[2016-12-24] MEDS: INSULIN REGULAR, HUMAN 100 UNIT/ML 3 ML VIAL SQ PRN (05:33)
--- NOTE | 2016-12-24 06:54 | NUR ---
VENEER TAPING MACHINE OFFBEARER CLOSING NOTE PT REMAINED STABLE DURING SHIFT. VENT SETTINGS WELL TOLERATED. ISOLATION PRECAUTIONS OBSERVED. IV SITE TONE PICC PATENT AND CLEAN. GTUBE INTACT AND FEEDING WELL TOLERATED. ROBERT CATHETER IN PLACE. ALL NEEDS ATTENDED TO PROMPTLY. WILL ENDORSE TO NEXT SHIFT FOR CONTINUITY OF CARE.
[2016-12-24 06:57] LABS: BASOPHILS # (AUTO) 0.1 /CMM (0.0-0.2); BASOPHILS % (AUTO) 0.5 % (0.0-2.0); EOSINOPHILS % (AUTO) 8.6 % (0.0-6.0); HEMATOCRIT 23 % (39-51); HEMOGLOBIN 7.7 g/dL (13.5-17.5); LYMPHOCYTES # (AUTO) 1.1 /CMM (0.8-4.8); MEAN CORPUSCULAR HEMOGLOBIN 30 PG (26.0-33.0); MEAN CORPUSCULAR HGB CONC 34 g/dl (31.0-36.0); MEAN CORPUSCULAR VOLUME 87 fL (80-96); MONOCYTES # (AUTO) 0.6 /CMM (0.1-1.30); MONOCYTES % (AUTO) 4.9 % (2.0-12.0); NEUTROPHILS # (AUTO) 8.7 /CMM (1.8-8.9); PLATELET COUNT (AUTO) 391 /CMM (150-450); RDW COEFFICIENT OF VARIATION 15.9 (11.5-15.0); WHITE BLOOD COUNT (AUTO) 11.4 K/uL (4.3-11.0)
[2016-12-24 07:07] LABS: CREATININE 5.5 mg/dL (0.6-1.3); MAGNESIUM 2.2 mg/dL (1.8-2.4); POTASSIUM 3.6 mmol/L (3.5-5.1)
--- NOTE | 2016-12-24 08:22 | NUR ---
NIKKO contacted pt's sister Leda and confirmed bioethics meeting for tomorrow December 25, 2016 at 11:[address]. Rojas was notified regarding confirmation of meeting to be held tomorrow.
[2016-12-24] MEDS: PANTOPRAZOLE 40 MG/PACK PACK GT SCH (09:15)
[2016-12-24] MEDS: ASPIRIN 81 MG TAB.CHEW GT SCH (09:15)
[2016-12-24] MEDS: DIGOXIN 0.125 MG TABLET GT SCH (09:16)
[2016-12-24] MEDS: ASCORBIC ACID 500 MG TABLET PO SCH (09:16)
[2016-12-24] MEDS: AMIODARONE HCL 200 MG TABLET GT SCH (09:16)
[2016-12-24] MEDS: LACTOBACILLUS RHAMNOSUS GG 1 EACH CAP.SPRINK PO SCH ×2 (09:17→16:38)
[2016-12-24] MEDS: LINEZOLID 600 MG TABLET PEG SCH ×2 (09:17→21:36)
[2016-12-24] MEDS: D5W IV SCH ×2 (09:17→21:36)
[2016-12-24] MEDS: ZINC SULFATE 220 MG CAPSULE GT SCH (09:17)
[2016-12-24] MEDS: MIDODRINE HCL (5MG) 5 MG TABLET GT SCH ×3 (09:17→16:38)
[2016-12-24] MEDS: NEOMY SULF/BACITRAC ZN/POLY 15 GM TUBE TP SCH (09:18)
[2016-12-24] MEDS: CADEXOMER IODINE 40 GM TUBE TP SCH (09:18)
[2016-12-24] MEDS: INSULIN DETEMIR 100 UNIT/ML CARTRIDGE SQ SCH ×2 (11:38→23:43)
[2016-12-24] MEDS ORDERED: SECONDARY IV SET 1 EA INFUS.SET MC ONE (12:14)
[2016-12-24] MEDS: ACETAMINOPHEN 650 MG/20.3 ML UDC GT PRN (12:21)
[2016-12-24] MEDS: ALBUMIN 25% 25 GM in PREMIX 1 EA IV PRN (14:05)
[2016-12-24] MEDS: MORPHINE SULFATE INJ 2 MG/ML DISP.SYRIN IV PRN (17:57)
--- NOTE | 2016-12-24 18:04 | NUR ---
PATIENT WITH FACIAL GRIMACING, PERSPIRATION AND HR 115. APPEARING TO BE IN PAIN. COLLABORATING WITH MOTHER AT BED SIDE TO ALLEVIATE PAIN. MOTHER INITIAL SUGGESTED TYLENOL AND REFUSED MORPHINE. NOW PATIENT'S MOTHER REQUESTING MORPHINE ADMIN. ADMINISTERED. MONITORING CLOSELY.
--- NOTE | 2016-12-24 18:51 | NUR ---
RT END OF THE SHIFT REPORT, PT 41 Y OLD MALE. RECEIVED @ 0700 AM TRACHED MARY ON VENT SHEET TESTER DONE. BILATERALLY RHONCHI B/S ON AUSCULTATION. SUCTIONED SMALL AMOUNTS OF LOSE WHITE/SHELDON SECRETIONS. ALARMS CHECKED AND FUNCTIONING PROPERLY. VENT PLUGGED INTO RED OUTLET. AMBU BAG AT THE BEDSIDE. HME CHANGED NO SIGNS OF DISTRESS NOTED THROUGHOUT SHIFT. WILL CONTINUE TO MONITOR. REPORT WILL PASS TO PM SHIFT Addendum: 12/24/16 at 1851 by NEGRO KESSLER RT Amended: Links added.
--- NOTE | 2016-12-24 19:35 | NUR ---
OCCUPATIONAL PHYSICIAN INITIAL NOTE RECEIVED PT RESTING IN BED. PT IS OBTUNDED WITH SPONTANEOUS OPEN EYES. ON MECH VENT WITH NO SOB NOTED AND SATING WELL AT 98%. ISOLATION PRECAUTIONS OBSERVED. TELE-SINUS TACH 103. GTUBE FEEDING WELL TOLERATED WITH NO RESIDUAL NOTED AND SITE CLEAN AND INTACT. IV TONE PICC LINE FLUSHING WELL AND CLEAN. R FEM HD CATH CLEAN AND INTACT. WILL CONTINUE TO MONITOR.
--- NOTE | 2016-12-24 19:36 | NUR ---
CLOSING NOTE BREATHING STABLE WITH MECH VENT. LOC UNCHANGED. WOUND AND SKIN CARE PROVIDED ORDER. REPOSITIONED Q2 HOURS. NO GT RESIDUALS THIS SHIFT.
[2016-12-24] MEDS: ATORVASTATIN 10 MG TABLET GT SCH (21:36)
[2016-12-25] VITALS (8 sets, daily range): BP systolic 89–142; BP diastolic 47–76
[2016-12-25] MEDS ORDERED: SECONDARY IV SET 1 EA INFUS.SET MC ONE (00:19)
[2016-12-25] MEDS: COLISTIMETHATE SODIUM 100 MG in IV NS 0.9% 50 ML IV SCH (00:27)
[2016-12-25] MEDS: RENAL NOVASOURCE 1,000 ML BOTTLE GT PRN (04:52)
[2016-12-25] MEDS: BLOOD SUGAR DIAGNOSTIC 1 EACH STRIP IN SCH ×5 (05:10→23:42)
--- NOTE | 2016-12-25 06:36 | NUR ---
MINE ENGINEERING MANAGER CLOSING NOTE PT REMAINED STABLE DURING SHIFT. SATING WELL. NO ACUTE DISTRESS NOTED. ISOLATION PRECAUTIONS OBSERVED. WOUND TREATMENT DONE. REPOSITIONED Q2H. GTUBE FEEDING WELL TOLERATED. WILL ENDORSE TO NEXT SHIFT FOR IVONNE.
[2016-12-25 07:29] LABS: BASOPHILS # (AUTO) 0.1 /CMM (0.0-0.2); BASOPHILS % (AUTO) 0.6 % (0.0-2.0); EOSINOPHILS # (AUTO) 0.7 /CMM (0.0-0.7); EOSINOPHILS % (AUTO) 6.1 % (0.0-6.0); HEMATOCRIT 21 % (39-51); HEMOGLOBIN 7.1 g/dL (13.5-17.5); LYMPHOCYTES # (AUTO) 1.2 /CMM (0.8-4.8); LYMPHOCYTES % (AUTO) 10.4 % (20.0-44.0); MEAN CORPUSCULAR HEMOGLOBIN 30 PG (26.0-33.0); MEAN CORPUSCULAR HGB CONC 34 g/dl (31.0-36.0); MEAN CORPUSCULAR VOLUME 87 fL (80-96); MONOCYTES # (AUTO) 0.6 /CMM (0.1-1.30); MONOCYTES % (AUTO) 5.8 % (2.0-12.0); NEUTROPHILS # (AUTO) 8.6 /CMM (1.8-8.9); NEUTROPHILS % (AUTO) 77.1 % (43.0-81.0); PLATELET COUNT (AUTO) 337 /CMM (150-450); RDW COEFFICIENT OF VARIATION 15.3 (11.5-15.0); WHITE BLOOD COUNT (AUTO) 11.2 K/uL (4.3-11.0)
[2016-12-25 07:51] LABS: IRON, SERUM 23 ug/dl (50-175); TOTAL IRON BINDING CAPACITY 156 ug/dl (250-450)
[2016-12-25] MEDS: LACTOBACILLUS RHAMNOSUS GG 1 EACH CAP.SPRINK PO SCH ×2 (08:33→16:36)
[2016-12-25] MEDS: ZINC SULFATE 220 MG CAPSULE GT SCH (08:33)
[2016-12-25] MEDS: PANTOPRAZOLE 40 MG/PACK PACK GT SCH (08:34)
[2016-12-25] MEDS: LINEZOLID 600 MG TABLET PEG SCH ×2 (08:34→21:17)
[2016-12-25] MEDS: AMIODARONE HCL 200 MG TABLET GT SCH (08:34)
[2016-12-25] MEDS: ASCORBIC ACID 500 MG TABLET PO SCH (08:34)
[2016-12-25] MEDS: D5W IV SCH ×2 (08:35→21:15)
[2016-12-25] MEDS: MIDODRINE HCL (5MG) 5 MG TABLET GT SCH ×3 (08:35→16:37)
[2016-12-25] MEDS: CADEXOMER IODINE 40 GM TUBE TP SCH (08:36)
[2016-12-25] MEDS: NEOMY SULF/BACITRAC ZN/POLY 15 GM TUBE TP SCH (08:37)
[2016-12-25] MEDS: ASPIRIN 81 MG TAB.CHEW GT SCH (08:40)
[2016-12-25 09:27] LABS: FERRITIN 3594 ng/mL (8-388)
[2016-12-25] MEDS: INSULIN DETEMIR 100 UNIT/ML CARTRIDGE SQ SCH ×2 (11:25→23:42)
--- NOTE | 2016-12-25 11:35 | NUR ---
Bioethics meeting was held today with Dr. Rojas, foster care case manager Pankaj, pt's mom and sister Leda to discuss plan of care for the pt. Dr. Rojas discussed with family stating the plan of care is futile at this time and explained in detail the medical condition and complication of the patient to the family. Family to decide if they will opt for hospice care or not.
--- NOTE | 2016-12-25 19:30 | NUR ---
MIDDLE SCHOOL SPORTS COACH INITIAL NOTES RECEIVED PATIENT OBTUNDED, OPENS EYES, VENT DEPENDENT. RESPIRATIONS EVEN AND UNLABORED. NO S/S OF PAIN OR DISCOMFORT. WITH VENT SETTINGS AC 16, VT 600, FIO2 40%, PEEP 0. TRACH C/D/I. ON TELE MONITOR ST 100. WITH GTF, PATENT, INTACT, IN PLACE. WITH F/C PATENT, INTACT, IN PLACE. ISOLATION PRECAUTIONS OBSERVED. HOB KEPT ELEVATED. SIDE RAILS UP AND LOCKED. BED KEPT AT LOWEST POSITION. TURNED AND REPOSITIONED. CALL LIGHT KEPT WITHIN EASY REACH. WILL CONTINUE TO MONITOR.
[2016-12-25] MEDS ORDERED: IV NS 0.9% 250 ML IV ONE (21:04)
[2016-12-25] MEDS: ACETAMINOPHEN 650 MG/20.3 ML UDC GT PRN (21:15)
[2016-12-25] MEDS: ATORVASTATIN 10 MG TABLET GT SCH (21:16)
[2016-12-25] MEDS: ONDANSETRON HCL/PF 4 MG/2 ML VIAL IV PRN (22:01)
[2016-12-26] VITALS: BP_SYST 103; BP_SYST 153; BP_DIAS 63
[2016-12-26 04:00] VITALS: BP 131/78
[2016-12-26] MEDS: BLOOD SUGAR DIAGNOSTIC 1 EACH STRIP IN SCH ×4 (05:57→23:11)
[2016-12-26] MEDS: RENAL NOVASOURCE 1,000 ML BOTTLE GT PRN (05:58)
--- NOTE | 2016-12-26 06:59 | NUR ---
TELECOM BILLING ANALYST CLOSING NOTES NO SIGNIFICANT CHANGES OVERNIGHT. NO RESPIRATORY DISTRESS NOTED. PATIENT HAD ONE EPISODE OF EMESIS WITH NO ASPIRATION NOTED. TOLERATED VENT SETTINGS. SUCTIONED NEEDED. WOUND TREATMENT DONE ORDERED. TOLERATING GTF, NO RESIDUAL NOTED. ISOLATION PRECAUTIONS OBSERVED. KEPT CLEAN AND DRY. TURNED AND REPOSITIONED Q2 AND PRN. HOB ELEVATED. SIDE RAILS UP AND LOCKED. BED KEPT AT LOWEST POSITION. CALL LIGHT KEPT WITHIN EASY REACH. WILL ENDORSE CONTINUITY OF CARE TO AM NURSE.
--- NOTE | 2016-12-26 07:30 | NUR ---
GLOBAL PROCESS OWNER INITIAL NOTES RECEIVED PATIENT OBTUNDED, OPENS EYES, VENT DEPENDENT. RESPIRATIONS EVEN AND UNLABORED. NO S/S OF PAIN OR DISCOMFORT. WITH VENT SETTINGS AC 16, VT 600, FIO2 40%, PEEP 0. TRACH C/D/I. ON TELE MONITOR ST 100. WITH GTF, PATENT, INTACT, IN PLACE. WITH F/C PATENT, INTACT, IN PLACE. ISOLATION PRECAUTIONS OBSERVED. HOB KEPT ELEVATED. SIDE RAILS UP AND LOCKED. BED KEPT AT LOWEST POSITION. TURNED AND REPOSITIONED. CALL LIGHT KEPT WITHIN EASY REACH. WILL CONTINUE TO MONITOR.
--- NOTE | 2016-12-26 07:37 | NUR ---
RT PT RECEIVED TRACHED ON THE VENT WITH NOTED SETTINGS. PT IS AWAKE BUT DOES NOT FOLLOW COMMANDS. VENT ALARMS ARE SET AND AUDIBLE WITH BVM BY BEDSIDE. SUPERVISOR GARAGE CUFF PRESSURE NOTED. VENT IS PLUGGED INTO RED OUTLET. NO RESPIRATORY DISTRESS NOTED AT THIS TIME, WILL CONTINUE TO MONITOR. Addendum: 12/26/16 at 1143 by HANNAH LEON RT Amended: Links added.
[2016-12-26 08:00] VITALS: BP 135/81
[2016-12-26] MEDS: PANTOPRAZOLE 40 MG/PACK PACK GT SCH (08:41)
[2016-12-26] MEDS: MIDODRINE HCL (5MG) 5 MG TABLET GT SCH ×3 (08:41→17:00)
[2016-12-26] MEDS: ZINC SULFATE 220 MG CAPSULE GT SCH (08:41)
[2016-12-26] MEDS: AMIODARONE HCL 200 MG TABLET GT SCH (08:42)
[2016-12-26] MEDS: ASCORBIC ACID 500 MG TABLET PO SCH (08:42)
[2016-12-26] MEDS: LACTOBACILLUS RHAMNOSUS GG 1 EACH CAP.SPRINK PO SCH ×2 (08:42→17:30)
[2016-12-26] MEDS: LINEZOLID 600 MG TABLET PEG SCH ×2 (08:42→21:12)
[2016-12-26] MEDS: ASPIRIN 81 MG TAB.CHEW GT SCH (08:42)
[2016-12-26] MEDS: D5W IV SCH ×2 (08:56→21:11)
[2016-12-26] MEDS: CADEXOMER IODINE 40 GM TUBE TP SCH (09:00)
[2016-12-26] MEDS: NEOMY SULF/BACITRAC ZN/POLY 15 GM TUBE TP SCH (09:00)
[2016-12-26] MEDS: INSULIN DETEMIR 100 UNIT/ML CARTRIDGE SQ SCH ×2 (11:46→23:11)
[2016-12-26 12:00] VITALS: BP_SYST 117; BP_SYST 137; BP_DIAS 52; BP_DIAS 80
[2016-12-26] MEDS: COLISTIMETHATE SODIUM 100 MG in IV NS 0.9% 50 ML IV SCH (14:24)
[2016-12-26] MEDS: ONDANSETRON HCL/PF 4 MG/2 ML VIAL IV PRN (14:24)
[2016-12-26 16:00] VITALS: BP_SYST 115; BP_SYST 117; BP_DIAS 50; BP_DIAS 52
--- NOTE | 2016-12-26 19:30 | NUR ---
CARTON FORMING MACHINE ADJUSTER INITIAL NOTES RECEIVED PATIENT NON-VERBAL, VENT DEPENDENT, ASLEEP. NO S/S OF PAIN RO DISCOMFORT. PER REPORT PATIENT HAD EMESIS X 2 WITH NO ASPIRATION NOTED. RESPIRATIONS EVEN AND UNLABORED. VENT SETTINGS AC 16, VT 600, FIO2 40%, PEEP 0. SKIN WARM AND DRY TO TOUCH. WITH GT PATENT AND INTACT, WITH MINIMAL RESIDUAL NOTED. ISOLATION PRECAUTIONS OBSERVED. WITH TONE PICC LINE PATENT AND INTACT, TKO. HOB ELEVATED. SIDE RAIL UP AND LOCKED. BED KEPT AT LOWEST POSITION. CALL LIGHT KEPT WITHIN EASY REACH. WILL CONTINUE TO MONITOR. Addendum: 12/27/16 at 0328 by OFELIA FONSECA RN ON TELE MONITOR SINUS TACH 113
[2016-12-26 20:00] VITALS: BP 120/62
--- NOTE | 2016-12-26 20:11 | NUR ---
PT RECEIVED TRACHED ON THE VENT WITH NOTED SETTINGS. SUCTION MODERATE AMOUNT OF YELLOWISH SHELDON THICK SECRETIONS, VENT ALARMS WORKING AND AUDIBLE, VENT PLUGGED IN TO RED OUTLET . EQUIPMENT MECHANIC CUFF PRESSURE NOTED. BILATERAL BS NOTED ,NO SOB OR RESPIRATORY DISTRESS NOTED AT THIS TIME, WILL CONTINUE TO MONITOR THE PATIENT.
[2016-12-26] MEDS: ATORVASTATIN 10 MG TABLET GT SCH (21:11)
[2016-12-26] MEDS: ACETAMINOPHEN 650 MG/20.3 ML UDC GT PRN (21:11)
--- NOTE | 2016-12-26 22:57 | NUR ---
SCHOOL CLERK NOTES SCHOOL CLERK NOTES INFORMED DR. SILVERMAN REGARDING PATIENT ELEVATED TEMP OF 101.2 WITH COOLING MEASURES INITIATED. PATIENT SINUS TACH 119 AND DIAPHORETIC AND MUSCLE TWITCHING. PATIENT WITH ORDERS NOTED AND CARRIED OUT. WILL CONTINUE TO MONITOR.
[2016-12-26] MEDS: INSULIN REGULAR, HUMAN 100 UNIT/ML 3 ML VIAL SQ PRN (23:12)
[2016-12-27] VITALS (13 sets, daily range): BP systolic 86–123; BP diastolic 51–75
[2016-12-27] MEDS ORDERED: IV NS 0.9% 250 ML IV ONE ×3 (04:32→19:36)
[2016-12-27] MEDS: RENAL NOVASOURCE 1,000 ML BOTTLE GT PRN (06:23)
[2016-12-27] MEDS: BLOOD SUGAR DIAGNOSTIC 1 EACH STRIP IN SCH ×4 (06:23→23:19)
[2016-12-27 07:30] LABS: BASOPHILS % (AUTO) 0.4 % (0.0-2.0); EOSINOPHILS # (AUTO) 0.5 /CMM (0.0-0.7); EOSINOPHILS % (AUTO) 4.8 % (0.0-6.0); HEMATOCRIT 21 % (39-51); HEMOGLOBIN 7.2 g/dL (13.5-17.5); LYMPHOCYTES % (AUTO) 8.7 % (20.0-44.0); MEAN CORPUSCULAR HEMOGLOBIN 30 PG (26.0-33.0); MEAN CORPUSCULAR HGB CONC 34 g/dl (31.0-36.0); MEAN CORPUSCULAR VOLUME 88 fL (80-96); MONOCYTES # (AUTO) 0.7 /CMM (0.1-1.30); NEUTROPHILS % (AUTO) 80.1 % (43.0-81.0); PLATELET COUNT (AUTO) 332 /CMM (150-450); RDW COEFFICIENT OF VARIATION 15.6 (11.5-15.0); RED BLOOD CELL COUNT(AUTO) 2.42 MIL/uL (4.5-6.0); WHITE BLOOD COUNT (AUTO) 11.3 K/uL (4.3-11.0)
--- NOTE | 2016-12-27 07:48 | NUR ---
MATERIAL DAMAGE APPRAISER CLOSING NOTES PATIENT AFEBRILE AT THIS TIME. NO N/V NOTED. NO RESPIRATORY DISTRESS NOTED. PATIENT KEPT CLEAN AND DRY. TOLERATING VENT SETTINGS. TOLERATING GTF. F/C IN PLACE, WITH MINIMAL OUTPUT NOTED. ISOLATION PRECAUTIONS OBSERVED. KEPT CLEAN AND DRY. TURNED AND REPOSITIONED Q2 AND PRN. WOUND TREATMENT DONE ORDERED. HOB ELEVATED. SIDE RAILS UP AND LOCKED. DVT PUMPS IN PLACE. CONTINUITY OF CARE ENDORSED TO AM NURSE.
[2016-12-27 08:01] LABS: CALCIUM, SERUM 10.1 mg/dL (8.5-10.1); CREATININE 4.6 mg/dL (0.6-1.3); MAGNESIUM 2.3 mg/dL (1.8-2.4); PHOSPHORUS 3.8 mg/dL (2.5-4.9); POTASSIUM 3.4 mmol/L (3.5-5.1)
[2016-12-27] MEDS ORDERED: IV D5W 50 ML BAG IV ONE (08:46)
[2016-12-27] MEDS: AMIODARONE HCL 200 MG TABLET GT SCH (09:00)
[2016-12-27] MEDS: LINEZOLID 600 MG TABLET PEG SCH ×2 (09:38→21:11)
[2016-12-27] MEDS: PANTOPRAZOLE 40 MG/PACK PACK GT SCH (09:38)
[2016-12-27] MEDS: ASCORBIC ACID 500 MG TABLET PO SCH (09:38)
[2016-12-27] MEDS: D5W IV SCH ×2 (09:38→21:11)
[2016-12-27] MEDS: ASPIRIN 81 MG TAB.CHEW GT SCH (09:38)
[2016-12-27] MEDS: LACTOBACILLUS RHAMNOSUS GG 1 EACH CAP.SPRINK PO SCH ×2 (09:39→17:03)
[2016-12-27] MEDS: ZINC SULFATE 220 MG CAPSULE GT SCH (09:39)
[2016-12-27] MEDS: MIDODRINE HCL (5MG) 5 MG TABLET GT SCH ×3 (09:39→17:03)
[2016-12-27] MEDS: NEOMY SULF/BACITRAC ZN/POLY 15 GM TUBE TP SCH (09:41)
[2016-12-27] MEDS: CADEXOMER IODINE 40 GM TUBE TP SCH (09:42)
[2016-12-27] MEDS: INSULIN DETEMIR 100 UNIT/ML CARTRIDGE SQ SCH ×2 (11:59→23:00)
[2016-12-27] MEDS ORDERED: LINE600T PEG (12:24)
[2016-12-27] MEDS ORDERED: BLOOD IV SET 1 EA INFUS.SET MC ONE ×2 (15:56→19:36)
--- NOTE | 2016-12-27 16:00 | NUR ---
Patient family at bedside made aware of DC order post 2 units prbc transfusion. In agreement with plan to DC back to [facility]
--- NOTE | 2016-12-27 16:28 | NUR ---
NIKKO met with pt's sister Leda in completing consent form and application summary for disability insurance benefits for SSI and signed as a witness along with battery charger tester Soon as a second witness and gave the forms to pt's sister Leda.
[2016-12-27] MEDS: ACETAMINOPHEN 650 MG/20.3 ML UDC GT PRN (17:03)
--- NOTE | 2016-12-27 18:50 | NUR ---
1 unit of PRBC finished, vitals signs stable (see documented on blood transfusion tab). No noted transfusion reaction. Family at bedside. Will endorse to peanut shaker RN 2nd unit. Per Dr. Blackwell, DC burr catheter.
--- NOTE | 2016-12-27 19:01 | NUR ---
Per Dr. Fortunato Blackwell, DC PICC line after transfusion before discharge to alf.
--- NOTE | 2016-12-27 19:20 | NUR ---
ELECTRICAL AND RADIO MOCK UP MECHANIC INITIAL NOTE RECEIVED REPORT FROM VEGA GRANGER. PT IN BED. OBTUNDED. CHRONIC VENT TRACH TOLERATING CURRENT VENT SETTINGS. LUNG SOUNDS RHONCHI. BOWEL SOUNDS HYPOACTIVE, GT PATENT AND INTACT WITH 100 CC RESIDUAL NOTED. ROBERT INTACT AND DRAINING YELLOW URINE. PULSES PRESENT. SISTER AT BEDSIDE. BED IN LOW LOCKED POSITION. WILL CONTINUE TO MONITOR.
--- NOTE | 2016-12-27 19:36 | NUR ---
NON ADMIN FOR PT SAFETY.
--- NOTE | 2016-12-27 19:40 | NUR ---
JEWEL BLOCKER AND SAWYER BLOOD TRANSFUSION STARTED, PT VITALS STABLE AT THIS TIME. WILL CONTINUE TO MONITOR.
[2016-12-27] MEDS: ATORVASTATIN 10 MG TABLET GT SCH (21:11)
--- NOTE | 2016-12-27 23:51 | NUR ---
CARRIER BLOWER MED RESPONSE HERE FOR MACHINE II TRIMMER. PT STABLE FOR TRANSPORT AT THIS TIME. PICC LINE D/C'D, ROBERT D/C'D. PT TOLERATED WELL. SISTER AT BEDSIDE. WILL BE SENT TO [facility].
[2016-12-30] MEDS ORDERED: DIGOXIN 0.125 MG TABLET GT SCH (13:00)
== END 2016-12-28 00:18 | DRG 711 ==
LOC: ER 18:41 → TELE 21:09 → MED 12-07 08:19 → TELE 12-07 08:19 → ICU 12-07 23:49 → ICUOV 12-08 → TELE-TD 12-08 00:04 → ICU 12-08 00:04 → TELE-TD 12-08 00:06 → ICUOV 12-08 00:06 → ICU 12-08 11:42 → TELE-TD 12-11 21:07 → TELE1 12-13 10:18
PROVIDERS: ADMIT Internal Medicine; ATTEND Internal Medicine
PROC: 5A1955Z Respiratory Ventilation, Greater than 96 Consecutive Hours (ICD-10-PCS; 2016-12-02)
PROC: 30233N1 Transfusion of Nonautologous Red Blood Cells into Peripheral Vein, Percutaneous Approach (ICD-10-PCS; 2016-12-04)
PROC: 5A1D60Z (ICD-10-PCS; 2016-12-04)
PROC: 0KBP0ZZ Excision of Left Hip Muscle, Open Approach (ICD-10-PCS; principal; 2016-12-05)
PROC: 0KBN0ZZ Excision of Right Hip Muscle, Open Approach (ICD-10-PCS; principal; 2016-12-05)
PROC: 02HV33Z Insertion of Infusion Device into Superior Vena Cava, Percutaneous Approach (ICD-10-PCS; 2016-12-08)
PROC: B548ZZA Ultrasonography of Superior Vena Cava, Guidance (ICD-10-PCS; 2016-12-08)
DX: T80.211A Bloodstream infection due to central venous catheter, initial encounter (principal); R65.21 Severe sepsis with septic shock; N17.0 Acute kidney failure with tubular necrosis; J69.0 Pneumonitis due to inhalation of food and vomit; G92 Toxic encephalopathy; R40.3 Persistent vegetative state; E43 Unspecified severe protein-calorie malnutrition; A41.9 Sepsis, unspecified organism; L89.154 Pressure ulcer of sacral region, stage 4; J96.11 Chronic respiratory failure with hypoxia; L89.623 Pressure ulcer of left heel, stage 3; R53.2 Functional quadriplegia; D68.59 Other primary thrombophilia; N18.6 End stage renal disease; I12.0 Hypertensive chronic kidney disease with stage 5 chronic kidney disease or end stage renal disease; Z99.11 Dependence on respirator [ventilator] status; E11.22 Type 2 diabetes mellitus with diabetic chronic kidney disease; I25.2 Old myocardial infarction; I25.10 Atherosclerotic heart disease of native coronary artery without angina pectoris; B96.1 Klebsiella pneumoniae [K. pneumoniae] as the cause of diseases classified elsewhere; D63.1 Anemia in chronic kidney disease; E83.39 Other disorders of phosphorus metabolism; E87.6 Hypokalemia; I48.91 Unspecified atrial fibrillation; Z93.1 Gastrostomy status; Z93.0 Tracheostomy status; Z99.2 Dependence on renal dialysis; Z86.73 Personal history of transient ischemic attack (TIA), and cerebral infarction without residual deficits; N39.0 Urinary tract infection, site not specified; R13.10 Dysphagia, unspecified; E83.9 Disorder of mineral metabolism, unspecified; E78.5 Hyperlipidemia, unspecified; L89.899 Pressure ulcer of other site, unspecified stage; L89.150 Pressure ulcer of sacral region, unstageable; S81.802A Unspecified open wound, left lower leg, initial encounter; S81.801A Unspecified open wound, right lower leg, initial encounter; X58.XXXA Exposure to other specified factors, initial encounter; Y93.9 Activity, unspecified; Y92.129 Unspecified place in nursing home as the place of occurrence of the external cause; E88.09 Other disorders of plasma-protein metabolism, not elsewhere classified; Z68.1 Body mass index [BMI] 19.9 or less, adult; L53.8 Other specified erythematous conditions; L89.612 Pressure ulcer of right heel, stage 2; L89.890 Pressure ulcer of other site, unstageable; L57.0 Actinic keratosis; Y84.9 Medical procedure, unspecified as the cause of abnormal reaction of the patient, or of later complication, without mention of misadventure at the time of the procedure; E87.2 Acidosis; F09 Unspecified mental disorder due to known physiological condition; B96.89 Other specified bacterial agents as the cause of diseases classified elsewhere; Z16.39 Resistance to other specified antimicrobial drug; Y84.8 Other medical procedures as the cause of abnormal reaction of the patient, or of later complication, without mention of misadventure at the time of the procedure; Z79.899 Other long term (current) drug therapy
CPT/HCPCS: 31720; 36415; 36569; 36600; 71010-TC; 74000-TC; 80048-TC; 80053-TC; 80061-TC; 80076-TC; 80150; 80162-TC; 80202-TC; 81000-TC; 82247-TC; 82248-TC; 82272-TC; 82550-TC; 82728-TC; 82962-TC; 83540-TC; 83605-TC; 83735-TC; 84100-TC; 84484-TC; 85025-TC; 85730-TC; 86850-TC; 86921-TC; 87040-TC; 87070-TC; 87081-TC; 87086-TC; 87186-TC; 90935-TC; 94003-TC; 94762-TC; 99082-TC; A4216; A4217; A4606; A4623; A6253; A6402; A6403; A6407; A9563; C1751; J0278; J0692; J0770; J0885; J1815; J2185; J2270; J2405; J2916; J2997; J3370; J3480; J3490; J7030; J7050; J7060; P9016-BL; P9047; Z7610

== ENCOUNTER 2017-01-09 11:28 | Inpatient (IN) | payer MEDICAID ==
[~2017-01-09] VITALS: Ht 180.3 cm; Wt 73.9 kg
[~2017-01-09 11:28] MED LIST changes: +LINE600T PEG
--- NOTE | 2017-01-09 11:32 | NUR ---
PT BIBRA TO ER BED 10. REPORT WAS DIALYSIS CATHETER PULLED OUT. PT IS VENT DEPENDENT W/ CURRENT SETTINGS AC 16 TV 600 FIO2 40% PEEP 5. PRESSURE SORES NOTED TO SACRAL, BILAT FOOT AND BILAT EARS. STABLE VITALS. AWAITINGMD EVAL.
--- NOTE | 2017-01-09 12:10 | NUR ---
IV LINE STARTED BLOOD DRAWN AND SENT TO LAB.
--- NOTE | 2017-01-09 12:18 | NUR ---
CALLED NURSING MANAGER STRATEGY & ACCOUNT FOR TELEMETRY BED
[2017-01-09 12:19] LABS: BASOPHILS % (AUTO) 0.3 % (0.0-2.0); EOSINOPHILS # (AUTO) 0.3 /CMM (0.0-0.7); EOSINOPHILS % (AUTO) 1.9 % (0.0-6.0); HEMATOCRIT 26 % (39-51); HEMOGLOBIN 8.6 g/dL (13.5-17.5); MEAN CORPUSCULAR HEMOGLOBIN 29 PG (26.0-33.0); MEAN CORPUSCULAR HGB CONC 33 g/dl (31.0-36.0); MEAN CORPUSCULAR VOLUME 89 fL (80-96); MONOCYTES # (AUTO) 0.9 /CMM (0.1-1.30); MONOCYTES % (AUTO) 5.8 % (2.0-12.0); NEUTROPHILS # (AUTO) 13.9 /CMM (1.8-8.9); PLATELET COUNT (AUTO) 443 /CMM (150-450); RDW COEFFICIENT OF VARIATION 15.2 (11.5-15.0); RED BLOOD CELL COUNT(AUTO) 2.97 MIL/uL (4.5-6.0); WHITE BLOOD COUNT (AUTO) 16.1 K/uL (4.3-11.0)
--- NOTE | 2017-01-09 12:30 | NUR ---
RADIOLOGY AT BEDSIDE FOR CHEST XRAY.
[2017-01-09 12:32] LABS: INR 1.01 (0.87-1.13); PROTHROMBIN TIME 10.5 SECS (9.5-12.7)
[2017-01-09 12:36] LABS: TROPONIN I 0.065 ng/mL (0.00-0.056)
[2017-01-09 12:37] LABS: ALBUMIN 2.3 g/dL (3.4-5.0); BILIRUBIN,DIRECT 0.1 mg/dL (0.0-0.2); BILIRUBIN,TOTAL 0.3 mg/dL (0.2-1.0); CALCIUM, SERUM 9.6 mg/dL (8.5-10.1); CREATININE 3.9 mg/dL (0.6-1.3); POTASSIUM 3.8 mmol/L (3.5-5.1); TOTAL PROTEIN, SERUM 9.5 g/dL (6.4-8.2)
--- NOTE | 2017-01-09 12:54 | NUR ---
CALLED NURSING CARPENTER PROTOTYPE FOR UPDATE ON TELE BED
[2017-01-09] MEDS ORDERED: MAG HYDROX/AL HYDROX/SIMETH 30 ML UDC PO PRN (13:00)
[2017-01-09] MEDS ORDERED: MAGNESIUM HYDROXIDE 30 ML UDC PO PRN (13:00)
[2017-01-09] MEDS ORDERED: ACETAMINOPHEN LIQUID 325 MG/10.1 ML UDC GT PRN (13:00)
[2017-01-09] MEDS ORDERED: ZOLPIDEM TARTRATE 5 MG TABLET PO PRN (13:00)
--- NOTE | 2017-01-09 13:31 | NUR ---
REPORT GIVEN TO JAIEM. PT KIA TRANSFER TO FLOOR.
--- NOTE | 2017-01-09 13:46 | NUR ---
CALLED RT TO TRANSFER PATIENT
--- NOTE | 2017-01-09 14:00 | NUR ---
RN INITIAL NOTE PT RECEIVED VIA GURNEY FROM ER. PT IS OBTUNDED. NON VERBAL, WITH MARY GOMEZ #8. VENT SETTINGS: AC-16, TV-600, FI02-40, PEEP-5. NO S/S OF SOB, OR RESPIRATORY DISTRESS. SATING WELL. GTUBE FLUSHED PATENT. AWAITING FEEDING ORDERS. IV SITE FLUSHED, PATENT. SKIN IS WARM AND DRY TO TOUCH. PATIENT CLEANED AND PICTURES TAKEN. SAFETY PRECAUTIONS IMPLEMENTED, BED IN LOCKED, LOW POSITION WITH TWO SIDE RAILS UP. WILL MONITOR CLOSELY.
--- NOTE | 2017-01-09 14:12 | NUR ---
Received male zay pt on mechanical vent. Pt zay is secure. Vent is plugged into a red outlet, alarms are set and audible, and BMV is at bedside. Addendum: 01/09/17 at 1413 by MARTITA ELIZABETH RT Amended: Links added.
--- NOTE | 2017-01-09 15:30 | NUR ---
RN NOTE, WOUND MD HERE, REQUESTING CONSENT FOR SACRAL DEBRIDEMENT., MOTHER AT BEDSIDE.
[2017-01-09 16:00] VITALS: BP 129/83
[2017-01-09] MEDS: SEVELAMER CARBONATE 800 MG TABLET PO SCH ×2 (16:54→17:45)
[2017-01-09] MEDS: HYDROCODONE/APAP 5/325MG 1 EACH TABLET PO PRN (16:54)
[2017-01-09] MEDS: FERROUS SULFATE UDC 300 MG/5 ML UDC GT SCH ×2 (16:56→21:00)
[2017-01-09] MEDS ORDERED: GEMFIBROZIL 600 MG TABLET GT SCH (17:00)
[2017-01-09] MEDS: BLOOD SUGAR DIAGNOSTIC 1 EACH STRIP IN SCH ×2 (18:30→23:06)
--- NOTE | 2017-01-09 19:13 | NUR ---
RN CLOSING NOTE ALL MD ORDERS CARRIED OUT, PT KEPT CLEAN AND DRY. SAFETY PRECAUTIONS IN PLACE AT ALL TIMES. WILL GIVE REPORT TO ONCOMING RN FOR IVONEN
[2017-01-09 20:00] VITALS: BP 119/70
--- NOTE | 2017-01-09 20:00 | NUR ---
TELE 1 RN NOTE RECEIVED PT IN BED IS OBTUNDED. NON VERBAL, WITH TRACHMARY #8. VENT SETTINGS: AC-16, TV 600, FI02 40%, PEEP 5. NO S/S OF SOB, OR RESPIRATORY DISTRESS. O2 SAT 100% G TUBE INTACT AND PATENT AND CLAMPED, PT IS NPO. ON TELE S TACH HR 111. IV SITE FLUSHED, PATENT. SKIN IS WARM AND DRY TO TOUCH. SAFETY PRECAUTIONS IMPLEMENTED, BED IN LOCKED, LOW POSITION WITH TWO SIDE RAILS UP. WILL CONTINUE TO MONITOR CLOSELY.
[2017-01-09] MEDS: INSULIN DETEMIR 100 UNIT/ML CARTRIDGE SQ SCH (21:00)
[2017-01-09] MEDS: ATORVASTATIN 40 MG TABLET GT SCH (22:00)
[2017-01-10] VITALS: BP 127/70
[2017-01-10] MEDS: DAKINS QUARTER STRENGTH (0.125%) 480 ML BOTTLE TOP SCH ×2 (01:20→08:47)
[2017-01-10 04:00] VITALS: BP 158/87
[2017-01-10] MEDS: FERROUS SULFATE UDC 300 MG/5 ML UDC GT SCH ×3 (05:00→20:41)
[2017-01-10] MEDS: BLOOD SUGAR DIAGNOSTIC 1 EACH STRIP IN SCH ×3 (06:28→17:41)
--- NOTE | 2017-01-10 06:39 | NUR ---
TELE 1 RN NOTE PT IN BED OBTUNDED. NO DISTRESS OR DISCOMFORT NOTED. TOLERATING VENT SETTINGS WELL. SUCTIONED HIM FREQUENTLY. SL INTACT AND PATENT. ON TELE S TACH HR 115. F/C INTACT AND PATENT DRAINING WELL. KEPT HIM DRY AND CLEAN. REPOSITION HIM Q2H, ALL NEEDS ATTENDED. SIDE RAILS UP X 2 AND CALL LIGHT WITHIN REACH. WILL ENDORSE TO DAY SHIFT NURSE FOR CONTINUE TO CARE.
[2017-01-10 07:15] LABS: BASOPHILS % (AUTO) 0.2 % (0.0-2.0); EOSINOPHILS # (AUTO) 0.3 /CMM (0.0-0.7); EOSINOPHILS % (AUTO) 1.8 % (0.0-6.0); HEMATOCRIT 29 % (39-51); HEMOGLOBIN 9.5 g/dL (13.5-17.5); LYMPHOCYTES % (AUTO) 5.9 % (20.0-44.0); MEAN CORPUSCULAR HEMOGLOBIN 30 PG (26.0-33.0); MEAN CORPUSCULAR HGB CONC 33 g/dl (31.0-36.0); MEAN CORPUSCULAR VOLUME 89 fL (80-96); MONOCYTES # (AUTO) 0.9 /CMM (0.1-1.30); MONOCYTES % (AUTO) 5.7 % (2.0-12.0); NEUTROPHILS # (AUTO) 14.1 /CMM (1.8-8.9); NEUTROPHILS % (AUTO) 86.4 % (43.0-81.0); PLATELET COUNT (AUTO) 484 /CMM (150-450); RDW COEFFICIENT OF VARIATION 15.9 (11.5-15.0); RED BLOOD CELL COUNT(AUTO) 3.22 MIL/uL (4.5-6.0); WHITE BLOOD COUNT (AUTO) 16.3 K/uL (4.3-11.0)
[2017-01-10 07:32] LABS: DIGOXIN 2.26 ng/mL (0.90-2.00)
[2017-01-10 07:53] LABS: CALCIUM, SERUM 10.1 mg/dL (8.5-10.1); CREATININE 4.7 mg/dL (0.6-1.3); MAGNESIUM 2.8 mg/dL (1.8-2.4); PHOSPHORUS 3.8 mg/dL (2.5-4.9); POTASSIUM 4.1 mmol/L (3.5-5.1)
[2017-01-10 08:00] VITALS: BP 106/72
[2017-01-10] MEDS: PANTOPRAZOLE 40 MG TABLET.DR PO SCH (08:46)
[2017-01-10] MEDS: ZINC SULFATE 220 MG CAPSULE PO SCH (08:46)
[2017-01-10] MEDS: SEVELAMER CARBONATE 800 MG TABLET PO SCH ×3 (08:46→17:37)
[2017-01-10] MEDS: INSULIN DETEMIR 100 UNIT/ML CARTRIDGE SQ SCH ×2 (08:47→21:00)
[2017-01-10] MEDS: AMIODARONE HCL 200 MG TABLET GT SCH (08:47)
[2017-01-10] MEDS ORDERED: PANTOPRAZOLE 40 MG TABLET.DR PO SCH (09:00)
--- NOTE | 2017-01-10 09:06 | NUR ---
WOUND CARE CONSULT: PT FOLLOWED BY SURGICAL TEAM FOR WOUNDS, PRESENT ON ADMISSION. DEFER TO SURGICAL TEAM FOR WOUND TREATMENT PLAN. PT ON BURDETTE ISOFLEX LOW AIRLOSS BED. WILL SEE PRMarian SHORT IN AGREEMENT WITH PLAN OF CARE. ALL SKIN PROTECTION MEASURES IN PLACE AND DISCUSSED WITH NURSING STAFF.
--- NOTE | 2017-01-10 10:57 | NUR ---
S/P DEBRIDEMENT PT. TOLERATED BED SIDE PROCEDURE WITH MARGOTH KRAMER. VS AT BASELINE BP 95/32, HR 115, AFEBRILE, O2 SAT 100%. REVIEWED PLAN OF CARE WITH DR. GABRIELLA LOBO, INFORMED OF ASSESSMENT AND PROCEDURE TODAY. GAVE VERBAL ORDERS FOR ZYVOX 600MG IV Q12 AND TO RESUME FEEDING OF NOVASOURCE 35CC/HR. ORDERS READ BACK AND CONFIRMED. SAID HD CATH PLACEMENT ON HOLD UNTIL BACTEREMIA IMPROVES.
[2017-01-10] MEDS ORDERED: IV SET PRIMARY PUMP SET 1 EA INFUS.SET MC ONE (11:49)
[2017-01-10 12:00] VITALS: BP 98/53
[2017-01-10] MEDS: HYDROCODONE/APAP 5/325MG 1 EACH TABLET PO PRN (12:02)
[2017-01-10] MEDS: LINEZOLID RTU BAG 600 MG in PREMIX 1 EA IV SCH ×2 (13:00→20:42)
[2017-01-10] MEDS ORDERED: SECONDARY IV SET 1 EA INFUS.SET MC ONE ×2 (13:02→14:24)
[2017-01-10] MEDS ORDERED: IV NS 0.9% 250 ML IV ONE (13:02)
--- NOTE | 2017-01-10 13:14 | NUR ---
RN NOTE IV NS @ 5ML/HR TKO AFTER ATBX INFUSION FOR MULTIPLE ATBX INFUSIONS PRIMARY FLUID HUNG. UNABLE TO SAVE ADMINISTER STATUS SO CLICKED NON-ADMIN TO CLICK PINK STICK.
[2017-01-10] MEDS: MEROPENEM 500 MG in IV NS 0.9% 50 ML IV SCH (14:29)
--- NOTE | 2017-01-10 14:32 | NUR ---
HD TEMP CATH SPOKE TO DR. CARROLL ABOUT PLAN OF CARE. SAID TO OBTAIN CONSENT FOR A "TEMPORARY HD CATHETER". PATIENTS MOTHER- RP, AT BED SIDE EXPLAINED IN [place] PENDING BACTEMEMIA RESOLVE BEFORE PERMANENT CATH PLACEMENT AND OPTION FOR TEMP CATHETER TO CONT' HD TX. MOTHER AT BED SIDE CONSENT, VERBALIZES UNDERSTANDING AND SIGNED CONSENT FORM. DR. CARROLL AWARE OF BUN/CR LEVEL TODAY.
[2017-01-10 16:00] VITALS: BP 106/68
[2017-01-10] MEDS: INSULIN REGULAR, HUMAN 100 UNIT/ML 3 ML VIAL SQ PRN (17:43)
--- NOTE | 2017-01-10 19:10 | NUR ---
END OF SHIFT HANDED OFF REPORT TO NIGHT NURSE. PATIENT BASELINE STABLE CONDITION. NO RESPIRATORY DISTRESS, LOC UNCHANGED. REPOSITIONED Q2HR AND SUCTIONED PRN. CALL LIGHT IN REACH.
[2017-01-10 20:00] VITALS: BP 99/65
--- NOTE | 2017-01-10 20:00 | NUR ---
FREIGHT BROKER NOTES RECEIVED PTS ON BED AWAKE AND RESPONSIVE ON VENT SETTINGS AC WELL TOLERATED , NO SOB NO DISTRESS NO FACIAL GRIMACES NOTED , PTS ON TELE- ST ON THE MONITOR , HOB ELEVATED FOR ASPIRATION PRECAUTION , SUCTION SECRETION DONE AND PRN, PTS IS S/P DEBRIDEMENT NOTED WITH NO BLEEDING ON THE SITE , STILL AWAITING FOR HD ACCESS PLACEMENT , ALL NEEDS ATTENDED TOO CALL LIGHT WITHIN REACH ALL DUE MEDS GIVEN ORDERED KEPT PTS CLEAN DRY AND COMFORTABLE .ON GT NOVASOURCE AT 35 CC /HR NO RESIDUAL NOTED . V/S STABLE AFEBRILE,WILL CONTINUE TO MONITOR PTS.
--- NOTE | 2017-01-10 21:00 | NUR ---
MAGNETO ELECTRICIAN NOTES BS FOR 9PM IS 247 - 15 UNITS F LEVEMIR GIVEN ORDERED, PTS ON GT FEEDING , WILL CHECK BS AGAIN AT 12MN.
[2017-01-10] MEDS: ATORVASTATIN 40 MG TABLET GT SCH (22:17)
[2017-01-10] MEDS: ACETAMINOPHEN 325 MG TABLET PO PRN (22:18)
[2017-01-11] VITALS: BP 92/55
--- NOTE | 2017-01-11 | NUR ---
CRANE OPERATOR NOTES BS AT 12MN IS 222 MG/DL 6 UNITS OF REGULAR INSULIN GIVEN PER SLIDING SCALE.
[2017-01-11] MEDS: BLOOD SUGAR DIAGNOSTIC 1 EACH STRIP IN SCH ×5 (00:22→23:31)
[2017-01-11] MEDS: MEROPENEM 500 MG in IV NS 0.9% 50 ML IV SCH ×2 (00:23→12:04)
[2017-01-11] MEDS: INSULIN REGULAR, HUMAN 100 UNIT/ML 3 ML VIAL SQ PRN ×4 (00:24→23:33)
[2017-01-11] MEDS: RENAL NOVASOURCE 1,000 ML BOTTLE GT PRN ×2 (03:06→21:03)
[2017-01-11 04:00] VITALS: BP 99/63
[2017-01-11] MEDS: ACETAMINOPHEN 325 MG TABLET PO PRN (05:56)
[2017-01-11] MEDS: FERROUS SULFATE UDC 300 MG/5 ML UDC GT SCH ×3 (05:56→21:02)
[2017-01-11 06:33] LABS: BASOPHILS % (AUTO) 0.2 % (0.0-2.0); EOSINOPHILS % (AUTO) 0.2 % (0.0-6.0); HEMATOCRIT 24 % (39-51); HEMOGLOBIN 8.1 g/dL (13.5-17.5); LYMPHOCYTES % (AUTO) 5.8 % (20.0-44.0); MEAN CORPUSCULAR HEMOGLOBIN 30 PG (26.0-33.0); MEAN CORPUSCULAR HGB CONC 34 g/dl (31.0-36.0); MEAN CORPUSCULAR VOLUME 89 fL (80-96); MONOCYTES # (AUTO) 1.2 /CMM (0.1-1.30); MONOCYTES % (AUTO) 6.9 % (2.0-12.0); NEUTROPHILS # (AUTO) 15.2 /CMM (1.8-8.9); NEUTROPHILS % (AUTO) 86.9 % (43.0-81.0); PLATELET COUNT (AUTO) 384 /CMM (150-450); RED BLOOD CELL COUNT(AUTO) 2.72 MIL/uL (4.5-6.0); WHITE BLOOD COUNT (AUTO) 17.5 K/uL (4.3-11.0)
[2017-01-11 07:07] LABS: CALCIUM, SERUM 9.2 mg/dL (8.5-10.1); CREATININE 5.7 mg/dL (0.6-1.3); POTASSIUM 4.1 mmol/L (3.5-5.1)
--- NOTE | 2017-01-11 07:15 | NUR ---
television news video editor notes bs at 6am is 169- 3nits of regular insulin given per sliding scale, pts on gt feeding .will endorse to rn day shift for continuity of care.
[2017-01-11 08:00] VITALS: BP 82/44
[2017-01-11] MEDS: LINEZOLID RTU BAG 600 MG in PREMIX 1 EA IV SCH ×2 (08:11→20:50)
[2017-01-11] MEDS: ZINC SULFATE 220 MG CAPSULE PO SCH (08:13)
[2017-01-11] MEDS: PANTOPRAZOLE 40 MG TABLET.DR PO SCH (08:13)
[2017-01-11] MEDS: SEVELAMER CARBONATE 800 MG TABLET PO SCH ×3 (08:13→16:42)
[2017-01-11] MEDS: AMIODARONE HCL 200 MG TABLET GT SCH (08:14)
[2017-01-11] MEDS: DAKINS QUARTER STRENGTH (0.125%) 480 ML BOTTLE TOP SCH (08:15)
[2017-01-11] MEDS: CADEXOMER IODINE 40 GM TUBE TP SCH (08:15)
[2017-01-11] MEDS: INSULIN DETEMIR 100 UNIT/ML CARTRIDGE SQ SCH ×2 (08:25→21:10)
[2017-01-11] MEDS ORDERED: DIGOXIN 0.125 MG TABLET GT SCH (09:00)
--- NOTE | 2017-01-11 09:52 | NUR ---
RN NOTE Dr. Judah Fonseca informed of patients blood pressure 75/39 on ANAHI and 82/44 on LLL. said continue to monitor VS per unit protocol for now. NNO.
--- NOTE | 2017-01-11 11:09 | NUR ---
L femoral HD cath placed by Dr. Moralez. approximately 50 ml blood loss.
[2017-01-11 12:00] VITALS: BP 93/55
[2017-01-11] MEDS ORDERED: SECONDARY IV SET 1 EA INFUS.SET MC ONE ×2 (13:39→13:53)
[2017-01-11] MEDS ORDERED: ALBUMIN 25% 25 GM in PREMIX 1 EA IV ONE (14:00)
--- NOTE | 2017-01-11 14:10 | NUR ---
Albumin administered with HD for low blood pressure. Current blood pressure 68/42.
[2017-01-11 16:00] VITALS: BP_SYST 93; BP_SYST 98; BP_DIAS 56
[2017-01-11] MEDS: LACTOBACILLUS RHAMNOSUS GG 1 EACH CAP.SPRINK GT SCH (16:42)
--- NOTE | 2017-01-11 19:13 | NUR ---
END OF SHIFT HANDED OFF REPORT, NO ACUTE CHANGES, BASELINE STABLE.
[2017-01-11 20:00] VITALS: BP 86/52
--- NOTE | 2017-01-11 20:00 | NUR ---
telescope repairer notes received pts on bed awake and responsive , on tele st on the monitor no sob no distress noted no facial grimaces at this time.pts remains on vent ac settings well tolerated , hob elevated at all times for aspiration precaution , suction secretion done and prn. s/p hd access inserted on left femoral no bleeding noted on the site.had dialysis today with zero output .on gt feeding NovaSource at 35cc/hr no residual noted, abdomen soft non distended.all due meds iv atb given as ordered .all needs attended too call light within reach v/s stable afebrile , with heplock on left wrist intact and patent , kept pts clean dry and comfortable.will continue to monitor pts.
[2017-01-11] MEDS: ATORVASTATIN 40 MG TABLET GT SCH (21:11)
--- NOTE | 2017-01-11 21:51 | NUR ---
manager telemetry notes blood sugar for 9pm is 166mg/dl-15 units of Levemir given as ordered, pts on gt feeding NovaSource at 35cc/hr well tolerated ,will check bs again at 12mn.
[2017-01-12] VITALS: BP 114/64
[2017-01-12] MEDS: MEROPENEM 500 MG in IV NS 0.9% 50 ML IV SCH ×2 (00:18→12:50)
[2017-01-12 05:00] VITALS: BP 97/58
[2017-01-12] MEDS: FERROUS SULFATE UDC 300 MG/5 ML UDC GT SCH ×3 (05:05→21:32)
[2017-01-12] MEDS: BLOOD SUGAR DIAGNOSTIC 1 EACH STRIP IN SCH ×3 (06:03→17:10)
[2017-01-12] MEDS: INSULIN REGULAR, HUMAN 100 UNIT/ML 3 ML VIAL SQ PRN (06:03)
--- NOTE | 2017-01-12 06:53 | NUR ---
ORE PUNCHER NOTES BLOOD SUGAR FOR 6AM IS 108 - NO COVERAGE GIVEN PER SLIDING SCALE PTS ON GT FEEDING WELL TOLERATED , WILL ENDORSE TO RN DAY SHIFT FOR CONTINUITY OF CARE , NO SIGNIFICANT CHANGE NOTED, PTS REMAINS ON VENT WITH AC SETTINGS WELL TOLERATED , V/S STABLE AND AFEBRILE.
[2017-01-12 07:03] LABS: BASOPHILS % (AUTO) 0.4 % (0.0-2.0); EOSINOPHILS # (AUTO) 0.5 /CMM (0.0-0.7); EOSINOPHILS % (AUTO) 3.9 % (0.0-6.0); HEMATOCRIT 22 % (39-51); HEMOGLOBIN 7.3 g/dL (13.5-17.5); LYMPHOCYTES # (AUTO) 1.2 /CMM (0.8-4.8); LYMPHOCYTES % (AUTO) 8.7 % (20.0-44.0); MEAN CORPUSCULAR HEMOGLOBIN 30 PG (26.0-33.0); MEAN CORPUSCULAR HGB CONC 34 g/dl (31.0-36.0); MEAN CORPUSCULAR VOLUME 89 fL (80-96); MONOCYTES # (AUTO) 0.9 /CMM (0.1-1.30); MONOCYTES % (AUTO) 6.9 % (2.0-12.0); NEUTROPHILS # (AUTO) 10.7 /CMM (1.8-8.9); NEUTROPHILS % (AUTO) 80.1 % (43.0-81.0); PLATELET COUNT (AUTO) 348 /CMM (150-450); RDW COEFFICIENT OF VARIATION 16.7 (11.5-15.0); RED BLOOD CELL COUNT(AUTO) 2.44 MIL/uL (4.5-6.0); WHITE BLOOD COUNT (AUTO) 13.4 K/uL (4.3-11.0)
--- NOTE | 2017-01-12 07:30 | NUR ---
INITIAL NOTE 0700 RESTING IN BED, NON-VERBAL, DOES NOT FOLLOW STIMULUS WITH EYES, UNABLE TO ASSESS PAIN, FACE APPEARING RELAXED. BREATHING EVEN AND UNLABORED WITH MECHANICAL VENTILATOR. GT PATENT, 10 ML RESIDUALS, FEEDING INFUSING AT PRESCRIBED RATE. L WRIST IV PATENT, NO COMPLICATIONS AT IV SITE. VERY CONTRACTED. HEELS AND ELBOWS OFF LOADED, REPOSITIONED IN FUNCTIONAL ALIGNMENT. CALL LIGHT IN REACH.
[2017-01-12 07:31] LABS: CALCIUM, SERUM 9.1 mg/dL (8.5-10.1); CREATININE 4.5 mg/dL (0.6-1.3); MAGNESIUM 2.4 mg/dL (1.8-2.4); POTASSIUM 3.8 mmol/L (3.5-5.1)
[2017-01-12] MEDS: PANTOPRAZOLE 40 MG TABLET.DR PO SCH (07:55)
[2017-01-12 08:00] VITALS: BP 99/59
[2017-01-12] MEDS: LINEZOLID RTU BAG 600 MG in PREMIX 1 EA IV SCH ×2 (08:01→21:38)
[2017-01-12] MEDS: ZINC SULFATE 220 MG CAPSULE PO SCH (08:01)
[2017-01-12] MEDS: LACTOBACILLUS RHAMNOSUS GG 1 EACH CAP.SPRINK GT SCH ×2 (08:01→17:10)
[2017-01-12] MEDS: SEVELAMER CARBONATE 800 MG TABLET PO SCH ×3 (08:01→17:10)
[2017-01-12] MEDS: AMIODARONE HCL 200 MG TABLET GT SCH (08:01)
[2017-01-12] MEDS: DAKINS QUARTER STRENGTH (0.125%) 480 ML BOTTLE TOP SCH (08:02)
[2017-01-12] MEDS: CADEXOMER IODINE 40 GM TUBE TP SCH (08:02)
[2017-01-12] MEDS: INSULIN DETEMIR 100 UNIT/ML CARTRIDGE SQ SCH ×2 (08:04→21:34)
--- NOTE | 2017-01-12 09:27 | NUR ---
Patient received trached on mechanical vent. Breath sounds equal bilateral. Ambu bag at the bed side. Vent plugged into red outlet and alarms set and functioning.
[2017-01-12] MEDS ORDERED: IV NS 0.9% 250 ML IV ONE (10:21)
[2017-01-12 12:00] VITALS: BP 93/55
[2017-01-12] MEDS: HYDROCODONE/APAP 5/325MG 1 EACH TABLET PO PRN ×2 (12:49→19:44)
--- NOTE | 2017-01-12 13:21 | NUR ---
non admin note 250 NS hung as tko for multiple atbx secondary iv, not able to scan
[2017-01-12 16:00] VITALS: BP 95/51
--- NOTE | 2017-01-12 19:30 | NUR ---
RN OPENING NOTES: RECEIVED PT ON BED OBTUNDED, WITH SPONTANEOUS EYE OPENING. WITH NOTED FACIAL GRIMACING AND DIAPHORETIC. POSSIBLY IN PAIN. AT BEDSIDE. TO GIVE PRN PAIN MEDS. ST ON MONITOR HR AT 104BPM. TRACH TO MECH VENT, NOT IN APPARENT RESPI DISTRESS. IV ACCESS INTACT ON LEFT WRIST; KEPT SL.GT INTACT, FEEDING TOLERATED. HD CATH INTACT, NOTED WITH OOZING MINIMAL BLOOD. SAFETY MEASURES ENSURED. ASPIRATION PREC OBSERVED. CONTINUOUSLY MONITORED.
--- NOTE | 2017-01-12 19:32 | NUR ---
rn note dr. Daugherty aware of hgb value. NNO
[2017-01-12 20:00] VITALS: BP 105/71
[2017-01-12] MEDS: ATORVASTATIN 40 MG TABLET GT SCH (21:32)
[2017-01-12] MEDS: RENAL NOVASOURCE 1,000 ML BOTTLE GT PRN (21:47)
[2017-01-13] VITALS (9 sets, daily range): BP systolic 83–148; BP diastolic 53–81
[2017-01-13] MEDS: MEROPENEM 500 MG in IV NS 0.9% 50 ML IV SCH ×2 (00:26→12:05)
[2017-01-13] MEDS: BLOOD SUGAR DIAGNOSTIC 1 EACH STRIP IN SCH ×4 (00:30→17:44)
[2017-01-13] MEDS: INSULIN REGULAR, HUMAN 100 UNIT/ML 3 ML VIAL SQ PRN (00:31)
[2017-01-13] MEDS: FERROUS SULFATE UDC 300 MG/5 ML UDC GT SCH ×3 (06:28→21:02)
[2017-01-13] MEDS: HYDROCODONE/APAP 5/325MG 1 EACH TABLET PO PRN ×2 (06:28→13:07)
[2017-01-13 06:55] LABS: BASOPHILS % (AUTO) 0.3 % (0.0-2.0); EOSINOPHILS # (AUTO) 0.4 /CMM (0.0-0.7); EOSINOPHILS % (AUTO) 2.3 % (0.0-6.0); HEMATOCRIT 26 % (39-51); HEMOGLOBIN 8.6 g/dL (13.5-17.5); LYMPHOCYTES # (AUTO) 1.5 /CMM (0.8-4.8); LYMPHOCYTES % (AUTO) 9.2 % (20.0-44.0); MEAN CORPUSCULAR HEMOGLOBIN 29 PG (26.0-33.0); MEAN CORPUSCULAR HGB CONC 33 g/dl (31.0-36.0); MEAN CORPUSCULAR VOLUME 89 fL (80-96); MONOCYTES % (AUTO) 6.4 % (2.0-12.0); NEUTROPHILS # (AUTO) 13.3 /CMM (1.8-8.9); NEUTROPHILS % (AUTO) 81.8 % (43.0-81.0); PLATELET COUNT (AUTO) 477 /CMM (150-450); RDW COEFFICIENT OF VARIATION 17.5 (11.5-15.0); RED BLOOD CELL COUNT(AUTO) 2.92 MIL/uL (4.5-6.0); WHITE BLOOD COUNT (AUTO) 16.3 K/uL (4.3-11.0)
[2017-01-13 07:05] LABS: CALCIUM, SERUM 9.4 mg/dL (8.5-10.1); CREATININE 3.5 mg/dL (0.6-1.3); POTASSIUM 4.3 mmol/L (3.5-5.1)
--- NOTE | 2017-01-13 07:30 | NUR ---
RN CLOSING NOTES: WEEKLY SKIN ASSESSMENT DONE; PHOTODOCUMENTATION FILED. REMAINED IN BED NOT IN RESPI DISTRESS. SAFETY MEASURES ENSRUED. AM LABS DRAWN. FEEDING TOLERATED WELL. HD CATH APPLIED PRESSURE DRESSING. PAIN MEDS GIVEN. ENDORSED TO AM SHIFT RN.
--- NOTE | 2017-01-13 07:45 | NUR ---
RN NOTES: RECEIVED PATIENT IN STABLE CONDITION. ON VENT-TRAC, SETTINGS TOLERATING WELL. NO S/S OF RESPIRATORY DISTRESS NOTED. ASPIRATION PRECAUTIONS OBSERVED. HOB ELEVATED. TUBE FEEDING RUNNING WELL. NO RESIDUAL NOTED. IV SITE INTACT, FLUSHED WITHOUT DIFFICULTY. SAFETY MEASURES OBSERVED. CONTINUE TO MONITOR.
[2017-01-13] MEDS: PANTOPRAZOLE 40 MG TABLET.DR PO SCH (08:05)
[2017-01-13] MEDS: LINEZOLID RTU BAG 600 MG in PREMIX 1 EA IV SCH ×2 (08:05→21:49)
[2017-01-13] MEDS: LACTOBACILLUS RHAMNOSUS GG 1 EACH CAP.SPRINK GT SCH ×2 (08:05→16:20)
[2017-01-13] MEDS: SEVELAMER CARBONATE 800 MG TABLET PO SCH ×3 (08:05→16:20)
[2017-01-13] MEDS: ZINC SULFATE 220 MG CAPSULE PO SCH (08:06)
[2017-01-13] MEDS: DAKINS QUARTER STRENGTH (0.125%) 480 ML BOTTLE TOP SCH (08:21)
[2017-01-13] MEDS: CADEXOMER IODINE 40 GM TUBE TP SCH (08:21)
[2017-01-13] MEDS: INSULIN DETEMIR 100 UNIT/ML CARTRIDGE SQ SCH ×2 (08:24→21:54)
[2017-01-13] MEDS: AMIODARONE HCL 200 MG TABLET GT SCH (08:25)
--- NOTE | 2017-01-13 12:00 | NUR ---
RN NOTES: RECEIVED VERBAL ORDERS FROM DR. CHELLE SANTIAGO FOR CONSENT REGARDING DEBRIDEMENT OF SACRUM WOUND. ORDERS NOTED & CARRIED OUT. LEFT MESSAGE WITH WOUND CLINIC FOR DR. CORBETT REGARDING CONSENT.
[2017-01-13] MEDS: DIGOXIN 0.25 MG TABLET PO SCH (12:05)
[2017-01-13] MEDS: ACETAMINOPHEN 325 MG TABLET PO PRN (16:21)
--- NOTE | 2017-01-13 17:59 | NUR ---
RN NOTES: SPOKE WITH DR. QUIROZ REGARDING DIETARY RECOMMENDATION, RECEIVED ORDERS & CARRIED OUT.
--- NOTE | 2017-01-13 19:25 | NUR ---
RN OPENING NOTES: RECEIVED PT ON BED OBTUNDED, WITH SPONTANEOUS EYE OPENING. WITH TRACH TO MECH VENT, NOT IN APPARENT RESPI DISTRESS. SR ON MONITOR HR AT 86 BPM. IV ACCESS INTACT ON RFA G22 INTACT WITH NS TKO. GT INTACT, FEEDING TOLERATED, WITHOUT NOTED RESIDUALS; MONITORED. HD CATH INTACT, NOTED WITH OOZING MINIMAL BLOOD. SAFETY MEASURES ENSURED. ASPIRATION PREC OBSERVED. CONTINUOUSLY MONITORED.
[2017-01-13] MEDS ORDERED: SECONDARY IV SET 1 EA INFUS.SET MC ONE (20:43)
[2017-01-13] MEDS: COLISTIMETHATE SODIUM 100 MG in IV NS 0.9% 50 ML IV SCH (21:02)
[2017-01-13] MEDS: ATORVASTATIN 40 MG TABLET GT SCH (21:03)
[2017-01-13] MEDS: METRONIDAZOLE 500 MG TABLET PO SCH (21:03)
[2017-01-13] MEDS ORDERED: LIDOCAINE 1%-EPI 1:100,000 20 ML VIAL TP ONE (22:30)
[2017-01-14] VITALS (20 sets, daily range): BP systolic 91–142; BP diastolic 48–94
[2017-01-14] MEDS: BLOOD SUGAR DIAGNOSTIC 1 EACH STRIP IN SCH ×4 (00:37→18:00)
[2017-01-14] MEDS: RENAL NOVASOURCE 1,000 ML BOTTLE GT PRN (00:38)
[2017-01-14] MEDS: INSULIN REGULAR, HUMAN 100 UNIT/ML 3 ML VIAL SQ PRN (00:45)
[2017-01-14] MEDS: METRONIDAZOLE 500 MG TABLET PO SCH ×3 (05:20→21:11)
[2017-01-14] MEDS: FERROUS SULFATE UDC 300 MG/5 ML UDC GT SCH ×3 (05:20→21:32)
[2017-01-14] MEDS: DEXTROSE 50%-WATER 50 ML DISP.SYRIN IV PRN (05:25)
[2017-01-14] MEDS ORDERED: SECONDARY IV SET 1 EA INFUS.SET MC ONE (05:26)
[2017-01-14] MEDS ORDERED: IV SET PRIMARY PUMP SET 1 EA INFUS.SET MC ONE (05:26)
[2017-01-14] MEDS ORDERED: IV NS 0.9% 250 ML IV ONE ×2 (05:26→11:35)
--- NOTE | 2017-01-14 06:41 | NUR ---
RN CLOSING NOTES: REMAINED IN BED NOT IN APPARENT RESPIRATORY DISTRESS. REMAINED SR ON MONITOR HR AT 86. SKIN CARE RENDERED. SAFETY MEASURES ENSRUED. AM LABS DRAWN. FEEDING TOLERATED WELL. HD CATH STILL NOTED WITH MINIMAL BLEEDING. APPLIED PRESSURE DRESSING. NO ACUTE CHANGES WITHIN SHIFT. TO ENDORSE TO AM SHIFT RN. Addendum: 01/14/17 at 0648 by YUMIKO ORTEGA RN 0515 BLOOD SUGAR CHECK NOTED TO BE 59; PROTOCOL INITIATED. RECHECEKD BLOOD SUGAR AT 135. FEEDING ONGOING ORDERED. MONITORED ACCORDINGLY.
--- NOTE | 2017-01-14 07:00 | NUR ---
RN NOTES RECEIVED PT ON BED OBTUNDED, NON VERBAL, VENT DEPENDENT. TOLERATING CURRENT VENT SETTINGS WELL. NO SOB NOTED AT THIS TIME. CONTACT ISOLATION OBSERVED. SR ON TELE IN THE HIGH 80S SAT AT 100. TOLERATING GTUBE FEEDING AT THIS TIME. WOUND DRESSING BILATERALLY ON FEET AND SACRAL AREA DRY AND INTACT. LEFT FEMORAL HD CATH AND RIGHT FOREARM 22 GAUGE DRY AND INTACT. Addendum: 01/14/17 at 0756 by FIFI CERDA RN SR UP X3, CALL LIGHT WITHIN EASY REACH. WILL CONTINUE TO MONITOR.
[2017-01-14] MEDS ORDERED: SILVER NITRATE APPLICATOR 1 EA BOX TP ONE (08:00)
[2017-01-14 08:14] LABS: BASOPHILS % (AUTO) 0.3 % (0.0-2.0); EOSINOPHILS # (AUTO) 0.6 /CMM (0.0-0.7); EOSINOPHILS % (AUTO) 5.2 % (0.0-6.0); LYMPHOCYTES # (AUTO) 1.1 /CMM (0.8-4.8); LYMPHOCYTES % (AUTO) 9.7 % (20.0-44.0); MEAN CORPUSCULAR HEMOGLOBIN 29 PG (26.0-33.0); MEAN CORPUSCULAR HGB CONC 33 g/dl (31.0-36.0); MEAN CORPUSCULAR VOLUME 88 fL (80-96); MONOCYTES # (AUTO) 0.7 /CMM (0.1-1.30); MONOCYTES % (AUTO) 5.7 % (2.0-12.0); NEUTROPHILS % (AUTO) 79.1 % (43.0-81.0); PLATELET COUNT (AUTO) 396 /CMM (150-450); RDW COEFFICIENT OF VARIATION 17.3 (11.5-15.0); RED BLOOD CELL COUNT(AUTO) 2.28 MIL/uL (4.5-6.0); WHITE BLOOD COUNT (AUTO) 11.4 K/uL (4.3-11.0)
[2017-01-14] MEDS: VIT B CMPLX 3/FA/VIT C/BIOTIN 1 TAB TABLET PO SCH (08:15)
[2017-01-14] MEDS: AMIODARONE HCL 200 MG TABLET GT SCH (08:16)
[2017-01-14] MEDS: LACTOBACILLUS RHAMNOSUS GG 1 EACH CAP.SPRINK GT SCH ×2 (08:16→16:25)
[2017-01-14] MEDS: PANTOPRAZOLE 40 MG TABLET.DR PO SCH (08:16)
[2017-01-14] MEDS: ZINC SULFATE 220 MG CAPSULE PO SCH (08:16)
[2017-01-14] MEDS: SEVELAMER CARBONATE 800 MG TABLET PO SCH ×3 (08:16→16:25)
[2017-01-14] MEDS: PROSOURCE / PROSTAT (PYXIS) 30 ML UDC GT SCH (08:17)
[2017-01-14] MEDS: DAKINS QUARTER STRENGTH (0.125%) 480 ML BOTTLE TOP SCH (08:18)
[2017-01-14] MEDS: CADEXOMER IODINE 40 GM TUBE TP SCH (08:18)
[2017-01-14 08:20] LABS: HEMATOCRIT 20 % (39-51); HEMOGLOBIN 6.7 g/dL (13.5-17.5)
[2017-01-14] MEDS: INSULIN DETEMIR 100 UNIT/ML CARTRIDGE SQ SCH ×2 (08:24→21:19)
[2017-01-14] MEDS: LINEZOLID RTU BAG 600 MG in PREMIX 1 EA IV SCH ×2 (08:24→21:11)
[2017-01-14 08:26] LABS: CALCIUM, SERUM 9.2 mg/dL (8.5-10.1); CREATININE 4.5 mg/dL (0.6-1.3); POTASSIUM 4.1 mmol/L (3.5-5.1)
[2017-01-14 08:52] LABS: BAND % (MANUAL) 4 % (0.0-5.0); EOSINOPHILS % (MANUAL) 3 % (0-4); LYMPHOCYTES % (MANUAL) 11 % (16-48); MONOCYTES % (MANUAL) 5 % (0-11.0); NEUTROPHILS % (MANUAL) 77 (42-76)
[2017-01-14] MEDS ORDERED: BLOOD IV SET 1 EA INFUS.SET MC ONE ×2 (11:35→11:36)
--- NOTE | 2017-01-14 12:08 | NUR ---
RN NOTES FIRST UNIT OF BLOOD STARTED. VSS STABLE NO REACTION NOTED. WILL CONTINUE TO MONITOR.
[2017-01-14] MEDS: ACETAMINOPHEN 325 MG TABLET PO PRN (14:42)
--- NOTE | 2017-01-14 15:30 | NUR ---
RN NOTES FIRST UNIT OF BLOOD COMPLETED. PT TOLERATED WELL, VSS ARE STABLE. WILL CONTINUE TO MONITOR.
--- NOTE | 2017-01-14 15:57 | NUR ---
RN NOTES SECOND UNIT OF BLOOD STARTED. VSS STABLE, NO REACTION NOTED. WILL CONTINUE TO MONITOR.
--- NOTE | 2017-01-14 18:28 | NUR ---
RN NOTES SECOND UNIT OF BLOOD STILL RUNNING, PT VSS STABLE. RESPIRATIONS EVEN AND UNLABORED TOLERATING VENT SETTINGS. TRACH CARE COMPLETE, REPOSITIONED, AND CLEANED PT. STOOL SPECIMEN SENT TO LAB FOR OB. TOLERATING G TUBE FEEDING WELL, NO RESIDUAL NOTED. LEFT FEMORAL HD CATH DRESSING REINFORCED SMALL AMOUNT OF BLOOD NOTED. WILL CONTINUE TO MONITOR. SIDE RAILS UP X3, CALL LIGHT WITHIN REACH, BED IN LOWEST POSITION. NO SIGNIFICANT CHANGES NOTED.
--- NOTE | 2017-01-14 19:06 | NUR ---
RN NOTES SECOND UNIT OF BLOOD COMPLETED. TOLERATED WELL. VSS STABLE.
--- NOTE | 2017-01-14 19:30 | NUR ---
RN NOTES PT RESTING ON BED. STRICTLY OBSERVED FOR ISOLATION DUR TO VRE WOUND AND ACINETOBACTER SPUTUM. NO ACUTE RESP DISTRESS. WITH TRACH SHILEY 8 CONNECTED TO VENT SETTING OF AC 16 TV 600 FIO2 40% PEEP 5 SATING 100% SR ON TELE MONITOR.. PT IS OBTUNDED. GTF NOVASOURCE @ 35 CC/HR INTACT AND PATENT. WITH ZERO RESIDUAL. IV SITE ON RFA G 22 INTACT AND PATENT. NO ASE FROM S/P 2 UNITS OF BLOOD TRANSFUSION. NO ACTIVE BLEEDING SHOWS. KEPT PT CLEAN AND COMFORTABLE IN BED. TURNED AND REPOSITIONED. REDUCED PRESSURE TO BONY PROMINENCE AREA. OFFLOADED EXT. KEPT CLEAN AND DRY. WILL CONTINUE TO MONITOR.
--- NOTE | 2017-01-14 20:10 | NUR ---
[facility] WITH NOTED SETT[facility]. VENT ALARM WORKING AND AUDIBLE ,VENT PLUGGED INTO RED OUTLET. TRACH SECURE IN AND IN PROPER POSITIONS. CUFF CHECKED METABOLIC SPECIALIST. SXN MODERATE AMOUNT OF THICK YELLOWISH SHELDON SECRETIONS. BILATERAL BS NOTED. NO RESPIRATORY DISTRESS AND SOB NOTED AT THIS TIME. AMBU BAG AT BEDSIDE . WILL CONTINUE TO MONITOR THE PT.
[2017-01-14] MEDS: COLISTIMETHATE SODIUM 100 MG in IV NS 0.9% 50 ML IV SCH (21:21)
[2017-01-14] MEDS: ATORVASTATIN 40 MG TABLET GT SCH (21:21)
[2017-01-15] VITALS: BP 130/76
[2017-01-15] MEDS: BLOOD SUGAR DIAGNOSTIC 1 EACH STRIP IN SCH ×4 (01:12→18:46)
[2017-01-15 04:00] VITALS: BP 146/74
[2017-01-15] MEDS ORDERED: HYDROCODONE/APAP 5/325MG 1 EACH TABLET ONE (04:25)
[2017-01-15] MEDS: METRONIDAZOLE 500 MG TABLET PO SCH ×3 (04:27→21:37)
[2017-01-15] MEDS: HYDROCODONE/APAP 5/325MG 1 EACH TABLET PO PRN ×4 (04:28→20:08)
[2017-01-15] MEDS: RENAL NOVASOURCE 1,000 ML BOTTLE GT PRN (04:29)
[2017-01-15] MEDS: FERROUS SULFATE UDC 300 MG/5 ML UDC GT SCH ×3 (05:00→21:37)
[2017-01-15 06:47] LABS: BASOPHILS % (AUTO) 0.2 % (0.0-2.0); EOSINOPHILS # (AUTO) 0.6 /CMM (0.0-0.7); EOSINOPHILS % (AUTO) 4.6 % (0.0-6.0); HEMATOCRIT 28 % (39-51); HEMOGLOBIN 9.4 g/dL (13.5-17.5); LYMPHOCYTES # (AUTO) 1.2 /CMM (0.8-4.8); LYMPHOCYTES % (AUTO) 10.2 % (20.0-44.0); MEAN CORPUSCULAR HEMOGLOBIN 30 PG (26.0-33.0); MEAN CORPUSCULAR HGB CONC 34 g/dl (31.0-36.0); MEAN CORPUSCULAR VOLUME 88 fL (80-96); MONOCYTES # (AUTO) 0.7 /CMM (0.1-1.30); MONOCYTES % (AUTO) 5.7 % (2.0-12.0); NEUTROPHILS # (AUTO) 9.6 /CMM (1.8-8.9); NEUTROPHILS % (AUTO) 79.3 % (43.0-81.0); PLATELET COUNT (AUTO) 367 /CMM (150-450); RDW COEFFICIENT OF VARIATION 15.6 (11.5-15.0); RED BLOOD CELL COUNT(AUTO) 3.14 MIL/uL (4.5-6.0); WHITE BLOOD COUNT (AUTO) 12.1 K/uL (4.3-11.0)
--- NOTE | 2017-01-15 07:00 | NUR ---
RN NOTES PT REMAINED INS TABLE CONDITION THROUGHOUT THE SHIFT. AFEBRILE. VS WNL. ALL DUE MEDICINE TOLERATED WELL. LEFT FEMORAL CATH INTACT. NO SIGNIFICANT CHANGE OF CONDITION THIS SHIFT. IV ATB TOLERATED WELL WITHOUT ASE SHOWS. NO ASE FORM S/P 2 UNITS OF BT ANS S/P DIALYSIS. WOUND CARE PROVIDED. KEPT PT CLEAN AND DRY. ENDORSED CONTINUITY OF CARE TO AM NURSE
--- NOTE | 2017-01-15 07:15 | NUR ---
RN INITIAL NOTE PATIENT RECEIVED IN BED. PT IS OBTUNDED. NO S/S OF PAIN OR DISCOMFORT. PT HAS TRACH- SHILEY #8, VENT SETTINGS AC-16, TV-600, FI02-40%, PEEP-5. SATING WELL. SINUS RHYTHM ON TELE MONITOR. HEART RATE IN THE 90'S. GT FLUSHED, PLACEMENT VERIFIED. RUNNING NOVASOURCE AT 40ML/HR. TOLERATING SETTINGS WELL. IV SITE FLUSHED, PATENT. SAFETY PRECAUTIONS IN PLACE. BED IN LOCKED, LOW POSITION WITH TWO SIDE RAILS UP. WILL CONTINUE TO MONITOR CLOSELY.
[2017-01-15 07:27] LABS: CALCIUM, SERUM 8.8 mg/dL (8.5-10.1); CREATININE 3.5 mg/dL (0.6-1.3); MAGNESIUM 2.2 mg/dL (1.8-2.4); PHOSPHORUS 4.2 mg/dL (2.5-4.9); POTASSIUM 3.9 mmol/L (3.5-5.1)
[2017-01-15 08:00] VITALS: BP 89/62
[2017-01-15] MEDS: AMIODARONE HCL 200 MG TABLET GT SCH (09:21)
[2017-01-15] MEDS: VIT B CMPLX 3/FA/VIT C/BIOTIN 1 TAB TABLET PO SCH (09:22)
[2017-01-15] MEDS: SEVELAMER CARBONATE 800 MG TABLET PO SCH ×3 (09:22→16:02)
[2017-01-15] MEDS: PANTOPRAZOLE 40 MG TABLET.DR PO SCH (09:22)
[2017-01-15] MEDS: LACTOBACILLUS RHAMNOSUS GG 1 EACH CAP.SPRINK GT SCH ×2 (09:22→16:02)
[2017-01-15] MEDS: LINEZOLID RTU BAG 600 MG in PREMIX 1 EA IV SCH ×2 (09:22→21:37)
[2017-01-15] MEDS: PROSOURCE / PROSTAT (PYXIS) 30 ML UDC GT SCH (09:22)
[2017-01-15] MEDS: DAKINS QUARTER STRENGTH (0.125%) 480 ML BOTTLE TOP SCH (09:23)
[2017-01-15] MEDS: CADEXOMER IODINE 40 GM TUBE TP SCH (09:23)
[2017-01-15] MEDS: ZINC SULFATE 220 MG CAPSULE PO SCH (09:23)
[2017-01-15] MEDS: INSULIN DETEMIR 100 UNIT/ML CARTRIDGE SQ SCH ×2 (09:36→21:00)
[2017-01-15 12:00] VITALS: BP 71/45
[2017-01-15 16:00] VITALS: BP 95/56
[2017-01-15] MEDS: MIDODRINE HCL (5MG) 5 MG TABLET PO SCH (16:03)
--- NOTE | 2017-01-15 19:30 | NUR ---
STUDIO DATA ANALYST INITIAL NOTE RECEIVED REPORT FROM ZAIRA Hutson RN. PT IN IN BED, OBTUNDED. CHRONIC VENT TRACH, TOLERATING CURRENT VENT SETTINGS. PT IS HAVING SOME FACIAL GRIMACING, WILL ADMINISTER PAIN MEDICATION. LUNG SOUNDS RHONCHI. BOWEL SOUNDS PRESENT WITH GT PATENT AND INTACT, FEEDING RUNNING. PULSES PRESENT. IV PATENT AND INTACT. BED IN LOW LOCKED POSITION. CALL LIGHT WITHIN REACH. WILL CONTINUE TO MONITOR.
[2017-01-15] MEDS: COLISTIMETHATE SODIUM 100 MG in IV NS 0.9% 50 ML IV SCH (19:56)
[2017-01-15 20:00] VITALS: BP 169/98
[2017-01-15] MEDS: ATORVASTATIN 40 MG TABLET GT SCH (22:14)
[2017-01-16] VITALS: BP 95/53
[2017-01-16] MEDS: BLOOD SUGAR DIAGNOSTIC 1 EACH STRIP IN SCH ×5 (00:30→23:54)
[2017-01-16] MEDS: INSULIN REGULAR, HUMAN 100 UNIT/ML 3 ML VIAL SQ PRN ×2 (00:33→12:43)
[2017-01-16 04:00] VITALS: BP_SYST 150; BP_DIAS 53; BP_DIAS 83
[2017-01-16] MEDS: FERROUS SULFATE UDC 300 MG/5 ML UDC GT SCH ×3 (04:56→21:37)
[2017-01-16] MEDS: RENAL NOVASOURCE 1,000 ML BOTTLE GT PRN (04:56)
[2017-01-16] MEDS: METRONIDAZOLE 500 MG TABLET PO SCH ×3 (04:56→21:37)
--- NOTE | 2017-01-16 07:10 | NUR ---
RN NOTES PT RECEIVED ON BED NONVERBAL, VENT/TRACH DEPENDENT. OBTUNDED AND CONTRACTED TOLERATING CURRENT VENT SETTINGS WELL. RESPIRATIONS EVEN AND UNLABORED. ON TELE MONITOR ST. R FOREARM 22GAUGE AND R AC 20 GAUGE IV SITES DRY AND INTACT. L FEMORAL HD CATH IN TACT. GTUBE FEEDING RUNNING AT 40CC/HR, TOLERATING WELL. SIDERAILS UP X3, CALL LIGHT WITHIN REACH. BED LOCKED AND IN LOWEST POSITION. CONTACT PRECAUTIONS OBSERVED. WILL CONTINUE TO MONITOR.
[2017-01-16] MEDS: HYDROCODONE/APAP 5/325MG 1 EACH TABLET PO PRN ×2 (07:12→14:37)
[2017-01-16 08:00] VITALS: BP 108/45
[2017-01-16] MEDS: ACETAMINOPHEN 325 MG TABLET PO PRN (08:55)
[2017-01-16] MEDS: LINEZOLID RTU BAG 600 MG in PREMIX 1 EA IV SCH ×2 (09:17→21:37)
[2017-01-16] MEDS: PROSOURCE / PROSTAT (PYXIS) 30 ML UDC GT SCH (09:17)
[2017-01-16] MEDS: AMIODARONE HCL 200 MG TABLET GT SCH (09:19)
[2017-01-16] MEDS: PANTOPRAZOLE 40 MG TABLET.DR PO SCH (09:21)
[2017-01-16] MEDS: ZINC SULFATE 220 MG CAPSULE PO SCH (09:25)
[2017-01-16] MEDS: VIT B CMPLX 3/FA/VIT C/BIOTIN 1 TAB TABLET PO SCH (09:25)
[2017-01-16] MEDS: SEVELAMER CARBONATE 800 MG TABLET PO SCH ×3 (09:25→17:17)
[2017-01-16] MEDS: LACTOBACILLUS RHAMNOSUS GG 1 EACH CAP.SPRINK GT SCH ×2 (09:25→17:15)
[2017-01-16] MEDS: INSULIN DETEMIR 100 UNIT/ML CARTRIDGE SQ SCH ×2 (09:26→23:46)
[2017-01-16] MEDS: CADEXOMER IODINE 40 GM TUBE TP SCH (09:27)
[2017-01-16] MEDS: MIDODRINE HCL (5MG) 5 MG TABLET PO SCH ×4 (10:52→17:26)
[2017-01-16] MEDS: DAKINS QUARTER STRENGTH (0.125%) 480 ML BOTTLE TOP SCH (10:52)
[2017-01-16 12:00] VITALS: BP 107/63
[2017-01-16] MEDS: DIGOXIN 0.25 MG TABLET PO SCH (13:28)
[2017-01-16 16:00] VITALS: BP_SYST 85; BP_SYST 95; BP_DIAS 39; BP_DIAS 59
--- NOTE | 2017-01-16 16:00 | NUR ---
RN NOTES TERESA ID CALL OR CONTACT CENTRE MANAGER NOTIFIED REGARDING T=101.3 THIS AM . NO NEW ORDER GIVEN .
--- NOTE | 2017-01-16 18:00 | NUR ---
RN NOTES PT VENT/TRACH DEPENDENT. VSS STABLE, TOLERATING CURRENT VENT SETTINGS WELL. ST ON THE MONITOR. GTUBE FEEDING RUNNING AT 40CC, PT TOLERATING WELL. PT REMAINS THE SAME, SUPPORTIVE MOTHER AT BEDSIDE. LAST TEMP 98.6. SIDE RAILS UPX3, CALL LIGHT WITHIN REACH, BED IN LOWEST POSITION. NO SIGNIFICANT CHANGES NOTED ON THIS SHIFT.
[2017-01-16 20:00] VITALS: BP 102/59
[2017-01-16] MEDS: COLISTIMETHATE SODIUM 100 MG in IV NS 0.9% 50 ML IV SCH (21:11)
[2017-01-16] MEDS: ATORVASTATIN 40 MG TABLET GT SCH (21:37)
[2017-01-17] VITALS (7 sets, daily range): BP systolic 75–130; BP diastolic 37–79
[2017-01-17] MEDS: FERROUS SULFATE UDC 300 MG/5 ML UDC GT SCH ×3 (05:24→21:02)
[2017-01-17] MEDS: METRONIDAZOLE 500 MG TABLET PO SCH ×3 (05:28→21:02)
[2017-01-17 07:19] LABS: BASOPHILS % (AUTO) 0.3 % (0.0-2.0); EOSINOPHILS # (AUTO) 0.6 /CMM (0.0-0.7); EOSINOPHILS % (AUTO) 3.9 % (0.0-6.0); HEMATOCRIT 29 % (39-51); HEMOGLOBIN 9.7 g/dL (13.5-17.5); LYMPHOCYTES # (AUTO) 1.8 /CMM (0.8-4.8); LYMPHOCYTES % (AUTO) 12.1 % (20.0-44.0); MEAN CORPUSCULAR HEMOGLOBIN 30 PG (26.0-33.0); MEAN CORPUSCULAR HGB CONC 34 g/dl (31.0-36.0); MEAN CORPUSCULAR VOLUME 88 fL (80-96); MONOCYTES # (AUTO) 1.1 /CMM (0.1-1.30); MONOCYTES % (AUTO) 7.2 % (2.0-12.0); NEUTROPHILS # (AUTO) 11.3 /CMM (1.8-8.9); NEUTROPHILS % (AUTO) 76.5 % (43.0-81.0); PLATELET COUNT (AUTO) 393 /CMM (150-450); RDW COEFFICIENT OF VARIATION 16.2 (11.5-15.0); RED BLOOD CELL COUNT(AUTO) 3.25 MIL/uL (4.5-6.0); WHITE BLOOD COUNT (AUTO) 14.7 K/uL (4.3-11.0)
[2017-01-17] MEDS: DEXTROSE 50%-WATER 50 ML DISP.SYRIN IV PRN (07:27)
--- NOTE | 2017-01-17 07:30 | NUR ---
RN NOTES RECEIVED PATIENT ON [facility] VENT WITH BREATHING NORMAL, EVEN AND UNLABORED. NO SOB NOTED. NO ACUTE DISTRESS NOTED. VENT SETTING REVIEWED AND VERIFIED. TOLERATED WELL. AFEBRILE. TELE MONITOR REVEALS SR, HR=86. CONT ON GTF, ASPIRATION PRECAUTION TAKEN, HOB ELEVATED. BOWEL SOUND PRESENT.PULSES PRESENT. SAFETY MEASURE OBSERVED. ALL NEEDS ATTENDED. CALL LIGHT WITH IN REACH. WILL CONT TO MONITOR.
[2017-01-17] MEDS: BLOOD SUGAR DIAGNOSTIC 1 EACH STRIP IN SCH ×3 (07:33→17:30)
--- NOTE | 2017-01-17 07:47 | NUR ---
RN NOTES RECEIVED PATIENT WITH EYES OPEN, NO EYE TRACKING. NO RESPIRATORY DISTRESS OR SHORTNESS OF BREATH. BREATHING EVEN AND UNLABORED. NO PHYSICAL MANIFESTATION OF PAIN OR DISCOMFORT. VENT SETTING WELL TOLERATED. GTUBE PATENT AND INTACT, RESIDUAL NOTED. KEPT CLEAN AND DRY.
[2017-01-17 07:55] LABS: CREATININE 4.6 mg/dL (0.6-1.3); MAGNESIUM 2.3 mg/dL (1.8-2.4); PHOSPHORUS 5.3 mg/dL (2.5-4.9); POTASSIUM 4.3 mmol/L (3.5-5.1)
--- NOTE | 2017-01-17 08:00 | NUR ---
RN CLOSING NOTES NO EPISODE OF DISTRESS, OBTUNDED. GTUBE PATENT WITH LARGE AMOUNT OF RESIDUAL. PATIENT;S BLOOD SUGAR AT 6AM LOW 52MG/DL. DEXTROSE ADMINISTERED. STILL WAITING FOR RESULTS. WOUND DRESSING CHANGED. NO NEW SKIN ISSUE. KEPT CLEAN AND DRY. ENDORSED TO AM SHIFT FOR CONTINUITY OF CARE.
[2017-01-17] MEDS: PANTOPRAZOLE 40 MG TABLET.DR PO SCH (08:14)
[2017-01-17] MEDS: ALBUMIN 25% 25 GM in PREMIX 1 EA IV PRN (08:15)
[2017-01-17] MEDS: LINEZOLID RTU BAG 600 MG in PREMIX 1 EA IV SCH ×2 (08:17→21:04)
--- NOTE | 2017-01-17 08:29 | NUR ---
SPOKE WITH RN. AWAITING CONSENT FOR CT ABDOMEN PELVIS WITH CONTRAST. CT MUST BE DONE JUST PRIOR TO DIALYSIS, BUT PATIENT IS CURRENTLY ON DIALYSIS. RN WILL CALL BACK.
[2017-01-17] MEDS ORDERED: IV NS 0.9% 500 ML IV ONE (09:00)
[2017-01-17] MEDS: AMIODARONE HCL 200 MG TABLET GT SCH (09:00)
[2017-01-17] MEDS: INSULIN DETEMIR 100 UNIT/ML CARTRIDGE SQ SCH ×2 (09:00→21:33)
--- NOTE | 2017-01-17 09:00 | NUR ---
RN NOTES PATIENT NOTED WITH BS =52 @0730. MATHEW 15 UNIT SCHEDULED @0900 NOT GIVEN, PATIENT YR=[id number] DELGADO MADE AWARE.
[2017-01-17] MEDS: MIDODRINE HCL (5MG) 5 MG TABLET PO SCH ×3 (09:13→17:29)
[2017-01-17] MEDS: ZINC SULFATE 220 MG CAPSULE PO SCH (09:13)
[2017-01-17] MEDS: VIT B CMPLX 3/FA/VIT C/BIOTIN 1 TAB TABLET PO SCH (09:13)
[2017-01-17] MEDS: DAKINS QUARTER STRENGTH (0.125%) 480 ML BOTTLE TOP SCH (09:14)
[2017-01-17] MEDS: CADEXOMER IODINE 40 GM TUBE TP SCH (09:14)
[2017-01-17] MEDS: LACTOBACILLUS RHAMNOSUS GG 1 EACH CAP.SPRINK GT SCH ×2 (09:42→17:28)
[2017-01-17] MEDS: PROSOURCE / PROSTAT (PYXIS) 30 ML UDC GT SCH (09:42)
[2017-01-17] MEDS: SEVELAMER CARBONATE 0.8 GM POWD.PACK PO SCH ×3 (09:42→17:28)
--- NOTE | 2017-01-17 14:30 | NUR ---
Bioethics meeting scheduled for Friday01/20/17 at 11:00am. Patient's family has been notified Leda Soto ([phone]/ [phone]) and confirmed.
--- NOTE | 2017-01-17 18:58 | NUR ---
RN NOTES PATIENT ENDORSED TO NEXT SHIFT IN STABLE CONDITION FOR CONTINUITY OF CARE. NO SIGNIFICANT CHANGES NOTED. KEPT CLEAN, DRY AND COMFORTABLE. ALL NEEDS ATTENDED. SAFETY MEASURE OBSERVED. CALL LIGHT WITH IN REACH. WILL CONT TO MONITOR.
[2017-01-17] MEDS ORDERED: FLUCONAZOLE (100 MG) 100 MG TABLET PO SCH (20:00)
--- NOTE | 2017-01-17 20:55 | NUR ---
RN NOTES RECEIVED PATIENT IN STABLE CONDITION, NO RESPIRATORY DISTRESS OR SHORTNESS OF BREATH. BREATHING EVEN AND UNLABORED. VENT SETTING WELL TOLERATED. GTUBE PATENT AND INTACT. FEEDING TOLERATING WELL. REMAINS IN VEGETATIVE STATE. WILL CONTINUE TO MONITOR
[2017-01-17] MEDS: ATORVASTATIN 40 MG TABLET GT SCH (21:02)
[2017-01-17] MEDS: FLUCONAZOLE (100 MG) 100 MG TABLET PO SCH (21:03)
[2017-01-17] MEDS: COLISTIMETHATE SODIUM 100 MG in IV NS 0.9% 50 ML IV SCH (21:05)
[2017-01-18] VITALS: BP 136/81
[2017-01-18] MEDS: INSULIN REGULAR, HUMAN 100 UNIT/ML 3 ML VIAL SQ PRN ×3 (00:27→17:45)
[2017-01-18 04:00] VITALS: BP_SYST 118; BP_SYST 132; BP_DIAS 69; BP_DIAS 78
[2017-01-18] MEDS: METRONIDAZOLE 500 MG TABLET PO SCH ×3 (04:31→23:02)
[2017-01-18] MEDS: FERROUS SULFATE UDC 300 MG/5 ML UDC GT SCH ×3 (04:31→23:01)
[2017-01-18] MEDS: HYDROCODONE/APAP 5/325MG 1 EACH TABLET PO PRN ×2 (04:31→14:12)
[2017-01-18] MEDS: RENAL NOVASOURCE 1,000 ML BOTTLE GT PRN (04:32)
[2017-01-18] MEDS: BLOOD SUGAR DIAGNOSTIC 1 EACH STRIP IN SCH ×4 (05:51→17:45)
--- NOTE | 2017-01-18 05:57 | NUR ---
RN CLOSING NOTES NOTED WITH EPISODE OF ELEVATED BLOOD PRESSURE AND HIGH HEART RATE AT 0430AM. FACIAL GRIMACE NOTED WITH HEAVY DIAPHORESIS. COOLING MEASURES PROVIDED. REPOSITIONED FOR COMFORT. NORCO 5/325 1 TABLET GIVEN WITH RELIEF. BLOOD PRESSURE NORMALIZES TO 118/69 AND HEART RATE 81BPM. NO DISTRESS NOTED. WILL ENDORSE TO AM SHIFT FOR CONTINUATION OF CARE.
--- NOTE | 2017-01-18 07:05 | NUR ---
TILE BURNER INITIAL NOTES REPORT RECEIVED AT THE BEDSIDE. PATIENT IS RESTING COMFORTABLY IN BED. NO SOB OR DISTRESS NOTED AT THIS TIME. PATIENT DOES NOT APPEAR TO BE IN PAIN, NO FACIAL GRIMACE NOTED. VENT SETTINGS CHECKED AND VERIFIED. BED IN A LOW POSITION, WILL CONTINUE TO MONITOR.
--- NOTE | 2017-01-18 07:06 | NUR ---
RN NOTES TUBE FEEDING IS CURRENTLY HELD PATIENT IS SCHEDULED FOR A CT ABD LATER TODAY.
[2017-01-18 07:19] LABS: BASOPHILS % (AUTO) 0.3 % (0.0-2.0); EOSINOPHILS # (AUTO) 0.5 /CMM (0.0-0.7); EOSINOPHILS % (AUTO) 4.5 % (0.0-6.0); HEMATOCRIT 29 % (39-51); HEMOGLOBIN 9.7 g/dL (13.5-17.5); LYMPHOCYTES # (AUTO) 1.4 /CMM (0.8-4.8); LYMPHOCYTES % (AUTO) 12.7 % (20.0-44.0); MEAN CORPUSCULAR HEMOGLOBIN 30 PG (26.0-33.0); MEAN CORPUSCULAR HGB CONC 34 g/dl (31.0-36.0); MEAN CORPUSCULAR VOLUME 88 fL (80-96); MONOCYTES # (AUTO) 0.7 /CMM (0.1-1.30); MONOCYTES % (AUTO) 6.7 % (2.0-12.0); NEUTROPHILS # (AUTO) 8.4 /CMM (1.8-8.9); NEUTROPHILS % (AUTO) 75.8 % (43.0-81.0); PLATELET COUNT (AUTO) 352 /CMM (150-450); RED BLOOD CELL COUNT(AUTO) 3.26 MIL/uL (4.5-6.0); WHITE BLOOD COUNT (AUTO) 11.1 K/uL (4.3-11.0)
[2017-01-18 07:45] LABS: CREATININE 4.2 mg/dL (0.6-1.3); MAGNESIUM 2.4 mg/dL (1.8-2.4); PHOSPHORUS 4.5 mg/dL (2.5-4.9)
[2017-01-18 08:00] VITALS: BP 114/64
--- NOTE | 2017-01-18 08:05 | NUR ---
TALKED TO THE NURSE (SANDY) REGARDING THE CT ORDERED, SHE SAID THE PT. IS UNSTABLE AND SHE DOESN'T KNOW YET, WHEN IS THE NEXT DIALYSIS FOR THIS PT.
[2017-01-18] MEDS: PROSOURCE / PROSTAT (PYXIS) 30 ML UDC GT SCH (08:16)
[2017-01-18] MEDS: LACTOBACILLUS RHAMNOSUS GG 1 EACH CAP.SPRINK GT SCH ×2 (08:17→17:45)
[2017-01-18] MEDS: MIDODRINE HCL (5MG) 5 MG TABLET PO SCH ×3 (08:18→17:45)
[2017-01-18] MEDS: PANTOPRAZOLE 40 MG TABLET.DR PO SCH (08:19)
[2017-01-18] MEDS: ZINC SULFATE 220 MG CAPSULE PO SCH (08:19)
[2017-01-18] MEDS: AMIODARONE HCL 200 MG TABLET GT SCH (08:19)
[2017-01-18] MEDS: VIT B CMPLX 3/FA/VIT C/BIOTIN 1 TAB TABLET PO SCH (08:19)
[2017-01-18] MEDS: LINEZOLID RTU BAG 600 MG in PREMIX 1 EA IV SCH (08:20)
[2017-01-18] MEDS: SEVELAMER CARBONATE 0.8 GM POWD.PACK PO SCH ×3 (08:20→17:45)
[2017-01-18] MEDS: DAKINS QUARTER STRENGTH (0.125%) 480 ML BOTTLE TOP SCH (08:21)
[2017-01-18] MEDS: INSULIN DETEMIR 100 UNIT/ML CARTRIDGE SQ SCH ×2 (08:22→23:04)
[2017-01-18] MEDS: CADEXOMER IODINE 40 GM TUBE TP SCH (08:22)
[2017-01-18 12:00] VITALS: BP 98/64
[2017-01-18] MEDS ORDERED: IOHEXOL-300 100 ML VIAL IV ONE (14:49)
[2017-01-18] MEDS ORDERED: IV NS 0.9% 250 ML IV ONE (14:49)
[2017-01-18] MEDS ORDERED: CT SWABBABLE VALVE TRANS SET 1 EA INFUS.SET MC ONE (14:49)
[2017-01-18 16:00] VITALS: BP 133/73
--- NOTE | 2017-01-18 16:00 | NUR ---
RN NOTES PATIENT IS BACK FROM CT. RESTARTING TUBE FEEDING.
--- NOTE | 2017-01-18 18:44 | NUR ---
DIGITAL MARKETING CONSULTANT CLOSING NOTES NO SIGNIFICANT CHANGES IN PATIENT CONDITION THROUGHOUT THE SHIFT. NO SOB OR DISTRESS NOTED AT THIS TIME. PATIENT DOES NOT APPEAR TO BE IN PAIN, NO FACIAL GRIMACE NOTED. VENT SETTINGS REMAIN UNCHANGED. BED IN A LOW POSITION, CALL LIGHT WITHIN PATIENT REACH. WILL ENDORSE FOR IVONNE.
[2017-01-18 20:00] VITALS: BP 116/72
[2017-01-18] MEDS: FLUCONAZOLE (100 MG) 100 MG TABLET PO SCH (20:00)
[2017-01-18] MEDS: COLISTIMETHATE SODIUM 100 MG in IV NS 0.9% 50 ML IV SCH (23:00)
[2017-01-18] MEDS: LINEZOLID 600 MG TABLET GT SCH (23:02)
[2017-01-18] MEDS: ATORVASTATIN 40 MG TABLET GT SCH (23:11)
[2017-01-19] VITALS (7 sets, daily range): BP systolic 94–114; BP diastolic 55–71
[2017-01-19] MEDS: BLOOD SUGAR DIAGNOSTIC 1 EACH STRIP IN SCH ×4 (00:27→17:07)
[2017-01-19] MEDS: RENAL NOVASOURCE 1,000 ML BOTTLE GT PRN (00:28)
[2017-01-19] MEDS: FERROUS SULFATE UDC 300 MG/5 ML UDC GT SCH ×3 (04:31→21:18)
[2017-01-19] MEDS: METRONIDAZOLE 500 MG TABLET PO SCH ×3 (04:32→21:18)
[2017-01-19 06:27] LABS: BASOPHILS % (AUTO) 0.5 % (0.0-2.0); EOSINOPHILS # (AUTO) 0.5 /CMM (0.0-0.7); EOSINOPHILS % (AUTO) 5.7 % (0.0-6.0); HEMATOCRIT 26 % (39-51); LYMPHOCYTES # (AUTO) 1.2 /CMM (0.8-4.8); LYMPHOCYTES % (AUTO) 13.8 % (20.0-44.0); MEAN CORPUSCULAR HEMOGLOBIN 30 PG (26.0-33.0); MEAN CORPUSCULAR HGB CONC 34 g/dl (31.0-36.0); MEAN CORPUSCULAR VOLUME 88 fL (80-96); MONOCYTES # (AUTO) 0.7 /CMM (0.1-1.30); MONOCYTES % (AUTO) 8.1 % (2.0-12.0); NEUTROPHILS # (AUTO) 6.1 /CMM (1.8-8.9); NEUTROPHILS % (AUTO) 71.9 % (43.0-81.0); PLATELET COUNT (AUTO) 340 /CMM (150-450); RDW COEFFICIENT OF VARIATION 16.1 (11.5-15.0); RED BLOOD CELL COUNT(AUTO) 2.99 MIL/uL (4.5-6.0); WHITE BLOOD COUNT (AUTO) 8.5 K/uL (4.3-11.0)
[2017-01-19 06:46] LABS: CALCIUM, SERUM 9.1 mg/dL (8.5-10.1); CREATININE 4.8 mg/dL (0.6-1.3); MAGNESIUM 2.3 mg/dL (1.8-2.4); PHOSPHORUS 5.4 mg/dL (2.5-4.9)
--- NOTE | 2017-01-19 07:00 | NUR ---
RN INITIAL NOTES PT IS IN BED, OBTUNDED, NONVERBAL, ON MECHANICAL VENT, SATURATING WELL. ON TELE MONITOR - SINUS. ON CONTINUOUS GT FEEDING, HOB ELEVATED. PT GOT MULTIPLE DECUBITUS, TURNED AND REPOSITIONED, WITH MAXIMUM ASSIST. RAC S/L IS FLUSHED AND PATENT. L FEMORAL HD CATH IS INTACT. NO FEBRILE, WILL CONTINUE TO MONITOR.
--- NOTE | 2017-01-19 07:38 | NUR ---
RN CLOSING NOTES EYES CLOSE, NO DISTRESS. BREATHING EVEN AND UNLABORED. VITAL SINGS WITHIN NORMAL LIMITS. TACH TUBE PATENT, GTUBE INTACT. ENDORSED TO AM SHIFT FOR CONTINUITY OF CARE
[2017-01-19] MEDS: SEVELAMER CARBONATE 0.8 GM POWD.PACK PO SCH ×3 (08:16→17:04)
[2017-01-19] MEDS: LACTOBACILLUS RHAMNOSUS GG 1 EACH CAP.SPRINK GT SCH ×2 (08:16→17:05)
[2017-01-19] MEDS: PROSOURCE / PROSTAT (PYXIS) 30 ML UDC GT SCH (08:16)
[2017-01-19] MEDS: ZINC SULFATE 220 MG CAPSULE PO SCH (08:16)
[2017-01-19] MEDS: AMIODARONE HCL 200 MG TABLET GT SCH (08:17)
[2017-01-19] MEDS: PANTOPRAZOLE 40 MG TABLET.DR PO SCH (08:17)
[2017-01-19] MEDS: VIT B CMPLX 3/FA/VIT C/BIOTIN 1 TAB TABLET PO SCH (08:17)
[2017-01-19] MEDS: MIDODRINE HCL (5MG) 5 MG TABLET PO SCH ×3 (08:18→17:04)
[2017-01-19] MEDS: LINEZOLID 600 MG TABLET GT SCH ×2 (08:18→21:18)
[2017-01-19] MEDS: DAKINS QUARTER STRENGTH (0.125%) 480 ML BOTTLE TOP SCH (08:20)
[2017-01-19] MEDS: CADEXOMER IODINE 40 GM TUBE TP SCH (08:20)
[2017-01-19] MEDS: INSULIN DETEMIR 100 UNIT/ML CARTRIDGE SQ SCH ×2 (08:25→21:00)
[2017-01-19] MEDS: ACETAMINOPHEN 325 MG TABLET PO PRN (17:05)
--- NOTE | 2017-01-19 19:04 | NUR ---
RN CLOSING NOTES NO SIGNIFICANT CHANGES DURING AM SHIFT. CONTINUE FULL VENTILATOR SUPPORT, PT TOLERATING CURRENT SETTINGS, SINUS ON TELE MONITOR, HD DONE TODAY- 1000 OUT. BMP IN AM. NO S/SX OF ACTIVE INFECTION, AFREBRILE, WILL CONTINUE TO MONITOR. WOUND TREATMENT DONE, KEPT PT CLEAN AND DRY. RAC IN SALINE LOCK, L FEMORAL HD ACCESS IS CLEAN AND INTACT. PER DR DELGADO WHEN BLOOD CULTURE COMES BACK NEGATIVE WILL PLAN FOR PERM CATH. WILL ENDORSE TO PM NURSE FOR CONTINUATION OF CARE.
--- NOTE | 2017-01-19 19:37 | NUR ---
[facility] WITH NOTED SETTINGS. VENT ALARM WORKING AND AUDIBLE, VENT PLUGGED INTO RED OUTLET. TRACH SECURE IN AND IN PROPER POSITION, CUFF CHECKED CLOTHESPIN DRIER OPERATOR. SXN MODERATE AMOUNT OF YELLOW THICK SECRETIONS. BILATERAL BS NOTED. NO RESPIRATORY DISTRESS NOTED AT THIS TIME. AMBU BAG AT [facility], WILL CONTINUE TO MONITOR.
--- NOTE | 2017-01-19 19:40 | NUR ---
RN NOTES PT RESTING WELL ON BED. NO ACUTE RESP DISTRESS. WITH TRACH SHILEY 8 CONNECTED TO VENT SETTING OF AC 16 TV 600 FIO2 40% PEEP 5 OBTUNDED RESPONSIVE TO TACTILE STIMULI. OPENS EYES. AFEBRILE TEMP 98.8 SR HR 76 ON TELE MONITOR. GTF NOVASOURCE @ 35 CC/HR INTACT AND PATENT WITH ZERO RESIDUAL. IV SIT YEHUDA TAC AND LEFT FEMORAL HD CATH INTACT WITH CLEANED DRESSING. OFFLOADED EXT WITH PILLOWS. REDUCED PRESSURE TO BONY PROMINENCE AREA. KEPT PT CLEAN AND COMFORTABLE IN BED. WILL CONTINUE TO MONITOR.
[2017-01-19] MEDS: ATORVASTATIN 40 MG TABLET GT SCH (21:18)
[2017-01-19] MEDS: FLUCONAZOLE (100 MG) 100 MG TABLET PO SCH (21:18)
[2017-01-19] MEDS: COLISTIMETHATE SODIUM 100 MG in IV NS 0.9% 50 ML IV SCH (21:18)
[2017-01-20] VITALS (7 sets, daily range): BP systolic 81–125; BP diastolic 47–102
[2017-01-20] MEDS: FERROUS SULFATE UDC 300 MG/5 ML UDC GT SCH ×3 (04:52→21:10)
[2017-01-20] MEDS: METRONIDAZOLE 500 MG TABLET PO SCH ×3 (04:52→21:10)
[2017-01-20] MEDS: BLOOD SUGAR DIAGNOSTIC 1 EACH STRIP IN SCH ×4 (05:11→17:09)
[2017-01-20 06:55] LABS: BASOPHILS % (AUTO) 0.4 % (0.0-2.0); EOSINOPHILS # (AUTO) 0.4 /CMM (0.0-0.7); HEMATOCRIT 27 % (39-51); HEMOGLOBIN 9.2 g/dL (13.5-17.5); LYMPHOCYTES % (AUTO) 10.4 % (20.0-44.0); MEAN CORPUSCULAR HEMOGLOBIN 30 PG (26.0-33.0); MEAN CORPUSCULAR HGB CONC 34 g/dl (31.0-36.0); MEAN CORPUSCULAR VOLUME 88 fL (80-96); MONOCYTES # (AUTO) 0.6 /CMM (0.1-1.30); MONOCYTES % (AUTO) 6.2 % (2.0-12.0); PLATELET COUNT (AUTO) 365 /CMM (150-450); RDW COEFFICIENT OF VARIATION 15.9 (11.5-15.0); RED BLOOD CELL COUNT(AUTO) 3.06 MIL/uL (4.5-6.0); WHITE BLOOD COUNT (AUTO) 10.1 K/uL (4.3-11.0)
--- NOTE | 2017-01-20 07:10 | NUR ---
RN NOTES PT REMAINED IN STABLE CONDITION. NO SIGNIFICANT CHANGES. CONTINUE TO MONITOR LAB VALUES . CONTINUE ON ATB ORDERED. TOLERATED WELL NO ASE SHOWS. TRACH AND VENT SETTING TOLERATED WELL. SKIN RE-ASSESSMENT DONE PHOTO TAKEN. WOUND DRESSING RENDERED ORDERED. KEPT PT CLEAN AND DRY ALL DUE MEDS TOLERATED WELL. WILL ENDORSED CONTINUITY OF CARE TO AM NURSE.
[2017-01-20 07:12] LABS: MAGNESIUM 2.3 mg/dL (1.8-2.4); PHOSPHORUS 4.2 mg/dL (2.5-4.9); POTASSIUM 4.2 mmol/L (3.5-5.1)
--- NOTE | 2017-01-20 07:35 | NUR ---
RN NOTES RECEIVED PT RESTING IN BED. WITH TRACH SHILEY 8 CONNECTED TO VENT SETTING OF AC 16 TV 600 FIO2 40% PEEP 5, PT IS OBTUNDED RESPONSIVE TO TACTILE STIMULI. OPENS EYES. ST HR 107 ON TELE MONITOR. PT NOTED WARM, SKIN MOIST. ONGOING GTF NOVASOURCE @ 35 CC/HR INTACT AND PATENT, NO RESIDUAL NOTED. IV SITE ON R AC FLUSHED WITH NS PATENT. LEFT FEMORAL HD CATH INTACT WITH CLEAN DRESSING. OFFLOADED EXT WITH PILLOWS. REDUCED PRESSURE TO BONY PROMINENCE AREA. KEPT PT CLEAN AND COMFORTABLE IN BED. WILL CONTINUE TO MONITOR.
--- NOTE | 2017-01-20 07:40 | NUR ---
Received male zay pt on mechanical vent. Pt zay is secure. Vent is plugged into a red outlet, alarms are set and audible, and BVM is at bedside. Addendum: 01/20/17 at 1217 by MARTITA ELIZABETH RT Amended: Links added.
--- NOTE | 2017-01-20 08:00 | NUR ---
RN NOTES PT NOTED WITH FEVER OF 101.7. PLACED A CALL TO [facility] TO REPORT PT CHANGE IN CONDITION. BLOOD CULTURE ORDERED. CN SOON AWARE.
[2017-01-20] MEDS: ZINC SULFATE 220 MG CAPSULE PO SCH (08:29)
[2017-01-20] MEDS: LINEZOLID 600 MG TABLET GT SCH ×2 (08:29→21:11)
[2017-01-20] MEDS: LACTOBACILLUS RHAMNOSUS GG 1 EACH CAP.SPRINK GT SCH ×2 (08:29→17:09)
[2017-01-20] MEDS: SEVELAMER CARBONATE 0.8 GM POWD.PACK PO SCH ×3 (08:29→17:09)
[2017-01-20] MEDS: VIT B CMPLX 3/FA/VIT C/BIOTIN 1 TAB TABLET PO SCH (08:29)
[2017-01-20] MEDS: PANTOPRAZOLE 40 MG TABLET.DR PO SCH (08:30)
[2017-01-20] MEDS: PROSOURCE / PROSTAT (PYXIS) 30 ML UDC GT SCH (08:31)
[2017-01-20] MEDS: CADEXOMER IODINE 40 GM TUBE TP SCH (08:32)
[2017-01-20] MEDS: MIDODRINE HCL (5MG) 5 MG TABLET PO SCH ×3 (08:36→17:09)
[2017-01-20] MEDS: DAKINS QUARTER STRENGTH (0.125%) 480 ML BOTTLE TOP SCH (08:36)
[2017-01-20] MEDS: AMIODARONE HCL 200 MG TABLET GT SCH (08:36)
[2017-01-20] MEDS: INSULIN DETEMIR 100 UNIT/ML CARTRIDGE SQ SCH ×2 (08:41→21:00)
[2017-01-20] MEDS: HYDROCODONE/APAP 5/325MG 1 EACH TABLET PO PRN (10:16)
[2017-01-20] MEDS ORDERED: SILVER NITRATE APPLICATOR 1 EA BOX TP ONE (11:31)
--- NOTE | 2017-01-20 11:42 | NUR ---
Bioethics meeting was held today at 11AM with Dr. Rojas, Dr. Fortunato Blackwell, GAYATHRIO Enrique, pt's sister Keyanna and Pt's mother Betty. Pt's medical disposition was discussed. Family is having a difficult time with pt's current medical condition. NIKKO provided emotional support. Pt's sister Keyanna informed NIKKO she will have to discuss the idea of comfort care with her mother, brother and pt's children and will follow up with a decision regarding plan of care. NIKKO offered family if they would like a retrimmer to come speak with them and they agreed. NIKKO contacted [facility] and Father Belinda is on his way to see pt. and his family. NIKKO contacted [facility] and informed her that Father Belinda will be coming to visit the pt. and his family.
[2017-01-20] MEDS: DIGOXIN 0.25 MG TABLET PO SCH (13:44)
[2017-01-20] MEDS: RENAL NOVASOURCE 1,000 ML BOTTLE GT PRN (17:09)
--- NOTE | 2017-01-20 19:15 | NUR ---
RN NOTES PT COMFORTABLE ASLEEP WELL ON BED. NO ACUTE RESP DISTRESS. TRACH SHILEY 8 CONNECTED TO VENT SETTING OF AC 16 TV 600 FIO2 40% PEEP 5 OBTUNDED RESPONSIVE TO TACTILE STIMULI. OPENS EYES. AFEBRILE TEMP 98.6 SR HR 82 REVEALS ON TELE MONITOR. GTF NOVASOURCE @ 35 CC/HR INTACT AND PATENT ZERO RESIDUAL. IV SITE ON RAC G20 AND LEFT FEMORAL HD CATH INTACT WITH CLEANED DRESSING. OFFLOADED EXT WITH PILLOWS. REDUCED PRESSURE TO BONY PROMINENCE AREA. KEPT PT CLEAN AND COMFORTABLE IN BED. WILL CONTINUE TO MONITOR.
[2017-01-20] MEDS: FLUCONAZOLE (100 MG) 100 MG TABLET PO SCH (21:11)
[2017-01-20] MEDS: ATORVASTATIN 40 MG TABLET GT SCH (21:11)
[2017-01-20] MEDS: COLISTIMETHATE SODIUM 100 MG in IV NS 0.9% 50 ML IV SCH (21:11)
[2017-01-21] VITALS: BP 97/61
--- NOTE | 2017-01-21 00:25 | NUR ---
RN NOTES PT TEMP WENT TO 100.2 DEG F. REPEATED WENT TO 101 DEG TYLENOL 650 MG GIVEN ORDERED. COOL MEASURES RENDERED AND WILL CONTINUE TO MONITOR. PT SATING 98% HR 75. REMAINS CALM.
[2017-01-21] MEDS: BLOOD SUGAR DIAGNOSTIC 1 EACH STRIP IN SCH ×4 (00:37→17:51)
--- NOTE | 2017-01-21 01:10 | NUR ---
RN NOTES TEMP DROPPED DOWN TO 98.2 DEG F. MEDICINE EFFECTIVE. KEPT PT CLEAN AND COMFORTABLE IN BED.
[2017-01-21] MEDS: HYDROCODONE/APAP 5/325MG 1 EACH TABLET PO PRN (02:20)
[2017-01-21 04:00] VITALS: BP 93/57
[2017-01-21] MEDS: METRONIDAZOLE 500 MG TABLET PO SCH ×3 (05:04→21:18)
[2017-01-21] MEDS: FERROUS SULFATE UDC 300 MG/5 ML UDC GT SCH ×3 (05:04→21:17)
[2017-01-21 06:15] LABS: BASOPHILS % (AUTO) 0.2 % (0.0-2.0); EOSINOPHILS # (AUTO) 0.3 /CMM (0.0-0.7); HEMATOCRIT 25 % (39-51); HEMOGLOBIN 8.6 g/dL (13.5-17.5); LYMPHOCYTES # (AUTO) 1.2 /CMM (0.8-4.8); LYMPHOCYTES % (AUTO) 12.9 % (20.0-44.0); MEAN CORPUSCULAR HEMOGLOBIN 30 PG (26.0-33.0); MEAN CORPUSCULAR HGB CONC 34 g/dl (31.0-36.0); MEAN CORPUSCULAR VOLUME 88 fL (80-96); MONOCYTES # (AUTO) 0.7 /CMM (0.1-1.30); MONOCYTES % (AUTO) 7.6 % (2.0-12.0); NEUTROPHILS # (AUTO) 7.3 /CMM (1.8-8.9); NEUTROPHILS % (AUTO) 76.3 % (43.0-81.0); PLATELET COUNT (AUTO) 299 /CMM (150-450); RDW COEFFICIENT OF VARIATION 15.8 (11.5-15.0); RED BLOOD CELL COUNT(AUTO) 2.86 MIL/uL (4.5-6.0); WHITE BLOOD COUNT (AUTO) 9.6 K/uL (4.3-11.0)
[2017-01-21 06:38] LABS: CALCIUM, SERUM 8.9 mg/dL (8.5-10.1); CREATININE 4.6 mg/dL (0.6-1.3); MAGNESIUM 2.3 mg/dL (1.8-2.4); PHOSPHORUS 4.2 mg/dL (2.5-4.9); POTASSIUM 4.2 mmol/L (3.5-5.1)
--- NOTE | 2017-01-21 06:48 | NUR ---
RN NOTES PT RESTING WELL ON BED. VS STABLE AT THIS TIME. BREATHING EVEN AND UNLABORED. TRACH AND VENT SETTING TOLERATED WELL. GTF INTACT AND PATENT. DRESSING CHANGED ORDERED. ALL DUE MEDICINE TOELRATED WELL. NO ASE FROM ATB ORDERED. KEPT PT CLEAN AND DRY. WILL ENDORSED CONTINUITY OF CARE TO AM NURSE.
[2017-01-21 08:00] VITALS: BP 94/56
--- NOTE | 2017-01-21 08:00 | NUR ---
RN INITIAL NOTES PT IS IN BED, OBTUNDED, NONVERBAL, TOLERATING MECHANICAL VENT, SATURATING WELL. SINUS RHYTHM ON TELE MONITOR . ON CONTINUOUS GT FEEDING 35, HOB ELEVATED. TURNED AND REPOSITIONED, WITH MAXIMUM ASSIST. RAC S/L IS FLUSHED AND PATENT. L FEMORAL HD CATH IS INTACT. AFEBRILE, WILL MONITOR V/S AND LABS. SIDE RAILS UP AND WILL CONTINUE TO MONITOR.
[2017-01-21] MEDS: PANTOPRAZOLE 40 MG TABLET.DR PO SCH (09:28)
[2017-01-21] MEDS: LINEZOLID 600 MG TABLET GT SCH ×2 (09:28→21:17)
[2017-01-21] MEDS: AMIODARONE HCL 200 MG TABLET GT SCH (09:29)
[2017-01-21] MEDS: PROSOURCE / PROSTAT (PYXIS) 30 ML UDC GT SCH (09:30)
[2017-01-21] MEDS: SEVELAMER CARBONATE 0.8 GM POWD.PACK PO SCH ×3 (09:30→16:23)
[2017-01-21] MEDS: VIT B CMPLX 3/FA/VIT C/BIOTIN 1 TAB TABLET PO SCH (09:30)
[2017-01-21] MEDS: ZINC SULFATE 220 MG CAPSULE PO SCH (09:30)
[2017-01-21] MEDS: MIDODRINE HCL (5MG) 5 MG TABLET PO SCH ×3 (09:30→16:29)
[2017-01-21] MEDS: INSULIN DETEMIR 100 UNIT/ML CARTRIDGE SQ SCH ×2 (09:32→21:00)
[2017-01-21] MEDS: LACTOBACILLUS RHAMNOSUS GG 1 EACH CAP.SPRINK GT SCH ×2 (09:34→16:23)
[2017-01-21] MEDS: DAKINS QUARTER STRENGTH (0.125%) 480 ML BOTTLE TOP SCH (09:53)
[2017-01-21] MEDS: CADEXOMER IODINE 40 GM TUBE TP SCH (09:54)
[2017-01-21 12:00] VITALS: BP 75/43
--- NOTE | 2017-01-21 12:45 | NUR ---
RN NOTES PT HAD HD, BLOOD CULTURE COLLECTED, V/S TAKEN AND RECORDED.
[2017-01-21] MEDS: ACETAMINOPHEN 325 MG TABLET PO PRN (15:56)
[2017-01-21 16:00] VITALS: BP 76/45
--- NOTE | 2017-01-21 16:00 | NUR ---
rn notes noted 102.9 temp, cooling measures provided, tylenol 650mg is given as ordered. will recheck and continue to monitor.
--- NOTE | 2017-01-21 18:00 | NUR ---
rn note re- checked temp 99.8 noted.
--- NOTE | 2017-01-21 19:20 | NUR ---
SENIOR SOFTWARE ANALYST INITIAL NOTE PT RECEIVED IN NO ACUTE DISTRESS. PT IS OBTUNDED AND HAS TRACH TUBE WITH VENT SETTINGS TOLERATED WELL. ON TELE WITH ST 110. GT CLEAN AND INTACT WITH FEEDING RUNNING NOVASOURCE 35CC/HR. FEMORAL HD CATH. RAC SL CLEAN DRY AND INTACT. COMFORT AND SAFETY PRECAUTIONS ENSURED.
[2017-01-21 20:00] VITALS: BP 98/62
[2017-01-21] MEDS: COLISTIMETHATE SODIUM 100 MG in IV NS 0.9% 50 ML IV SCH (20:53)
[2017-01-21] MEDS: FLUCONAZOLE (100 MG) 100 MG TABLET PO SCH (20:54)
--- NOTE | 2017-01-21 21:13 | NUR ---
BS IS 80. CHARGE NURSE ADVISED NOT TO GIVE LONG LAST INSULIN INJECTION. WILL HOLD MEDICATION
[2017-01-21] MEDS: ATORVASTATIN 40 MG TABLET GT SCH (22:07)
[2017-01-22] VITALS: BP 129/74
[2017-01-22] MEDS: BLOOD SUGAR DIAGNOSTIC 1 EACH STRIP IN SCH ×5 (00:58→23:36)
[2017-01-22] MEDS: ACETAMINOPHEN 325 MG TABLET PO PRN ×2 (01:19→08:12)
[2017-01-22] MEDS: HYDROCODONE/APAP 5/325MG 1 EACH TABLET PO PRN ×2 (03:30→13:23)
[2017-01-22 04:00] VITALS: BP 130/88
[2017-01-22] MEDS: FERROUS SULFATE UDC 300 MG/5 ML UDC GT SCH ×3 (05:23→20:38)
[2017-01-22] MEDS: METRONIDAZOLE 500 MG TABLET PO SCH ×3 (05:23→20:38)
[2017-01-22 07:07] LABS: BASOPHILS % (AUTO) 0.5 % (0.0-2.0); EOSINOPHILS # (AUTO) 0.1 /CMM (0.0-0.7); EOSINOPHILS % (AUTO) 0.7 % (0.0-6.0); HEMATOCRIT 25 % (39-51); HEMOGLOBIN 8.5 g/dL (13.5-17.5); LYMPHOCYTES # (AUTO) 1.1 /CMM (0.8-4.8); LYMPHOCYTES % (AUTO) 12.4 % (20.0-44.0); MEAN CORPUSCULAR HEMOGLOBIN 30 PG (26.0-33.0); MEAN CORPUSCULAR HGB CONC 34 g/dl (31.0-36.0); MEAN CORPUSCULAR VOLUME 88 fL (80-96); MONOCYTES # (AUTO) 0.6 /CMM (0.1-1.30); MONOCYTES % (AUTO) 6.9 % (2.0-12.0); NEUTROPHILS # (AUTO) 7.1 /CMM (1.8-8.9); NEUTROPHILS % (AUTO) 79.5 % (43.0-81.0); PLATELET COUNT (AUTO) 260 /CMM (150-450); RED BLOOD CELL COUNT(AUTO) 2.84 MIL/uL (4.5-6.0); WHITE BLOOD COUNT (AUTO) 8.9 K/uL (4.3-11.0)
--- NOTE | 2017-01-22 07:14 | NUR ---
DURING THE SHIFT THE PT HAD A FEVER HIGH OF 102.7 TO 101.6 TO A LOW OF 99.7. COLD TOWELS, ICE PACKS, TYLENOL GIVEN, AND COMFORT MEASURES PLACED DURING THE SHIFT. PT WAS ST ON THE TELE WITH A HIGH OF 135 AND CURRENTLY IS AT 124 BPM. GT FEEDING RUNNING CURRENTLY. 2 IV LINES ON R WRIST/FOREARM CLEAN DRY AND PATENT. COMFORT AND SAFETY MEASURES HAVE BEEN PLACED DURING THE SHIFT. WILL ENDORSE CARE TO AM NURSE.
[2017-01-22 07:39] LABS: CALCIUM, SERUM 9.2 mg/dL (8.5-10.1); CREATININE 4.4 mg/dL (0.6-1.3); MAGNESIUM 2.1 mg/dL (1.8-2.4); PHOSPHORUS 3.5 mg/dL (2.5-4.9)
--- NOTE | 2017-01-22 07:41 | NUR ---
MS BÁRBARA OPENING NOTE PATIENT IS OBTUNDED, NON-VERBAL. GRUNTS. NO FACIAL GRIMACING NOTED FOR PAIN. CALL LIGHT WITHIN REACH. SAFETY MEASURES IMPLEMENTED. G-TUBE SITE INTACT AND PATENT NO REDNESS OR SWELLING NOTED. IV INTACT AND PATENT NO REDNESS OR SWELLING NOTED. WOUND TREATMENT TO BE DONE. ON VENT. WILL CONTINUE TO MONITOR Addendum: 01/22/17 at 1102 by CHEIKH THURMAN RN PATIENT'S TEMPERATURE IS 100.8. WILL CONTINUE TO CHECK, COOLING MEASURES IMPLEMENTED
[2017-01-22 08:00] VITALS: BP 96/61
[2017-01-22] MEDS: PROSOURCE / PROSTAT (PYXIS) 30 ML UDC GT SCH (08:12)
[2017-01-22] MEDS: PANTOPRAZOLE 40 MG TABLET.DR PO SCH (08:12)
[2017-01-22] MEDS: ZINC SULFATE 220 MG CAPSULE PO SCH (08:12)
[2017-01-22] MEDS: LACTOBACILLUS RHAMNOSUS GG 1 EACH CAP.SPRINK GT SCH ×2 (08:12→17:02)
[2017-01-22] MEDS: DAKINS QUARTER STRENGTH (0.125%) 480 ML BOTTLE TOP SCH (08:14)
[2017-01-22] MEDS: CADEXOMER IODINE 40 GM TUBE TP SCH (08:15)
[2017-01-22] MEDS: VIT B CMPLX 3/FA/VIT C/BIOTIN 1 TAB TABLET PO SCH (08:19)
[2017-01-22] MEDS: SEVELAMER CARBONATE 0.8 GM POWD.PACK PO SCH ×3 (08:19→17:02)
[2017-01-22] MEDS: LINEZOLID 600 MG TABLET GT SCH ×2 (08:19→20:38)
[2017-01-22] MEDS: MIDODRINE HCL (5MG) 5 MG TABLET PO SCH ×3 (08:20→17:03)
[2017-01-22] MEDS: AMIODARONE HCL 200 MG TABLET GT SCH (08:20)
[2017-01-22] MEDS: INSULIN DETEMIR 100 UNIT/ML CARTRIDGE SQ SCH ×2 (08:42→21:02)
--- NOTE | 2017-01-22 10:15 | NUR ---
RN NOTE PATIENTS TEMPERATURE IS LOWERING-99.1 COOLING MEASURES IMPLEMENTED. WILL CONTINUE TO MONITOR
--- NOTE | 2017-01-22 10:47 | NUR ---
NIKKO called pt's sister Leda to inquire if the family had made a decision regarding comfort care/hospice. Leda informed NIKKO, she spoke to her brother but not to the pt's children as of yet. She informed NIKKO it is a difficult decision to make and pt's mother Betty is against hospice/comfort care at this time. Leda informed NIKKO, she and her brother are still discussing the matter at hand and have not made any decisions as of yet. NIKKO informed sample case porter Kat regarding NIKKO's phone call with pt's sister Leda. Kat informed NIKKO she will let Dr. So know.
[2017-01-22] MEDS: INSULIN REGULAR, HUMAN 100 UNIT/ML 3 ML VIAL SQ PRN ×3 (11:52→23:35)
[2017-01-22 12:00] VITALS: BP 117/76
[2017-01-22 16:00] VITALS: BP 124/78
--- NOTE | 2017-01-22 18:48 | NUR ---
MS RN CLOSING NOTE PATIENT IS OBTUNDED. NO FACIAL GRIMACING NOTED FOR PAIN. NO SOB OR DISTRESS NOTED. CALL LIGHT WITHIN REACH AT ALL TIMES. SAFETY MEASURES IMPLEMENTED. WOUND TREATMENT DONE. PATIENT IS ON VENT, TRACH CARE PROVIDED, SUCTIONING PROVIDED NEEDED. G-TUBE SITE PATENT NO REDNESS OR SWELLING NOTED, G-TUBE FEEDING RUNNING AT 35 ML/HR. NO RESIDUAL PRESENT. IV INTACT AND PATENT NO REDNESS OR SWELLING NOTED. THROUGHOUT SHIFT PATIENT HAD FEVER, MEDICATION GIVEN, TEMPERATURE LOWERED DOWN TO 98.5, COOLING MEASURES PROVIDED. AWARE. WILL ENDORSE TO CIGARETTE VENDOR NURSE
[2017-01-22 20:00] VITALS: BP 144/69
--- NOTE | 2017-01-22 20:00 | NUR ---
RN NOTES RECIEVED PATIENT IN BED WITH NO RESPIRATORY DISTRESS OR SHORTNESS OF BREATH. BREATHING EVEN AND UNLABORED. NO PHYSICAL MANIFESTATION OF PAIN OR DISCOMFORT. EYES OPEN WITH NO EYE TRACKING. GTUBE IN PLACE. NO RESIDUAL. FEEDING WELL TOLERATED. KEPT CLEAN AND DRY. WILL CONTINUE TO MONITOR.
[2017-01-22] MEDS: COLISTIMETHATE SODIUM 100 MG in IV NS 0.9% 50 ML IV SCH (20:38)
[2017-01-22] MEDS: FLUCONAZOLE (100 MG) 100 MG TABLET PO SCH (20:42)
[2017-01-22] MEDS: ATORVASTATIN 40 MG TABLET GT SCH (21:47)
[2017-01-22] MEDS: PIPERACILLIN /TAZOBACTAM 3.375 G in IV D5W 50 ML IV SCH (22:00)
[2017-01-22] MEDS: RENAL NOVASOURCE 1,000 ML BOTTLE GT PRN (22:52)
[2017-01-22] MEDS ORDERED: PIPERACILLIN /TAZOBACTAM 3.375 G VIAL IV ONE (23:59)
[2017-01-23] VITALS: BP 119/62
[2017-01-23 04:00] VITALS: BP 128/69
[2017-01-23] MEDS: METRONIDAZOLE 500 MG TABLET PO SCH ×3 (04:18→21:22)
[2017-01-23] MEDS: FERROUS SULFATE UDC 300 MG/5 ML UDC GT SCH ×3 (04:18→21:22)
[2017-01-23] MEDS: PIPERACILLIN /TAZOBACTAM 3.375 G in IV D5W 50 ML IV SCH (04:46)
--- NOTE | 2017-01-23 04:46 | NUR ---
RN NOTES ZOSYN ADMINISTERED AT MIDNIGHT. FREQUENCY IS Q8. NEXT SCHED DOSE IS 0800. TIME NEEDS TO BE READJUSTED.
[2017-01-23] MEDS: INSULIN REGULAR, HUMAN 100 UNIT/ML 3 ML VIAL SQ PRN (05:03)
[2017-01-23] MEDS: BLOOD SUGAR DIAGNOSTIC 1 EACH STRIP IN SCH ×3 (05:05→17:37)
[2017-01-23 06:28] LABS: BASOPHILS % (AUTO) 0.4 % (0.0-2.0); EOSINOPHILS # (AUTO) 0.4 /CMM (0.0-0.7); EOSINOPHILS % (AUTO) 4.4 % (0.0-6.0); HEMATOCRIT 23 % (39-51); HEMOGLOBIN 7.8 g/dL (13.5-17.5); LYMPHOCYTES # (AUTO) 1.1 /CMM (0.8-4.8); LYMPHOCYTES % (AUTO) 11.9 % (20.0-44.0); MEAN CORPUSCULAR HEMOGLOBIN 30 PG (26.0-33.0); MEAN CORPUSCULAR HGB CONC 34 g/dl (31.0-36.0); MEAN CORPUSCULAR VOLUME 88 fL (80-96); MONOCYTES # (AUTO) 0.9 /CMM (0.1-1.30); MONOCYTES % (AUTO) 9.3 % (2.0-12.0); NEUTROPHILS # (AUTO) 6.8 /CMM (1.8-8.9); PLATELET COUNT (AUTO) 251 /CMM (150-450); WHITE BLOOD COUNT (AUTO) 9.2 K/uL (4.3-11.0)
--- NOTE | 2017-01-23 06:41 | NUR ---
RN CLOSING NOTES IN BED, NO PHYSICAL MANIFESTATION OF PAIN. NO EPISODE OF DISTRESS. REMAINS IN VEGETATIVE STATE. NEXT DOSE OF ZOSYN IS AT 0800. FREQUENCY Q8 HOURS, STARTED AT 0000. TIME OF ADMINISTRATION NEEDS TO BE ADJUSTED. WILL ENDORSED TO AM SHIFT FOR CONTINUITY OF CARE.
[2017-01-23 06:53] LABS: CALCIUM, SERUM 9.2 mg/dL (8.5-10.1); CREATININE 5.1 mg/dL (0.6-1.3); POTASSIUM 4.2 mmol/L (3.5-5.1)
--- NOTE | 2017-01-23 07:00 | NUR ---
RN NOTES PT VENT/TRACH DEPENDENT, NONVERBAL, OBTUNDED. TOLERATING VENT SETTINGS WELL. SR ON THE TELE MONITOR IN THE 70S. NOVASOURCE RUNNING AT 35CC/HR PT TOLERATING WELL. RIGHT AC IV LINE DRY AND INTACT. L FEMORAL HD CATH DRESSING DRY AND INTACT. SIDE RAILS UP X3, CALL LIGHT WITHIN REACH, BED LOCKED AND IN LOWEST POSITION. WILL CONTINUE TO MONITOR.
[2017-01-23 08:00] VITALS: BP_SYST 99; BP_DIAS 58; BP_DIAS 59
[2017-01-23] MEDS: PANTOPRAZOLE 40 MG TABLET.DR PO SCH (08:09)
[2017-01-23] MEDS: LINEZOLID 600 MG TABLET GT SCH ×2 (08:09→20:53)
[2017-01-23] MEDS: SEVELAMER CARBONATE 0.8 GM POWD.PACK PO SCH ×3 (08:09→17:35)
[2017-01-23] MEDS: LACTOBACILLUS RHAMNOSUS GG 1 EACH CAP.SPRINK GT SCH ×2 (08:09→17:35)
[2017-01-23] MEDS: ZINC SULFATE 220 MG CAPSULE PO SCH (08:10)
[2017-01-23] MEDS: MIDODRINE HCL (5MG) 5 MG TABLET PO SCH ×3 (08:11→17:36)
[2017-01-23] MEDS: AMIODARONE HCL 200 MG TABLET GT SCH (08:11)
[2017-01-23] MEDS: PROSOURCE / PROSTAT (PYXIS) 30 ML UDC GT SCH (08:12)
[2017-01-23] MEDS: DAKINS QUARTER STRENGTH (0.125%) 480 ML BOTTLE TOP SCH (08:12)
[2017-01-23] MEDS: VIT B CMPLX 3/FA/VIT C/BIOTIN 1 TAB TABLET PO SCH (08:14)
[2017-01-23] MEDS: CADEXOMER IODINE 40 GM TUBE TP SCH (08:15)
[2017-01-23] MEDS: INSULIN DETEMIR 100 UNIT/ML CARTRIDGE SQ SCH ×2 (08:17→21:00)
[2017-01-23] MEDS ORDERED: PIPERACILLIN /TAZOBACTAM 2.25 G in IV D5W 50 ML IV SCH (10:00)
[2017-01-23 12:00] VITALS: BP_SYST 121; BP_SYST 122; BP_DIAS 66; BP_DIAS 80
[2017-01-23] MEDS: DIGOXIN 0.25 MG TABLET PO SCH (12:13)
[2017-01-23] MEDS: PIPERACILLIN /TAZOBACTAM 2.25 G in IV D5W 50 ML IV SCH ×2 (13:12→22:49)
[2017-01-23] MEDS: ONDANSETRON HCL/PF 4 MG/2 ML VIAL IVP PRN (15:22)
[2017-01-23 16:00] VITALS: BP 91/52
--- NOTE | 2017-01-23 16:00 | NUR ---
RN NOTES PT VOMITED LARGE AMOUNT OF BROWN STOMACH CONTENTS. ZOFRAN GIVEN, GTUBE FEEDING TURNED OFF. DR QUIROZ NOTIFIED. 20CC GTUBE RESIDUAL. WILL CONTINUE TO MONITOR.
--- NOTE | 2017-01-23 18:52 | NUR ---
RN NOTES TF STILL ON HOLD, PE MD ORDER , PT STABLE , MEDICATED PER MD ORDER , SR UP X3, CALL LIGHT WITHIN EASY REACH, SUPPORTIVE FAMILY AT THE BEDSIDE , NO DISTRESS NOTED AT THIS TIME
--- NOTE | 2017-01-23 19:05 | NUR ---
RN OPENING NOTES RECEIVED REPORT FROM LISETTE GRANGER. PATIENT OBTUNDED. NO RESPIRATORY DISTRESS OR SOB NOTED @ THIS TIME. ON TELE SINUS TACHY IN THE 100S. GT INTACT AND PATENT, FLUSHING WELL. NO RESIDUAL NOTED. GT FEEDING NOVASOURCE ON HOLD. RIGHT AC IV SITE CDI, LEFT FEMORAL HD CATH CDI. SIDE RAILS UP, BED LOCKED AND IN LOWEST POSITION. WILL CONTINUE TO MONITOR.
--- NOTE | 2017-01-23 19:28 | NUR ---
[facility] WITH NOTED SETTINGS. VENT ALARM WORKING AND AUDIBLE, VENT PLUGGED INTO RED OUTLET. TRACH SECURE IN AND IN PROPER POSITION, CUFF CHECKED TRENCH DIGGING MACHINE OPERATOR. SXN MODERATE AMOUNT OF YELLOWISH SHELDON THICK SECRETIONS. BILATERAL BS NOTED. NO RESPIRATORY DISTRESS NOTED AT THIS TIME. AMBU BAG AT [facility], WILL CONTINUE TO MONITOR.
[2017-01-23 20:00] VITALS: BP 109/51
[2017-01-23] MEDS: COLISTIMETHATE SODIUM 100 MG in IV NS 0.9% 50 ML IV SCH (20:53)
[2017-01-23] MEDS: ACETAMINOPHEN 325 MG TABLET PO PRN (20:53)
[2017-01-23] MEDS: FLUCONAZOLE (100 MG) 100 MG TABLET PO SCH (21:18)
[2017-01-23] MEDS: ATORVASTATIN 40 MG TABLET GT SCH (21:22)
[2017-01-24] VITALS: BP 98/83
[2017-01-24] MEDS: BLOOD SUGAR DIAGNOSTIC 1 EACH STRIP IN SCH ×4 (00:51→17:45)
[2017-01-24] MEDS: INSULIN REGULAR, HUMAN 100 UNIT/ML 3 ML VIAL SQ PRN ×2 (00:52→06:10)
[2017-01-24 04:00] VITALS: BP 86/73
[2017-01-24] MEDS: FERROUS SULFATE UDC 300 MG/5 ML UDC GT SCH ×3 (04:49→20:36)
[2017-01-24] MEDS: METRONIDAZOLE 500 MG TABLET PO SCH ×3 (04:49→20:37)
[2017-01-24] MEDS: PIPERACILLIN /TAZOBACTAM 2.25 G in IV D5W 50 ML IV SCH ×3 (04:50→20:37)
[2017-01-24 06:46] LABS: BASOPHILS % (AUTO) 0.2 % (0.0-2.0); HEMATOCRIT 22 % (39-51); HEMOGLOBIN 7.6 g/dL (13.5-17.5); LYMPHOCYTES # (AUTO) 1.1 /CMM (0.8-4.8); LYMPHOCYTES % (AUTO) 10.8 % (20.0-44.0); MEAN CORPUSCULAR HEMOGLOBIN 30 PG (26.0-33.0); MEAN CORPUSCULAR HGB CONC 34 g/dl (31.0-36.0); MEAN CORPUSCULAR VOLUME 89 fL (80-96); MONOCYTES # (AUTO) 1.1 /CMM (0.1-1.30); MONOCYTES % (AUTO) 10.2 % (2.0-12.0); NEUTROPHILS # (AUTO) 8.1 /CMM (1.8-8.9); NEUTROPHILS % (AUTO) 78.8 % (43.0-81.0); PLATELET COUNT (AUTO) 199 /CMM (150-450); RDW COEFFICIENT OF VARIATION 16.1 (11.5-15.0); RED BLOOD CELL COUNT(AUTO) 2.49 MIL/uL (4.5-6.0); WHITE BLOOD COUNT (AUTO) 10.3 K/uL (4.3-11.0)
[2017-01-24 06:58] LABS: CALCIUM, SERUM 9.2 mg/dL (8.5-10.1); CREATININE 4.9 mg/dL (0.6-1.3); POTASSIUM 4.5 mmol/L (3.5-5.1)
--- NOTE | 2017-01-24 07:00 | NUR ---
RN NOTES RECEIVED PT ON BED ,OBTUNDED.VENT/ TRACH DEPENDENT , TOLERATING CURRENT VENT SETTING WELL, NO SOB NOTED, ON TELE SR IN 90'S, TOLERATING GT NOVASOURCE AT 35CC/HR WELL AT THIS TIME , NO RESIDUAL NOTED, GT INTACT AND PATENT, FLUSHING WELL. RIGHT AC IV AND R FOREARM IV SITES CDI, SIDE RAILS UPx3, CALL LIGHT WITHIN EASY REACH BED LOCKED AND IN LOWEST POSITION. WILL CONTINUE TO MONITOR PT CLOSELY AND NOTIFY MD FOR ANY SIGNIFICANT CHANGES.
[2017-01-24 08:00] VITALS: BP_SYST 84; BP_SYST 89; BP_DIAS 41; BP_DIAS 45
[2017-01-24] MEDS: LACTOBACILLUS RHAMNOSUS GG 1 EACH CAP.SPRINK GT SCH ×2 (08:34→17:44)
[2017-01-24] MEDS: SEVELAMER CARBONATE 0.8 GM POWD.PACK PO SCH ×3 (08:34→17:44)
[2017-01-24] MEDS: LINEZOLID 600 MG TABLET GT SCH ×2 (08:34→20:36)
[2017-01-24] MEDS: ZINC SULFATE 220 MG CAPSULE PO SCH (08:34)
[2017-01-24] MEDS: PANTOPRAZOLE 40 MG TABLET.DR PO SCH (08:35)
[2017-01-24] MEDS: MIDODRINE HCL (5MG) 5 MG TABLET PO SCH ×3 (08:35→17:45)
[2017-01-24] MEDS: VIT B CMPLX 3/FA/VIT C/BIOTIN 1 TAB TABLET PO SCH (08:35)
[2017-01-24] MEDS: AMIODARONE HCL 200 MG TABLET GT SCH (08:35)
[2017-01-24] MEDS: INSULIN DETEMIR 100 UNIT/ML CARTRIDGE SQ SCH ×2 (08:38→21:41)
[2017-01-24] MEDS: PROSOURCE / PROSTAT (PYXIS) 30 ML UDC GT SCH (08:41)
[2017-01-24] MEDS: DAKINS QUARTER STRENGTH (0.125%) 480 ML BOTTLE TOP SCH (09:39)
[2017-01-24] MEDS: CADEXOMER IODINE 40 GM TUBE TP SCH (09:39)
[2017-01-24] MEDS: Z GUARD REMEDY 2 OZ OINT TP PRN (09:48)
[2017-01-24 12:00] VITALS: BP 103/59
--- NOTE | 2017-01-24 12:00 | NUR ---
RN NOTES PT STABLE, TRACH CARE DONE , TOLERATING TF WELL, NO RESIDUAL NOTED, CONTINUE TO MONITOR .
[2017-01-24] MEDS: RENAL NOVASOURCE 1,000 ML BOTTLE GT PRN (13:52)
[2017-01-24] MEDS ORDERED: EPOETIN ALFA (20,000 UNIT) 20,000 UNIT/ML VIAL SQ ONE (14:00)
[2017-01-24] MEDS: HYDROCODONE/APAP 5/325MG 1 EACH TABLET PO PRN (15:28)
[2017-01-24 16:00] VITALS: BP 139/76
--- NOTE | 2017-01-24 18:11 | NUR ---
RN NOTES VSS STABLE ,TRACH CARE DONE , VSS STABLE , NO TF RESIDUAL NOTED, SR UP X3, MEDICATED PER MD ORDER , NO SIGNIFICANT CHANGES NOTED ON THIS SHIFT
--- NOTE | 2017-01-24 19:35 | NUR ---
[facility] WITH NOTED SETTINGS. VENT ALARM WORKING AND AUDIBLE, VENT PLUGGED INTO RED OUTLET. TRACH SECURE IN AND IN PROPER POSITION, CUFF CHECKED CONDENSER OPERATOR. SXN MODERATE AMOUNT OF YELLOWISH SHELDON THICK SECRETIONS. BILATERAL BS NOTED. NO RESPIRATORY DISTRESS NOTED AT THIS TIME. AMBU BAG AT [facility], WILL CONTINUE TO MONITOR.
[2017-01-24 20:00] VITALS: BP 89/57
[2017-01-24] MEDS: COLISTIMETHATE SODIUM 100 MG in IV NS 0.9% 50 ML IV SCH (20:36)
[2017-01-24] MEDS: FLUCONAZOLE (100 MG) 100 MG TABLET PO SCH (20:36)
[2017-01-24] MEDS: ATORVASTATIN 40 MG TABLET GT SCH (21:13)
[2017-01-25] VITALS (7 sets, daily range): BP systolic 72–124; BP diastolic 37–80
[2017-01-25] MEDS: INSULIN REGULAR, HUMAN 100 UNIT/ML 3 ML VIAL SQ PRN ×2 (01:37→07:20)
[2017-01-25] MEDS: FERROUS SULFATE UDC 300 MG/5 ML UDC GT SCH ×3 (05:19→20:46)
[2017-01-25] MEDS: METRONIDAZOLE 500 MG TABLET PO SCH ×3 (05:19→20:46)
[2017-01-25] MEDS: HYDROCODONE/APAP 5/325MG 1 EACH TABLET PO PRN (05:55)
[2017-01-25] MEDS: BLOOD SUGAR DIAGNOSTIC 1 EACH STRIP IN SCH ×4 (06:00→17:01)
[2017-01-25 06:44] LABS: BASOPHILS % (AUTO) 0.2 % (0.0-2.0); EOSINOPHILS # (AUTO) 0.3 /CMM (0.0-0.7); EOSINOPHILS % (AUTO) 3.7 % (0.0-6.0); HEMATOCRIT 22 % (39-51); HEMOGLOBIN 7.5 g/dL (13.5-17.5); LYMPHOCYTES # (AUTO) 0.9 /CMM (0.8-4.8); LYMPHOCYTES % (AUTO) 9.7 % (20.0-44.0); MEAN CORPUSCULAR HEMOGLOBIN 30 PG (26.0-33.0); MEAN CORPUSCULAR HGB CONC 34 g/dl (31.0-36.0); MEAN CORPUSCULAR VOLUME 89 fL (80-96); MONOCYTES # (AUTO) 0.7 /CMM (0.1-1.30); MONOCYTES % (AUTO) 7.2 % (2.0-12.0); NEUTROPHILS # (AUTO) 7.4 /CMM (1.8-8.9); NEUTROPHILS % (AUTO) 79.2 % (43.0-81.0); PLATELET COUNT (AUTO) 203 /CMM (150-450); RDW COEFFICIENT OF VARIATION 16.3 (11.5-15.0); RED BLOOD CELL COUNT(AUTO) 2.48 MIL/uL (4.5-6.0); WHITE BLOOD COUNT (AUTO) 9.4 K/uL (4.3-11.0)
[2017-01-25 07:04] LABS: CALCIUM, SERUM 9.2 mg/dL (8.5-10.1); CREATININE 5.4 mg/dL (0.6-1.3); MAGNESIUM 2.2 mg/dL (1.8-2.4); PHOSPHORUS 3.1 mg/dL (2.5-4.9); POTASSIUM 4.1 mmol/L (3.5-5.1)
[2017-01-25] MEDS: PANTOPRAZOLE 40 MG TABLET.DR PO SCH (07:30)
[2017-01-25] MEDS: CADEXOMER IODINE 40 GM TUBE TP SCH (09:00)
[2017-01-25] MEDS: DAKINS QUARTER STRENGTH (0.125%) 480 ML BOTTLE TOP SCH (09:00)
[2017-01-25] MEDS: PROSOURCE / PROSTAT (PYXIS) 30 ML UDC GT SCH (09:00)
[2017-01-25] MEDS: INSULIN DETEMIR 100 UNIT/ML CARTRIDGE SQ SCH ×2 (09:00→20:49)
[2017-01-25] MEDS: SEVELAMER CARBONATE 0.8 GM POWD.PACK PO SCH ×3 (09:02→17:01)
[2017-01-25] MEDS: ZINC SULFATE 220 MG CAPSULE PO SCH (09:02)
[2017-01-25] MEDS: AMIODARONE HCL 200 MG TABLET GT SCH (09:02)
[2017-01-25] MEDS: LACTOBACILLUS RHAMNOSUS GG 1 EACH CAP.SPRINK GT SCH ×2 (09:02→17:01)
[2017-01-25] MEDS: MIDODRINE HCL (5MG) 5 MG TABLET PO SCH ×3 (09:03→17:01)
[2017-01-25] MEDS: LINEZOLID 600 MG TABLET GT SCH ×2 (09:03→20:47)
[2017-01-25] MEDS: VIT B CMPLX 3/FA/VIT C/BIOTIN 1 TAB TABLET PO SCH (09:03)
--- NOTE | 2017-01-25 19:05 | NUR ---
RN NOTE RECEIVED REPORT. PT OBTUNDED, NON VERBAL. TRACHE-VENT, SETTINGS ACCURATE. NO S/S OF ANY DISTRESS AT THIS TIME. TELE SHOWS SR. TOLERATING GTF WELL. IV INTACT AND PATENT. WILL CONT TO MONITOR.
--- NOTE | 2017-01-25 20:30 | NUR ---
RN NOTE PT HAS 101.5 AXILIARY TEMP. TYLENOL GIVEN, COOLING MEASURES RENDERED, COOLING BLANKET ON. WILL CONT TO MONITOR.
[2017-01-25] MEDS: FLUCONAZOLE (100 MG) 100 MG TABLET PO SCH (20:46)
[2017-01-25] MEDS: ATORVASTATIN 40 MG TABLET GT SCH (20:46)
[2017-01-25] MEDS: COLISTIMETHATE SODIUM 100 MG in IV NS 0.9% 50 ML IV SCH (20:47)
[2017-01-25] MEDS: RENAL NOVASOURCE 1,000 ML BOTTLE GT PRN (20:51)
[2017-01-26] VITALS: BP 126/61
[2017-01-26] MEDS: BLOOD SUGAR DIAGNOSTIC 1 EACH STRIP IN SCH ×4 (00:15→17:21)
[2017-01-26] MEDS: ACETAMINOPHEN 325 MG TABLET PO PRN ×3 (02:39→17:56)
[2017-01-26 04:00] VITALS: BP 118/68
[2017-01-26] MEDS: FERROUS SULFATE UDC 300 MG/5 ML UDC GT SCH ×3 (05:26→21:39)
[2017-01-26] MEDS: METRONIDAZOLE 500 MG TABLET PO SCH ×3 (05:26→21:39)
[2017-01-26 07:00] LABS: BASOPHILS % (AUTO) 0.2 % (0.0-2.0); EOSINOPHILS # (AUTO) 0.4 /CMM (0.0-0.7); HEMATOCRIT 21 % (39-51); HEMOGLOBIN 7.2 g/dL (13.5-17.5); LYMPHOCYTES # (AUTO) 1.1 /CMM (0.8-4.8); LYMPHOCYTES % (AUTO) 12.2 % (20.0-44.0); MEAN CORPUSCULAR HEMOGLOBIN 30 PG (26.0-33.0); MEAN CORPUSCULAR HGB CONC 34 g/dl (31.0-36.0); MEAN CORPUSCULAR VOLUME 89 fL (80-96); MONOCYTES # (AUTO) 0.6 /CMM (0.1-1.30); MONOCYTES % (AUTO) 6.5 % (2.0-12.0); NEUTROPHILS % (AUTO) 77.1 % (43.0-81.0); PLATELET COUNT (AUTO) 228 /CMM (150-450); RDW COEFFICIENT OF VARIATION 16.4 (11.5-15.0); RED BLOOD CELL COUNT(AUTO) 2.36 MIL/uL (4.5-6.0); WHITE BLOOD COUNT (AUTO) 9.1 K/uL (4.3-11.0)
[2017-01-26 07:12] LABS: CALCIUM, SERUM 9.4 mg/dL (8.5-10.1); CREATININE 5.9 mg/dL (0.6-1.3); POTASSIUM 4.1 mmol/L (3.5-5.1)
--- NOTE | 2017-01-26 07:25 | NUR ---
RN NOTE NO SIGNIFICANT CHANGES OVERNIGHT. PT TEMP DOWN TO 99.[address] COOL[address] MEASURES IN PLACE. IV INTACT AND PATENT. TOLERATING GTF WELL. VSS. WOUND TREATMENT CARRIED OUT. TELE SHOWS SR. WILL F/U WITH DAY SHIFT FOR IVONNE.
--- NOTE | 2017-01-26 07:55 | NUR ---
ZIPPER CUTTER INITIAL NOTE RN RECEIVED REPORT. PT OBTUNDED, NON VERBAL. TRACH-VENT, SETTINGS AC 16 TV 600 FIO2 40 PEEP 5 . NO S/S OF ANY DISTRESS AT THIS TIME. PT ON TELE- SR. TOLERATING GTF WELL. IV CLEAN, DRY, INTACT AND PATENT. RN WILL CONTINUE TO MONITOR.
[2017-01-26 08:00] VITALS: BP 130/74
[2017-01-26] MEDS: INSULIN DETEMIR 100 UNIT/ML CARTRIDGE SQ SCH ×2 (09:00→21:56)
[2017-01-26] MEDS: VIT B CMPLX 3/FA/VIT C/BIOTIN 1 TAB TABLET PO SCH (09:36)
[2017-01-26] MEDS: ONDANSETRON HCL/PF 4 MG/2 ML VIAL IVP PRN (09:37)
[2017-01-26] MEDS: AMIODARONE HCL 200 MG TABLET GT SCH (09:37)
[2017-01-26] MEDS: ZINC SULFATE 220 MG CAPSULE PO SCH (09:38)
[2017-01-26] MEDS: MIDODRINE HCL (5MG) 5 MG TABLET PO SCH ×3 (09:38→17:21)
[2017-01-26] MEDS: LACTOBACILLUS RHAMNOSUS GG 1 EACH CAP.SPRINK GT SCH ×2 (09:38→17:21)
[2017-01-26] MEDS: LINEZOLID 600 MG TABLET GT SCH ×2 (09:38→21:39)
[2017-01-26] MEDS: DAKINS QUARTER STRENGTH (0.125%) 480 ML BOTTLE TOP SCH (09:39)
[2017-01-26] MEDS: PANTOPRAZOLE 40 MG TABLET.DR PO SCH (09:40)
[2017-01-26] MEDS: HYDROCODONE/APAP 5/325MG 1 EACH TABLET PO PRN ×2 (09:40→13:27)
[2017-01-26] MEDS: CADEXOMER IODINE 40 GM TUBE TP SCH (09:40)
[2017-01-26] MEDS: PROSOURCE / PROSTAT (PYXIS) 30 ML UDC GT SCH (09:41)
[2017-01-26] MEDS: SEVELAMER CARBONATE 0.8 GM POWD.PACK PO SCH ×3 (09:41→17:21)
--- NOTE | 2017-01-26 09:58 | NUR ---
Rn note Levemir held due to decreased CBG level Rn will notify
[2017-01-26 12:00] VITALS: BP 120/68
[2017-01-26 16:00] VITALS: BP 111/71
--- NOTE | 2017-01-26 19:07 | NUR ---
CONTROLLER MECHANIC FINAL NOTE NO SIGNIFICANT CHANGES OVERNIGHT. PT TEMP DOWN TO 98.[address] COOL[address] MEASURES IN PLACE. IV INTACT AND PATENT. TOLERATING GTF WELL. WOUND TREATMENT CARRIED OUT. TELE SHOWS SR. WILL ENDORSE CARE TO PM RN FOR IVONNE.
--- NOTE | 2017-01-26 19:20 | NUR ---
RN NOTES PT COMFORTABLE ASLEEP WELL ON BED. NO ACUTE RESP DISTRESS. TRACH SHILEY 8 CONNECTED TO VENT SETTING OF AC 16 TV 600 FIO2 40% PEEP 5 OBTUNDED RESPONSIVE TO TACTILE STIMULI. OPENS EYES. AFEBRILE TEMP 98.6 COOLING MEASURES OFF AT HTIS TIME. SR HR 79 REVEALS ON TELE MONITOR. GTF NOVASOURCE @ 35 CC/HR INTACT AND PATENT ZERO RESIDUAL. IV SITE ON RAC G20. OFFLOADED EXT WITH PILLOWS. REDUCED PRESSURE TO BONY PROMINENCE AREA. KEPT PT CLEAN AND COMFORTABLE IN BED. WILL CONTINUE TO MONITOR.
[2017-01-26 20:00] VITALS: BP 117/64
[2017-01-26] MEDS: FLUCONAZOLE (100 MG) 100 MG TABLET PO SCH (21:39)
[2017-01-26] MEDS: ATORVASTATIN 40 MG TABLET GT SCH (21:41)
[2017-01-26] MEDS: COLISTIMETHATE SODIUM 100 MG in IV NS 0.9% 50 ML IV SCH (21:48)
[2017-01-27] VITALS: BP 127/58
[2017-01-27] MEDS: BLOOD SUGAR DIAGNOSTIC 1 EACH STRIP IN SCH ×4 (00:45→18:17)
[2017-01-27] MEDS: RENAL NOVASOURCE 1,000 ML BOTTLE GT PRN (03:23)
[2017-01-27] MEDS: HYDROCODONE/APAP 5/325MG 1 EACH TABLET PO PRN (03:23)
[2017-01-27 04:00] VITALS: BP 98/59
[2017-01-27] MEDS: METRONIDAZOLE 500 MG TABLET PO SCH ×3 (05:29→20:54)
[2017-01-27] MEDS: FERROUS SULFATE UDC 300 MG/5 ML UDC GT SCH ×3 (05:29→20:54)
--- NOTE | 2017-01-27 06:29 | NUR ---
RN NOTES PT REMAINED IN STABLE CONDITION. REMAINED IN SR AND ST HR 90'S -108. AFEBRILE. NO ACUTE RESP DISTRESS. TOLERATED TRACH AND VENT SETTING. STILL WITH YELLOWISH COLOR SECRETION. ALL DUE MEDICINE TOLERATED WELL. KEPT PT CLEAN AND COMFORTABLE IN BED. SKIN CARE PROVIDED PHOTO TAKEN. REDUCED PRESSURE TO BONY PROMINENCE AREA. WILL ENDORSED CONTINUITY OF CARE TO AM NURSE.
[2017-01-27 08:00] VITALS: BP 93/61
--- NOTE | 2017-01-27 08:00 | NUR ---
TELE1/RN AM SHIFT INITIAL NOTES RECEIVED PT AWAKE IN BED, NO ACUTE CHANGE OF CONDITION OR GRIMACING NOTED. PT IS OBTUNDED, OPEN EYES. ON VENTILATOR SUPPORT WITH RATES SETTING PRESCRIBED, SATURATING @ 100%, LUNG SOUNDS CLEAR, SUCTIONED FOR AIRWAY CLEARANCE. ON TELE WITH SINUS RHYTHM, HR 90. IV SITE FLUSHED, PATENT WITH NO S/S OF INFECTION, SL. ON GOING GT FEEDING @ 35CC/HR, NO GASTRIC RESIDUAL NOTED, FLUSHED, PATENT. PT IS COMFORTABLE, SCHEDULED AM MEDS TO BE GIVEN. CL WITHIN REACHED AND SAFETY MAINTAINED. ON GOING MONITORING.
[2017-01-27] MEDS: VIT B CMPLX 3/FA/VIT C/BIOTIN 1 TAB TABLET PO SCH (09:36)
[2017-01-27] MEDS: SEVELAMER CARBONATE 0.8 GM POWD.PACK PO SCH ×3 (09:36→16:35)
[2017-01-27] MEDS: MIDODRINE HCL (5MG) 5 MG TABLET PO SCH ×3 (09:36→16:36)
[2017-01-27] MEDS: ZINC SULFATE 220 MG CAPSULE PO SCH (09:36)
[2017-01-27] MEDS: PROSOURCE / PROSTAT (PYXIS) 30 ML UDC GT SCH (09:36)
[2017-01-27] MEDS: LINEZOLID 600 MG TABLET GT SCH ×2 (09:36→20:54)
[2017-01-27] MEDS: PANTOPRAZOLE 40 MG TABLET.DR PO SCH (09:37)
[2017-01-27] MEDS: AMIODARONE HCL 200 MG TABLET GT SCH (09:37)
[2017-01-27] MEDS: LACTOBACILLUS RHAMNOSUS GG 1 EACH CAP.SPRINK GT SCH ×2 (09:37→16:36)
[2017-01-27] MEDS: DAKINS QUARTER STRENGTH (0.125%) 480 ML BOTTLE TOP SCH (09:38)
[2017-01-27] MEDS: CADEXOMER IODINE 40 GM TUBE TP SCH (09:38)
[2017-01-27] MEDS: INSULIN DETEMIR 100 UNIT/ML CARTRIDGE SQ SCH ×2 (09:39→21:00)
[2017-01-27 12:00] VITALS: BP 101/61
[2017-01-27] MEDS: DIGOXIN 0.25 MG TABLET PO SCH (12:06)
[2017-01-27 16:00] VITALS: BP 99/61
--- NOTE | 2017-01-27 16:00 | NUR ---
TELE1/RN AM SHIFT END NOTES NO ACUTE CHANGE OF CONDITION NOTED, MONITORING CONTINUED.
--- NOTE | 2017-01-27 19:00 | NUR ---
TELE1/RN AM SHIFT END NOTES ALL NEEDS MET. NO ACUTE CHANGE OF CONDITION NOTED DURING THE SHIFT. PT ENDORSED TO PM NURSE TO CONTINUE CARE. CL WITHIN REACHED AND SAFETY MAINTAINED.
--- NOTE | 2017-01-27 19:20 | NUR ---
RN NOTES PT ASLEEP WELL ON BED. WITH TRACH SHILEY 8 CONNECTED TO VENT SETTING OF AC 16 TV 600 FIO2 40% PEEP 5 SUCTIONED WITH SMALL YELLOWISH THICK SECRETION. BILATERAL BREATH SOUND DIMINISHED. PT IS OBTUNDED RESPONSIVE TO PAIN. OPENS EYES. WARMTH TO TOUCH TEMP 99.4 SR 97 REVEALS ON TELE MONITOR. GTF NOVASOURCE @ 35 CC/HR INTACT AND PATENT WITH ZERO RESIDUAL. IV SITE ON RAC G20 INTACT AND PATENT. COOLING MEASURES PROVIDED, OFFLOADED EXT WITH PILLOWS. REDUCED PRESSURE TO BONY PROMINENCE AREA. KEPT PT CLEAN AND COMFORTABLE IN BED. WILL CONTINUE TO MONITOR.
[2017-01-27 20:00] VITALS: BP 144/72
[2017-01-27] MEDS: COLISTIMETHATE SODIUM 100 MG in IV NS 0.9% 50 ML IV SCH (20:54)
[2017-01-27] MEDS: FLUCONAZOLE (100 MG) 100 MG TABLET PO SCH (20:57)
[2017-01-27] MEDS: ATORVASTATIN 40 MG TABLET GT SCH (21:02)
[2017-01-28] VITALS (12 sets, daily range): BP systolic 85–115; BP diastolic 49–66
[2017-01-28] MEDS: BLOOD SUGAR DIAGNOSTIC 1 EACH STRIP IN SCH ×4 (00:43→18:13)
[2017-01-28] MEDS: FERROUS SULFATE UDC 300 MG/5 ML UDC GT SCH ×3 (04:47→20:50)
[2017-01-28] MEDS: METRONIDAZOLE 500 MG TABLET PO SCH ×3 (04:47→20:50)
[2017-01-28] MEDS: HYDROCODONE/APAP 5/325MG 1 EACH TABLET PO PRN ×2 (04:47→18:35)
[2017-01-28] MEDS: RENAL NOVASOURCE 1,000 ML BOTTLE GT PRN (05:31)
[2017-01-28 06:46] LABS: BASOPHILS % (AUTO) 0.3 % (0.0-2.0); EOSINOPHILS # (AUTO) 0.4 /CMM (0.0-0.7); EOSINOPHILS % (AUTO) 4.6 % (0.0-6.0); LYMPHOCYTES # (AUTO) 1.4 /CMM (0.8-4.8); LYMPHOCYTES % (AUTO) 17.8 % (20.0-44.0); MEAN CORPUSCULAR HEMOGLOBIN 31 PG (26.0-33.0); MEAN CORPUSCULAR HGB CONC 35 g/dl (31.0-36.0); MEAN CORPUSCULAR VOLUME 88 fL (80-96); MONOCYTES # (AUTO) 0.6 /CMM (0.1-1.30); MONOCYTES % (AUTO) 7.4 % (2.0-12.0); NEUTROPHILS # (AUTO) 5.6 /CMM (1.8-8.9); NEUTROPHILS % (AUTO) 69.9 % (43.0-81.0); PLATELET COUNT (AUTO) 223 /CMM (150-450); RDW COEFFICIENT OF VARIATION 16.1 (11.5-15.0); RED BLOOD CELL COUNT(AUTO) 2.16 MIL/uL (4.5-6.0); WHITE BLOOD COUNT (AUTO) 8.1 K/uL (4.3-11.0)
[2017-01-28 07:00] LABS: HEMATOCRIT 19 % (39-51); HEMOGLOBIN 6.6 g/dL (13.5-17.5)
--- NOTE | 2017-01-28 07:10 | NUR ---
RN NOTES RECEIVED A PHONE CALL FROM LAB AND REPORTED REGARDING PT HEMOGLOBIN 6.6 AND HEMATOCRIT 19 SPOKE WITH KARLA. ENDORSED TO CHINYERE RN REGARDING CRITICAL VALUE AND CONTINUITY OF CARE. PT IS PALE LOOKING BUT NO ACTIVE BLEEDING NOTED THROUGHOUT THE SHIFT.
[2017-01-28 07:20] LABS: CALCIUM, SERUM 9.2 mg/dL (8.5-10.1); CREATININE 6.5 mg/dL (0.6-1.3); POTASSIUM 4.3 mmol/L (3.5-5.1)
--- NOTE | 2017-01-28 07:48 | NUR ---
RN NOTES CALLED AND SPOKE TO ROBERTO AZEVEDO REGARDING CRITICAL VALUE OF H/H 6.12/16 PER ROBERTO HE WILL CALL DR. CARROLL LIVESTOCK EXHIBITOR. PRIMARY RN NOTIFIED
--- NOTE | 2017-01-28 08:00 | NUR ---
TELE1/RN AM SHIFT INITIAL NOTES RECEIVED PT AWAKE IN BED, PT IS OBTUNDED, OPEN EYES. NO GRIMACING OR ACUTE CHANGE OF CONDITION NOTED. ON VENT SUPPORT, RATES SET PRESCRIBED, SATURATING @ 98%, LUNG SOUNDS CLEAR. SUCTIONED FOR AIRWAY CLEARANCE. ON TELE WITH SR, HR 79. IV SITE ON TKO OF NS @ 5CC/HR, IV SITE, PATENT WITH NO S/S OF INFECTION. GTF @ 35CC/HR, NO GASTRIC RESIDUAL NOTED. CONDOM CATHETER INTACT WITH NOTED NO OUTPUT AT THIS TIME. NO FEVER NOTED AT THIS TIME. SCHEDULED MEDS TO BE GIVEN. PT IS COMFORTABLE. CL WITHIN REACHED AND SAFETY MAINTAINED. ON GOING MONITORING.
--- NOTE | 2017-01-28 08:11 | NUR ---
TELE1/RN ROUNDS - JASKARAN AZEVEDO PT SEEN & EXAMINED BY JASKARAN AZEVEDO, WITH NEW VERBAL ORDER TO GIVE PT 1 UNIT OF PRBC FOR HG 6.6. ORDER NOTED AND TO BE CARRIED OUT. MONITORING CONTINUED.
[2017-01-28 09:03] LABS: BAND % (MANUAL) 2 % (0.0-5.0); EOSINOPHILS % (MANUAL) 1 % (0-4); LYMPHOCYTES % (MANUAL) 22 % (16-48); MONOCYTES % (MANUAL) 5 % (0-11.0); NEUTROPHILS % (MANUAL) 70 (42-76)
[2017-01-28] MEDS: SEVELAMER CARBONATE 0.8 GM POWD.PACK PO SCH ×3 (09:30→18:34)
[2017-01-28] MEDS: INSULIN DETEMIR 100 UNIT/ML CARTRIDGE SQ SCH ×2 (09:30→20:58)
[2017-01-28] MEDS: MIDODRINE HCL (5MG) 5 MG TABLET PO SCH ×3 (09:31→18:34)
[2017-01-28] MEDS: PANTOPRAZOLE 40 MG TABLET.DR PO SCH (09:31)
[2017-01-28] MEDS: ZINC SULFATE 220 MG CAPSULE PO SCH (09:31)
[2017-01-28] MEDS: LACTOBACILLUS RHAMNOSUS GG 1 EACH CAP.SPRINK GT SCH ×2 (09:31→18:34)
[2017-01-28] MEDS: LINEZOLID 600 MG TABLET GT SCH ×2 (09:31→20:50)
[2017-01-28] MEDS: PROSOURCE / PROSTAT (PYXIS) 30 ML UDC GT SCH (09:32)
[2017-01-28] MEDS: AMIODARONE HCL 200 MG TABLET GT SCH (09:32)
[2017-01-28] MEDS: VIT B CMPLX 3/FA/VIT C/BIOTIN 1 TAB TABLET PO SCH (09:32)
[2017-01-28] MEDS: CADEXOMER IODINE 40 GM TUBE TP SCH (09:34)
[2017-01-28] MEDS: DAKINS QUARTER STRENGTH (0.125%) 480 ML BOTTLE TOP SCH (09:34)
[2017-01-28] MEDS ORDERED: RENAL NOVASOURCE 1,000 ML BOTTLE GT PRN (10:04)
--- NOTE | 2017-01-28 12:00 | NUR ---
TELE1/RN FEVER PT NOTED WITH TEMP 100.8, COOLING MEASURES BEING GIVEN. PRIMARY AWARE. MONITORING.
[2017-01-28] MEDS: ACETAMINOPHEN 325 MG TABLET PO PRN ×2 (12:43→18:34)
--- NOTE | 2017-01-28 14:00 | NUR ---
TELE1/RN 1 UNIT PRBC TRANSFUSION OF 1 UNIT PRBC, INITIATED. MONITORING.
--- NOTE | 2017-01-28 16:00 | NUR ---
TELE1/RN AFTERNOON ROUNDS TEMP 100.2, CONTINUE COOLING MEASURES, PM CARE PROVIDED. ON GOING MONITORING.
--- NOTE | 2017-01-28 16:30 | NUR ---
TELE1/RN 1 UNIT PRBC - COMPLETED TRANSFUSED 1 UNIT PRBC, INITIATED. NO ADVERSE REACTION TO TRANSFUSION NOTED DURING OR AFTER TRANSFUSION. ON GOING MONITORING.
--- NOTE | 2017-01-28 19:07 | NUR ---
[facility]. VENT ALARM WORKING AND AUDIBLE, VENT PLUGGED INTO RED OUTLET. TRACH SECURE IN AND IN PROPER POSITION, CUFF CHECKED AVIATION SAFETY EQUIPMENT TECHNICIAN. SXN MODERATE AMOUNT OF YELLOW THICK SECRETIONS. BILATERAL BS NOTED. NO RESPIRATORY DISTRESS NOTED AT THIS TIME. AMBU BAG AT [facility], WILL CONTINUE TO MONITOR THE PATIENT.
--- NOTE | 2017-01-28 19:45 | NUR ---
RN INITIAL NOTE RECEIVED PT IN NO ACUTE DISTRESS IN BED. PT IS OBTUNDED BUT ABLE TO OPEN EYES. PT IS ON MECHANICAL VENT VIA TRACH. TRACH SITE IS CLEAN DRY AND INTACT. PT TOLERATING VENT SETTING WELL. PT IS ON TELE WITH SR ON THE MONITOR. PT HAS RAC 18G THAT IS CLEAN DRY INTACT AND PATENT WITH NS @ TKO. BED IN LOW LOCK POSITION WITH RIALS UP X 2. CALL LIGHT WITHIN REACH AND ALL SAFETY MEASURES ENSURED AND CARRIED OUT. WILL CONTINUE TO MONITOR PT.
--- NOTE | 2017-01-28 20:00 | NUR ---
TELE1/RN AM SHIFT END NOTES LATEST TEMP CHECK, 99.3, COOLING MEASURES CONTINUES, ALL NEEDS MET. PT ENDORSED TO PM NURSE TO CONTINUE CARE. CL WITHIN REACHED AND SAFETY MAINTAINED.
[2017-01-28] MEDS: COLISTIMETHATE SODIUM 100 MG in IV NS 0.9% 50 ML IV SCH (20:49)
[2017-01-28] MEDS: FLUCONAZOLE (100 MG) 100 MG TABLET PO SCH (20:50)
[2017-01-28] MEDS: ATORVASTATIN 40 MG TABLET GT SCH (21:03)
[2017-01-29] VITALS (8 sets, daily range): BP systolic 83–111; BP diastolic 41–67
[2017-01-29] MEDS: BLOOD SUGAR DIAGNOSTIC 1 EACH STRIP IN SCH ×4 (00:57→17:23)
[2017-01-29] MEDS: FERROUS SULFATE UDC 300 MG/5 ML UDC GT SCH ×3 (05:00→20:59)
[2017-01-29] MEDS: METRONIDAZOLE 500 MG TABLET PO SCH ×3 (05:00→21:00)
[2017-01-29] MEDS: PANTOPRAZOLE 40 MG TABLET.DR PO SCH (07:30)
[2017-01-29] MEDS: DAKINS QUARTER STRENGTH (0.125%) 480 ML BOTTLE TOP SCH (09:57)
[2017-01-29] MEDS: CADEXOMER IODINE 40 GM TUBE TP SCH (09:57)
[2017-01-29] MEDS: SEVELAMER CARBONATE 0.8 GM POWD.PACK PO SCH ×3 (10:01→16:37)
[2017-01-29] MEDS: LINEZOLID 600 MG TABLET GT SCH ×2 (10:01→21:00)
[2017-01-29] MEDS: INSULIN DETEMIR 100 UNIT/ML CARTRIDGE SQ SCH ×2 (10:01→21:14)
[2017-01-29] MEDS: VIT B CMPLX 3/FA/VIT C/BIOTIN 1 TAB TABLET PO SCH (10:01)
[2017-01-29] MEDS: LACTOBACILLUS RHAMNOSUS GG 1 EACH CAP.SPRINK GT SCH ×2 (10:04→16:37)
[2017-01-29] MEDS: AMIODARONE HCL 200 MG TABLET GT SCH (10:04)
[2017-01-29] MEDS: MIDODRINE HCL (5MG) 5 MG TABLET PO SCH ×3 (10:04→16:38)
[2017-01-29] MEDS: ZINC SULFATE 220 MG CAPSULE PO SCH (10:05)
[2017-01-29] MEDS: PROSOURCE / PROSTAT (PYXIS) 30 ML UDC GT SCH (10:05)
[2017-01-29 11:05] LABS: BASOPHILS % (AUTO) 0.2 % (0.0-2.0); EOSINOPHILS # (AUTO) 0.3 /CMM (0.0-0.7); EOSINOPHILS % (AUTO) 3.7 % (0.0-6.0); HEMATOCRIT 24 % (39-51); HEMOGLOBIN 8.1 g/dL (13.5-17.5); LYMPHOCYTES # (AUTO) 1.1 /CMM (0.8-4.8); MEAN CORPUSCULAR HEMOGLOBIN 30 PG (26.0-33.0); MEAN CORPUSCULAR HGB CONC 34 g/dl (31.0-36.0); MEAN CORPUSCULAR VOLUME 88 fL (80-96); MONOCYTES # (AUTO) 0.5 /CMM (0.1-1.30); MONOCYTES % (AUTO) 7.4 % (2.0-12.0); NEUTROPHILS # (AUTO) 5.5 /CMM (1.8-8.9); NEUTROPHILS % (AUTO) 73.7 % (43.0-81.0); PLATELET COUNT (AUTO) 225 /CMM (150-450); RDW COEFFICIENT OF VARIATION 15.6 (11.5-15.0); RED BLOOD CELL COUNT(AUTO) 2.68 MIL/uL (4.5-6.0); WHITE BLOOD COUNT (AUTO) 7.4 K/uL (4.3-11.0)
[2017-01-29 11:21] LABS: CALCIUM, SERUM 9.5 mg/dL (8.5-10.1); CREATININE 6.8 mg/dL (0.6-1.3); POTASSIUM 4.2 mmol/L (3.5-5.1)
--- NOTE | 2017-01-29 11:41 | NUR ---
rn notes non admin note- emar cleared for up to date administration- meditech malfunction.
--- NOTE | 2017-01-29 11:44 | NUR ---
dr. hartman aware of critical BUN level today- stated that dr. Moralez will put a temporary HD catheter today after consented
[2017-01-29] MEDS: HYDROCODONE/APAP 5/325MG 1 EACH TABLET PO PRN (12:21)
[2017-01-29] MEDS: FLUCONAZOLE (100 MG) 100 MG TABLET PO SCH (20:59)
[2017-01-29] MEDS: COLISTIMETHATE SODIUM 100 MG in IV NS 0.9% 50 ML IV SCH (20:59)
[2017-01-29] MEDS: ATORVASTATIN 40 MG TABLET GT SCH (21:01)
[2017-01-30] VITALS: BP 112/69
[2017-01-30] MEDS: BLOOD SUGAR DIAGNOSTIC 1 EACH STRIP IN SCH ×5 (01:49→23:24)
[2017-01-30 04:00] VITALS: BP 105/56
[2017-01-30] MEDS: FERROUS SULFATE UDC 300 MG/5 ML UDC GT SCH ×3 (04:46→20:57)
[2017-01-30] MEDS: ACETAMINOPHEN 325 MG TABLET PO PRN ×3 (04:46→20:57)
[2017-01-30] MEDS: METRONIDAZOLE 500 MG TABLET PO SCH ×3 (04:46→20:57)
[2017-01-30] MEDS: DEXTROSE 50%-WATER 50 ML DISP.SYRIN IV PRN (05:15)
--- NOTE | 2017-01-30 06:37 | NUR ---
RN CLOSING NOTE PT REMAINS IN NO ACUTE DISTRESS IN BED. PT DID NOT HAVE ANY SIGNIFICANT CHANGE IN CONDITION DURING SHIFT. ALL NEEDS MET ALL ORDERS CARRIED OUT. PT TOLERATED VENT SETTING WELL. WILL ENDORSE REPORT TO AM RN FOR CONTINUITY OF CARE.
--- NOTE | 2017-01-30 07:15 | NUR ---
RN NOTES PT VENT TRACH DEPENDENT, OBTUNDED. TOLERATING VENT SETTINGS WELL AT THIS TIME, NO SOB NOTED. SR ON THE MONITOR HR 98. COOLING MEASURES IN PLACE LAST TEMP 99.7. NOVASOURCE RUNNING AT 40ML/HR, NO RESIDUALS. RAC 18 GAUGE DRY AND INTACT. L FEMORAL HD CATH DRESSING DRY AND INTACT.BED LOCKED AND IN LOWEST POSITION, SIDE RAILS UP X3, CALL LIGHT WITHIN REACH. WILL CONTINUE TO MONITOR.
[2017-01-30 08:00] VITALS: BP_SYST 89; BP_SYST 98; BP_DIAS 45; BP_DIAS 55
[2017-01-30] MEDS: PANTOPRAZOLE 40 MG TABLET.DR PO SCH (08:38)
[2017-01-30] MEDS: SEVELAMER CARBONATE 0.8 GM POWD.PACK PO SCH ×3 (08:38→16:42)
[2017-01-30] MEDS: VIT B CMPLX 3/FA/VIT C/BIOTIN 1 TAB TABLET PO SCH (08:38)
[2017-01-30] MEDS: LINEZOLID 600 MG TABLET GT SCH ×2 (08:38→20:57)
[2017-01-30] MEDS: ZINC SULFATE 220 MG CAPSULE PO SCH (08:38)
[2017-01-30] MEDS: PROSOURCE / PROSTAT (PYXIS) 30 ML UDC GT SCH (08:38)
[2017-01-30] MEDS: MIDODRINE HCL (5MG) 5 MG TABLET PO SCH ×3 (08:39→16:40)
[2017-01-30] MEDS: LACTOBACILLUS RHAMNOSUS GG 1 EACH CAP.SPRINK GT SCH ×2 (08:39→16:40)
[2017-01-30] MEDS: AMIODARONE HCL 200 MG TABLET GT SCH (08:40)
[2017-01-30] MEDS: DAKINS QUARTER STRENGTH (0.125%) 480 ML BOTTLE TOP SCH (08:42)
--- NOTE | 2017-01-30 09:00 | NUR ---
RN NOTES ROBERTO GLAZING MACHINE OPERATOR NOTIFIED REGARDING LOW BLOOD SUGAR FROM LAST SHIFT, NO SIGN OF HYPOGLYCEMIA NOTED. AM DOSE OF LEVEMIR HELD PER GLAZING MACHINE OPERATOR ROBERTO. WILL CONTINUE TO MONITOR.
[2017-01-30] MEDS: CADEXOMER IODINE 40 GM TUBE TP SCH (09:12)
[2017-01-30 12:00] VITALS: BP 98/55
[2017-01-30] MEDS: DIGOXIN 0.25 MG TABLET PO SCH (12:07)
[2017-01-30] MEDS: ALBUMIN 25% 25 GM in PREMIX 1 EA IV PRN (13:13)
[2017-01-30 16:00] VITALS: BP_SYST 85; BP_SYST 98; BP_DIAS 48; BP_DIAS 55
[2017-01-30] MEDS: HYDROCODONE/APAP 5/325MG 1 EACH TABLET PO PRN (16:43)
--- NOTE | 2017-01-30 18:24 | NUR ---
RN NOTES PT RESTING IN BED, NO SOB OR DISTRESS NOTED. PT CLEANED AND TURNED. NO SIGNIFICANT CHANGES THROUGHOUT THE SHIFT. BED LOCKED AND IN LOWEST POSITION, CALL LIGHT WITHIN REACH, SIDE RAILS UP X3.
--- NOTE | 2017-01-30 19:45 | NUR ---
RN INITIAL NOTE RECEIVED PT IN NO ACUTE DISTRESS IN BED. PT IS OBTUNDED BUT ABLE TO OPEN EYES. PT IS ON MECHANICAL VENT VIA TRACH. TRACH SITE IS CLEAN DRY AND INTACT. PT TOLERATING VENT SETTING WELL. PT IS ON TELE WITH SR ON THE MONITOR. PT HAS RAC 18G THAT IS CLEAN DRY INTACT AND PATENT WITH NS @ TKO. PT HAS COOLING BLANKET IN PLACE WITH RECTAL TEMP MONITORING. TEMP CURRENTLY 99.8. BED IN LOW LOCK POSITION WITH RIALS UP X 2. CALL LIGHT WITHIN REACH AND ALL SAFETY MEASURES ENSURED AND CARRIED OUT. WILL CONTINUE TO MONITOR PT.
[2017-01-30 20:00] VITALS: BP 94/57
[2017-01-30] MEDS: COLISTIMETHATE SODIUM 100 MG in IV NS 0.9% 50 ML IV SCH (20:57)
[2017-01-30] MEDS: FLUCONAZOLE (100 MG) 100 MG TABLET PO SCH (20:57)
[2017-01-30] MEDS: INSULIN DETEMIR 100 UNIT/ML CARTRIDGE SQ SCH (21:00)
[2017-01-30] MEDS: ATORVASTATIN 40 MG TABLET GT SCH (21:04)
--- NOTE | 2017-01-30 22:00 | NUR ---
RN NOTE ENDORSE REPORT TO 3 LIZZETTE RN FOR CONTINUITY OF CARE
--- NOTE | 2017-01-30 22:05 | NUR ---
RN INITIAL NOTES: RECEIVED REPORT FROM CHETAN GRANGER. PT IN BED, OBTUNDED, OPEN YES, MECH VENT TRACHE DEPENDENT WITH THE FF SETTING: SHILEY #8, AC 16, TV 600, FIO2 40%, PEEP 5, AMBU BAG AT BED SIDE, ON CONTINUOS PULSE OX WITH CURRENT SPO2 OF 97-100%, CLINICAL ALARMS CHECKED AND AUDIBLE. ON SINUS RHYTHM HR 98. PER REPORT PT HAS CONSTANT FEVER, OF NOW PT'S TEMP IS 99.5 AND PT WAS GIVEN TYLENOL AT 2056, PT ON COOLING BLANKET AND ICE PACK PLACED ON BOTH ARMPIT AND GROIN AREA, ALSO ICE BATH PROVIDED BY HOME ADVISOR. PT HAS GTUBE IN PLACED CURRENTLY RECEIVING NOVASOURCE RENAL AT 40CC.HR. S/P HD TODAY WITH 500ML OUTPUT. PT HAS CONDOM CATH IN PLACED DRAINING INTO YELLOW COLORED URINE. PT HAS RAC IV ACCESS PATENT AND FLUSHING WELL, INFUSING WITH NS AT TKO. PT HAS LEFT FEMORAL HD CATH, DRESSING C/D/I, NO ACTIVE BLEEDING NOTED. SAFETY PRECAUTIONS FOR FALL INITIATED CALL LIGHT IN REACH, YOMAIRA RIOS TO MONITOR
[2017-01-30] MEDS: RENAL NOVASOURCE 1,000 ML BOTTLE GT PRN (23:24)
[2017-01-30] MEDS: INSULIN REGULAR, HUMAN 100 UNIT/ML 3 ML VIAL SQ PRN (23:25)
--- NOTE | 2017-01-30 23:25 | NUR ---
ACCU CHECK: BLOOD SUGAR CHECKED NAD REVEAL 116, NO INSULIN COVERAGE PER SLIDING SCALE, PT ON GTUBE FEEDING NOVASOURCE RENAL AT 40CC/HR WILL MONITOR PT FOR ANY S/S OF HYPOGLYCEMIA OR HYPERGLYCEMIA
--- NOTE | 2017-01-30 23:26 | NUR ---
RN NOTES: CHECKED GTUBE RESIDUAL AND OBTAINED 0ML, PT'S ABDOMEN SOFT TO TOUCH, WITH ACTIVE BOWEL SOUND NOTED UPON AUSCULTATION, NEW BAG OF NOVASOURCE RENAL ADMINISTERED AT THIS TIME, AT 40CC/HR, WILL CONTINUE TO MONITOR AND REASSESS
[2017-01-31] VITALS (8 sets, daily range): BP systolic 98–111; BP diastolic 51–78
--- NOTE | 2017-01-31 03:15 | NUR ---
AM CARE: ASSISTED SAWDUST MACHINE OPERATOR IN PROVIDING BED BATH TO THE PT, ICE BATH PROVIDED TO HELP TEMP GO BACK TO NORMAL, CURRENTLY 99.5, WOUND CARE DONE ORDERED,
[2017-01-31] MEDS: ACETAMINOPHEN 325 MG TABLET PO PRN ×3 (03:23→17:19)
--- NOTE | 2017-01-31 03:24 | NUR ---
prn tylenol: temp 99.6, prn tylenol 650mg administered via gtube, on cooling blanket ice bath provided, iced compress placed, will continue to monitor
[2017-01-31] MEDS: METRONIDAZOLE 500 MG TABLET PO SCH ×3 (04:16→21:26)
[2017-01-31] MEDS: FERROUS SULFATE UDC 300 MG/5 ML UDC GT SCH ×3 (04:16→21:27)
--- NOTE | 2017-01-31 05:00 | NUR ---
rn reassessment: pt's temp noted to be 100.1 rectally, pt on cooling blanket, also ice pack provided and another ice bath given to the pt, tylenol given at 0330 am, vs stable, except for elevated temp, will continue to monitor
[2017-01-31] MEDS: BLOOD SUGAR DIAGNOSTIC 1 EACH STRIP IN SCH ×3 (05:17→17:15)
[2017-01-31] MEDS: INSULIN REGULAR, HUMAN 100 UNIT/ML 3 ML VIAL SQ PRN (05:17)
--- NOTE | 2017-01-31 05:18 | NUR ---
blood sugar check: accu check performed and obtained 121, no insulin coverage per sliding scale, pt on gtube feeding tolerated well, will continue to monitor pt for any s/s of hypo or hyperglycemia
--- NOTE | 2017-01-31 06:32 | NUR ---
RN REASSESSMENT: CHECKED TEMP AND REVEAL 100.3 RECTALLY, CHECKED AXILLARY AND SHOWS 99.9, PT ON COOLING BLANKET, NEW SET OF ICE PACKED PLACED ON BILATERAL ARMPIT AND RIGHT GROIN AREA, TYLENOL GIVEN AT 0330 AM AND WAS ORDERED Q6HR PRN, VS TABLE WILL CONTINUE TO MONITOR
--- NOTE | 2017-01-31 06:44 | NUR ---
RN CLOSING NOTES: PT IN BED, REMAINS OBTUNDED, TOLERATED MECH VENT SETTING WELL, LATEST TEMP IS 100.3. ON SINUS RHYTHM HR 107. PT REMAINS ON COOLING BLANKET. ICE PACK PROVIDED. IV ACCESS REMAINS PATENT AND FLUSHING WELL, INFUSING WITH NS AT TKO. REMAINS ON G-TUBE FEEDING NOVASOURCE RENAL AT 40CC/HR, TOLERATED WELL BY THE PT, ABDOMEN REMAINS SOFT TO TOUCH WITH ACTIVE BOWEL SOUND HEARD.LEFT FEMORAL HD CATH DRESSING REMAINS C/D/I, NO ACTIVE BLEEDING NOTED, VS REMAINS STABLE, NEEDS ATTENDED. SAFETY PRECAUTIONS FOR FALL REMAINS ENGAGED CALL LIGHT IN REACH WILL ENDORSE TO DAY RN FOR VIONNE.
--- NOTE | 2017-01-31 07:44 | NUR ---
POST TENSIONING IRONWORKER NOTES: PT IN BED, OBTUNDED, TOLERATING MECH VENT SETTING WELL, LATEST TEMP IS 100.5. ON SINUS RHYTHM HR 102. PT REMAINS ON COOLING BLANKET. ICE PACK PROVIDED. IV ACCESS REMAINS PATENT AND FLUSHING WELL, INFUSING WITH NS AT TKO. REMAINS ON G-TUBE FEEDING NOVASOURCE RENAL AT 40CC/HR, TOLERATED WELL BY THE PT, ABDOMEN REMAINS SOFT TO TOUCH WITH ACTIVE BOWEL SOUND HEARD.LEFT FEMORAL HD CATH DRESSING REMAINS C/D/I, NO ACTIVE BLEEDING NOTED, VS REMAINS STABLE, NEEDS ATTENDED. SAFETY PRECAUTIONS IN PLACE, CALL LIGHT IN REACH, WILL CONTINUE TO MONITOR.
[2017-01-31] MEDS: INSULIN DETEMIR 100 UNIT/ML CARTRIDGE SQ SCH ×2 (09:00→21:00)
[2017-01-31] MEDS: VIT B CMPLX 3/FA/VIT C/BIOTIN 1 TAB TABLET PO SCH (09:23)
[2017-01-31] MEDS: ZINC SULFATE 220 MG CAPSULE PO SCH (09:23)
[2017-01-31] MEDS: LINEZOLID 600 MG TABLET GT SCH ×2 (09:23→21:26)
[2017-01-31] MEDS: MIDODRINE HCL (5MG) 5 MG TABLET PO SCH ×3 (09:23→17:16)
[2017-01-31] MEDS: AMIODARONE HCL 200 MG TABLET GT SCH (09:23)
[2017-01-31] MEDS: LACTOBACILLUS RHAMNOSUS GG 1 EACH CAP.SPRINK GT SCH ×2 (09:24→17:16)
[2017-01-31] MEDS: SEVELAMER CARBONATE 0.8 GM POWD.PACK PO SCH ×3 (09:24→17:16)
[2017-01-31] MEDS: PROSOURCE / PROSTAT (PYXIS) 30 ML UDC GT SCH (09:24)
[2017-01-31] MEDS: PANTOPRAZOLE 40 MG TABLET.DR PO SCH (09:28)
[2017-01-31] MEDS: CADEXOMER IODINE 40 GM TUBE TP SCH (09:29)
[2017-01-31] MEDS: DAKINS QUARTER STRENGTH (0.125%) 480 ML BOTTLE TOP SCH (09:29)
--- NOTE | 2017-01-31 09:43 | NUR ---
MEDICAL ACCOUNTANT NOTES MAHTEW ACEVEDO, BLOOD SUGAR IS 110.
--- NOTE | 2017-01-31 18:48 | NUR ---
POWER TRANSFORMER REPAIR SUPERVISOR NOTES PT IN BED, OBTUNDED, TOLERATING MECH VENT SETTING WELL, LATEST TEMP IS 100.8. ON TELE MONITOR WITH SINUS TACHY WITH BBB HR 106. COOLING MEASURES PROVIDED, PT REMAINS ON COOLING BLANKET. ICE PACK PROVIDED. IV ACCESS REMAINS PATENT AND FLUSHING WELL, INFUSING WITH NS AT TKO. REMAINS ON G-TUBE FEEDING NOVASOURCE RENAL AT 40CC/HR, TOLERATED WELL BY THE PT, ABDOMEN REMAINS SOFT TO TOUCH WITH ACTIVE BOWEL SOUND HEARD.LEFT FEMORAL HD CATH DRESSING REMAINS C/D/I, NO ACTIVE BLEEDING NOTED, VS REMAINS STABLE, NEEDS ATTENDED. SAFETY PRECAUTIONS IN PLACE, CALL LIGHT IN REACH, WILL ENDORSE TO EMPLOYMENT INSTRUCTIONAL ASSOCIATE FOR IVONNE.
--- NOTE | 2017-01-31 19:15 | NUR ---
RN INITIAL NOTES RECEIVED PATIENT IN BED, OBTUNDED. PATIENT CONTINUOUS ON COOLING MEASURES WITH COOLING BLANKET IN PLACE, PATIENT'S TEMP AT 98.7. ON MECH VENT VIA TRACH, C/D/I, MIDLINE, AIRWAY SUCTIONED, TOLERATING SETTINGS WELL. SR AT 97BPM. GTF INFUSING WELL, NO GASTRIC RESIDUAL NOTED. R AC G18, FLUSHED AND PATENT. L FEMORAL EMIR CATH WITH DRESSING INTACT. CONDOM CATH IN PLACE, DRAINING WITH VIVEK COLORED URINE. PATIENT TURNED AND REPOSITIONED. SAFETY AND COMFORT ENSURED. BED IN LOW AND LOCKED POSITION. WILL CONTINUE TO MONITOR.
[2017-01-31] MEDS: COLISTIMETHATE SODIUM 100 MG in IV NS 0.9% 50 ML IV SCH (21:26)
[2017-01-31] MEDS: FLUCONAZOLE (100 MG) 100 MG TABLET PO SCH (21:26)
[2017-01-31] MEDS: ATORVASTATIN 40 MG TABLET GT SCH (21:26)
--- NOTE | 2017-01-31 21:38 | NUR ---
RN NOTES ALL HS MEDS GIVEN TO PATIENT ORDERED. MATHEW Meadu HELD FOR BS OF 97. CN MADE AWARE.
--- NOTE | 2017-01-31 22:50 | NUR ---
RN NOTES ENDORSED PATIENT'S CARE TO BÁRBARA ARAYA. PATIENT'S NEEDS ANTICIPATED AND MET. SAFETY AND COMFORT ENSURED. CONTINUOUS ON COOLING MEASURES.
--- NOTE | 2017-01-31 23:15 | NUR ---
RN INITIAL NOTES RECEIVED PATIENT IN BED, OBTUNDED. PATIENT CONTINUOUS ON COOLING MEASURES WITH COOLING BLANKET IN PLACE, PATIENT'S TEMP AT 100.7. ON MECH VENT VIA TRACH, C/D/I, MIDLINE, AIRWAY SUCTIONED, TOLERATING SETTINGS WELL. SR AT 97BPM. GTF INFUSING WELL, NO GASTRIC RESIDUAL NOTED. R AC G18, FLUSHED AND PATENT. L FEMORAL EMIR CATH WITH DRESSING INTACT. CONDOM CATH IN PLACE. PATIENT TURNED AND REPOSITIONED. SAFETY AND COMFORT ENSURED. BED IN LOW AND LOCKED POSITION. WILL CONTINUE TO MONITOR.
[2017-02-01] VITALS (9 sets, daily range): BP systolic 95–130; BP diastolic 43–82
[2017-02-01] MEDS: BLOOD SUGAR DIAGNOSTIC 1 EACH STRIP IN SCH ×4 (00:53→17:28)
[2017-02-01] MEDS: ACETAMINOPHEN 325 MG TABLET PO PRN ×2 (02:20→15:12)
[2017-02-01] MEDS: RENAL NOVASOURCE 1,000 ML BOTTLE GT PRN (02:29)
[2017-02-01] MEDS: FERROUS SULFATE UDC 300 MG/5 ML UDC GT SCH ×3 (05:13→21:48)
[2017-02-01] MEDS: METRONIDAZOLE 500 MG TABLET PO SCH ×3 (05:14→21:48)
--- NOTE | 2017-02-01 07:05 | NUR ---
RN INITIAL NOTE PATIENT RECEIVED IN BED, SLEEPING. PT IS OBTUNDED, NON VERBAL. SINUS RHYTHM ON TELE MONITOR WITH HEART RATE 103. PATIENT HAS MARY GOMEZ #8, VENT SETTINGS: AC-16, TV-600, FI02-40, PEEP-5. NO S/S OF RESPIRATORY DISTRESS OR SOB. SATING WELL WITH THESE SETTINGS. NGTUBE PATENT, PLACEMENT CONFIRMED. NOVASOURCE RUNNING AT 40ML/HR. TOLERATING FEEDING WELL. IV SITE FLUSHED, PATENT. SKIN IS WARM AND DRY TO TOUCH. SAFETY PRECAUTIONS IMPLEMENTED, BED IN LOCKED, LOW POSITION WITH TWO SIDE RAILS UP.WILL CONTINUE TO MONITOR CLOSELY.
--- NOTE | 2017-02-01 07:07 | NUR ---
RN INITIAL NOTES PATIENT IN BED, OBTUNDED. PATIENT CONTINUOUS ON COOLING MEASURES WITH COOLING BLANKET IN PLACE, PATIENT'S TEMP AT 98.4. ON MECH VENT VIA TRACH, C/D/I, MIDLINE, AIRWAY SUCTIONED. GTF INFUSING WELL, NO GASTRIC RESIDUAL NOTED. ON ASPIRATION PRECAUTION.R AC G18, FLUSHED AND PATENT. L FEMORAL EMIR CATH WITH DRESSING INTACT. CONDOM CATH IN PLACE. PATIENT TURNED AND REPOSITIONED. SAFETY AND COMFORT ENSURED. BED IN LOW AND LOCKED POSITION. WILL ENDORSE TO NEXT SHIFT FOR IVONNE.
[2017-02-01 09:37] LABS: CREATININE 2.8 mg/dL (0.6-1.3)
[2017-02-01] MEDS: LINEZOLID 600 MG TABLET GT SCH ×2 (09:49→21:49)
[2017-02-01] MEDS: VIT B CMPLX 3/FA/VIT C/BIOTIN 1 TAB TABLET PO SCH (09:49)
[2017-02-01] MEDS: SEVELAMER CARBONATE 0.8 GM POWD.PACK PO SCH ×3 (09:49→17:27)
[2017-02-01] MEDS: ZINC SULFATE 220 MG CAPSULE PO SCH (09:49)
[2017-02-01] MEDS: PROSOURCE / PROSTAT (PYXIS) 30 ML UDC GT SCH (09:49)
[2017-02-01] MEDS: AMIODARONE HCL 200 MG TABLET GT SCH (09:50)
[2017-02-01] MEDS: LACTOBACILLUS RHAMNOSUS GG 1 EACH CAP.SPRINK GT SCH ×2 (09:50→15:11)
[2017-02-01] MEDS: CADEXOMER IODINE 40 GM TUBE TP SCH (09:50)
[2017-02-01] MEDS: DAKINS QUARTER STRENGTH (0.125%) 480 ML BOTTLE TOP SCH (09:50)
[2017-02-01] MEDS ORDERED: DOSING PER PHARMACY-AMIKACI IV XX PRN (10:00)
[2017-02-01] MEDS: PANTOPRAZOLE 40 MG TABLET.DR PO SCH (10:22)
[2017-02-01] MEDS: MIDODRINE HCL (5MG) 5 MG TABLET PO SCH ×3 (10:22→17:28)
[2017-02-01] MEDS: INSULIN DETEMIR 100 UNIT/ML CARTRIDGE SQ SCH ×2 (10:31→21:00)
--- NOTE | 2017-02-01 11:15 | NUR ---
RN NOTE PATIENT HAD HD THIS AM. 400ML REMOVED
[2017-02-01] MEDS ORDERED: FEE PK DOSING 1 MIN EA MC ONE (13:45)
[2017-02-01] MEDS ORDERED: AMIKACIN 500 MG in IV D5W 100 ML IV ONE (14:00)
--- NOTE | 2017-02-01 19:18 | NUR ---
RN INITIAL NOTES RECEIVED PATIENT IN BED, OBTUNDED. WITH TRACH ON VENT, C/D/I, TOLERATING VENT SETTINGS WELL WITH NO DISTRESS, SATURATION KEPT AT 98%, AIRWAY SUCTIONED NEEDED. SR ON TELE WITH HR OF 96. 100.3 RECTAL TEMP, COOLING BLANKET IN PLACE, COOLING MEASURES CONTINUOUS, WILL MONITOR CLOSELY. GTF INFUSING ORDERED, FLUSHED AND KEPT PATENT, NO GASTRIC RESIDUAL NOTED. CONDOM CATH IN PLACE, DRAINING VIA GRAVITY WITH VIVEK COLORED URINE. R AC G20, INTACT AND PATENT, ON SL. L FEMORAL HD CATH WITH DRESSING INTACT. PATIENT'S NEEDS ANTICIPATED AND MET. SAFETY AND COMFORT ENSURED. BED IN LOW AND LOCKED POSITION.
[2017-02-01] MEDS: FLUCONAZOLE (100 MG) 100 MG TABLET PO SCH (21:48)
[2017-02-01] MEDS: ATORVASTATIN 40 MG TABLET GT SCH (21:48)
[2017-02-01] MEDS: COLISTIMETHATE SODIUM 100 MG in IV NS 0.9% 50 ML IV SCH (21:49)
--- NOTE | 2017-02-01 22:00 | NUR ---
RN NOTES PATIENT'S LEVEMIR HELD, PATIENT'S BS IS 88. CONTINUE WITH GTF ORDERED. WILL MONITOR.
[2017-02-02] VITALS: BP 144/84
[2017-02-02] MEDS: BLOOD SUGAR DIAGNOSTIC 1 EACH STRIP IN SCH ×4 (00:16→17:44)
--- NOTE | 2017-02-02 00:17 | NUR ---
RN NOTES BS=85, NO INSULIN GIVEN PER SLIDING SCALE. CONT ON GTF ORDERED.
[2017-02-02 04:00] VITALS: BP 95/67
[2017-02-02] MEDS: RENAL NOVASOURCE 1,000 ML BOTTLE GT PRN (05:19)
[2017-02-02] MEDS: FERROUS SULFATE UDC 300 MG/5 ML UDC GT SCH ×3 (05:19→21:06)
[2017-02-02] MEDS: METRONIDAZOLE 500 MG TABLET PO SCH ×3 (05:19→21:07)
--- NOTE | 2017-02-02 06:48 | NUR ---
RN CLOSING NOTES PATIENT WITH NO ACUTE DISTRESS OBSERVED OVERNIGHT. PATIENT IS AFEBRILE WITH RECTAL TEMP OF 97.2. COOLING MEASURES NEEDED. SR WITH HR OF 89. PATIENT TOLERATED VENT SETTINGS WELL, AIRWAY SUCTIONED NEEDED. GTF TOLERATED WELL. WOUND CARE RENDERED, TRACH CARE DONE. PATIENT KEPT CLEAN AND DRY. TURNED AND REPOSITIONED PATIENT. SAFETY AND COMFORT ENSURED. BED IN LOW AND LOCKED POSITIONED. HOB ELEVATED. WILL ENDORSE ACCORDINGLY FOR CONTINUITY OF CARE.
[2017-02-02 07:05] LABS: BASOPHILS % (AUTO) 0.2 % (0.0-2.0); EOSINOPHILS # (AUTO) 0.3 /CMM (0.0-0.7); LYMPHOCYTES # (AUTO) 0.9 /CMM (0.8-4.8); LYMPHOCYTES % (AUTO) 10.1 % (20.0-44.0); MEAN CORPUSCULAR HEMOGLOBIN 31 PG (26.0-33.0); MEAN CORPUSCULAR HGB CONC 34 g/dl (31.0-36.0); MEAN CORPUSCULAR VOLUME 90 fL (80-96); MONOCYTES # (AUTO) 0.8 /CMM (0.1-1.30); MONOCYTES % (AUTO) 8.2 % (2.0-12.0); NEUTROPHILS # (AUTO) 7.2 /CMM (1.8-8.9); NEUTROPHILS % (AUTO) 78.5 % (43.0-81.0); PLATELET COUNT (AUTO) 240 /CMM (150-450); RDW COEFFICIENT OF VARIATION 15.6 (11.5-15.0); RED BLOOD CELL COUNT(AUTO) 2.25 MIL/uL (4.5-6.0); WHITE BLOOD COUNT (AUTO) 9.2 K/uL (4.3-11.0)
[2017-02-02 07:09] LABS: HEMATOCRIT 20 % (39-51); HEMOGLOBIN 6.9 g/dL (13.5-17.5)
--- NOTE | 2017-02-02 07:10 | NUR ---
RN INITIAL NOTE PATIENT RECEIVED IN BED, RESTING. NO S/S OF PAIN OR DISCOMFORT. PATIENT IS NONVERBAL, OBTUNDED. PT HAS MARY GOMEZ #8, WITH VENT SETTINGS FOLLOWS: AC-16, TV-600, FI02-40, PEEP-5. SATING WELL. NO S/S OF RESPIRATORY DISTRESS OR SOB. PT IS SINUS RHYTHM ON TELE MONITOR. HEART RATE IN THE LOW 90'S. SKIN IS WARM AND DRY TO TOUCH. IV SITE FLUSHED, PATENT. GTUBE FLUSHED, PLACEMENT VERIFIED. RUNNING NOVASOURCE AT 40ML/HR. TOLERATING FEEDING WELL. SAFETY PRECAUTIONS IMPLEMENTED. BED IN LOCKED, LOW POSITION. WILL MONITOR CLOSELY.
[2017-02-02 07:40] LABS: CALCIUM, SERUM 8.7 mg/dL (8.5-10.1); CREATININE 2.9 mg/dL (0.6-1.3); POTASSIUM 3.5 mmol/L (3.5-5.1)
[2017-02-02 08:00] VITALS: BP 92/47
--- NOTE | 2017-02-02 08:30 | NUR ---
RN NOTE MADE AWARE OF LOW HGB/HCT 6.9/. OKAY TO TRANSFUSE WITH HD TOMORROW.
[2017-02-02 08:32] LABS: BAND % (MANUAL) 4 % (0.0-5.0); EOSINOPHILS % (MANUAL) 1 % (0-4); LYMPHOCYTES % (MANUAL) 10 % (16-48); MONOCYTES % (MANUAL) 6 % (0-11.0); NEUTROPHILS % (MANUAL) 79 (42-76)
[2017-02-02] MEDS: VIT B CMPLX 3/FA/VIT C/BIOTIN 1 TAB TABLET PO SCH (08:48)
[2017-02-02] MEDS: ZINC SULFATE 220 MG CAPSULE PO SCH (08:49)
[2017-02-02] MEDS: LINEZOLID 600 MG TABLET GT SCH ×2 (08:49→21:06)
[2017-02-02] MEDS: MIDODRINE HCL (5MG) 5 MG TABLET PO SCH ×3 (08:49→17:44)
[2017-02-02] MEDS: SEVELAMER CARBONATE 0.8 GM POWD.PACK PO SCH ×3 (08:49→17:44)
[2017-02-02] MEDS: AMIODARONE HCL 200 MG TABLET GT SCH (08:49)
[2017-02-02] MEDS: PROSOURCE / PROSTAT (PYXIS) 30 ML UDC GT SCH (08:49)
[2017-02-02] MEDS: LACTOBACILLUS RHAMNOSUS GG 1 EACH CAP.SPRINK GT SCH ×2 (08:49→17:44)
[2017-02-02] MEDS: CADEXOMER IODINE 40 GM TUBE TP SCH (08:50)
[2017-02-02] MEDS: DAKINS QUARTER STRENGTH (0.125%) 480 ML BOTTLE TOP SCH (08:50)
[2017-02-02] MEDS: PANTOPRAZOLE 40 MG TABLET.DR PO SCH (08:58)
[2017-02-02] MEDS: INSULIN DETEMIR 100 UNIT/ML CARTRIDGE SQ SCH ×2 (08:59→21:00)
[2017-02-02 12:00] VITALS: BP 89/50
[2017-02-02 16:00] VITALS: BP 93/63
--- NOTE | 2017-02-02 19:16 | NUR ---
RN CLOSING NOTE ALL MD ORDERS CARRIED OUT. PATIENT KEPT CLEAN AND DRY. SAFETY PRECAUTIONS IN PLACE AT ALL TIMES. ISOLATION PRECAUTIONS OBSERVED ALWAYS. REPORT WILL BE GIVEN TO PM RN FOR IVONNE.
--- NOTE | 2017-02-02 19:30 | NUR ---
CHARGEMASTER ANALYST INITIAL NOTE PT RECEIVED IN BED WITH FAMILY AT BEDSIDE. PT OBTUNDED WITH OPEN EYES. [facility] WITH [facility]TINGS WELL TOLERATED AC 16/ TV 600/ FIO2 40%/ PEEP 5 AND SATURATING WELL AT 98%. BREATHING UNLABORED. TELE- SINUS RHYTHM 80. L FEMORAL HD CATH CLEAN AND INTACT. R AC #20 SL CLEAN, DRY, INTACT AND FLUSHING WELL. ISOLATION PRECAUTIONS OBSERVED. WILL CONTINUE TO MONITOR.
--- NOTE | 2017-02-02 19:50 | NUR ---
PT RCVD. [facility] WITH NOTED SETTINGS. VENT ALARM WORKING AND AUDIBLE, VENT PLUGGED INTO RED OUTLET. TRACH SECURE IN AND IN PROPER POSITION, CUFF CHECKED ELECTRODE CLEANER. SXN MODERATE AMOUNT OF YELLOWISH SHELDON SECRETIONS. BILATERAL BS NOTED. NO RESPIRATORY DISTRESS NOTED AT THIS TIME. AMBU BAG AT [facility], WILL CONTINUE TO MONITOR.
[2017-02-02 20:00] VITALS: BP 94/47
[2017-02-02] MEDS: COLISTIMETHATE SODIUM 100 MG in IV NS 0.9% 50 ML IV SCH (20:19)
[2017-02-02] MEDS: FLUCONAZOLE (100 MG) 100 MG TABLET PO SCH (20:19)
[2017-02-02] MEDS: ATORVASTATIN 40 MG TABLET GT SCH (21:07)
[2017-02-03] VITALS (11 sets, daily range): BP systolic 75–123; BP diastolic 24–87
[2017-02-03] MEDS: BLOOD SUGAR DIAGNOSTIC 1 EACH STRIP IN SCH ×5 (00:17→23:44)
[2017-02-03] MEDS: METRONIDAZOLE 500 MG TABLET PO SCH ×3 (05:15→21:39)
[2017-02-03] MEDS: FERROUS SULFATE UDC 300 MG/5 ML UDC GT SCH ×3 (05:15→21:39)
[2017-02-03] MEDS: RENAL NOVASOURCE 1,000 ML BOTTLE GT PRN (05:19)
--- NOTE | 2017-02-03 06:40 | NUR ---
PUBLIC RELATIONS ACCOUNT SUPERVISOR CLOSING NOTE PT REMAINED STABLE DURING SHIFT. NO FEVERS NOTED. NO SOB NOTED. VENT SETTINGS WELL TOLERATED. REPOSITIONED Q2H. ISOLATION PRECAUTIONS OBSERVED. WOUND TREATMENT PERFORMED PER MD ORDERS. GTUBE FEEDING WELL TOLERATED WITHOUT RESIDUALS NOTED AT THIS TIME. IV SITE AND HD FEM CATH INTACT. ALL NEEDS ATTENDED TO PROMPTLY. KEPT CLEAN AND DRY. WILL ENDORSE TO NEXT SHIFT FOR IVONNE.
--- NOTE | 2017-02-03 08:00 | NUR ---
HEEL SCORER INITIAL NOTE PT RECEIVED IN BED WITH FAMILY AT BEDSIDE. PT SLEEPING ON MECH VENT WITH SETTINGS WELL TOLERATED AC 16/ TV 600/ FIO2 40%/ PEEP 5 AND SATURATING WELL AT 98%. BREATHING UNLABORED. TELE- SINUS RHYTHM 91. L FEMORAL HD CATH CLEAN AND INTACT. R AC #20 SL CLEAN, DRY, INTACT AND FLUSHING WELL. ISOLATION PRECAUTIONS OBSERVED. WILL CONTINUE TO MONITOR.
[2017-02-03] MEDS: AMIODARONE HCL 200 MG TABLET GT SCH (08:28)
[2017-02-03] MEDS: VIT B CMPLX 3/FA/VIT C/BIOTIN 1 TAB TABLET PO SCH (08:28)
[2017-02-03] MEDS: LACTOBACILLUS RHAMNOSUS GG 1 EACH CAP.SPRINK GT SCH ×2 (08:29→17:33)
[2017-02-03] MEDS: MIDODRINE HCL (5MG) 5 MG TABLET PO SCH ×3 (08:29→17:34)
[2017-02-03] MEDS: HYDROCODONE/APAP 5/325MG 1 EACH TABLET PO PRN ×2 (08:29→14:06)
[2017-02-03] MEDS: FLUCONAZOLE (100 MG) 100 MG TABLET PO SCH (08:29)
[2017-02-03] MEDS: SEVELAMER CARBONATE 0.8 GM POWD.PACK PO SCH ×3 (08:29→17:34)
[2017-02-03] MEDS: PANTOPRAZOLE 40 MG TABLET.DR PO SCH (08:29)
[2017-02-03] MEDS: ZINC SULFATE 220 MG CAPSULE PO SCH (08:29)
[2017-02-03] MEDS: LINEZOLID 600 MG TABLET GT SCH ×2 (08:29→21:39)
[2017-02-03] MEDS: PROSOURCE / PROSTAT (PYXIS) 30 ML UDC GT SCH (08:30)
[2017-02-03] MEDS: CADEXOMER IODINE 40 GM TUBE TP SCH (08:31)
[2017-02-03] MEDS: DAKINS QUARTER STRENGTH (0.125%) 480 ML BOTTLE TOP SCH (08:31)
[2017-02-03] MEDS: INSULIN DETEMIR 100 UNIT/ML CARTRIDGE SQ SCH ×2 (08:32→21:00)
[2017-02-03] MEDS: ACETAMINOPHEN 325 MG TABLET PO PRN ×2 (09:33→17:34)
[2017-02-03] MEDS: DIGOXIN 0.25 MG TABLET PO SCH (12:56)
--- NOTE | 2017-02-03 13:46 | NUR ---
RN NOTE 1 UNIT OF BLOOD TRANSFUSED DURING PATIENT HD TODAY 1 LITER OF FLUID REMOVED DURING HD. PATIENT STABLE VITAL SIGNS ASSESSED B/P 96/35 HR 93 TEMP 98.0 , INDUSTRIAL HIRE SALES ASSISTANT JOLLY CONTACTED IN REGARD TO THE PATIENT FORMS THE FAMILY IS REQUESTING TO BE COMPLETE IN THE PATIENTS CHART RN AWAIT RETURN PHONE CALL
--- NOTE | 2017-02-03 14:30 | NUR ---
RN NOTE RN SPOKE WITH JASKARAN AZEVEDO NP NOTIFIED ABOUT THE PATIENT FAMILY REQUEST FOR THE PATIENTS FORMS TO BE COMPLETED. ADAPTIVE PHYSICAL EDUCATION SPECIALIST ACKNOWLEDGED THAT THE PATIENT FORMS BROUGHT IN BY THE FAMILY WOULD BE COMPLETED UPON HIS RETURN TO THE UNIT . RN WILL CONTINUE TO FOLLOW.
--- NOTE | 2017-02-03 16:23 | NUR ---
RN NOTE JASKARAN PADILLA NOTIFIED AGAIN ABOUT THE PATIENT PERSONAL FORM IN THE CHART . JASKARAN AZEVEDO VERBALIZED THAT HE IS UNABLE TO COMPLETE THE FORMS TODAY HE WILL COMPLETE THEM TOMORROW RN NOTIFIED CELL ASSEMBLY PINNER THAT FAMILY STATES THAT THE FORMS ARE NEED TODAY. JASKARAN AZEVEDO ACKNOWLEDGED UNDERSTANDING HOWEVER DIDN'T COMPLETE THE FORMS. CHARGE NURSE SOON NOTIFIED
--- NOTE | 2017-02-03 16:38 | NUR ---
RN NOTE NURSE MANAGER COMPANY DINA NOTIFIED ABOUT THE PATIENTS FAMILY REQUEST FOR THE PERSONAL FORMS TO BE COMPLETED . MANAGER COMPANY STATES SHE WILL CONTACT THE QUALITY ASSISTANT IN REGARDS FOR THE NEED FOR THE FORMS TO BE COMPLETED TODAY. RN WILL CONTINUE TO FOLLOW
[2017-02-03] MEDS: INSULIN REGULAR, HUMAN 100 UNIT/ML 3 ML VIAL SQ PRN (17:45)
--- NOTE | 2017-02-03 18:35 | NUR ---
PEARL DIGGER CLOSING NOTE PT REMAINED STABLE DURING SHIFT. FEVERS NOTED THROUGHOUT THE DAY COOLING BLANKET IN PLACE AND TYLENOL GIVEN . NO SOB NOTED. VENT SETTINGS WELL TOLERATED. REPOSITIONED Q2H. ISOLATION PRECAUTIONS OBSERVED. WOUND TREATMENT PERFORMED PER MD ORDERS. GTUBE FEEDING WELL TOLERATED WITHOUT RESIDUALS NOTED AT THIS TIME. IV SITE AND HD FEM CATH INTACT HD COMPLETED 1 LITER REMOVED . 1 UNIT OF RBC TRANSFUSED TOLERATED WELL . ALL NEEDS ATTENDED TO PROMPTLY. KEPT CLEAN AND DRY. WILL ENDORSE TO PM SHIFT FOR CONTINUATION OF CARE
--- NOTE | 2017-02-03 19:35 | NUR ---
SETTER JUICE PACKAGING MACHINES INITIAL NOTE RECEIVED PT IN BED. OBTUNDED WITH OPEN EYES. ON MECH VENT WITH SETTINGS WELL TOLERATED. ISOLATION PRECAUTIONS OBSERVED. TELE- SINUS RHYTHM 83. L FEMORAL HD CATH IN PLACE AND CLEAN. IV RAC #20 CLEAN, DRY AND FLUSHING WELL. GTUBE FEEDING WELL TOLERATED WITH NO RESIDUALS NOTED AND FLUSHING WELL. WILL CONTINUE TO MONITOR.
--- NOTE | 2017-02-03 19:43 | NUR ---
PT [facility]VD[facility] WITH NOTED SETTINGS. VENT ALARM WORKING AND AUDIBLE, VENT PLUGGED INTO RED OUTLET. TRACH SECURE IN AND IN PROPER POSITION, CUFF CHECKED EDUCATION TRAINER. SXN MODERATE AMOUNT OF YELLOW THICK SECRETIONS. BILATERAL BS NOTED. NO RESPIRATORY DISTRESS NOTED AT THIS TIME. AMBU BAG AT [facility], WILL CONTINUE TO MONITOR.
[2017-02-03] MEDS: COLISTIMETHATE SODIUM 100 MG in IV NS 0.9% 50 ML IV SCH (21:01)
[2017-02-03] MEDS: ATORVASTATIN 40 MG TABLET GT SCH (21:39)
[2017-02-04] VITALS (7 sets, daily range): BP systolic 80–114; BP diastolic 46–67
[2017-02-04 01:13] LABS: IMMUNOGLOBULIN A, SERUM 274 mg/dL (90-386); IMMUNOGLOBULIN G, SERUM 2084 mg/dL (700-1600); IMMUNOGLOBULIN M, SERUM 55 mg/dL (20-172)
[2017-02-04] MEDS: RENAL NOVASOURCE 1,000 ML BOTTLE GT PRN (05:16)
[2017-02-04] MEDS: BLOOD SUGAR DIAGNOSTIC 1 EACH STRIP IN SCH ×3 (05:16→17:36)
[2017-02-04] MEDS: METRONIDAZOLE 500 MG TABLET PO SCH ×3 (05:16→21:00)
[2017-02-04] MEDS: FERROUS SULFATE UDC 300 MG/5 ML UDC GT SCH ×3 (05:16→21:00)
[2017-02-04] MEDS: ACETAMINOPHEN 325 MG TABLET PO PRN ×2 (05:32→13:10)
[2017-02-04 06:41] LABS: BASOPHILS % (AUTO) 0.2 % (0.0-2.0); EOSINOPHILS # (AUTO) 0.2 /CMM (0.0-0.7); EOSINOPHILS % (AUTO) 2.5 % (0.0-6.0); HEMATOCRIT 24 % (39-51); HEMOGLOBIN 8.4 g/dL (13.5-17.5); LYMPHOCYTES # (AUTO) 0.9 /CMM (0.8-4.8); LYMPHOCYTES % (AUTO) 9.8 % (20.0-44.0); MEAN CORPUSCULAR HEMOGLOBIN 32 PG (26.0-33.0); MEAN CORPUSCULAR HGB CONC 35 g/dl (31.0-36.0); MEAN CORPUSCULAR VOLUME 90 fL (80-96); NEUTROPHILS # (AUTO) 7.4 /CMM (1.8-8.9); NEUTROPHILS % (AUTO) 77.5 % (43.0-81.0); PLATELET COUNT (AUTO) 308 /CMM (150-450); RED BLOOD CELL COUNT(AUTO) 2.65 MIL/uL (4.5-6.0); WHITE BLOOD COUNT (AUTO) 9.5 K/uL (4.3-11.0)
--- NOTE | 2017-02-04 06:51 | NUR ---
GRINDING WHEEL INSPECTOR CLOSING NOTE NO ACUTE DISTRESS NOTED. PT KEPT UNDER COOLING BLANKET ALL SHIFT TO MAINTAIN STABLE TEMPERATURE. RECTAL TEMPERATURE AT THIS TIME IS 99.1 DEGREES FAHRENHEIT. ALL NEEDS ATTENDED TO PROMPTLY. ISOLATION PRECAUTIONS OBSERVED. KEPT CLEAN AND DRY. REPOSITIONED Q2H. WILL ENDORSE TO NEXT SHIFT FOR IVONNE.
[2017-02-04 06:53] LABS: CALCIUM, SERUM 8.7 mg/dL (8.5-10.1); CREATININE 2.8 mg/dL (0.6-1.3); POTASSIUM 3.9 mmol/L (3.5-5.1)
--- NOTE | 2017-02-04 08:00 | NUR ---
CAPTAIN ASSISTANT INITIAL NOTE RECEIVED PT IN BED. OBTUNDED WITH OPEN EYES. ON MECH VENT WITH SETTINGS WELL TOLERATED. ISOLATION PRECAUTIONS OBSERVED. TELE- SINUS RHYTHM 101. L FEMORAL HD CATH IN PLACE AND CLEAN. IV RAC #20 CLEAN, DRY AND FLUSHING WELL. GTUBE FEEDING WELL TOLERATED WITH NO RESIDUALS NOTED AND FLUSHING WELL. WILL CONTINUE TO MONITOR.
[2017-02-04] MEDS: SEVELAMER CARBONATE 0.8 GM POWD.PACK PO SCH ×3 (08:57→17:35)
[2017-02-04] MEDS: LACTOBACILLUS RHAMNOSUS GG 1 EACH CAP.SPRINK GT SCH ×2 (08:57→17:35)
[2017-02-04] MEDS: VIT B CMPLX 3/FA/VIT C/BIOTIN 1 TAB TABLET PO SCH (08:58)
[2017-02-04] MEDS: ZINC SULFATE 220 MG CAPSULE PO SCH (08:58)
[2017-02-04] MEDS: AMIODARONE HCL 200 MG TABLET GT SCH (08:58)
[2017-02-04] MEDS: LINEZOLID 600 MG TABLET GT SCH ×2 (08:58→21:00)
[2017-02-04] MEDS: MIDODRINE HCL (5MG) 5 MG TABLET PO SCH ×3 (08:58→17:36)
[2017-02-04] MEDS: PROSOURCE / PROSTAT (PYXIS) 30 ML UDC GT SCH (08:59)
[2017-02-04] MEDS: CADEXOMER IODINE 40 GM TUBE TP SCH (09:00)
[2017-02-04] MEDS: INSULIN DETEMIR 100 UNIT/ML CARTRIDGE SQ SCH ×2 (09:00→21:00)
[2017-02-04] MEDS: DAKINS QUARTER STRENGTH (0.125%) 480 ML BOTTLE TOP SCH (09:03)
[2017-02-04] MEDS: HYDROCODONE/APAP 5/325MG 1 EACH TABLET PO PRN ×3 (09:27→18:51)
[2017-02-04] MEDS: PANTOPRAZOLE 40 MG TABLET.DR PO SCH (09:27)
--- NOTE | 2017-02-04 16:03 | NUR ---
RN NOTE RN HAS SPOKEN WITH THE PATIENT FAMILY AND ALSO THE NURSE CHECKER [employer] KAILA IN REGARDS TO THE FORMS IN THE PATIENTS CHART. CHECKER [employer] KAIL[employer] STATES THAT SHE HAS CONTACTED CASE MANAGEMENT TO SCHEDULE MEETING WITH MIDDLE SCHOOL COACH VALERIE AND AUTOMOBILE PARTS ASSEMBLER VANESA IN REGARDS TO COMPLETING THE PATIENTS FORMS FOR SOCIAL SECURITY . CHARGE NURSE SOON UPDATED AND NOTIFIED ABOUT THE PATIENTS FAMILY CONCERN AND WISHES ROD FILLER ALSO SPOKE WITH THE PATIENTS SISTER IN REGARDS TO THE PATIENTS FORMS. SISTER EXPRESSED THE NEED FOR THE FORMS ALSO STATED THAT THE PATIENT HAS BEEN HOSPITALIZED X 6MONTHS IN 3 DIFFERENT FACILITIES AND HAS NOT SEEN A PCP SINCE RN WILL ENDORSE CARE TO PM NURSE
--- NOTE | 2017-02-04 18:21 | NUR ---
SAND CONTROL WORKER CLOSING NOTE PT REMAINED STABLE DURING SHIFT. FEVERS NOTED THROUGHOUT THE DAY COOLING BLANKET IN PLACE AND TYLENOL GIVEN . FACIAL GRIMACING NOTED THROUGHOUT THE DAY WELL - NORCO GIVEN NO SOB NOTED. VENT SETTINGS WELL TOLERATED. REPOSITIONED Q2H. ISOLATION PRECAUTIONS OBSERVED. WOUND TREATMENT HELD DUE TO PATIENT INCREASE TEMP AND RESP AND PAIN PER MD ORDERS. GTUBE FEEDING WELL TOLERATED WITHOUT RESIDUALS NOTED AT THIS TIME. IV SITE AND HD FEM CATH INTACT . ALL NEEDS ATTENDED TO PROMPTLY. KEPT CLEAN AND DRY. WILL ENDORSE TO PM SHIFT FOR CONTINUATION OF CARE
--- NOTE | 2017-02-04 19:30 | NUR ---
CROZE CUTTER HELPER INITIAL NOTE RECEIVED PT IN BED. VENT SETTINGS TOLERATED. ISOLATION PRECAUTIONS OBSERVED. IV INTACT, CLEAN, FLUSHING WELL. GTUBE IN PLACE, FLUSHING WELL AND NO RESIDUALS NOTED AT THIS TIME. ALL SAFETY MEASURES IN PLACE. COOLING BLANKET IN PLACE WITH RECTAL THERMOMETER IN PLACE AND TEMP AT 98.7 AT THIS TIME. WILL CONTINUE TO MONITOR.
[2017-02-04] MEDS: FLUCONAZOLE (100 MG) 100 MG TABLET PO SCH (20:47)
[2017-02-04] MEDS: COLISTIMETHATE SODIUM 100 MG in IV NS 0.9% 50 ML IV SCH (20:47)
[2017-02-04] MEDS: ATORVASTATIN 40 MG TABLET GT SCH (21:00)
[2017-02-05] VITALS: BP_SYST 108; BP_DIAS 57; BP_DIAS 60
[2017-02-05] MEDS: BLOOD SUGAR DIAGNOSTIC 1 EACH STRIP IN SCH ×5 (00:23→23:38)
[2017-02-05] MEDS: HYDROCODONE/APAP 5/325MG 1 EACH TABLET PO PRN ×3 (00:25→16:19)
[2017-02-05 04:00] VITALS: BP 112/70
[2017-02-05] MEDS: METRONIDAZOLE 500 MG TABLET PO SCH ×3 (05:11→21:00)
[2017-02-05] MEDS: FERROUS SULFATE UDC 300 MG/5 ML UDC GT SCH ×3 (05:11→21:00)
--- NOTE | 2017-02-05 06:52 | NUR ---
PROGRAM SERVICES ASSISTANT CLOSING NOTE NO ACUTE DISTRESS NOTED. PT KEPT UNDER COOLING BLANKET ALL SHIFT TO MAINTAIN STABLE TEMPERATURE. RECTAL TEMPERATURE AT THIS TIME IS 97.0 DEGREES FAHRENHEIT. WOUND TREATMENT DONE. ALL NEEDS ATTENDED TO PROMPTLY. ISOLATION PRECAUTIONS OBSERVED. KEPT CLEAN AND DRY. REPOSITIONED Q2H. WILL ENDORSE TO NEXT SHIFT FOR IVONNE
--- NOTE | 2017-02-05 07:20 | NUR ---
RN INITIAL NOTES: REC'D PT ON BED, NOT IN ANY DISTRESS, OBTUNDED. PT ON MV VIA TRACH, SATURATING AT 100%. SECRETIONS SUCTIONED. ON TELEMONITOR, SR. HAS R AC G20, SL, FLUSHED, PATENT & INTACT W/ NO S/SX OF INFECTION/ INFILTRATION NOTED. HAS L FEMORAL HD CATH IN PLACE & INTACT. ON CONT TUBE FEEDING NOVASOURCE X 40 CC/HR INFUSING WELL. PROVIDED COMFORT & SAFETY MEASURES. BED KEPT LOW & IN LOCKED POS. ISOLATION PREC OBSERVED. CALL LIGHT PLACED W/IN REACH. WILL CONTINUE TO MONITOR.
[2017-02-05 07:36] LABS: CALCIUM, SERUM 8.9 mg/dL (8.5-10.1); CREATININE 3.3 mg/dL (0.6-1.3); MAGNESIUM 1.9 mg/dL (1.8-2.4); PHOSPHORUS 3.4 mg/dL (2.5-4.9); POTASSIUM 3.5 mmol/L (3.5-5.1)
[2017-02-05 07:52] LABS: BASOPHILS % (AUTO) 0.1 % (0.0-2.0); EOSINOPHILS # (AUTO) 0.2 /CMM (0.0-0.7); EOSINOPHILS % (AUTO) 2.5 % (0.0-6.0); HEMATOCRIT 22 % (39-51); HEMOGLOBIN 7.6 g/dL (13.5-17.5); LYMPHOCYTES # (AUTO) 0.8 /CMM (0.8-4.8); LYMPHOCYTES % (AUTO) 9.9 % (20.0-44.0); MEAN CORPUSCULAR HEMOGLOBIN 31 PG (26.0-33.0); MEAN CORPUSCULAR HGB CONC 34 g/dl (31.0-36.0); MEAN CORPUSCULAR VOLUME 90 fL (80-96); MONOCYTES # (AUTO) 0.8 /CMM (0.1-1.30); MONOCYTES % (AUTO) 10.3 % (2.0-12.0); NEUTROPHILS # (AUTO) 6.3 /CMM (1.8-8.9); NEUTROPHILS % (AUTO) 77.2 % (43.0-81.0); PLATELET COUNT (AUTO) 274 /CMM (150-450); RDW COEFFICIENT OF VARIATION 16.4 (11.5-15.0); RED BLOOD CELL COUNT(AUTO) 2.46 MIL/uL (4.5-6.0); WHITE BLOOD COUNT (AUTO) 8.2 K/uL (4.3-11.0)
[2017-02-05 08:00] VITALS: BP 85/58
[2017-02-05] MEDS: ZINC SULFATE 220 MG CAPSULE PO SCH (08:13)
[2017-02-05] MEDS: SEVELAMER CARBONATE 0.8 GM POWD.PACK PO SCH ×3 (08:13→16:19)
[2017-02-05] MEDS: VIT B CMPLX 3/FA/VIT C/BIOTIN 1 TAB TABLET PO SCH (08:13)
[2017-02-05] MEDS: LINEZOLID 600 MG TABLET GT SCH ×2 (08:13→21:00)
[2017-02-05] MEDS: LACTOBACILLUS RHAMNOSUS GG 1 EACH CAP.SPRINK GT SCH ×2 (08:13→16:20)
[2017-02-05] MEDS: PANTOPRAZOLE 40 MG TABLET.DR PO SCH (08:14)
[2017-02-05] MEDS: AMIODARONE HCL 200 MG TABLET GT SCH (08:14)
[2017-02-05] MEDS: PROSOURCE / PROSTAT (PYXIS) 30 ML UDC GT SCH (08:14)
[2017-02-05] MEDS: MIDODRINE HCL (5MG) 5 MG TABLET PO SCH ×3 (08:14→16:20)
[2017-02-05] MEDS: INSULIN DETEMIR 100 UNIT/ML CARTRIDGE SQ SCH ×2 (08:16→21:00)
[2017-02-05] MEDS: DAKINS QUARTER STRENGTH (0.125%) 480 ML BOTTLE TOP SCH (08:17)
[2017-02-05] MEDS: Z GUARD REMEDY 2 OZ OINT TP PRN (08:17)
[2017-02-05] MEDS: CADEXOMER IODINE 40 GM TUBE TP SCH (08:18)
--- NOTE | 2017-02-05 08:30 | NUR ---
RN NOTES: NOTED 60 CC RESIDUAL ON PEG UPON CHECKING, HOLD TUBE FEEDING FOR NOW. HD ONGOING C/O FABIO. BP CLOSELY MONITOR.
[2017-02-05 09:48] LABS: EOSINOPHILS % (MANUAL) 5 % (0-4); LYMPHOCYTES % (MANUAL) 7 % (16-48); MONOCYTES % (MANUAL) 5 % (0-11.0); NEUTROPHILS % (MANUAL) 83 (42-76)
--- NOTE | 2017-02-05 10:08 | NUR ---
RN NOTES: DR. FARNSWORTH MADE AWARE OF H/H 7.12/19.
--- NOTE | 2017-02-05 11:02 | NUR ---
RN NOTES: HD ENDED, 1L OUTPUT. PT TOLERATED WELL.
--- NOTE | 2017-02-05 11:41 | NUR ---
RN NOTES: PER DR. COVARRUBIAS, NO NEED FOR BT AT THIS TIME (H/H 7.6 ). PT WAS ORDERED EPOGEN. Addendum: 02/05/17 at 1142 by ZAIRA CORREA RN ADDENDUM: PT S/E BY DR. COVARRUBIAS.
[2017-02-05 12:00] VITALS: BP 129/74
[2017-02-05] MEDS ORDERED: EPOETIN ALFA (10,000 UNIT) 10,000 UNIT/ML VIAL IV SCH (12:00)
[2017-02-05] MEDS: AMIKACIN 350 MG in IV D5W 100 ML IV PRN (12:16)
[2017-02-05] MEDS: INSULIN REGULAR, HUMAN 100 UNIT/ML 3 ML VIAL SQ PRN ×3 (12:20→23:39)
[2017-02-05 16:00] VITALS: BP 125/71
--- NOTE | 2017-02-05 19:00 | NUR ---
RN CLOSING NOTES: NO ACUTE CHANGES NOTED W/IN SHIFT. PT TOLERATED MV SETTING VIA TRACH, SATURATING AT 100%. SECRETIONS SUCTIONED. ON TELEMONITOR, STILL SR. R AC G20, SL, KEPT PATENT & INTACT W/ NO S/SX OF INFECTION/ INFILTRATION NOTED. L FEMORAL HD CATH KEPT IN PLACE & INTACT, DRESSING CHANGED BY HD RN. ON CONT TUBE FEEDING NOVASOURCE X 40 CC/HR INFUSING WELL VIA PEG. KEPT WELL RESTED. BED KEPT LOW & IN LOCKED POS. ISOLATION PREC OBSERVED. CALL LIGHT PLACED W/IN REACH. WILL ENDORSE TO PM RN FOR IVONNE.
--- NOTE | 2017-02-05 19:10 | NUR ---
RN OPENING NOTES REPORT RECEIVED FROM ZAIRA GRANGER. PATIENT OBTUNDED, UNABLE TO MAKE NEEDS KNOWN. RESPONDS INTERMITTENTLY TO TACTILE STIMULI. NO RESPIRATORY DISTRESS NOTED. TRACH INTACT W/ VENT SETTINGS AC 16, TV 600, FIO2 40%, PEEP 5. ON TELE SINUS TACHY W/ BBB IN THE 100S. G-TUBE INTACT AND PATENT. TOLERATING GTF NOVASOURCE @ 40 ML/HR. NO RESIDUAL NOTED. RIGHT AC IV SITE #20 CDI SALINE LOCK. LEFT FEMORAL HD CATH INTACT W/ DRESSING. NO S/S OF PAIN OR DISCOMFORT. SAFETY MEASURES IN PLACE. SIDE RAILS UP, BED LOCKED AND IN LOWEST POSITION. WILL CONTINUE TO MONITOR.
[2017-02-05] MEDS: COLISTIMETHATE SODIUM 100 MG in IV NS 0.9% 50 ML IV SCH (19:52)
[2017-02-05] MEDS: FLUCONAZOLE (100 MG) 100 MG TABLET PO SCH (19:53)
[2017-02-05 20:00] VITALS: BP 103/63
[2017-02-05] MEDS: ATORVASTATIN 40 MG TABLET GT SCH (21:00)
[2017-02-06] VITALS: BP 115/64
[2017-02-06 04:00] VITALS: BP 117/67
[2017-02-06] MEDS: METRONIDAZOLE 500 MG TABLET PO SCH ×3 (04:07→21:16)
[2017-02-06] MEDS: FERROUS SULFATE UDC 300 MG/5 ML UDC GT SCH ×3 (04:08→21:16)
[2017-02-06] MEDS: HYDROCODONE/APAP 5/325MG 1 EACH TABLET PO PRN ×3 (04:08→20:46)
[2017-02-06] MEDS: BLOOD SUGAR DIAGNOSTIC 1 EACH STRIP IN SCH ×4 (05:45→23:34)
[2017-02-06] MEDS: INSULIN REGULAR, HUMAN 100 UNIT/ML 3 ML VIAL SQ PRN (05:46)
[2017-02-06] MEDS: RENAL NOVASOURCE 1,000 ML BOTTLE GT PRN (05:48)
--- NOTE | 2017-02-06 07:16 | NUR ---
RN CLOSING NOTES PATIENT DOZING INTERMITTENTLY IN BED. NO RESPIRATORY DISTRESS NOTED THROUGHOUT SHIFT. REMAINED SINUS TACHY ON TELE. TOLERATED GTF NOVASOURCE @40 ML/HR WELL. NO RESIDUALS NOTED. NO SIGNIFICANT CHANGES OVERNIGHT. WILL ENDORSE IVNONE TO AM NURSE.
[2017-02-06] MEDS: PANTOPRAZOLE 40 MG TABLET.DR PO SCH (07:30)
[2017-02-06 08:00] VITALS: BP 92/51
[2017-02-06] MEDS: LINEZOLID 600 MG TABLET GT SCH ×2 (09:04→21:16)
[2017-02-06] MEDS: ZINC SULFATE 220 MG CAPSULE PO SCH (09:04)
[2017-02-06] MEDS: LACTOBACILLUS RHAMNOSUS GG 1 EACH CAP.SPRINK GT SCH ×2 (09:04→17:04)
[2017-02-06] MEDS: SEVELAMER CARBONATE 0.8 GM POWD.PACK PO SCH ×3 (09:04→17:03)
[2017-02-06] MEDS: VIT B CMPLX 3/FA/VIT C/BIOTIN 1 TAB TABLET PO SCH (09:04)
[2017-02-06] MEDS: MIDODRINE HCL (5MG) 5 MG TABLET PO SCH ×3 (09:05→17:04)
[2017-02-06] MEDS: AMIODARONE HCL 200 MG TABLET GT SCH (09:05)
[2017-02-06] MEDS: CADEXOMER IODINE 40 GM TUBE TP SCH (09:14)
[2017-02-06] MEDS: INSULIN DETEMIR 100 UNIT/ML CARTRIDGE SQ SCH ×2 (09:14→21:20)
[2017-02-06] MEDS: DAKINS QUARTER STRENGTH (0.125%) 480 ML BOTTLE TOP SCH (09:14)
[2017-02-06] MEDS: PROSOURCE / PROSTAT (PYXIS) 30 ML UDC GT SCH ×2 (09:17→17:04)
[2017-02-06 12:00] VITALS: BP 96/45
[2017-02-06] MEDS: ACETAMINOPHEN 325 MG TABLET PO PRN (12:14)
[2017-02-06] MEDS: DIGOXIN 0.25 MG TABLET PO SCH (12:18)
[2017-02-06 16:00] VITALS: BP 103/66
--- NOTE | 2017-02-06 19:30 | NUR ---
SENIOR ORACLE DBA INITIAL NOTES RECEIVED PATIENT OBTUNDED, NON-VERBAL, VENT DEPENDENT. NO S/S OF PAIN OR DISCOMFORT. NO RESPIRATORY DISTRESS NOTED, WITH VENT SETTINGS AC 16, TV 600, FIO2 40%, PEEP 5, TRACH C/D/I. ON TELE MONITOR SR. SKIN WARM AND DRY TO TOUCH. WITH GT PATENT, INTACT, IN PLACE, MINIMAL RESIDUAL NOTED. HOB ELEVATED. SIDE RAILS UP AND LOCKED. BED KEPT AT LOWEST POSITION. ISOLATION PRECAUTIONS OBSERVED. WILL CONTINUE TO MONITOR.
[2017-02-06 20:00] VITALS: BP 123/59
[2017-02-06 20:24] LABS: APPEARANCE,URINE SL CLOUDY (CLEAR); BILIRUBIN,URINE NEGATIVE (NEGATIVE); BLOOD, URINE TRACE Ery/uL (NEGATIVE); KETONES,URINE NEGATIVE (NEGATIVE); LEUKOCYTE ESTERASE ,URINE NEGATIVE (NEGATIVE); NITRITE, URINE POSITIVE (NEGATIVE); PH,URINE 6.5 (5.0-8.0); PROTEIN,URINE 2+ mg/dl (NEGATIVE); UGLUCOSE NEGATIVE (NEGATIVE); UROBILINOGEN,URINE 0.2 EU/dL (0.2)
[2017-02-06 20:26] LABS: COLOR,URINE DARK YELLOW (YELLOW)
[2017-02-06 20:33] LABS: BACTERIA,URINE Moderate /HPF (None Seen); RBC,URINE 0-2 /HPF (0-2); SQUAMOUS EPITHELIAL CELL,UR Rare /HPF (None Seen)
[2017-02-06] MEDS: FLUCONAZOLE (100 MG) 100 MG TABLET PO SCH (20:46)
[2017-02-06] MEDS: COLISTIMETHATE SODIUM 100 MG in IV NS 0.9% 50 ML IV SCH (20:46)
[2017-02-06] MEDS: ATORVASTATIN 40 MG TABLET GT SCH (21:16)
[2017-02-07] VITALS: BP 101/59
[2017-02-07] MEDS ORDERED: DAKINS QUARTER STRENGTH (0.125%) 480 ML BOTTLE ONE (03:09)
[2017-02-07 04:00] VITALS: BP 125/96
[2017-02-07] MEDS: METRONIDAZOLE 500 MG TABLET PO SCH ×3 (05:46→20:53)
[2017-02-07] MEDS: FERROUS SULFATE UDC 300 MG/5 ML UDC GT SCH ×3 (05:46→20:53)
[2017-02-07] MEDS: BLOOD SUGAR DIAGNOSTIC 1 EACH STRIP IN SCH ×4 (05:46→23:09)
[2017-02-07 06:36] LABS: BASOPHILS % (AUTO) 0.5 % (0.0-2.0); HEMATOCRIT 21 % (39-51); HEMOGLOBIN 7.1 g/dL (13.5-17.5); LYMPHOCYTES # (AUTO) 1.2 /CMM (0.8-4.8); LYMPHOCYTES % (AUTO) 13.8 % (20.0-44.0); MEAN CORPUSCULAR HEMOGLOBIN 31 PG (26.0-33.0); MEAN CORPUSCULAR HGB CONC 34 g/dl (31.0-36.0); MEAN CORPUSCULAR VOLUME 91 fL (80-96); MONOCYTES # (AUTO) 0.9 /CMM (0.1-1.30); MONOCYTES % (AUTO) 9.7 % (2.0-12.0); NEUTROPHILS # (AUTO) 6.7 /CMM (1.8-8.9); PLATELET COUNT (AUTO) 320 /CMM (150-450); RDW COEFFICIENT OF VARIATION 16.8 (11.5-15.0); RED BLOOD CELL COUNT(AUTO) 2.32 MIL/uL (4.5-6.0); WHITE BLOOD COUNT (AUTO) 8.9 K/uL (4.3-11.0)
--- NOTE | 2017-02-07 07:00 | NUR ---
IMPORT/EXPORT ADMINISTRATOR CLOSING NOTES NO SIGNIFICANT CHANGES OVERNIGHT. AFEBRILE. NO RESPIRATORY DISTRESS NOTED. TOLERATED VENT SETTINGS. TOLERATED GTF. GT PATENT, INTACT, IN PLACE. ALL NEEDS ANTICIPATED AND MET. SKIN WARM AND DRY TO TOUCH. WITH COOLING BLANKET IN PLACE, ON MONITOR. SR ON TELE MONITOR. WOUND CARE DONE ORDERED. TRACH CARE DONE. HOB ELEVATED. ISOLATION PRECAUTIONS OBSERVED. SIDE RAILS UP AND LOCKED. BED KEPT AT LOWEST POSITION. CONTINUITY OF CARE ENDORSED TO AM NURSE.
[2017-02-07 07:03] LABS: CALCIUM, SERUM 9.4 mg/dL (8.5-10.1); CREATININE 3.4 mg/dL (0.6-1.3); MAGNESIUM 2.1 mg/dL (1.8-2.4); PHOSPHORUS 3.7 mg/dL (2.5-4.9); POTASSIUM 3.7 mmol/L (3.5-5.1)
--- NOTE | 2017-02-07 07:10 | NUR ---
RN INITIAL NOTE PATIENT RECEIVED IN BED. PATIENT IS OBTUNDED. PATIENT HAS TRACH SHILEY #8, VENT SETTINGS: AC-16, TV-600, FI02-40%, PEEP-5. SATING WELL. NO S/S OF RESPIRATORY DISTRESS OR SOB. PATIENT IS SINUS RHYTHM ON TELE MONITOR. GTUBE FLUSHED, PLACEMENT CONFIRMED. NOVASOURCE RUNNING AT 40ML/HR. TOLERATING FEEDING WELL. IV SITE FLUSHED, PATENT. SKIN IS WARM AND DRY TO TOUCH SCHEDULED FOR HD TODAY. SAFETY PRECAUTIONS IMPLEMENTED. BED IN LOCKED, LOW POSITION WITH TWO SIDE RAILS UP. WILL CONTINUE TO MONITOR CLOSELY.
[2017-02-07 08:00] VITALS: BP 84/47
[2017-02-07] MEDS: LINEZOLID 600 MG TABLET GT SCH ×2 (08:35→20:53)
[2017-02-07] MEDS: SEVELAMER CARBONATE 0.8 GM POWD.PACK PO SCH ×3 (08:35→16:30)
[2017-02-07] MEDS: ZINC SULFATE 220 MG CAPSULE PO SCH (08:35)
[2017-02-07] MEDS: LACTOBACILLUS RHAMNOSUS GG 1 EACH CAP.SPRINK GT SCH ×2 (08:35→16:30)
[2017-02-07] MEDS: VIT B CMPLX 3/FA/VIT C/BIOTIN 1 TAB TABLET PO SCH (08:35)
[2017-02-07] MEDS: PROSOURCE / PROSTAT (PYXIS) 30 ML UDC GT SCH ×2 (08:35→16:30)
[2017-02-07] MEDS: PANTOPRAZOLE 40 MG TABLET.DR PO SCH (08:36)
[2017-02-07] MEDS: MIDODRINE HCL (5MG) 5 MG TABLET PO SCH ×3 (08:37→16:31)
[2017-02-07] MEDS: INSULIN DETEMIR 100 UNIT/ML CARTRIDGE SQ SCH ×2 (08:38→21:00)
[2017-02-07] MEDS: AMIODARONE HCL 200 MG TABLET GT SCH (08:38)
[2017-02-07] MEDS: DAKINS QUARTER STRENGTH (0.125%) 480 ML BOTTLE TOP SCH (08:38)
[2017-02-07] MEDS: CADEXOMER IODINE 40 GM TUBE TP SCH (08:38)
[2017-02-07] MEDS: ALBUMIN 25% 25 GM in PREMIX 1 EA IV PRN (09:28)
[2017-02-07 12:00] VITALS: BP 72/32
--- NOTE | 2017-02-07 12:03 | NUR ---
INFECTION CONTROL NOTE: isolation d/c, Blood cultures came negative x2.
[2017-02-07] MEDS: ACETAMINOPHEN 325 MG TABLET PO PRN (13:17)
[2017-02-07] MEDS: RENAL NOVASOURCE 1,000 ML BOTTLE GT PRN (13:25)
[2017-02-07] MEDS: AMIKACIN 350 MG in IV D5W 100 ML IV PRN (13:56)
[2017-02-07 16:00] VITALS: BP 107/61
--- NOTE | 2017-02-07 19:06 | NUR ---
RN CLOSING NOTE ALL MD ORDERS CARRIED OUT,. PATIENT KEPT CLEAN AND DRY. SAFETY PRECAUTIONS IN PLACE AT ALL TIMES/. ISOLATION PRECAUTIONS OBSERVED ALWAYS. REPORT WILL BE GIVEN TO PM RN FOR IVONNE.
[2017-02-07 20:00] VITALS: BP 110/77
[2017-02-07] MEDS: COLISTIMETHATE SODIUM 100 MG in IV NS 0.9% 50 ML IV SCH (20:52)
[2017-02-07] MEDS: FLUCONAZOLE (100 MG) 100 MG TABLET PO SCH (20:53)
[2017-02-07] MEDS: ATORVASTATIN 40 MG TABLET GT SCH (21:18)
--- NOTE | 2017-02-07 21:19 | NUR ---
2200 PM LEVEMIR 15 UNITS NOT GIVEN BLOOD SUGAR 84, PT STABLE.
[2017-02-08] VITALS: BP 118/70
[2017-02-08 04:00] VITALS: BP 122/64
[2017-02-08] MEDS: FERROUS SULFATE UDC 300 MG/5 ML UDC GT SCH ×2 (04:28→12:28)
[2017-02-08] MEDS: METRONIDAZOLE 500 MG TABLET PO SCH ×2 (04:28→12:30)
[2017-02-08] MEDS: BLOOD SUGAR DIAGNOSTIC 1 EACH STRIP IN SCH ×2 (05:06→12:30)
--- NOTE | 2017-02-08 06:56 | NUR ---
RN CLOSING NOTE ENDORSED PATIENT IN BED. PATIENT IS OBTUNDED. PATIENT HAS TRACH SHILEY #8, VENT SETTINGS: AC-16, TV-600, FI02-40%, PEEP-5. SATING WELL. NO S/S OF RESPIRATORY DISTRESS OR SOB. PATIENT IS SINUS RHYTHM ON TELE MONITOR. GTUBE FLUSHED, PLACEMENT CONFIRMED. NOVASOURCE RUNNING AT 40ML/HR. TOLERATING FEEDING WELL. IV SITE FLUSHED, PATENT. SKIN IS WARM AND DRY TO TOUCH SCHEDULED FOR HD TODAY. SAFETY PRECAUTIONS IMPLEMENTED. BED IN LOCKED, LOW POSITION WITH TWO SIDE RAILS UP. WILL CONTINUE TO MONITOR CLOSELY.
[2017-02-08 07:36] LABS: BASOPHILS % (AUTO) 0.4 % (0.0-2.0); HEMATOCRIT 22 % (39-51); HEMOGLOBIN 7.4 g/dL (13.5-17.5); LYMPHOCYTES # (AUTO) 1.1 /CMM (0.8-4.8); LYMPHOCYTES % (AUTO) 17.4 % (20.0-44.0); MEAN CORPUSCULAR HEMOGLOBIN 31 PG (26.0-33.0); MEAN CORPUSCULAR HGB CONC 34 g/dl (31.0-36.0); MEAN CORPUSCULAR VOLUME 91 fL (80-96); MONOCYTES # (AUTO) 0.6 /CMM (0.1-1.30); MONOCYTES % (AUTO) 9.9 % (2.0-12.0); NEUTROPHILS # (AUTO) 4.4 /CMM (1.8-8.9); NEUTROPHILS % (AUTO) 72.3 % (43.0-81.0); PLATELET COUNT (AUTO) 288 /CMM (150-450); WHITE BLOOD COUNT (AUTO) 6.1 K/uL (4.3-11.0)
[2017-02-08 07:44] LABS: CALCIUM, SERUM 9.3 mg/dL (8.5-10.1); CREATININE 2.9 mg/dL (0.6-1.3); PHOSPHORUS 3.2 mg/dL (2.5-4.9); POTASSIUM 3.8 mmol/L (3.5-5.1)
[2017-02-08 08:00] VITALS: BP_SYST 89; BP_SYST 99; BP_DIAS 51; BP_DIAS 53
--- NOTE | 2017-02-08 09:00 | NUR ---
RN NOTES: PT SEEN & EXAMINED BY DR. COVARRUBIAS W/ DC ORDERS.
[2017-02-08] MEDS: SEVELAMER CARBONATE 0.8 GM POWD.PACK PO SCH ×2 (09:12→12:30)
[2017-02-08] MEDS: VIT B CMPLX 3/FA/VIT C/BIOTIN 1 TAB TABLET PO SCH (09:12)
[2017-02-08] MEDS: LACTOBACILLUS RHAMNOSUS GG 1 EACH CAP.SPRINK GT SCH (09:12)
[2017-02-08] MEDS: ZINC SULFATE 220 MG CAPSULE PO SCH (09:12)
[2017-02-08] MEDS: AMIODARONE HCL 200 MG TABLET GT SCH (09:13)
[2017-02-08] MEDS: LINEZOLID 600 MG TABLET GT SCH (09:13)
[2017-02-08] MEDS: PROSOURCE / PROSTAT (PYXIS) 30 ML UDC GT SCH (09:13)
[2017-02-08] MEDS: PANTOPRAZOLE 40 MG TABLET.DR PO SCH (09:13)
[2017-02-08] MEDS: Z GUARD REMEDY 2 OZ OINT TP PRN (09:14)
[2017-02-08] MEDS: CADEXOMER IODINE 40 GM TUBE TP SCH (09:15)
[2017-02-08] MEDS: DAKINS QUARTER STRENGTH (0.125%) 480 ML BOTTLE TOP SCH (09:15)
[2017-02-08] MEDS: INSULIN DETEMIR 100 UNIT/ML CARTRIDGE SQ SCH (09:16)
[2017-02-08] MEDS: MIDODRINE HCL (5MG) 5 MG TABLET PO SCH ×2 (09:18→12:30)
[2017-02-08] MEDS ORDERED: Digoxin PO (09:33)
[2017-02-08] MEDS ORDERED: COLI150V IJ (09:33)
[2017-02-08] MEDS ORDERED: FLUC100T8 PO (09:33)
[2017-02-08] MEDS ORDERED: AMIK250V14 IJ (09:33)
[2017-02-08] MEDS ORDERED: METR500T PO (09:33)
[2017-02-08] MEDS ORDERED: HYDR-3326 PO (09:33)
[2017-02-08] MEDS ORDERED: CADE40GE2 TP (09:33)
--- NOTE | 2017-02-08 10:30 | NUR ---
RN NOTES: GAVE TELEPHONE REPORT TO BÁRBARA MCGRAW FROM [facility]. GEE BRYAN MADE AWARE OF DC.
[2017-02-08 12:00] VITALS: BP 104/60
[2017-02-08 12:30] VITALS: BP 104/60
[2017-02-08] MEDS: INSULIN REGULAR, HUMAN 100 UNIT/ML 3 ML VIAL SQ PRN (12:39)
[2017-02-08] MEDS: DEXTROSE 50%-WATER 50 ML DISP.SYRIN IV PRN (12:39)
[2017-02-08] MEDS: HYDROCODONE/APAP 5/325MG 1 EACH TABLET PO PRN (15:00)
--- NOTE | 2017-02-08 15:15 | NUR ---
HORTICULTURAL FARMER NOTES: PT DC'D TO [facility] ORDERED. DC INSTRUCTIONS AND DOCUMENTS GIVEN TO PATIENT ASSISTANT. TRACH AND PEG KEPT PATENT & INTACT. R AC G20 AND L FEMORAL EMIR HD CATH KEPT IN PLACE. IV LINE ACCESS, FLUSHED, PATENT & INTACT W/ NO S/SX OF INFECTION/ INFILTRATION. WOUND PICTURES TAKEN. WOUND CARE DONE. TELEMONITOR REMOVED. ID BAND REMOVED. MOTHER AT BEDSIDE. PAIN MEDICATION GIVEN PRIOR TO LEAVING. PT LEFT FACILITY IN STABLE CONDITION VIA GURNEY ACCOMPANIED BY PATIENT ASSISTANT AND RT. INFORMED PT'S MOTHER THAT REQUESTED DOCUMENTS THAT NEED TO BE SIGN BY THE MD WAS ENDORSED TO RESIDENTIAL DRIVER VANESA PER CN.
== END 2017-02-08 14:35 | DRG 951 ==
LOC: ER 11:44 → TELE1 13:41 → TELE-TD 18:12 → TELE1 20:03
PROC: 5A1955Z Respiratory Ventilation, Greater than 96 Consecutive Hours (ICD-10-PCS; principal; 2017-01-09)
PROC: 5A1D60Z (ICD-10-PCS; 2017-01-10)
PROC: 0KBN0ZZ Excision of Right Hip Muscle, Open Approach (ICD-10-PCS; 2017-01-10)
PROC: 0KBP0ZZ Excision of Left Hip Muscle, Open Approach (ICD-10-PCS; 2017-01-10)
PROC: 06HN33Z Insertion of Infusion Device into Left Femoral Vein, Percutaneous Approach (ICD-10-PCS; 2017-01-11)
PROC: 0QB10ZZ Excision of Sacrum, Open Approach (ICD-10-PCS; 2017-01-20)
PROC: 06HN33Z Insertion of Infusion Device into Left Femoral Vein, Percutaneous Approach (ICD-10-PCS; 2017-01-29)
DX: T82.41XA Breakdown (mechanical) of vascular dialysis catheter, initial encounter (principal); A41.89 Other specified sepsis; R65.21 Severe sepsis with septic shock; E43 Unspecified severe protein-calorie malnutrition; G93.40 Encephalopathy, unspecified; J15.0 Pneumonia due to Klebsiella pneumoniae; G93.1 Anoxic brain damage, not elsewhere classified; L89.154 Pressure ulcer of sacral region, stage 4; Z99.11 Dependence on respirator [ventilator] status; J96.10 Chronic respiratory failure, unspecified whether with hypoxia or hypercapnia; R53.2 Functional quadriplegia; N18.6 End stage renal disease; I12.0 Hypertensive chronic kidney disease with stage 5 chronic kidney disease or end stage renal disease; D68.59 Other primary thrombophilia; Z99.2 Dependence on renal dialysis; Z93.1 Gastrostomy status; B96.1 Klebsiella pneumoniae [K. pneumoniae] as the cause of diseases classified elsewhere; E11.22 Type 2 diabetes mellitus with diabetic chronic kidney disease; E11.52 Type 2 diabetes mellitus with diabetic peripheral angiopathy with gangrene; E11.59 Type 2 diabetes mellitus with other circulatory complications; E11.649 Type 2 diabetes mellitus with hypoglycemia without coma; F09 Unspecified mental disorder due to known physiological condition; E87.1 Hypo-osmolality and hyponatremia; I25.10 Atherosclerotic heart disease of native coronary artery without angina pectoris; Z51.5 Encounter for palliative care; I25.2 Old myocardial infarction; J47.0 Bronchiectasis with acute lower respiratory infection; J98.11 Atelectasis; R32 Unspecified urinary incontinence; Z87.440 Personal history of urinary (tract) infections; R13.10 Dysphagia, unspecified; Z79.4 Long term (current) use of insulin; Z74.01 Bed confinement status; Z86.73 Personal history of transient ischemic attack (TIA), and cerebral infarction without residual deficits; Z79.899 Other long term (current) drug therapy
CPT/HCPCS: 31720; 36415; 71010-TC; 71260-TC; 72193-TC; 74160-TC; 80048-TC; 80076-TC; 80150; 80162-TC; 81000-TC; 82272-TC; 82784; 82962-TC; 83735-TC; 84100-TC; 84484-TC; 85025-TC; 85730-TC; 86850-TC; 86921-TC; 87040-TC; 87070-TC; 87081-TC; 87086-TC; 87186-TC; 90935-TC; 94002-TC; 94003-TC; 94760-TC; 94761-TC; 94762-TC; 99082-TC; A4216; A4217; A4349; A4606; A4623; A6253; A6402; A6403; A7526; C1750; J0278; J0770; J0885; J1815; J2020; J2185; J2405; J2543; J3490; J7030; J7040; J7050; J7060; P9016-BL; P9047; Q9967; Z7610